=== PATIENT | female | born 1970 | race Caucasian/White ===

== ENCOUNTER 2020-09-04 12:14 | Outpatient (REF) | payer OTHER, SELFPAY ==
--- NOTE | 2020-09-04 12:20 | XR_ITS ---
EXAMINATION: XR LUMBOSACRAL SPINE CLINICAL INFORMATION: Lumbar spine COMPARISON: June 22, 2016 TECHNIQUE: 3 views of the lumbar spine. FINDINGS: There are 5 nonrib-bearing lumbar vertebra. No acute fracture, spondylolisthesis, or spondylolysis is appreciated. There is significant degenerative disc disease seen at the L2-L3 level with loss of disc space and marginal sclerosis and spurring anteriorly. Patient is status post L5-S1 fusion with metallic hardware in place. No significant sacroiliac joint abnormality identified. XR/XR lumbar spine 2-3V IMPRESSION: Stable appearance of the lumbar spine compared to study of June 22, 2016. Degenerative change L2-L3 level. Status post previous fusion L5-S1. No acute fracture, spondylolisthesis, or spondylolysis.
== END 2020-09-04 12:15 | disposition home or self-care (01) ==
LOC: HO.HMGCX 12:14
PROVIDERS: PCP Nurse Practitioner Family; Visit Provider Nurse Practitioner Family
DX: M54.16 Radiculopathy, lumbar region (principal); R20.0 Anesthesia of skin
CPT/HCPCS: 72100

== ENCOUNTER 2020-09-12 12:44 | Outpatient (REF) | payer OTHER, SELFPAY ==
--- NOTE | 2020-09-12 13:30 | MR_ITS ---
EXAMINATION: MR LUMBAR SPINE WITHOUT CONTRAST CLINICAL INFORMATION: Lower back pain. Numbness in the right lower extremity. Right foot numbness. COMPARISON: Lumbar spine radiographs from 09/04/2020. Right hip MRI from 11/02/2019. TECHNIQUE: MRI of the lumbar spine was obtained using routine sequences without contrast. FINDINGS: Interbody fusion of L5-S1. Moderate left convex curvature of the lumbar spine. Right lateral translation of L2 on L3. Moderate to advanced degenerative disc disease at L2-L3. Moderate degenerative disc disease at T11-T12 and L4-L5. Associated mixed Modic type discogenic endplate changes including minimal Modic type I discogenic edema at L2-L3. No additional suspicious marrow edema. The vertebral body heights are largely maintained. The Conus medullaris terminates at the level of L1-L2. The distal spinal cord is normal in appearance. Postoperative soft tissue changes of the back from L3-S1. Otherwise, no significant abnormalities of the paraspinal musculature. Moderate ectasia of the bilateral renal pelvises and proximal ureters. Left-sided T2 hyperintense renal cysts, measuring up to 1.6 cm. Otherwise, limited evaluation of the intra-abdominal structures without significant abnormalities. The abdominal aorta is of normal contour and caliber. AXIAL SPINAL LEVELS: T11-T12: This level was not included on axial imaging. Mild diffuse disc bulge. No overt spinal canal or neural foraminal stenosis. T12-L1: Shallow diffuse disc bulge. There is moderate bilateral facet joint arthropathy. There is no neural foraminal stenosis. There is no spinal canal stenosis. L1-L2: Shallow diffuse disc bulge. There is moderate bilateral facet joint arthropathy. There is no neural foraminal stenosis. There is mild narrowing of the left subarticular zone with no overt spinal canal stenosis centrally. L2-L3: Moderate diffuse disc bulge. There is moderate right and mild left facet joint arthropathy. There is mild to moderate bilateral neural foraminal stenosis. There is stenosis of the right subarticular zone with no overt spinal canal stenosis centrally. L3-L4: Mild diffuse disc bulge. There is moderate bilateral facet joint arthropathy. There is mild to moderate bilateral neural foraminal stenosis. There is narrowing of the bilateral subarticular zones with no overt spinal canal stenosis centrally. L4-L5: Mild diffuse disc bulge. There is moderate to advanced bilateral facet joint arthropathy. Bilateral facet joint effusions. There is moderate bilateral neural foraminal stenosis. There is narrowing/stenosis of the bilateral subarticular zones with mild spinal canal stenosis centrally. L5-S1: Interbody fusion at this level. There is a well-circumscribed ovoid lesion centered in the right lateral canal with mixed T1 and T2 signal, measuring 2.3 x 1.7 x 4.6 cm. There is moderate bilateral facet joint arthropathy. There is moderate to advanced right and mild left neural foraminal stenosis. There is moderate to advanced spinal canal stenosis. MR/MR lumbar spine wo con IMPRESSION: Interbody fusion of L5-S1. There is a large well-circumscribed lesion centered in the right lateral canal at L5-S1, measuring 2.3 x 1.7 x 4.6 cm. This lesion is of indeterminate etiology but does not appear to have been present on exam from 11/02/2019. Given the short interval appearance of this lesion, a hemorrhagic synovial cyst is a leading consideration. However, contrast enhanced evaluation may be warranted to exclude a solid neoplastic process. Moderate multilevel degenerative spondyloarthropathy of the lumbar spine as described in detail above. The aforementioned lesion at L5-S1 causes moderate to severe spinal canal and right-sided neural foraminal stenosis at this level. There is also mild spinal canal stenosis at L4-L5. Additional stenoses of the subarticular zones and mild to moderate neural foraminal narrowings from L2-L5.
== END 2020-09-12 12:45 | disposition home or self-care (01) ==
LOC: HO.MRI 12:44
PROVIDERS: Visit Provider Nurse Practitioner Family
DX: M54.16 Radiculopathy, lumbar region (principal); R20.0 Anesthesia of skin
CPT/HCPCS: 72148

== ENCOUNTER → 2020-09-15 12:54 | Outpatient (BNVA) | payer OTHER, SELFPAY | PROVIDERS: PCP Nurse Practitioner Family; Visit Provider Anesthesiology | DX: M96.1 Postlaminectomy syndrome, not elsewhere classified (principal); M54.16 Radiculopathy, lumbar region; R20.0 Anesthesia of skin | CPT/HCPCS: 99202 ==

== ENCOUNTER 2020-09-19 15:50 | Outpatient (REF) | payer OTHER, SELFPAY ==
--- NOTE | 2020-09-19 15:56 | MR_ITS ---
EXAMINATION: MR LUMBAR SPINE WITHOUT AND WITH CONTRAST CLINICAL INFORMATION: Severe right-sided sciatica. COMPARISON: Recent MRI dated 09/12/2020. TECHNIQUE: Multiplanar, multisequence imaging was obtained. Intravenous contrast: Gadavist 7 mL. FINDINGS: At the L5-S1 level, the large suspected complex cystic lesion within the right lateral recess of L5 extends along the right lateral aspect of the central canal compressing the right L5 and right S1 nerve roots, relatively unchanged in morphology. The thecal sac is deviated to the left side and is moderate to severely distorted. Signal characteristics within the more dependent portion of the lesion have slightly changed and are more hyperintense on T1 and T2-weighted imaging, previously heterogeneously hypointense on the T2-weighted acquisition. On the postcontrast T1-weighted sequence, there is no clear discernible enhancement, though assessment remains limited, given the fact that the lesion is intrinsically heterogeneously hyperintense on noncontrast T1-weighted imaging. Postsurgical changes, status post previous anterior lumbar interbody fusion at L5-S1 again evident. There is additional abnormal enhancement of some right-sided cauda equina nerve roots in the thecal sac. Multilevel spondylosis remains stable with a degenerative spinal curvature. No paraspinal soft tissue abnormality is seen. Small left renal cysts again noted. MR/MR lumbar spine wo con IMPRESSION: No obvious soft tissue enhancement of the suspected complex cystic lesion in the right aspect of the central canal resulting in compression of the thecal sac and right L5 and S1 nerve roots. As mentioned on previous imaging, findings are suspicious for a large hemorrhagic synovial cyst. Presumed reactive and inflammatory ascending radiculitis of right-sided sacral nerve roots in the thecal sac due to mass effect at the L5-S1 level. Imaging findings discussed with ALEJA Jensen at 6:35 PM on 09/19/2020.
[2020-09-19 16:25] LABS: Blood Urea Nitrogen 30 mg/dL (9-16); Estimated Glomerular Filt Rate > 60
== END 2020-09-19 15:51 | disposition home or self-care (01) ==
LOC: HO.MRI 15:50
PROVIDERS: Visit Provider Physician Assistant
DX: R20.0 Anesthesia of skin (principal); M62.81 Muscle weakness (generalized); M54.16 Radiculopathy, lumbar region; D49.2 Neoplasm of unspecified behavior of bone, soft tissue, and skin; M54.41 Lumbago with sciatica, right side; Z98.1 Arthrodesis status
CPT/HCPCS: 36415; 72148; 82565; 84520; A9585

== ENCOUNTER 2021-02-24 14:34 | Outpatient (REF) | payer MEDICARE, MEDICAID, SELFPAY ==
--- NOTE | ~2021-02-24 | MM_ITS ---
EXAMINATION: MM SCREENING DIGITAL BREAST TOMOSYNTHESIS, BILATERAL CLINICAL INFORMATION: Screening. Asymptomatic. The lifetime risk of breast cancer based on the Tyrer-Cuzick Model is 7.7%. COMPARISON: Mammography: None TECHNIQUE: Digital breast tomosynthesis is performed in both the craniocaudal and mediolateral oblique views along with computer-aided detection (CAD). Synthesized 2D images are generated from the tomosynthesis. FINDINGS: There are scattered areas of fibroglandular density (ACR BI-RADS breast composition Category b). There are no significant masses, abnormal calcifications, or other abnormalities. MM/MM tomosynthesis screening BI IMPRESSION: No specific mammographic evidence to suggest malignancy. ASSESSMENT: BI-RADS 1: Negative RECOMMENDATION: Routine annual mammography screening. This patient's information was entered into a reminder system with a target due date for their next mammogram.
== END 2021-02-24 14:35 | disposition home or self-care (01) ==
LOC: HO.MAMMO 14:34
PROVIDERS: PCP Nurse Practitioner Family; Visit Provider Nurse Practitioner Family
DX: Z12.31 Encounter for screening mammogram for malignant neoplasm of breast (principal)
CPT/HCPCS: 77063; 77067

== ENCOUNTER 2021-11-23 15:47 | Outpatient (REF) | payer MEDICARE, MEDICAID, SELFPAY ==
--- NOTE | 2021-11-23 | PFT_ITS ---
INDICATION: Pleurodynia. SPIROMETRY: FEV1 to FVC 82% with an FEV1 of 3.08 L, which is 100% predicted, and FVC of 3.74 L, which is 96% predicted. Maximum voluntary ventilation 115% predicted post bronchodilators. No significant response noted. LUNG VOLUMES: Total lung capacity 96% predicted. DIFFUSION CAPACITY: DLCO 61% predicted. COMPARISONS: None. INTERPRETATION: No obstructive nor restrictive ventilatory defects identified. No significant response to bronchodilators noted. Normal maximum voluntary ventilation. Lung volumes are within normal limits. However, the patient does have an isolated mild diffusion impairment. This should be corrected for hemoglobin. Otherwise, consider pulmonary vascular conditions or occult interstitial lung conditions. Clinical correlation warranted. Severino Silver MD MR/MODL / [id number]
== END 2021-11-23 15:48 | disposition home or self-care (01) ==
LOC: HO.RESP 15:47
PROVIDERS: PCP Nurse Practitioner Family; Visit Provider Nurse Practitioner Family
DX: R07.81 Pleurodynia (principal)
CPT/HCPCS: 94060; 94727; 94729

== ENCOUNTER 2021-12-03 14:27 | Outpatient (REF) | payer MEDICARE, MEDICAID, SELFPAY ==
--- NOTE | ~2021-12-03 | XR_ITS ---
EXAMINATION: XR CHEST CLINICAL INFORMATION: Wheezing. COMPARISON: None TECHNIQUE: 2 views of the chest were obtained. FINDINGS: The lungs are well-expanded and clear. The heart size and pulmonary vascularity is normal. There is mild spondylosis dorsal spine. No lytic process seen. XR/XR chest 2V IMPRESSION: Unremarkable chest examination.
== END 2021-12-03 14:28 | disposition home or self-care (01) ==
LOC: HO.HMGCX 14:27
PROVIDERS: PCP Nurse Practitioner Family; Visit Provider Nurse Practitioner Family
DX: R07.81 Pleurodynia (principal); R06.2 Wheezing
CPT/HCPCS: 71046

== ENCOUNTER → 2021-12-14 10:58 | Outpatient (BNVA) | payer MEDICARE, MEDICAID, SELFPAY | PROVIDERS: PCP Nurse Practitioner Family; Visit Provider Internal Medicine Pulmonary Disease | DX: R07.81 Pleurodynia (principal); R94.2 Abnormal results of pulmonary function studies | CPT/HCPCS: 99202 ==

== ENCOUNTER 2021-12-21 14:06 | Outpatient (REF) | payer MEDICARE, MEDICAID, SELFPAY ==
--- NOTE | ~2021-12-21 | CT_ITS ---
EXAMINATION: CT CHEST WITHOUT CONTRAST CLINICAL INFORMATION: Fluoroscopy knee COMPARISON: Previous chest x-ray from November 2021. Lumbar spine MRI August 2020 TECHNIQUE: Multidetector volumetric CT imaging of the chest was done. Axial MIP volume rendering provided. Sagittal and coronal reformatted images were obtained. This CT examination was performed using dose optimization techniques as appropriate, variously including the following: *Automated exposure control *Adjustment of mA and/or kV according to patient size (this includes techniques or standardized protocols for targeted exams where dose is matched to indication/reason for exam; i.e. extremities or head) *Use of iterative reconstruction technique DLP: 146 mGy-cm FINDINGS: WASTE PICKER: Unremarkable LUNGS: There is an 8 mm cyst in the right upper lobe. There is minimal linear scarring or subsegmental atelectasis in the bilateral lower lobes. The lungs are otherwise clear. MEDIASTINUM: The thoracic aorta is tortuous. There is mild coronary artery. The mediastinum is otherwise normal. PLEURA: There is no pleural effusion. No pleural mass or thickening. AXILLA: No lymphadenopathy. No chest wall mass. UPPER ABDOMEN: There is fullness of the left renal pelvis. There may be a 1.8 cm cyst in the upper pole of the left kidney. These findings are similar to previous lumbar spine MRI 2020. OSSEOUS STRUCTURES: There are mild degenerative changes of the thoracic spine and curvature of the lower thoracic and upper lumbar spine to the right. There are postsurgical changes to the cervical spine. No rib fracture or bone lesion is seen. CT/CT chest wo con IMPRESSION: 8 mm cyst in the right upper lobe. Mild scarring or subsegmental atelectasis at the lung bases. Fleischner guidelines were followed.
== END 2021-12-21 14:07 | disposition home or self-care (01) ==
LOC: HO.CT 14:06
PROVIDERS: PCP Nurse Practitioner Family; Visit Provider Internal Medicine Pulmonary Disease
DX: R07.81 Pleurodynia (principal)
CPT/HCPCS: 71250

== ENCOUNTER → 2022-01-04 11:26 | Outpatient (BNVA) | payer MEDICARE, MEDICAID, SELFPAY | PROVIDERS: PCP Nurse Practitioner Family; Visit Provider Internal Medicine Pulmonary Disease | DX: R07.81 Pleurodynia (principal); R94.2 Abnormal results of pulmonary function studies | CPT/HCPCS: 99212 ==

== ENCOUNTER 2022-09-17 08:22 | Outpatient (REF) | payer MEDICARE, MEDICAID, SELFPAY ==
[2022-09-17 11:16] LABS: MANUAL DIFF FLAG NO
[2022-09-17 11:23] LABS: Basophils Absolute Auto 0.1 X10*3/uL (0.0-0.2); Basophils Percent Auto 0.9 % (0-2); Eosinophils Absolute Auto 0.8 X10*3/uL (0.0-0.4); Eosinophils Percent Auto 11.4 % (0-4); Hematocrit 24.7 % (37.0-47.0); Imm Gran Abs Auto 0.01 X10*3/uL (0.00-0.03); Imm Gran Pct Auto 0.2 % (0.0-0.4); Lymphocytes Absolute Auto 0.8 X10*3/uL (1.2-4.9); Lymphocytes Percent Auto 12.3 % (20-40); Mean Corpuscular HGB Conc 28.3 g/dl (31.0-35.0); Mean Corpuscular Hemoglobin 19.8 pg (27.0-33.0); Mean Platelet Volume 9.1 fL (9.4-12.3); Monocytes Absolute Auto 0.6 X10*3/uL (0.1-1.2); Monocytes Percent Auto 8.6 % (2-11); Neutrophils Absolute Auto 4.4 x10*3/uL (2.0-8.3); Neutrophils Percent Auto 66.6 % (45-73); Platelet Count 585 X10*3/uL (160-400); Red Blood Count 3.53 X10*6/uL (4.20-5.50); White Blood Count 6.6 X10*3/uL (4.8-10.8)
[2022-09-17 11:39] LABS: Appearance Urine Clear; Color Urine Yellow; Glucose Urine UA Negative (Negative); Leukocyte Esterase Urine Small (1+) (Negative); Nitrite Urine Negative (Negative); Specific Gravity - Urine 1.015 (1.005-1.025); UMIC TRIGGER UACC YES; Urine Blood Negative (Negative); Urine Ketones Negative (Negative); Urine Protein Negative (Neg-Trace)
[2022-09-17 11:46] LABS: Bacteria Urine 4+ (None Seen); Hyaline Casts Urine 0-2 /LPF (0-2); RBC Urine 0-2 /HPF (0-2); Squamous Epithelial Cell Urine 0-2 /HPF (0-2); UACC Culture Trigger YES; WBC Urine 21-50 /HPF (0-5)
[2022-09-17 11:57] LABS: Alanine Aminotransferase 14 U/L (0-31); Albumin Level 3.7 g/dL (3.5-5.0); Alkaline Phosphatase 47 U/L (39-117); Anion Gap 11 (12-20); Aspartate Amino Transferase 18 U/L (5-31); Bilirubin Total 0.3 mg/dL (0.0-1.0); Blood Urea Nitrogen 11 mg/dL (9-16); Calcium 9.5 mg/dL (8.4-10.2); Carbon Dioxide 26 mmol/L (22-29); Chloride 105 mmol/L (96-108); Cholesterol 168 mg/dL; Estimated Glomerular Filt Rate > 60; Glucose Fasting 94 mg/dL (60-99); HDL Cholesterol 54 mg/dL; LDL Cholesterol Calculated 105 mg/dl; Potassium 4.1 mmol/L (3.3-5.1); Sodium 138 mmol/L (135-145); Total Protein 5.8 g/dL (6.5-8.0); Triglycerides 49 mg/dL
[2022-09-17 11:58] LABS: TSH reflex Free T4 0.43 uIU/mL (0.32-4.0)
[2022-09-21 13:47] LABS: Transglutaminase Ab IgG <1.0 U/mL; Transglutaminase IgA <1.0 U/mL
[2022-09-22 10:43] LABS: Endomysial IgA Antibody Negative (Negative)
== END 2022-09-17 08:23 | disposition home or self-care (01) ==
LOC: HO.HMGCLDS 08:22
PROVIDERS: Visit Provider Nurse Practitioner Family
DX: Z13.89 Encounter for screening for other disorder (principal)
CPT/HCPCS: 36415; 80053; 80061; 81001; 84443; 85025; 86231; 86364; 87086; 87088; 87186

== ENCOUNTER 2022-09-17 12:42 | Inpatient (IN) | payer MEDICARE, MEDICAID, SELFPAY ==
[2022-09-17] VITALS (10 sets, daily range): BP systolic 107–126; BP diastolic 67–82; PULSE 62–75; RESP 16–18; TEMP 36.6–37.1; O2SAT 95–98; BMI 27.3
--- NOTE | ~2022-09-17 | CT_ITS ---
EXAMINATION: CT ABDOMEN AND PELVIS WITH CONTRAST CLINICAL INFORMATION: Diarrhea. Abdominal pain. Anemia. COMPARISON: None TECHNIQUE: Multidetector volumetric images were obtained from the superior aspect of the liver through the pubic symphysis following administration 85 mL of Omnipaque 350 intravenous contrast. Sagittal and coronal reformatted images were obtained on the technologist's workstation. Oral contrast: No This CT examination was performed using dose optimization techniques as appropriate, variously including the following: *Automated exposure control *Adjustment of mA and/or kV according to patient size (this includes techniques or standardized protocols for targeted exams where dose is matched to indication/reason for exam; i.e. extremities or head) *Use of iterative reconstruction technique DLP: 594 mGy-cm FINDINGS: LUNG BASES: Bibasilar atelectasis. The visualized cardiac structures are unremarkable. LIVER, GALLBLADDER, AND BILIARY TREE: The liver is normal in size, shape, and attenuation. No focal hepatic lesion. The gallbladder is unremarkable with no evidence of radiopaque gallstones, gallbladder wall thickening, or obvious pericholecystic inflammatory changes. Mild intrahepatic biliary ductal dilatation. The common bile duct is also mildly prominent measuring 0.7 cm. No ductal filling defect seen. PANCREAS: Unremarkable. SPLEEN: Unremarkable. ADRENAL GLANDS: Unremarkable. KIDNEYS AND URETERS: The kidneys are normal in size, shape, and attenuation. No hydronephrosis, hydroureter, or calculi seen. No perinephric stranding. Simple cyst at the upper pole of the left kidney. No specific follow-up recommended. BLADDER: Unremarkable. GASTROINTESTINAL TRACT: The stomach is unremarkable. Normal caliber small bowel. No obstruction. Mild to moderate colonic stool burden. No colonic wall thickening. That said, evaluation of the sigmoid colon is somewhat limited in the pelvis as there is adjacent free fluid. Normal appendix. No free air. ABDOMINAL WALL: No significant hernia is appreciated. LYMPH NODES: Normal. VASCULAR: Normal caliber aorta with mild atherosclerotic calcification. PELVIC VISCERA: Anteverted uterus. No adnexal mass. Small volume of pelvic free fluid. OSSEOUS STRUCTURES: No acute or suspicious osseous abnormality. Mild scoliotic curvature of the spine with mild degenerative changes throughout the spine. Anterior fusion hardware of L5-S1. Mild degenerative changes in the hips. CT/CT abdomen pelvis w IV con IMPRESSION: 1. Small volume of pelvic free fluid. This is of uncertain etiology. 2. Mild to moderate colonic stool burden. 3. Mild intrahepatic and extrahepatic biliary ductal dilatation. No ductal filling defect seen. Fleischner guidelines were followed.
--- NOTE | 2022-09-17 13:09 | ED_ITS ---
HPI - General Adult General Chief complaint: Recheck/Abnormal Lab/Rx <ALEJA Gonzalez - Last Filed: 09/17/22 13:17> Stated complaint: Sent by Dr. Ramesh for blood transfusion <ALEJA Gonzalez - Last Filed: 09/17/22 13:17> Time Seen by Provider: 09/17/22 13:59 <ALEJA Gonzalez - Last Filed: 09/17/22 13:17> Source: patient <Becca Jess Kearney CNP - Last Filed: 09/17/22 18:48> Mode of arrival: ambulatory <Becca Kearney CNP - Last Filed: 09/17/22 18:48> Limitations: no limitations <Becca Kearney CNP - Last Filed: 09/17/22 18:48> History of Present Illness HPI narrative: Patient is a 51-year-old female who presents to the emergency department with referral from her primary care provider for anemia, intermittent lig htheadedness. Patient reports that over the past 6 months she has been experiencing diarrhea, multiple episodes daily. She has been taking large amounts of Pepto-Bismol and Imodium. For the past 6 months her stools have been black, which she attributed to her Pepto-Bismol use. She states that she was recently started on antibiotics by her primary care provider for possible infectious diarrhea. She had blood work obtained earlier today which revealed hemoglobin of 7 and hematocrit 24.7. Denies any family history of colon cancer. States she had a colonoscopy within the past 5 years which was normal. Denies fevers, chills, weight loss, abdominal pain, nausea, vomiting, constipation, sheldon e sweats. Denies any source of obvious bleeding. Denies any use of anticoagulation. <Becca Kearney CNP - Last Filed: 09/17/22 18:48> Related Data Home medications: Home Medications Medication Instructions Recorded Confirmed hydroxyzine HCl 25 mg tablet 25 mg PO BID PRN Anxiety 09/04/20 09/17/22 bupropion HCl 300 mg 24 hr tablet, 300 mg PO DAILY 07/23/21 09/17/22 extended release multivitamin 1 tab PO DAILY 09/17/22 09/17/22 Previous Rx's Medication Instructions Recorded pantoprazole 40 mg tablet,delayed 40 mg PO DAILY #90 tabs 04/01/22 release gabapentin 300 mg capsule 300 mg PO .COMPLEX 30 days #120 06/09/22 caps lisinopril 5 mg tablet 5 mg PO DAILY #30 tabs 06/27/22 loperamide 2 mg capsule 2 mg PO QID PRN loose stool 30 09/14/22 days #120 caps levofloxacin 500 mg tablet 500 mg PO DAILY #5 tabs 09/16/22 ondansetron 8 mg disintegrating 8 mg PO Q12H PRN nausea and 09/16/22 tablet vomiting 10 days #20 tabs <ALEJA Gonzalez - Last Filed: 09/17/22 13:17> Allergies/adverse reactions: Allergies Allergy/AdvReac Type Severity Reaction Status Date / Time metronidazole [From Flagyl] AdvReac Severe Nausea Verified 09/16/22 12:40 <ALEJA Gonzalez - Last Filed: 09/17/22 13:17> Review of Systems Review of Systems: Constitutional : No Weight loss, No Fever, No Chills ENT/Mouth :? No sore throat, No Rhinorrhea Eyes: No Swelling, No Redness Cardiovascular : No Chest Pain, No SOB, No Edema Respiratory : No Cough, No Sputum, No Wheezing Gastrointestinal : No Nausea, no Vomiting, positive Diarrhea, no abdominal pain, No Hematochezia, positive Melena Genitourinary : No Dysuria, No Urinary Frequency, No Hematuria, No Urgency? Musculoskeletal : No joint pain, No Myalgias, No Joint Swelling Skin : No Skin Lesions, No rash Neuro : No Weakness, No Numbness, No Dizziness, No Headache Psych : No Anxiety/Panic, No Depression Heme/Lymph: No Bruising, No Lymphadenopathy Endocrine : No Polyuria, No Polydipsia <Becca Kearney CNP - Last Filed: 09/17/22 18:48> Yes all other systems are reviewed and are negative <Becca Kearney CNP - Last Filed: 09/17/22 18:48> [facility] Past Medical History Attestation statement: The following information was validated with the patient. <Becca Kearney CNP - Last Filed: 09/17/22 18:48> Source: old records reviewed <Becca Kearney CNP - Last Filed: 09/17/22 18:48> Medical History: Medical History Postlaminectomy syndrome PTSD (post-traumatic stress disorder) Synovial cyst of lumbar spine Urine incontinence <ALEJA Gonzalez - Last Filed: 09/17/22 13:17> Surgical History: Surgical History H/O unilateral oophorectomy History of discectomy History of tonsillectomy Hx of spinal fusion <ALEJA Gonzalez - Last Filed: 09/17/22 13:17> Family History Family History: Family History Father No problems noted. Mother Substance use disorder Maternal Grandmother Alzheimer's disease Brother No problems noted. Sister No problems noted. Son No problems noted. <ALEJA Gonzalez - Last Filed: 09/17/22 13:17> Social History Social History: Social History Housing: House Alcohol intake: never Patient Tobacco Use Status: Former Tobacco user Smoked in Last 30 Days: No e-Cigarette/Vaping Use: Currently Using Use of substances other than those prescribed or required for medical reasons: No Advance Directives: No Advance Directives Information Provided: No Patient : No Current occupational status: disabled Cognitive needs: No Hearing needs: No Vision needs: No <ALEJA Gonzalez - Last Filed: 09/17/22 13:17> Physical Exam ED Vital Signs: Vital Signs - 24 hr 09/17/22 12:57 09/17/22 15:40 09/17/22 15:50 Temperature 98.5 F 97.9 F Pulse Rate 75 71 67 Respiratory Rate 18 18 18 Blood Pressure 118/75 108/67 108/67 Pulse Oximetry 98 95 Oxygen Delivery Method Room Air Room Air 09/17/22 15:56 09/17/22 16:32 09/17/22 16:48 Temperature 98.1 F 98.1 F 98.1 F Pulse Rate 65 65 65 Respiratory Rate 18 18 18 Blood Pressure 110/71 126/74 126/74 Pulse Oximetry Oxygen Delivery Method 09/17/22 17:09 09/17/22 17:27 09/17/22 17:27 Temperature 98.3 F 98.4 F 98.4 F Pulse Rate 66 62 62 Respiratory Rate 18 18 18 Blood Pressure 108/73 107/71 107/71 Pulse Oximetry Oxygen Delivery Method BMI result Body Mass Index 27.3 <ALEJA Gonzalez - Last Filed: 09/17/22 13:17> Vital Signs - 24 hr 09/17/22 12:57 09/17/22 15:40 09/17/22 15:50 Temperature 98.5 F 97.9 F Pulse Rate 75 71 67 Respiratory Rate 18 18 18 Blood Pressure 118/75 108/67 108/67 Pulse Oximetry 98 95 Oxygen Delivery Method Room Air Room Air 09/17/22 15:56 09/17/22 16:32 09/17/22 16:48 Temperature 98.1 F 98.1 F 98.1 F Pulse Rate 65 65 65 Respiratory Rate 18 18 18 Blood Pressure 110/71 126/74 126/74 Pulse Oximetry Oxygen Delivery Method 09/17/22 17:09 09/17/22 17:27 09/17/22 17:27 Temperature 98.3 F 98.4 F 98.4 F Pulse Rate 66 62 62 Respiratory Rate 18 18 18 Blood Pressure 108/73 107/71 107/71 Pulse Oximetry Oxygen Delivery Method BMI result Body Mass Index 27.3 <Becca Kearney CNP - Last Filed: 09/17/22 18:48> Appearance: Alert.?Oriented to person, place and time. No acute distress.?Normal affect. Eyes: Pupils equal, round and reactive to light.? ENT: Pharynx normal.?? Neck: Normal inspection.? Neck supple.?? CVS: Heart sounds normal. Normal heart rate and rhythm.? Pulses normal.?? Respiratory: No respiratory distress.? Lung sounds clear to auscultation bilaterally?? Abdomen: Soft and non-tender. Normoactive bowel sounds. Skin: Skin warm and dry.? Skin appears pale Extremities: No lower extremity edema.? Neuro: Moves all extremities spontaneously. Sensation intact bilaterally. Ambulates with normal steady gait. <Becca Kearney CNP - Last Filed: 09/17/22 18:48> Course Course Course Narrative: RME performed by Judy Mak PA-C. Patient is a 51 year old female presenting to the emergency department after being told she has a low HGB. Patient states that she has been having GI issues for months and has been taking a lot of pepto-bismol. <ALEJA Gonzalez - Last Filed: 09/17/22 13:17> Reevaluation(s) Reevaluation #1: CBC consistent with microcytic anemia hemoglobin 6.8 hematocrit 24.2. Occult stool is negative, rectal examination without evidence of hemorrhoid, fissure, no bright red blood per rectum. patient has not had any bowel movements at this time to send stool sample. CT of the abdomen and pelvis reveals small amount of free pelvic fluid, mild to moderate colonic stool burden. At this point no obvious source of gastrointestinal blood loss. Spoke with hospitalist Dr. Jordan for admission to medicine service for further evaluation treatment of anemia unknown etiology requiring transfusion. <Becca Kearney CNP - Last Filed: 09/17/22 18:48> Time: 17:10 <Becca Kearney CNP - Last Filed: 09/17/22 18:48> Medications Administered Discontinued Medications Generic Name Dose Route Start Last Admin Trade Name Freq PRN Reason Stop Dose Admin Iohexol 100 ml 09/17/22 15:03 09/17/22 15:03 Iohexol 350 Mg/Ml 100 Ml Infus..Btl IV 09/17/22 15:04 85 ml ONCE ONE Administration Nicotine Polacrilex 2 mg 09/17/22 14:48 09/17/22 15:07 Nicotine Polacrilex 2 Mg Gum BUCCAL 09/17/22 14:49 2 mg ONCE ONE Administration <ALEJA Gonzalez - Last Filed: 09/17/22 13:17> Medications Administered Discontinued Medications Generic Name Dose Route Start Last Admin Trade Name Freq PRN Reason Stop Dose Admin Iohexol 100 ml 09/17/22 15:03 09/17/22 15:03 Iohexol 350 Mg/Ml 100 Ml Infus..Btl IV 09/17/22 15:04 85 ml ONCE ONE Administration Nicotine Polacrilex 2 mg 09/17/22 14:48 09/17/22 15:07 Nicotine Polacrilex 2 Mg Gum BUCCAL 09/17/22 14:49 2 mg ONCE ONE Administration <Becca Kearney CNP - Last Filed: 09/17/22 18:48> Medical Decision Making Medical Decision Making MDM Narrative: Patient is a 51-year-old female with past medical history of microcytic anemia, PTSD, anxiety presenting to the emergency department for evaluation of anemia and black stools. Has associated lightheadedness. Denies any jaymie bleeding, hematuria, pelvic bleeding. Denies any need for blood transfusion in the past. Reviewed labs obtained from E, microcytic anemia needing transfusion criteria, discussed blood transfusion, reviewed potential complications, adverse reactions, indications/risks. Consent obtained, agreeable to transfusion at this time, ordered 2 units PRBC.. CBC also revealing thrombocytosis. CMP within normal limits. Will obtain occult stool, stools WBC, culture, C diff, and CT of the abdomen and pelvis for further evaluation of acute blood loss due to GI bleed. <Becca Kearney CNP - Last Filed: 09/17/22 18:48> Differential Diagnosis Differential Diagnoses: The differential diagnosis associated with the presentation includes (GI bleed, iron deficiency anemia, microcytic anemia) <Becca Kearney CNP - Last Filed: 09/17/22 18:48> Admission/Observation Consideration of admission/observation: Escalation of care including admission/observation considered <Becca Kearney CNP - Last Filed: 09/17/22 18:48> Consult Healthcare Provider Management of the patient was discussed with: Hospitalist (As noted in course) <Becca Kearney CNP - Last Filed: 09/17/22 18:48> Lab Data MDM Lab Attestation statement: I reviewed the patient's lab results. <Becca Kearney CNP - Last Filed: 09/17/22 18:48> Result Diagrams: 09/17/22 13:38 09/17/22 13:38 <ALEJA Gonzalez - Last Filed: 09/17/22 13:17> Labs: Lab Results 09/17/22 09/17/22 09/17/22 Range/Units 13:38 13:38 13:38 WBC 7.3 (4.8-10.8) X10*3/uL RBC 3.49 L (4.20-5.50) X10*6/uL Hgb 6.8 L* (12.0-16.0) g/dl Hct 24.2 L (37.0-47.0) % MCV 69.3 L (80.0-98.0) fL MCH 19.5 L (27.0-33.0) pg MCHC 28.1 L (31.0-35.0) g/dl RDW 18.6 H (11.0-16.0) % Plt Count 505 H (160-400) X10*3/uL MPV 8.6 L (9.4-12.3) fL Immature Gran % (Auto) 0.3 (0.0-0.4) % Neut % (Auto) 62.0 (45-73) % Lymph % (Auto) 19.7 L (20-40) % Bureau % (Auto) 8.7 (2-11) % Eos % (Auto) 8.5 H (0-4) % Baso % (Auto) 0.8 (0-2) % Lymph # (Auto) 1.4 (1.2-4.9) X10*3/uL Bureau # (Auto) 0.6 (0.1-1.2) X10*3/uL Eos # (Auto) 0.6 H (0.0-0.4) X10*3/uL Baso # (Auto) 0.1 (0.0-0.2) X10*3/uL Abs Immat Gran (auto) 0.02 (0.00-0.03) X10*3/uL Absolute Neuts (auto) 4.5 (2.0-8.3) x10*3/uL Absolute Nucleated RBC 0.000 (0.0-0.012) X10*3/uL Nucleated RBC % (auto) 0.0 (0.0-0.2) /100WBC PT 14.1 H (10.0-13.1) SEC INR 1.2 H (0.9-1.1) APTT 33.3 (26.0-36.4) SEC Sodium 138 (135-145) mmol/L Potassium 4.4 (3.3-5.1) mmol/L Chloride 103 (96-108) mmol/L Carbon Dioxide 25 (22-29) mmol/L Anion Gap 14 (12-20) BUN 11 (9-16) mg/dL Creatinine 0.84 (0.5-1.4) mg/dL Estim Creat Clear Calc 84.9 Estimated GFR > 60 Random Glucose 87 (60-115) mg/dL Calcium 9.5 (8.4-10.2) mg/dL Magnesium 1.8 (1.6-2.6) mg/dL Total Bilirubin 0.3 (0.0-1.0) mg/dL AST 20 (5-31) U/L ALT 13 (0-31) U/L Alkaline Phosphatase 48 (39-117) U/L Total Protein 5.9 L (6.5-8.0) g/dL Albumin 3.8 (3.5-5.0) g/dL Stool Occult Blood (NEGATIVE) Blood Type Antibody Screen Crossmatch 09/17/22 09/17/22 Range/Units 14:43 17:13 WBC (4.8-10.8) X10*3/uL RBC (4.20-5.50) X10*6/uL Hgb (12.0-16.0) g/dl Hct (37.0-47.0) % MCV (80.0-98.0) fL MCH (27.0-33.0) pg MCHC (31.0-35.0) g/dl RDW (11.0-16.0) % Plt Count (160-400) X10*3/uL MPV (9.4-12.3) fL Immature Gran % (Auto) (0.0-0.4) % Neut % (Auto) (45-73) % Lymph % (Auto) (20-40) % Bureau % (Auto) (2-11) % Eos % (Auto) (0-4) % Baso % (Auto) (0-2) % Lymph # (Auto) (1.2-4.9) X10*3/uL Bureau # (Auto) (0.1-1.2) X10*3/uL Eos # (Auto) (0.0-0.4) X10*3/uL Baso # (Auto) (0.0-0.2) X10*3/uL Abs Immat Gran (auto) (0.00-0.03) X10*3/uL Absolute Neuts (auto) (2.0-8.3) x10*3/uL Absolute Nucleated RBC (0.0-0.012) X10*3/uL Nucleated RBC % (auto) (0.0-0.2) /100WBC PT (10.0-13.1) SEC INR (0.9-1.1) APTT (26.0-36.4) SEC Sodium (135-145) mmol/L Potassium (3.3-5.1) mmol/L Chloride (96-108) mmol/L Carbon Dioxide (22-29) mmol/L Anion Gap (12-20) BUN (9-16) mg/dL Creatinine (0.5-1.4) mg/dL Estim Creat Clear Calc Estimated GFR Random Glucose (60-115) mg/dL Calcium (8.4-10.2) mg/dL Magnesium (1.6-2.6) mg/dL Total Bilirubin (0.0-1.0) mg/dL AST (5-31) U/L ALT (0-31) U/L Alkaline Phosphatase (39-117) U/L Total Protein (6.5-8.0) g/dL Albumin (3.5-5.0) g/dL Stool Occult Blood NEGATIVE (NEGATIVE) Blood Type A Positive Antibody Screen NEGATIVE Crossmatch See Detail <ALEJA Gonzalez - Last Filed: 09/17/22 13:17> Lab Results 09/17/22 09/17/22 09/17/22 Range/Units 13:38 13:38 13:38 WBC 7.3 (4.8-10.8) X10*3/uL RBC 3.49 L (4.20-5.50) X10*6/uL Hgb 6.8 L* (12.0-16.0) g/dl Hct 24.2 L (37.0-47.0) % MCV 69.3 L (80.0-98.0) fL MCH 19.5 L (27.0-33.0) pg MCHC 28.1 L (31.0-35.0) g/dl RDW 18.6 H (11.0-16.0) % Plt Count 505 H (160-400) X10*3/uL MPV 8.6 L (9.4-12.3) fL Immature Gran % (Auto) 0.3 (0.0-0.4) % Neut % (Auto) 62.0 (45-73) % Lymph % (Auto) 19.7 L (20-40) % Bureau % (Auto) 8.7 (2-11) % Eos % (Auto) 8.5 H (0-4) % Baso % (Auto) 0.8 (0-2) % Lymph # (Auto) 1.4 (1.2-4.9) X10*3/uL Bureau # (Auto) 0.6 (0.1-1.2) X10*3/uL Eos # (Auto) 0.6 H (0.0-0.4) X10*3/uL Baso # (Auto) 0.1 (0.0-0.2) X10*3/uL Abs Immat Gran (auto) 0.02 (0.00-0.03) X10*3/uL Absolute Neuts (auto) 4.5 (2.0-8.3) x10*3/uL Absolute Nucleated RBC 0.000 (0.0-0.012) X10*3/uL Nucleated RBC % (auto) 0.0 (0.0-0.2) /100WBC PT 14.1 H (10.0-13.1) SEC INR 1.2 H (0.9-1.1) APTT 33.3 (26.0-36.4) SEC Sodium 138 (135-145) mmol/L Potassium 4.4 (3.3-5.1) mmol/L Chloride 103 (96-108) mmol/L Carbon Dioxide 25 (22-29) mmol/L Anion Gap 14 (12-20) BUN 11 (9-16) mg/dL Creatinine 0.84 (0.5-1.4) mg/dL Estim Creat Clear Calc 84.9 Estimated GFR > 60 Random Glucose 87 (60-115) mg/dL Calcium 9.5 (8.4-10.2) mg/dL Magnesium 1.8 (1.6-2.6) mg/dL Total Bilirubin 0.3 (0.0-1.0) mg/dL AST 20 (5-31) U/L ALT 13 (0-31) U/L Alkaline Phosphatase 48 (39-117) U/L Total Protein 5.9 L (6.5-8.0) g/dL Albumin 3.8 (3.5-5.0) g/dL Stool Occult Blood (NEGATIVE) Blood Type Antibody Screen Crossmatch 09/17/22 09/17/22 Range/Units 14:43 17:13 WBC (4.8-10.8) X10*3/uL RBC (4.20-5.50) X10*6/uL Hgb (12.0-16.0) g/dl Hct (37.0-47.0) % MCV (80.0-98.0) fL MCH (27.0-33.0) pg MCHC (31.0-35.0) g/dl RDW (11.0-16.0) % Plt Count (160-400) X10*3/uL MPV (9.4-12.3) fL Immature Gran % (Auto) (0.0-0.4) % Neut % (Auto) (45-73) % Lymph % (Auto) (20-40) % Bureau % (Auto) (2-11) % Eos % (Auto) (0-4) % Baso % (Auto) (0-2) % Lymph # (Auto) (1.2-4.9) X10*3/uL Bureau # (Auto) (0.1-1.2) X10*3/uL Eos # (Auto) (0.0-0.4) X10*3/uL Baso # (Auto) (0.0-0.2) X10*3/uL Abs Immat Gran (auto) (0.00-0.03) X10*3/uL Absolute Neuts (auto) (2.0-8.3) x10*3/uL Absolute Nucleated RBC (0.0-0.012) X10*3/uL Nucleated RBC % (auto) (0.0-0.2) /100WBC PT (10.0-13.1) SEC INR (0.9-1.1) APTT (26.0-36.4) SEC Sodium (135-145) mmol/L Potassium (3.3-5.1) mmol/L Chloride (96-108) mmol/L Carbon Dioxide (22-29) mmol/L Anion Gap (12-20) BUN (9-16) mg/dL Creatinine (0.5-1.4) mg/dL Estim Creat Clear Calc Estimated GFR Random Glucose (60-115) mg/dL Calcium (8.4-10.2) mg/dL Magnesium (1.6-2.6) mg/dL Total Bilirubin (0.0-1.0) mg/dL AST (5-31) U/L ALT (0-31) U/L Alkaline Phosphatase (39-117) U/L Total Protein (6.5-8.0) g/dL Albumin (3.5-5.0) g/dL Stool Occult Blood NEGATIVE (NEGATIVE) Blood Type A Positive Antibody Screen NEGATIVE Crossmatch See Detail <Becca Kearney CNP - Last Filed: 09/17/22 18:48> Radiology Impression Discussion of test interpretation with radiology: I have reviewed the radiologist's reading. <Becca Kearney CNP - Last Filed: 09/17/22 18:48> Radiologist Impression: CT/CT abdomen pelvis w IV con IMPRESSION: 1.? Small volume of pelvic free fluid. This is of uncertain etiology. 2.? Mild to moderate colonic stool burden. 3.? Mild intrahepatic and extrahepatic biliary ductal dilatation. No ductal filling defect seen. ? Fleischner guidelines were followed. <Becca Kearney CNP - Last Filed: 09/17/22 18:48> External Record Review External record reviewed: Outpatient record (Primary care office visit) <Becca Kearney CNP - Last Filed: 09/17/22 18:48> Critical Care Time Critical Care Time Critical Care Time: Yes <Becca Kearney CNP - Last Filed: 09/17/22 18:48> Total Critical Care Time: 35 <Becca Kearney CNP - Last Filed: 09/17/22 18:48> Attestation: I personally attest to this critical care time spent taking care of the patient exclusive of all other billable procedures was approximately 35 minutes including initial evaluation of patient, ordering tests, x-ray interpretation, EKG interpretation, medical consultation, documentation, re-evaluation. <Becca Kearney CNP - Last Filed: 09/17/22 18:48> Discharge Plan Discharge Clinical Impression: Microcytic anemia <ALEJA Gonzalez - Last Filed: 09/17/22 13:17> Patient Disposition: Admitted As Inpatient <ALEJA Gonzalez - Last Filed: 09/17/22 13:17>
[2022-09-17 13:42] LABS: MANUAL DIFF FLAG NO
[2022-09-17 13:43] LABS: Basophils Absolute Auto 0.1 X10*3/uL (0.0-0.2); Basophils Percent Auto 0.8 % (0-2); Eosinophils Absolute Auto 0.6 X10*3/uL (0.0-0.4); Eosinophils Percent Auto 8.5 % (0-4); Hematocrit 24.2 % (37.0-47.0); Imm Gran Abs Auto 0.02 X10*3/uL (0.00-0.03); Imm Gran Pct Auto 0.3 % (0.0-0.4); Lymphocytes Absolute Auto 1.4 X10*3/uL (1.2-4.9); Lymphocytes Percent Auto 19.7 % (20-40); Mean Corpuscular HGB Conc 28.1 g/dl (31.0-35.0); Mean Corpuscular Hemoglobin 19.5 pg (27.0-33.0); Mean Corpuscular Volume 69.3 fL (80.0-98.0); Mean Platelet Volume 8.6 fL (9.4-12.3); Monocytes Absolute Auto 0.6 X10*3/uL (0.1-1.2); Monocytes Percent Auto 8.7 % (2-11); Neutrophils Absolute Auto 4.5 x10*3/uL (2.0-8.3); Platelet Count 505 X10*3/uL (160-400); Red Blood Count 3.49 X10*6/uL (4.20-5.50); Red Cell Distribution Width 18.6 % (11.0-16.0); White Blood Count 7.3 X10*3/uL (4.8-10.8)
[2022-09-17 13:46] LABS: Hemoglobin 6.8 g/dl (12.0-16.0)
[2022-09-17 13:50] LABS: INTERNATIONAL NORM RATIO 1.2 (0.9-1.1); Prothrombin Time 14.1 SEC (10.0-13.1)
[2022-09-17 13:53] LABS: Partial Thromboplastin Time 33.3 SEC (26.0-36.4)
[2022-09-17 14:06] LABS: Alanine Aminotransferase 13 U/L (0-31); Albumin Level 3.8 g/dL (3.5-5.0); Alkaline Phosphatase 48 U/L (39-117); Anion Gap 14 (12-20); Aspartate Amino Transferase 20 U/L (5-31); Bilirubin Total 0.3 mg/dL (0.0-1.0); Blood Urea Nitrogen 11 mg/dL (9-16); Calcium 9.5 mg/dL (8.4-10.2); Carbon Dioxide 25 mmol/L (22-29); Chloride 103 mmol/L (96-108); Creatinine Clr Calc Pharmacy 84.9; Estimated Glomerular Filt Rate > 60; Glucose Random 87 mg/dL (60-115); Magnesium 1.8 mg/dL (1.6-2.6); Potassium 4.4 mmol/L (3.3-5.1); Sodium 138 mmol/L (135-145); Total Protein 5.9 g/dL (6.5-8.0)
--- NOTE | 2022-09-17 14:51 | PC.NURSE ---
blood consent signed with Yogi DE LA CRUZ. Located in chart.
[2022-09-17] MEDS: iohexoL 350 MG/ML 100 ML INFUS..BTL IV (15:03)
[2022-09-17] MEDS: Nicotine Polacrilex 2 MG GUM BUCCAL (15:07)
--- NOTE | 2022-09-17 17:18 | P.HPHOSP_ITS ---
History of Present Illness Date of Service: 09/17/22 Attending physician on admission: Asher Jordan Chief Complaint: Anemia Pt is a 51-year-old female with a PMH significant for IBS-D and ?anxiety who presents to the ED after referral from her PCP after labs showed a low hemoglobin. Pt has been experiencing daily, intractable diarrhea for the past 6+ months. Patient has a long history of IBS diarrhea type, for which she saw GI in December of 2019. She was then prescribed metronidazole and loperimide which provided some relief. On Tuesday of this week patient saw her PCP about her intractable diarrhea and nausea and was again prescribed metronidazole and encouraged to have labs drawn. By the end of Tuesday patient was experiencing headache, dizziness, unsteadiness, fatigue, as well as continued nausea. On she was prescribed Levaquin and had labs drawn, which showed an H&H of 7.0/24.7 and patient was asked by her PCP to come to the emergency room for transfusion. Of note, pt has been taking loperimide and Pepto Bismol regularly for past 3-4 months. She noticed her stools turned black right after starting Pepto Bismol. Denies any obvious source of GI bleeding: no hematemesis or bright red blood per rectum. Patient denies fever, chills, abdominal pain. No chest pain/pressure, palpitations. No shortness of breath. Patient denies urinary symptoms: no dysuria, polyuria. In the ED vitals were stable. Labs were significant for WBC WNL, H&H 7.0/24.7 with a repeat 5 hours later down trending to 6.8/24.2, MCV of 70.0. Stool was negative for occult blood. CT?of abdomen and pelvis showed small volume of pelvic free fluid of uncertain etiology, [id number] colonic stool burden, with mild intrahepatic and extrahepatic biliary ductal dilatation with no ductal filling defect seen. Pt was transfused with 2 units of packed RBC. Pt will be admitted to the hospital to telemetry for treatment and further evaluation of symptomatic anemia. Review of Systems Review of Systems: Diarrhea x1 month Nausea, no vomiting Dizziness, lightheadedness Fatigue Headache No hematemesis Denies bright red blood per rectum No chest pain/pressure, palpitations Denies shortness of breath Yes all other systems are reviewed and are negative PMFSH Medical History Postlaminectomy syndrome PTSD (post-traumatic stress disorder) Synovial cyst of lumbar spine Urine incontinence Family History Father No problems noted. Mother Substance use disorder Maternal Grandmother Alzheimer's disease Brother No problems noted. Sister No problems noted. Son No problems noted. Surgical History H/O unilateral oophorectomy History of discectomy History of tonsillectomy Hx of spinal fusion Social History Housing: House Alcohol intake: never Patient Tobacco Use Status: Former Tobacco user Smoked in Last 30 Days: No e-Cigarette/Vaping Use: Currently Using Use of substances other than those prescribed or required for medical reasons: No Advance Directives: No Advance Directives Information Provided: No Patient : No Current occupational status: disabled Cognitive needs: No Hearing needs: No Vision needs: No Meds Allergies Allergy/AdvReac Type Severity Reaction Status Date / Time metronidazole [From Flagyl] AdvReac Severe Nausea Verified 09/16/22 12:40 Active Medications: Current Medications Pharmacy Consult (Consult Rx Perform Med Rec) 1 each MISCELLANE ONCE PRN PRN Reason: Consult order Pharmacy Consult (Consult Rx Perform Med Rec) 1 each MISCELLANE ONCE PRN PRN Reason: Consult order Home Medications Medication Instructions Recorded Confirmed Last Taken Type hydroxyzine HCl 25 mg tablet 25 mg PO BID PRN Anxiety 09/04/20 09/17/22 Unknown History bupropion HCl 300 mg 24 hr tablet, 300 mg PO DAILY 07/23/21 09/17/22 09/17/22 History extended release multivitamin 1 tab PO DAILY 09/17/22 09/17/22 09/17/22 History Physical Exam Vital Signs and Narrative: Vital Signs: Last Vital Signs Temp 98.3 F 09/17/22 17:09 Pulse 66 09/17/22 17:09 Resp 18 09/17/22 17:09 BP 108/73 09/17/22 17:09 Pulse Ox 95 09/17/22 15:50 O2 Del Method 09/17/22 15:50 BMI result Body Mass Index 27.3 Constitutional: Alert, in no acute distress. Mental Status: Oriented to person, place and time. Eyes: Pupils are equal, round, and reactive to light. Ear, Nose, and Throat: Oropharynx clear, mucous membranes moist. Ears and nose without deformities. Trachea midline. Respiratory: Clear to auscultation bilaterally. No wheezing, rales, or rhonchi. Cardiovascular: S1, S2 regular. No murmurs, rubs, or gallops. Gastrointestinal: Abdomen soft, non-tender, non-distended. Normal bowel sounds. Neurologic: Cranial nerves II-XII are grossly intact. No focal neurological deficits. Moves all extremities spontaneously. Skin: No rashes or lesions noted. Musculoskeletal: No cyanosis or clubbing. Extremities: No edema. Psychiatric: Normal mood and affect. Results Labs 09/17/22 13:38 09/17/22 13:38 Labs: Laboratory Results - last 24 hr 09/17/22 09/17/22 09/17/22 13:38 13:38 13:38 MCV 69.3 L MCH 19.5 L MCHC 28.1 L RDW 18.6 H Plt Count 505 H MPV 8.6 L Immature Gran % (Auto) 0.3 Neut % (Auto) 62.0 Lymph % (Auto) 19.7 L [place] % (Auto) 8.7 Eos % (Auto) 8.5 H Baso % (Auto) 0.8 Lymph # (Auto) 1.4 [place] # (Auto) 0.6 Eos # (Auto) 0.6 H Baso # (Auto) 0.1 Abs Immat Gran (auto) 0.02 Absolute Neuts (auto) 4.5 Absolute Nucleated RBC 0.000 Nucleated RBC % (auto) 0.0 PT 14.1 H INR 1.2 H APTT 33.3 Anion Gap 14 Estim Creat Clear Calc 84.9 Estimated GFR > 60 Random Glucose 87 Calcium 9.5 Magnesium 1.8 Total Bilirubin 0.3 AST 20 ALT 13 Alkaline Phosphatase 48 Total Protein 5.9 L Albumin 3.8 Blood Type Antibody Screen Crossmatch 09/17/22 14:43 MCV MCH MCHC RDW Plt Count MPV Immature Gran % (Auto) Neut % (Auto) Lymph % (Auto) [place] % (Auto) Eos % (Auto) Baso % (Auto) Lymph # (Auto) [place] # (Auto) Eos # (Auto) Baso # (Auto) Abs Immat Gran (auto) Absolute Neuts (auto) Absolute Nucleated RBC Nucleated RBC % (auto) PT INR APTT Anion Gap Estim Creat Clear Calc Estimated GFR Random Glucose Calcium Magnesium Total Bilirubin AST ALT Alkaline Phosphatase Total Protein Albumin Blood Type A Positive Antibody Screen NEGATIVE Crossmatch See Detail Imaging Radiologist's Impressions: Impressions Abdomen/Pelvis CT 09/17/22 15:11 IMPRESSION: 1. Small volume of pelvic free fluid. This is of uncertain etiology. 2. Mild to moderate colonic stool burden. 3. Mild intrahepatic and extrahepatic biliary ductal dilatation. No ductal filling defect seen. Fleischner guidelines were followed. Assessment and Plan (1) Microcytic anemia: Status: Acute (2) Anxiety: Status: Acute Plan Pt is a 51-year-old female with a PMH significant for IBS-D and ?anxiety who presents to the ED after referral from her PCP after labs showed a low hemo globin of 7.0. Pt will be admitted to the hospital to telemetry for treatment and further evaluation of symptomatic anemia. Acute blood-loss anemia d/t likely GI bleed Pt received two units of packed RBCs in ED IV Protonix bid Clear liquid diet for now, NPO after midnight in anticipation for endoscopy and/or colonoscopy Check iron studies GI consult Admit to telemetry Diarrhea Hold abx for now, no indication for bacterial infection GI panel Lytes WNL Continue loperimide prn Nausea Continue ondansetron prn Asymptomatic bacteremia Pt's UA with 4+ bacteria Pt denies urinary symptoms: no dysuria, polyuria, hematuria Anxiety Continue home meds Full Code Attending:?Dr. Jordan DVT Prophylaxis: Pneumatic boots Pt will require a hospitalization of at least two nights for treatment of?symptomatic anemia with blood transfusions. Time Spent With Patient Time: Total time managing care of this patient today ____ minutes. Quality Stroke Does the patient have a stroke diagnosis?: No VTE Prior VTE?: No VTE Risk Level:: Medical - moderate - high VTE Device Contraindication: N/A - Device Ordered VTE Drug Contraindication: Treatment Not Indicated
[2022-09-17 17:22] LABS: OBS Int Ctl Valid YES; OBS1 NEGATIVE (NEGATIVE)
--- NOTE | 2022-09-17 17:34 | PHA.MEDREC ---
MED REC COMPLETE, NO ISSUES Pharmacy Consult ? Medication Reconciliation Pharmacy has completed the medication reconciliation.
--- NOTE | 2022-09-17 18:06 | P.EN_ITS ---
Event Note Date of Service: 09/18/22 Event Note: This patient is seen and examined with APC. Patient came to the hospital, has background history of IBS-3days back patient went to her PCP: As per the PCP notes she had diarrhea, we are patient complained about frequent diarrhea-patient was given Flagyl and loperamide-she could not able to feel of loperamide. But patient was taking levaquin/Flagyl: She said she started feeling worse after the antibiotic and also in addition she was taking Pepto-Bismol : She said that from last 3-4 days she is feeling lightheadedness and dizzy and extremely tired, blackish stools which she attributes to use of Pepto-Bismol, denies any jaymie bleeding or nausea or vomiting or fever or chills denies any abdominal complaints as well as health and wellness sales consultant complaints. Lab imaging, EKG reviewed. h/h drop :6.8/24.2 wbc fine ,platlets [address] seems fine except constipation. Physical exam : Generalized: Generalized weak, lightheaded Rest of the exam as per H&P. assessment and plan coordinated in APCs note, Agree with the plan in addition: Acute blood loss anemia due to GI bleed: She did not had any recent colonoscopy, fecal occult blood negative, iron studies added. Ppi Monitor CBC this evening, patient is getting 2nd unit of blood right now-seems to feeling little better.. Stool studies also ordered Hold off antibiotic currently because no abdominal pain no nausea vomiting or fever. No white count either. GI evaluation Above management discussed with patient detail and she understand and in agreement with the above plan, time spent 50 min Time Spent With Patient Time: Total time managing care of this patient today ____ minutes.
[2022-09-17] MEDS: Pantoprazole Sodium 40 MG/10 ML VIAL IVPUSH (18:39)
[2022-09-17 18:51] LABS: Iron 12 mcg/dL (30-160); Percent Iron Saturation 4 % (15-50); Total Iron Binding Capacity 328 mcg/dL (228-428); Unsaturated Iron Binding 316 ug/dL
[2022-09-17] MEDS: hydrOXYzine HCL 25 MG TABLET PO (18:53)
[2022-09-17] MEDS: Acetaminophen 325 MG TABLET 650 MG PO (18:53)
--- NOTE | 2022-09-17 19:48 | MHC.EDTECH ---
this pct assumed care of patient at 1900 ,vitals sign taken ,warm blanket given and covid swab done and send to lab ,Patient at bedside .
[2022-09-17 20:15] LABS: COVID-19 Test Negative (Negative); IDNOW Serial# 6674DD1D
[2022-09-17] MEDS: Gabapentin 300 MG CAPSULE 600 MG PO (20:56)
[2022-09-17 21:02] LABS: Hematocrit 30.1 % (37.0-47.0); Hemoglobin 9.1 g/dl (12.0-16.0); Mean Corpuscular HGB Conc 30.2 g/dl (31.0-35.0); Mean Corpuscular Hemoglobin 21.6 pg (27.0-33.0); Mean Corpuscular Volume 71.5 fL (80.0-98.0); Mean Platelet Volume 8.6 fL (9.4-12.3); Platelet Count 472 X10*3/uL (160-400); Red Blood Count 4.21 X10*6/uL (4.20-5.50); Red Cell Distribution Width 20.4 % (11.0-16.0); White Blood Count 7.3 X10*3/uL (4.8-10.8)
[2022-09-17] MEDS: Nicotine 21 MG PATCH.TD24 TRANSDERMA (22:05)
[2022-09-18 01:33] VITALS: BP 148/89; PULSE 75; RESP 18; TEMP 37.2; O2SAT 92
[2022-09-18 01:34] VITALS: BMI 25.2
[2022-09-18 04:00] VITALS: BP 129/77; PULSE 79; RESP 18; TEMP 36.6; O2SAT 94
[2022-09-18] MEDS: Acetaminophen 325 MG TABLET 650 MG PO ×2 (06:09→12:13)
[2022-09-18] MEDS: Pantoprazole Sodium 40 MG/10 ML VIAL IVPUSH (06:09)
[2022-09-18 07:19] LABS: Hematocrit 31.1 % (37.0-47.0); Hemoglobin 9.4 g/dl (12.0-16.0); Mean Corpuscular HGB Conc 30.2 g/dl (31.0-35.0); Mean Corpuscular Hemoglobin 21.9 pg (27.0-33.0); Mean Corpuscular Volume 72.5 fL (80.0-98.0); Mean Platelet Volume 9.1 fL (9.4-12.3); Platelet Count 541 X10*3/uL (160-400); Red Blood Count 4.29 X10*6/uL (4.20-5.50); Red Cell Distribution Width 20.2 % (11.0-16.0); White Blood Count 5.8 X10*3/uL (4.8-10.8)
[2022-09-18] MEDS: Nicotine 21 MG PATCH.TD24 TRANSDERMA (07:46)
[2022-09-18] MEDS: Multivitamin TABLET 1 TAB PO (07:46)
[2022-09-18] MEDS: buPROPion HCl XL 300 MG TAB.ER.24H PO (07:46)
[2022-09-18] MEDS: 0.9 % Sodium Chloride Flush 3 ML SYRINGE IVFLUSH (07:47)
[2022-09-18 08:00] VITALS: BP 115/81; PULSE 75; RESP 20; TEMP 36.6; O2SAT 93
[2022-09-18] MEDS: Gabapentin 300 MG CAPSULE PO ×2 (08:00→12:13)
[2022-09-18 09:30] LABS: CDiff Gene PCR NEGATIVE (Negative)
[2022-09-18 09:34] LABS: Leukocytes Stool Qualitative NEGATIVE (NEGATIVE)
--- NOTE | 2022-09-18 10:10 | P.CNGI_ITS ---
History of Present Illness Data of Consult Service Date: 09/18/22 Requesting physician: Asher Jordan [facility] Reason for consult: GIB This is a 51-year-old female with past medical history of irritable bowel syndrome, agoraphobia, previous history of alcohol use disorder, who presented to the hospital for acute symptomatic anemia. Patient states that she has been having mushy bowel movements 3 to 4 times a day for almost 6 months now. Most recently, she was seen by her safemaker and was prescribed metronidazole with p.r.n. loperamide. On her own, she also started Pepto-Bismol. Initially, this helped her symptoms, she did not have any loose bowel movements for couple of days, only to return again for the past week. Her stools have been black for a few weeks now, but she attributed this to starting to Pepto-Bismol. Denies any abdominal pain but has been nauseous x 3 days with clear non bloody emesis. No fevers or chills. Has been noticing some lightheadedness and dizziness for a couple of weeks. She reports taking daily ibuprofen 2 to 3 times a day for headaches, and lower back pain. Has been taking this for few months now. No blood thinners. does not smoke or drink Last colonoscopy was couple years ago per her report. She was seen by her primary care provider earlier this week for these symptoms, blood work was ordered. Was found to have low hemoglobin of 7.0 for which she was advised to go to the emergency room. On arrival to the emergency room, she was noted to be hemodynamically stable. Initial hemoglobin was 6.8, that has increased to 9.4, after 3 units of transfusion. Low MCV. BUN to creatinine ratio within normal limits. Severe iron deficiency with iron stores of 12. C diff negative. Cologuard January [address] abdomen pelvis shows [id number] stool burden. Of note, she was noted to have mild intra and extrahepatic biliary dilatation. LFTs are normal. Review of Systems Review of Systems: Yes all other systems are reviewed and are negative [facility], [facility] Past Medical History Medical History Postlaminectomy syndrome PTSD (post-traumatic stress disorder) Synovial cyst of lumbar spine Urine incontinence Family History Family History Father No problems noted. Mother Substance use disorder Maternal Grandmother Alzheimer's disease Brother No problems noted. Sister No problems noted. Son No problems noted. Surgical History Surgical History H/O unilateral oophorectomy History of discectomy History of tonsillectomy Hx of spinal fusion Social History Social History Household Members: Spouse Housing: House Do you presently have visiting nurse or other home services: No Alcohol intake: never Patient Tobacco Use Status: Former Tobacco user Smoked in Last 30 Days: No e-Cigarette/Vaping Use: Currently Using Frequency of e-Cigarette/Vaping Use: everyday Use of substances other than those prescribed or required for medical reasons: No Currently Displaying Signs/Symptoms of Drug Intoxication Withdrawal: No Have you been hit, kicked, punched, or otherwise hurt by someone within the past year? If so, by whom?: No Do you feel safe in your current relationship?: Yes Is there a partner from a previous relationship who is making you feel unsafe now?: No Are you made to feel afraid or neglected: No Advance Directives: No Advance Directives Information Provided: No Advance Directives on File: No Do you have thoughts of harming others: None Do you have a plan to hurt others: No Plan Recently lost weight without trying: No How much weight loss: Not applicable Eating poorly because of decreased appetite: No Nutrition screen score: 0 Nutrition Risks: No Nutritional Risk Patient : No : No Poor oral hygiene: No Current occupational status: disabled Cognitive needs: No Hearing needs: No Vision needs: No Meds Allergies Allergy/AdvReac Type Severity Reaction Status Date / Time metronidazole [From Flagyl] AdvReac Severe Nausea Verified 09/16/22 12:40 Active Medications: Current Medications Acetaminophen (Acetaminophen 325 Mg Tablet) 650 mg PO Q6H PRN PRN Reason: Pain, Mild (Pain Scale 1-3) Last Admin: 09/18/22 06:09 Dose: 650 mg Bupropion HCl (Bupropion Hcl Xl 300 Mg Tab.Er.24h) 300 mg PO DAILY TRU Last Admin: 09/18/22 07:46 Dose: 300 mg Gabapentin (Gabapentin 300 Mg Capsule) 300 mg PO BID@0800,1200 [facility] Last Admin: 09/18/22 08:00 Dose: 300 mg Gabapentin (Gabapentin 300 Mg Capsule) 600 mg PO BEDTIME [facility] Last Admin: 09/17/22 20:56 Dose: 600 mg Hydroxyzine HCl (Hydroxyzine Hcl 25 Mg Tablet) 25 mg PO BID PRN PRN Reason: Anxiety Last Admin: 09/17/22 18:53 Dose: 25 mg Loperamide HCl (Loperamide Hcl 2 Mg Capsule) 2 mg PO QID PRN PRN Reason: loose stool Multivitamins/Vitamin C (Multivitamin Tablet) 1 tab PO DAILY [facility] Last Admin: 09/18/22 07:46 Dose: 1 tab Nicotine (Nicotine 21 Mg Patch.Td24) 21 mg TRANSDERMA DAILY [facility] Last Admin: 09/18/22 07:46 Dose: 21 mg Ondansetron HCl (Ondansetron Odt 8 Mg Tab.Rapdis) 8 mg TRANSLINGU Q12H PRN PRN Reason: nausea and vomiting Pantoprazole Sodium (Pantoprazole Sodium 40 Mg/10 Ml Vial) 40 mg IVPUSH BID@0630,1630 [facility] Last Admin: 09/18/22 06:09 Dose: 40 mg Pharmacy Consult (Consult Rx Perform Med Rec) 1 each MISCELLANE ONCE PRN PRN Reason: Consult order Pharmacy Consult (Consult Rx Perform Med Rec) 1 each MISCELLANE ONCE PRN PRN Reason: Consult order Sodium Chloride (0.9 % Sodium Chloride Flush 3 Ml Syringe) 3 ml IVFLUSH QSHIFT [facility] Last Admin: 09/18/22 07:47 Dose: 3 ml Home Medications Medication Instructions Recorded Confirmed Last Taken Type hydroxyzine HCl 25 mg tablet 25 mg PO BID PRN Anxiety 09/04/20 09/17/22 Unknown History bupropion HCl 300 mg 24 hr tablet, 300 mg PO DAILY 07/23/21 09/17/22 09/17/22 History extended release multivitamin 1 tab PO DAILY 09/17/22 09/17/22 09/17/22 History Physical Exam Vital Signs: Vital Signs: Last Vital Signs Temp 97.8 F 09/18/22 08:00 Pulse 75 09/18/22 08:00 Resp 20 09/18/22 08:00 BP 115/81 09/18/22 08:00 Pulse Ox 93 09/18/22 08:00 O2 Del Method 09/18/22 08:00 BMI result Body Mass Index 25.2 Gen appear: No acute distress, well nourished HEENT: no icterus, no cervical lymphadenopathy Chest: No overt resp distress CVS: S1/S2, regular Abd: soft, nontender, nondistended Psych: appears nervous, answering questions appropriately Neuro: A/Ox3 noted to move all extremities spontaneously Ext: no peripheral edema Results Labs 09/18/22 06:36 09/17/22 13:38 Labs: Short CBC 09/17/22 09/17/22 09/18/22 Range/Units 13:38 20:57 06:36 WBC 7.3 7.3 5.8 (4.8-10.8) X10*3/uL Hgb 6.8 L* 9.1 L D 9.4 L (12.0-16.0) g/dl Hct 24.2 L 30.1 L D 31.1 L (37.0-47.0) % Plt Count 505 H 472 H 541 H (160-400) X10*3/uL BMP 09/17/22 13:38 Sodium 138 Potassium 4.4 Chloride 103 Carbon Dioxide 25 BUN 11 Creatinine 0.84 Calcium 9.5 Liver Function 09/17/22 Range/Units 13:38 Total Bilirubin 0.3 (0.0-1.0) mg/dL AST 20 (5-31) U/L ALT 13 (0-31) U/L Alkaline Phosphatase 48 (39-117) U/L Albumin 3.8 (3.5-5.0) g/dL Assessment and Plan (1) Microcytic anemia: Status: Acute (2) Diarrhea: Status: Acute (3) Melena: Status: Acute (4) NSAID long-term use: Status: Acute Plan Differentials for acute symptomatic anemia in the setting of ongoing melena include upper GI sources such as peptic ulcer disease specially given NSAID use. Esophagitis /gastritis / duodenitis. On the differential. Cannot rule out small bowel or proximal right colon bleeding. Patient quite FX to stay in the hospital for long time, given her underlying agoraphobia. However, she understands the need for urgent endoscopic evaluation given significant drop in her hemoglobin and agreeable to proceed. She was also advised that if found to have high risk stigmata ulcer, may need IV PPI therapy postprocedure, which will warrant her stay in the hospital for least 2-3 more days. Plan: -please keep the patient NPO -ensure at least 2 for peripheral IV access at all times -active type and screen. Daily CBC. Transfuse for hemoglobin less than 7 -EGD today. -further recommendations to follow in the procedure note Thank you for allowing me to participate in her care. Please do not hesitate to reach out for any questions or concerns. Time Spent With Patient Time: Total time managing care of this patient today ____ minutes. Procedures Date of Service Date of Service: 09/18/22
--- NOTE | 2022-09-18 10:18 | P.CONAN_ITS ---
[facility] Active Problems Active Problems: All Active Problems (Updated 09/18/22 @ 10:16 by Charla Hernandez MD) NSAID long-term use (Acute) Melena (Acute) Microcytic anemia (Acute) Diarrhea (Acute) PTSD (post-traumatic stress disorder) (Acute) Anxiety (Acute) Decreased diffusion capacity (Acute) Anterior pleuritic pain (Acute) Wheezing (Acute) Screening for cervical cancer (Acute) Post-menopausal (Acute) Urine incontinence (Acute) Postlaminectomy syndrome (Acute) Right lumbar radiculopathy (Acute) Saddle anesthesia (Acute) Past Medical History Medical History Postlaminectomy syndrome PTSD (post-traumatic stress disorder) Synovial cyst of lumbar spine Urine incontinence Functional capacity: independent ambulation Patient : No Family History Family History Father No problems noted. Mother Substance use disorder Maternal Grandmother Alzheimer's disease Brother No problems noted. Sister No problems noted. Son No problems noted. Family history of problems with anesthesia: No Surgical History Surgical History H/O unilateral oophorectomy History of discectomy History of tonsillectomy Hx of spinal fusion History of Problems with Anesthesia: No Social History Social History Household Members: Spouse Housing: House Do you presently have visiting nurse or other home services: No Alcohol intake: never Patient Tobacco Use Status: Former Tobacco user Smoked in Last 30 Days: No e-Cigarette/Vaping Use: Currently Using Frequency of e-Cigarette/Vaping Use: everyday Use of substances other than those prescribed or required for medical reasons: No Currently Displaying Signs/Symptoms of Drug Intoxication Withdrawal: No Have you been hit, kicked, punched, or otherwise hurt by someone within the past year? If so, by whom?: No Do you feel safe in your current relationship?: Yes Is there a partner from a previous relationship who is making you feel unsafe now?: No Are you made to feel afraid or neglected: No Advance Directives: No Advance Directives Information Provided: No Advance Directives on File: No Do you have thoughts of harming others: None Do you have a plan to hurt others: No Plan Recently lost weight without trying: No How much weight loss: Not applicable Eating poorly because of decreased appetite: No Nutrition screen score: 0 Nutrition Risks: No Nutritional Risk Patient : No : No Poor oral hygiene: No Current occupational status: disabled Cognitive needs: No Hearing needs: No Vision needs: No Meds Allergies Allergy/AdvReac Type Severity Reaction Status Date / Time metronidazole [From Flagyl] AdvReac Severe Nausea Verified 09/16/22 12:40 Active Medications: Current Medications Acetaminophen (Acetaminophen 325 Mg Tablet) 650 mg PO Q6H PRN PRN Reason: Pain, Mild (Pain Scale 1-3) Last Admin: 09/18/22 06:09 Dose: 650 mg Bupropion HCl (Bupropion Hcl Xl 300 Mg Tab.Er.24h) 300 mg PO DAILY [facility] Last Admin: 09/18/22 07:46 Dose: 300 mg Gabapentin (Gabapentin 300 Mg Capsule) 300 mg PO BID@0800,1200 [facility] Last Admin: 09/18/22 08:00 Dose: 300 mg Gabapentin (Gabapentin 300 Mg Capsule) 600 mg PO BEDTIME [facility] Last Admin: 09/17/22 20:56 Dose: 600 mg Hydroxyzine HCl (Hydroxyzine Hcl 25 Mg Tablet) 25 mg PO BID PRN PRN Reason: Anxiety Last Admin: 09/17/22 18:53 Dose: 25 mg Loperamide HCl (Loperamide Hcl 2 Mg Capsule) 2 mg PO QID PRN PRN Reason: loose stool Multivitamins/Vitamin C (Multivitamin Tablet) 1 tab PO DAILY [facility] Last Admin: 09/18/22 07:46 Dose: 1 tab Nicotine (Nicotine 21 Mg Patch.Td24) 21 mg TRANSDERMA DAILY [facility] Last Admin: 09/18/22 07:46 Dose: 21 mg Ondansetron HCl (Ondansetron Odt 8 Mg Tab.Rapdis) 8 mg TRANSLINGU Q12H PRN PRN Reason: nausea and vomiting Pantoprazole Sodium (Pantoprazole Sodium 40 Mg/10 Ml Vial) 40 mg IVPUSH BID@0630,1630 [facility] Last Admin: 09/18/22 06:09 Dose: 40 mg Pharmacy Consult (Consult Rx Perform Med Rec) 1 each MISCELLANE ONCE PRN PRN Reason: Consult order Pharmacy Consult (Consult Rx Perform Med Rec) 1 each MISCELLANE ONCE PRN PRN Reason: Consult order Sodium Chloride (0.9 % Sodium Chloride Flush 3 Ml Syringe) [facility] Last Admin: 09/18/22 07:47 Dose: 3 ml Home Medications Medication Instructions Recorded Confirmed Last Taken Type hydroxyzine HCl 25 mg tablet 25 mg PO BID PRN Anxiety 09/04/20 09/17/22 Unknown History bupropion HCl 300 mg 24 hr tablet, 300 mg PO DAILY 07/23/21 09/17/22 09/17/22 History extended release multivitamin 1 tab PO DAILY 09/17/22 09/17/22 09/17/22 History Exam Exam Date and Time: September 18, 2022 101 Height,Weight and Vital Signs: Height 5 ft 7 in Weight 72.9 kg Last Vital Signs Temp 97.8 F 09/18/22 08:00 Pulse 75 09/18/22 08:00 Resp 20 09/18/22 08:00 BP 115/81 09/18/22 08:00 Pulse Ox 93 09/18/22 08:00 O2 Del Method 09/18/22 08:00 Pertinent Lab Results Pertinent Lab Results: Laboratory Tests 09/17/22 09/17/22 09/17/22 13:38 13:38 13:38 WBC 7.3 RBC 3.49 L Hgb 6.8 L* Hct 24.2 L MCV 69.3 L MCH 19.5 L MCHC 28.1 L RDW 18.6 H Plt Count 505 H MPV 8.6 L Immature Gran % (Auto) 0.3 Neut % (Auto) 62.0 Lymph % (Auto) 19.7 L [place] % (Auto) 8.7 Eos % (Auto) 8.5 H Baso % (Auto) 0.8 Lymph # (Auto) 1.4 [place] # (Auto) 0.6 Eos # (Auto) 0.6 H Baso # (Auto) 0.1 Abs Immat Gran (auto) 0.02 Absolute Neuts (auto) 4.5 Absolute Nucleated RBC 0.000 Nucleated RBC % (auto) 0.0 PT 14.1 H INR 1.2 H APTT 33.3 Sodium 138 Potassium 4.4 Chloride 103 Carbon Dioxide 25 Anion Gap 14 BUN 11 Creatinine 0.84 Estim Creat Clear Calc 84.9 Estimated GFR > 60 Random Glucose 87 Calcium 9.5 Magnesium 1.8 Iron 12 L TIBC 328 % Saturation 4 L Unsat Iron Binding 316 Total Bilirubin 0.3 AST 20 ALT 13 Alkaline Phosphatase 48 Total Protein 5.9 L Albumin 3.8 Stool Occult Blood Stool Leukocytes, Qual C. difficile Tox B Gene COVID-19 (DAREN) COVID-19 Clin Com Blood Type Antibody Screen Crossmatch 09/17/22 09/17/22 09/17/22 14:43 17:13 19:53 WBC RBC Hgb Hct MCV MCH MCHC RDW Plt Count MPV Immature Gran % (Auto) Neut % (Auto) Lymph % (Auto) [place] % (Auto) Eos % (Auto) Baso % (Auto) Lymph # (Auto) [place] # (Auto) Eos # (Auto) Baso # (Auto) Abs Immat Gran (auto) Absolute Neuts (auto) Absolute Nucleated RBC Nucleated RBC % (auto) PT INR APTT Sodium Potassium Chloride Carbon Dioxide Anion Gap BUN Creatinine Estim Creat Clear Calc Estimated GFR Random Glucose Calcium Magnesium Iron TIBC % Saturation Unsat Iron Binding Total Bilirubin AST ALT Alkaline Phosphatase Total Protein Albumin Stool Occult Blood NEGATIVE Stool Leukocytes, Qual C. difficile Tox B Gene COVID-19 (DAREN) Negative COVID-19 [place] Com See Note Blood Type A Positive Antibody Screen NEGATIVE Crossmatch See Detail 09/17/22 09/18/22 09/18/22 20:57 06:36 08:09 WBC 7.3 5.8 RBC 4.21 D 4.29 Hgb 9.1 L D 9.4 L Hct 30.1 L D 31.1 L MCV 71.5 L 72.5 L MCH 21.6 L 21.9 L MCHC 30.2 L 30.2 L RDW 20.4 H 20.2 H Plt Count 472 H 541 H MPV 8.6 L 9.1 L Immature Gran % (Auto) Neut % (Auto) Lymph % (Auto) [place] % (Auto) Eos % (Auto) Baso % (Auto) Lymph # (Auto) [place] # (Auto) Eos # (Auto) Baso # (Auto) Abs Immat Gran (auto) Absolute Neuts (auto) Absolute Nucleated RBC 0.000 0.000 Nucleated RBC % (auto) 0.0 0.0 PT INR APTT Sodium Potassium Chloride Carbon Dioxide Anion Gap BUN Creatinine Estim Creat Clear Calc Estimated GFR Random Glucose Calcium Magnesium Iron TIBC % Saturation Unsat Iron Binding Total Bilirubin AST ALT Alkaline Phosphatase Total Protein Albumin Stool Occult Blood Stool Leukocytes, Qual NEGATIVE C. difficile Tox B Gene COVID-19 (DAREN) COVID-19 [email or web address] Blood Type Antibody Screen Crossmatch 09/18/22 08:09 WBC RBC Hgb Hct MCV MCH MCHC RDW Plt Count MPV Immature Gran % (Auto) Neut % (Auto) Lymph % (Auto) [place] % (Auto) Eos % (Auto) Baso % (Auto) Lymph # (Auto) [place] # (Auto) Eos # (Auto) Baso # (Auto) Abs Immat Gran (auto) Absolute Neuts (auto) Absolute Nucleated RBC Nucleated RBC % (auto) PT INR APTT Sodium Potassium Chloride Carbon Dioxide Anion Gap BUN Creatinine Estim Creat Clear Calc Estimated GFR Random Glucose Calcium Magnesium Iron TIBC % Saturation Unsat Iron Binding Total Bilirubin AST ALT Alkaline Phosphatase Total Protein Albumin Stool Occult Blood Stool Leukocytes, Qual C. difficile Tox B Gene NEGATIVE COVID-19 (DAREN) COVID-19 [place] Com Blood Type Antibody Screen Crossmatch Airway Mallampati Class: II TM Dist: >3cm Heart: RRR Lungs: CTA Assessment and Plan Final Anesthetic Review Family History of Problems with Anesthesia: No History of Problems with Anesthesia: No NPO: Yes ASA Class: II and Emergency Final Preanesthetic Review: Meds/Allgs Chart Reviewed, Consent Obtained/Reviewed and Anes Risks/Benef Reviewed Patient Risk: Low Procedure Risk: Low Anesthetic Plan Anesthetic Plan: MAC: Disposition: Standard PACU
--- NOTE | 2022-09-18 10:26 | PC.NURSE ---
Pt.A & O X 3, VSS , denies having any pain or discomfort. Pt. left the floor to the OR for [facility] Endoscopy accompanied by OR nurse.
--- NOTE | 2022-09-18 11:04 | MHC.CM.PN ---
Patient is in the OR; CM spoke with S.O./HCP/Cecil @[phone] and addressed IMM with him (original to be mailed certified mail to Cecil and a copy has been placed on the chart). 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 Home/self care is the goal and CM has initiated and will follow for dc planning. PCP is Dr. Richey and Patient has received [facility]/[employer] vax x3.
[2022-09-18 11:08] VITALS: BP 156/104; PULSE 84; RESP 16; TEMP 37.4; O2SAT 96
[2022-09-18 11:23] VITALS: BP 136/87; PULSE 74; RESP 16; TEMP 37; O2SAT 96
[2022-09-18 11:48] LABS: Adenovirus F 40/41 Not Detected (Not Detect.); Astrovirus Not Detected (Not Detect.); Campylobacter Not Detected (Not Detect.); Cryptosporidium Not Detected (Not Detect.); Cyclospora cayetanensis Not Detected (Not Detect.); E. coli EAEC Not Detected (Not Detect.); E. coli EPEC Not Detected (Not Detect.); E. coli ETEC Not Detected (Not Detect.); E. coli STEC Not Detected (Not Detect.); Entamoeba histolytica Not Detected (Not Detect.); Giardia lamblia Not Detected (Not Detect.); Norovirus GI/GII Not Detected (Not Detect.); Plesiomonas shigelloides Not Detected (Not Detect.); Rotavirus A Not Detected (Not Detect.); Salmonella Not Detected (Not Detect.); Sapovirus Not Detected (Not Detect.); Shigella sp./EIEC Not Detected (Not Detect.); Vibrio Not Detected (Not Detect.); Vibrio Cholerae Not Detected (Not Detect.); Yersinia enterocolitica Not Detected (Not Detect.)
--- NOTE | 2022-09-18 12:06 | PC.NURSE ---
pt return to [facility] OR, VSS.
--- NOTE | 2022-09-18 12:22 | PM.DS ---
DS: Providers Provider Date of Service: 09/18/22 Date of admission: 09/17/22 18:02 Primary care physician: LOVE Valdes Consults: 09/17/22 18:07 Consult to Gastroenterology Routine Consulting Provider: Charla Hernandez Reason for consultation: Symptomatic anemia, ?GI bleed Has provider been notified: No Attending physician on discharge: Asher Jordan DS: Diagnosis Discharge Diagnosis (1) Microcytic anemia: Status: Acute (2) Diarrhea: Status: Acute (3) Melena: Status: Acute (4) NSAID long-term use: Status: Acute (5) Pyuria: Status: Acute DS: Summary Hospital Course Hospital Course: Patient was admitted for symptomatic anemia?due to acute blood loss anemia secondary to possible GI bleed-patient was started on PPI IV hydration and seen by GI EGD was done seems to be fine- patient currently not considering colonoscopy wants to do it out patiently. In addition patient received 2 prbc -h/h improved and seems stable around 9.4 , tolerating diet , no new bleeding episode-patient will be going home with ppi and iron. d/w Gi -no need of antibiotics( no new diarrahae episode then usual or abdominal pain).avoid nsaids ,asa and blood thinners. patient has pyurina /bacteruria -patient is asymptomatic , will defer antibiotics at present -if any new urinary symptoms then follow up with repeat ua and cultures with pcp and further management outpatiently with pcp. moniter cbc outpatient with pcp and GI for further Gi workup outpatient. plan: continue ppi and iron. avoid nsaids ,asa and blood thinners. moniter cbc outpatient followup withGI for further Gi workup outpatient. Time Spent with Patient Time attestation: Total time managing care of this patient today ____ minutes. Discharge coordination time: Greater than 30 minutes Quality: Safe Use of Opioids Does Pt have an Active Cancer Diagnosis on the Problem List?: No Quality: Stroke Does the patient have a stroke diagnosis?: No Physical Exam Vital Signs: Vital Signs: Last Vital Signs Temp 98.6 F 09/18/22 11:23 Pulse 74 09/18/22 11:23 Resp 16 09/18/22 11:23 BP 136/87 09/18/22 11:23 Pulse Ox 96 09/18/22 11:23 O2 Del Method 09/18/22 11:23 BMI result Body Mass Index 25.2 DS: Data Data Completed and Pending Pending studies at discharge: Pending at discharge 09/18/22 11:00 Surgical [PTH] Routine Labs on day of discharge: Laboratory Results - last 24 hr 09/17/22 09/17/22 09/17/22 13:38 13:38 13:38 WBC 7.3 RBC 3.49 L Hgb 6.8 L* Hct 24.2 L MCV 69.3 L MCH 19.5 L MCHC 28.1 L RDW 18.6 H Plt Count 505 H MPV 8.6 L Immature Gran % (Auto) 0.3 Neut % (Auto) 62.0 Lymph % (Auto) 19.7 L [place] % (Auto) 8.7 Eos % (Auto) 8.5 H Baso % (Auto) 0.8 Lymph # (Auto) 1.4 [place] # (Auto) 0.6 Eos # (Auto) 0.6 H Baso # (Auto) 0.1 Abs Immat Gran (auto) 0.02 Absolute Neuts (auto) 4.5 Absolute Nucleated RBC 0.000 Nucleated RBC % (auto) 0.0 PT 14.1 H INR 1.2 H APTT 33.3 Sodium 138 Potassium 4.4 Chloride 103 Carbon Dioxide 25 Anion Gap 14 BUN 11 Creatinine 0.84 Estim Creat Clear Calc 84.9 Estimated GFR > 60 Random Glucose 87 Calcium 9.5 Magnesium 1.8 Iron 12 L TIBC 328 % Saturation 4 L Unsat Iron Binding 316 Total Bilirubin 0.3 AST 20 ALT 13 Alkaline Phosphatase 48 Total Protein 5.9 L Albumin 3.8 Stool Occult Blood Stool Leukocytes, Qual Stl C. cayetanensis PCR Stool Rotavirus A PCR Stl Adenov F 40/41 PCR Stool Astrovirus (PCR) Stool Campylobacter PCR Stool Cryptosporidium PCR Stl Sh Tox Pr E STEC PCR Stool E coli O157 PCR Stl Enterotoxigenic E PCR Stool EPEC (PCR) Stool EAEC (PCR) Stl E. histolytica PCR Stool Giardia Lamblia PCR Stl P. shigelloides PCR Stool Salmonella PCR Stool Sapovirus (PCR) Stl Shigella/EIEC PCR St Y.enterocolitica PCR Stool Vibrio (PCR) Stl Vibrio cholerae PCR Stl Norovirus GI/GII PCR C. difficile Tox B Gene COVID-19 ([facility]AREN) COVID-19 Clin Com Blood Type Antibody Screen Crossmatch 09/17/22 09/17/22 09/17/22 14:43 17:13 19:53 WBC RBC Hgb Hct MCV MCH MCHC RDW Plt Count MPV Immature Gran % (Auto) Neut % (Auto) Lymph % (Auto) [place] % (Auto) Eos % (Auto) Baso % (Auto) Lymph # (Auto) [place] # (Auto) Eos # (Auto) Baso # (Auto) Abs Immat Gran (auto) Absolute Neuts (auto) Absolute Nucleated RBC Nucleated RBC % (auto) PT INR APTT Sodium Potassium Chloride Carbon Dioxide Anion Gap BUN Creatinine Estim Creat Clear Calc Estimated GFR Random Glucose Calcium Magnesium Iron TIBC % Saturation Unsat Iron Binding Total Bilirubin AST ALT Alkaline Phosphatase Total Protein Albumin Stool Occult Blood NEGATIVE Stool Leukocytes, Qual Stl C. cayetanensis PCR Stool Rotavirus A PCR Stl Adenov F PCR Stool Astrovirus (PCR) Stool Campylobacter PCR Stool Cryptosporidium PCR Stl Sh Tox Pr E STEC PCR Stool E coli O157 PCR Stl Enterotoxigenic E PCR Stool EPEC (PCR) Stool EAEC (PCR) Stl E. histolytica PCR Stool Giardia Lamblia PCR Stl P. shigelloides PCR Stool Salmonella PCR Stool Sapovirus (PCR) Stl Shigella/EIEC PCR St Y.enterocolitica PCR Stool Vibrio (PCR) Stl Vibrio cholerae PCR Stl Norovirus GI/GII PCR C. difficile Tox B Gene COVID-19 (DAREN) Negative COVID-19 Clin Com See Note Blood Type A Positive Antibody Screen NEGATIVE Crossmatch See Detail 09/17/22 09/18/22 09/18/22 20:57 06:36 08:09 WBC 7.3 5.8 RBC 4.21 D 4.29 Hgb 9.1 L D 9.4 L Hct 30.1 L D 31.1 L MCV 71.5 L 72.5 L MCH 21.6 L 21.9 L MCHC 30.2 L 30.2 L RDW 20.4 H 20.2 H Plt Count 472 H 541 H MPV 8.6 L 9.1 L Immature Gran % (Auto) Neut % (Auto) Lymph % (Auto) [place] % (Auto) Eos % (Auto) Baso % (Auto) Lymph # (Auto) [place] # (Auto) Eos # (Auto) Baso # (Auto) Abs Immat Gran (auto) Absolute Neuts (auto) Absolute Nucleated RBC 0.000 0.000 Nucleated RBC % (auto) 0.0 0.0 PT INR APTT Sodium Potassium Chloride Carbon Dioxide Anion Gap BUN Creatinine Estim Creat Clear Calc Estimated GFR Random Glucose Calcium Magnesium Iron TIBC % Saturation Unsat Iron Binding Total Bilirubin AST ALT Alkaline Phosphatase Total Protein Albumin Stool Occult Blood Stool Leukocytes, Qual NEGATIVE Stl C. cayetanensis PCR Stool Rotavirus A PCR Stl Adenov F 40/ PCR Stool Astrovirus (PCR) Stool Campylobacter PCR Stool Cryptosporidium PCR Stl Sh Tox Pr E STEC PCR Stool E coli O157 PCR Stl Enterotoxigenic E PCR Stool EPEC (PCR) Stool EAEC (PCR) Stl E. histolytica PCR Stool Giardia Lamblia PCR Stl P. shigelloides PCR Stool Salmonella PCR Stool Sapovirus (PCR) Stl Shigella/EIEC PCR St Y.enterocolitica PCR Stool Vibrio (PCR) Stl Vibrio cholerae PCR Stl Norovirus GI/GII PCR C. difficile Tox B Gene COVID-19 ([facility]AREN) COVID-19 Clin Com Blood Type Antibody Screen Crossmatch 09/18/22 09/18/22 08:09 08:09 WBC RBC Hgb Hct MCV MCH MCHC RDW Plt Count MPV Immature Gran % (Auto) Neut % (Auto) Lymph % (Auto) [place] % (Auto) Eos % (Auto) Baso % (Auto) Lymph # (Auto) [place] # (Auto) Eos # (Auto) Baso # (Auto) Abs Immat Gran (auto) Absolute Neuts (auto) Absolute Nucleated RBC Nucleated RBC % (auto) PT INR APTT Sodium Potassium Chloride Carbon Dioxide Anion Gap BUN Creatinine Estim Creat Clear Calc Estimated GFR Random Glucose Calcium Magnesium Iron TIBC % Saturation Unsat Iron Binding Total Bilirubin AST ALT Alkaline Phosphatase Total Protein Albumin Stool Occult Blood Stool Leukocytes, Qual Stl C. cayetanensis PCR Not Detected Stool Rotavirus A PCR Not Detected Stl Adenov F 40/ PCR Not Detected Stool Astrovirus (PCR) Not Detected Stool Campylobacter PCR Not Detected Stool Cryptosporidium PCR Not Detected Stl Sh Tox Pr E STEC PCR Not Detected Stool E coli O157 PCR Not applicable Stl Enterotoxigenic E PCR Not Detected Stool EPEC (PCR) Not Detected Stool EAEC (PCR) Not Detected Stl E. histolytica PCR Not Detected Stool Giardia Lamblia PCR Not Detected Stl P. shigelloides PCR Not Detected Stool Salmonella PCR Not Detected Stool Sapovirus (PCR) Not Detected Stl Shigella/EIEC PCR Not Detected St Y.enterocolitica PCR Not Detected Stool Vibrio (PCR) Not Detected Stl Vibrio cholerae PCR Not Detected Stl Norovirus GI/GII PCR Not Detected C. difficile Tox B Gene NEGATIVE COVID-19 ([facility]AREN) COVID-19 Clin Com Blood Type Antibody Screen Crossmatch Imaging Chest x-ray: Radiologist's impression: ITS Impressions Abdomen/Pelvis CT 09/17/22 15:11 IMPRESSION: 1. Small volume of pelvic free fluid. This is of uncertain etiology. 2. Mild to moderate colonic stool burden. 3. Mild intrahepatic and extrahepatic biliary ductal dilatation. No ductal filling defect seen. Fleischner guidelines were followed. Discharge Plan Discharge Anticipated Discharge Date/Time: 09/18/22 12:10 Patient Disposition: Home, Self-Care Discharge Diagnosis: possible gi bleed Referrals: Jhon Ramesh, HUMAN RESOURCE PROFESSIONAL-BC [Primary Care Provider] - 1 Week Discharge Medications: New ferrous sulfate [Iron (ferrous sulfate)] 325 mg (65 mg iron) tablet 325 mg PO BID Qty: 60 0RF Continued pantoprazole 40 mg tablet,delayed release (DR/EC) 40 mg PO DAILY Qty: 90 2RF gabapentin 300 mg capsule 300 mg PO .COMPLEX 30 Days Qty: 120 3RF Rx Instructions: 300 mg PO; 300mg in am, 300mg at noon, 600mg at night lisinopril 5 mg tablet 5 mg PO DAILY Qty: 30 4RF ondansetron 8 mg tablet,disintegrating 8 mg PO Q12H PRN (Reason: nausea and vomiting) 10 Days Qty: 20 0RF multivitamin Tablet 1 tab PO DAILY hydroxyzine HCl 25 mg tablet 25 mg PO BID PRN (Reason: Anxiety) bupropion HCl 300 mg tablet extended release 24 hr 300 mg PO DAILY loperamide 2 mg capsule 2 mg PO QID PRN (Reason: loose stool) 30 Days Qty: 120 3RF Discontinued levofloxacin 500 mg tablet 500 mg PO DAILY Qty: 5 0RF Rx Instructions: PATIENT HAS TAKEN 2 DOSES Discharge Orders: Discharge Order (Routine); Ordered 09/18/22 Ordered By: Asher Jordan Diet: Advance to usual diet Activity on Discharge: As tolerated Stand Alone Forms: Patient Portal Discharge page Care Plan Goals: Patient was admitted for symptomatic anemia?due to acute blood loss anemia secondary to possible GI bleed-patient was started on PPI IV hydration and seen by GI EGD was done seems to be fine- patient currently not considering colonoscopy wants to do it out patiently. In addition patient received 2 prbc -h/h improved and seems stable around 9.4 , tolerating diet , no new bleeding episode-patient will be going home with ppi and iron-avod nsaid's ,asa ,blood thinners . d/w Gi -no need of antibiotics. patient has pyurina /bacteruria -patient is asymptomatic , will defer antibiotics at present -if any new urinary symptoms then follow up with repeat ua and cultures with pcp and further management outpatiently with pcp. moniter cbc outpatient with pcp and GI for further Gi workup outpatient. Health Concerns: as above. Plan of Treatment: as above. Assessment: as above. Patient Instructions: Melena (GEN)
--- NOTE | 2022-09-18 12:36 | MHC.CM.PN ---
Patient has been medically cleared for dc to home today, self care.
[2022-09-18 12:38] VITALS: BP 119/88; PULSE 88; RESP 20; TEMP 37.1; O2SAT 96
--- NOTE | 2022-09-18 12:50 | HO.POSTANES ---
Post Anesthesia Evaluation Post Anesthesia Evaluation Vital Signs: Vital Signs Temp Pulse Resp BP Pulse Ox O2 Del Method 09/18/22 12:38 98.8 F 88 20 119/88 96 Room Air 09/18/22 11:23 98.6 F 74 16 136/87 96 Room Air 09/18/22 11:08 99.4 F 84 16 156/104 H 96 Room Air 09/18/22 08:00 97.8 F 75 20 115/81 93 Room Air 09/18/22 04:00 97.9 F 79 18 129/77 94 Room Air 09/18/22 01:33 98.9 F 75 18 148/89 H 92 Room Air Anesthesia: Monitored Mental Status: Awake Pain Control: Satisfactory Nausea/Vomiting: None Hydration: Adequate Anesthesia-Related Issues: No Anes. Related Issues
--- NOTE | 2022-09-18 14:18 | P.OP_ITS ---
Operative Note Operative Note Date of Service: 09/18/22 Narrative: Procedure: Esophagogastroduodenoscopy Endoscopist: Charla Hernandez MD Indication: GI bleed Anesthesia Provider: Dr Faby La Anesthesia Type: MAC ?? EGD Procedure:?? The procedure, indications, preparation and potential complications were reviewed with the patient, who indicated understanding and gave written informed consent to proceed. A physical exam was performed. The endoscope was introduced through the mouth, and advanced to the second part of duodenum. The mucosa was carefully examined on slow withdrawal of the endoscope. The patient tolerated the procedure well. There were no immediate complications.? ? EGD Findings:? * Esophagus:? Normal mucosa noted in the entire esophagus. The Z line was at 36cm. * Stomach:? There was a scar deformity with converging folds coming to a faint linear erosion in the posterior stomach. No active bleeding or stigmata of recent bleeding. Cold forceps biopsies were taken for histology. * Duodenum:? Normal mucosa was noted in the whole of the examined duodenum. ? EGD Impressions:? * Normal esophagus * Small linear ulcer with scar deformity (biopsy) * Normal duodenum ?? Recommendations:?? * Follow biopsy results. Our office will call or send a letter with results within 7-10 days. * Ulcer appearance highly suspicious for EGC * However no active bleeding or stigmata of recent bleeding was noted to explain drastic drop in Hb to 6.8 * Should ideally undergo colonoscopy to complete work up however pt would like to do this as outpatient. * Depending on path results, may need repeat EGD for mapping biopsies, alongside the colonoscopy. * Start/continue PPI therapy. * Start iron supplements. Above has been reviewed with the patient as well patient's boyfriend Juanito over the phone.
== END 2022-09-18 13:50 | disposition home or self-care (01) | DRG 378 ==
LOC: HO.ED 17:15 → HO.EDOVER 18:28 → HO.IMC 09-18 00:16
PROVIDERS: Internal Medicine; Nurse Practitioner Family; Physician Assistant Medical; Admitting Provider Student in an Organized Health Care Education/Training Program; Emergency Provider Student in an Organized Health Care Education/Training Program; PCP Nurse Practitioner Family; Visit Provider Internal Medicine
PROC: 0DJ08ZZ Inspection of Upper Intestinal Tract, Via Natural or Artificial Opening Endoscopic (ICD-10-PCS; CPT 43235; principal; 2022-09-18 11:00)
DX: K25.4 Chronic or unspecified gastric ulcer with hemorrhage (principal); D62 Acute posthemorrhagic anemia; F43.10 Post-traumatic stress disorder, unspecified; Z98.1 Arthrodesis status; F41.9 Anxiety disorder, unspecified; R82.81 Pyuria; K58.0 Irritable bowel syndrome with diarrhea; Z20.822 Contact with and (suspected) exposure to COVID-19; Z79.899 Other long term (current) drug therapy
CPT/HCPCS: 36415; 74177; 80053; 80061; 81001; 82272; 83540; 83735; 84443; 85025; 85027; 85610; 85730; 86231; 86364; 86850; 86900; 86901; 86923; 87086; 87088; 87186; 87493; 87507; 87635; 88305; 88342; 89055; 99285; J0171; P9016; Q9967

== ENCOUNTER 2022-09-23 09:06 | Outpatient (REF) | payer MEDICARE, MEDICAID, SELFPAY ==
[2022-09-23 11:23] LABS: MANUAL DIFF FLAG NO
[2022-09-23 11:25] LABS: Appearance Urine Clear; Color Urine Yellow; Glucose Urine UA Negative (Negative); Leukocyte Esterase Urine Negative (Negative); Nitrite Urine Negative (Negative); Urine Blood Negative (Negative); Urine Ketones Negative (Negative); Urine Protein Negative (Neg-Trace)
[2022-09-23 11:38] LABS: Basophils Absolute Auto 0.1 X10*3/uL (0.0-0.2); Eosinophils Absolute Auto 0.2 X10*3/uL (0.0-0.4); Hematocrit 36.6 % (37.0-47.0); Hemoglobin 10.6 g/dl (12.0-16.0); Imm Gran Abs Auto 0.01 X10*3/uL (0.00-0.03); Imm Gran Pct Auto 0.3 % (0.0-0.4); Lymphocytes Absolute Auto 1.1 X10*3/uL (1.2-4.9); Lymphocytes Percent Auto 28.7 % (20-40); Mean Corpuscular Hemoglobin 21.6 pg (27.0-33.0); Mean Corpuscular Volume 74.7 fL (80.0-98.0); Mean Platelet Volume 9.6 fL (9.4-12.3); Monocytes Absolute Auto 0.3 X10*3/uL (0.1-1.2); Monocytes Percent Auto 6.5 % (2-11); Neutrophils Absolute Auto 2.2 x10*3/uL (2.0-8.3); Neutrophils Percent Auto 56.5 % (45-73); Platelet Count 542 X10*3/uL (160-400); Red Cell Distribution Width 22.1 % (11.0-16.0)
[2022-09-23 12:09] LABS: Alanine Aminotransferase 16 U/L (0-31); Albumin Level 4.4 g/dL (3.5-5.0); Alkaline Phosphatase 55 U/L (39-117); Anion Gap 11 (12-20); Aspartate Amino Transferase 16 U/L (5-31); Bilirubin Total 0.4 mg/dL (0.0-1.0); Blood Urea Nitrogen 7 mg/dL (9-16); Calcium 10.2 mg/dL (8.4-10.2); Carbon Dioxide 25 mmol/L (22-29); Chloride 107 mmol/L (96-108); Cholesterol 215 mg/dL; Estimated Glomerular Filt Rate > 60; Glucose Fasting 95 mg/dL (60-99); Glucose Random 94 mg/dL (60-115); HDL Cholesterol 55 mg/dL; LDL Cholesterol Calculated 148 mg/dl; Potassium 3.9 mmol/L (3.3-5.1); Sodium 139 mmol/L (135-145); TSH reflex Free T4 0.66 uIU/mL (0.32-4.0); Total Protein 6.7 g/dL (6.5-8.0); Triglycerides 62 mg/dL
[2022-09-28 08:04] LABS: Transglutaminase Ab IgG <1.0 U/mL; Transglutaminase IgA <1.0 U/mL
[2022-09-30 14:39] LABS: Endomysial IgA Antibody Negative (Negative)
== END 2022-09-23 09:07 | disposition home or self-care (01) ==
LOC: HO.HMGCLDS 09:06
PROVIDERS: PCP Nurse Practitioner Family; Visit Provider Nurse Practitioner Family
DX: F41.9 Anxiety disorder, unspecified (principal); R19.7 Diarrhea, unspecified; D50.9 Iron deficiency anemia, unspecified; E78.5 Hyperlipidemia, unspecified
CPT/HCPCS: 36415; 80053; 80061; 81003; 84443; 85025; 86231; 86364

== ENCOUNTER → 2022-10-01 12:28 | Day surgery (SDC) | payer MEDICARE, MEDICAID, SELFPAY ==
[2022-10-01 10:31] VITALS: BMI 27.4
[2022-10-01 12:59] VITALS: BP 127/92; PULSE 89; RESP 18; TEMP 36.8; O2SAT 99
[2022-10-01] MEDS: Lactated Ringers 1,000 ML 80 ML IVCONT (13:16)
--- NOTE | 2022-10-01 13:43 | MHC.SHP ---
Pre-Procedural Eval Section A Date of Service: 10/01/22 The History & Physical has been completed within 30 days and I have reviewed it.: Yes Section B Chief Complaint: Gastric ulcer,anemia Allergies: Allergies Allergy/AdvReac Type Severity Reaction Status Date / Time metronidazole [From Flagyl] AdvReac Severe Nausea Verified 09/16/22 12:40 Plan I have reviewed the history and physical and performed a pertinent physical examination on my patient. No changes have occurred unless specified. Pt undergoing EGD and colonoscopy for evaluation for gastric ulcer and anemia. Time Spent With Patient Time: Total time managing care of this patient today ____ minutes.
--- NOTE | 2022-10-01 13:45 | P.OP_ITS ---
Operative Note Operative Note Date of Service: 10/01/22 Narrative: Procedure:?Esophagogastroduodenoscopy and Colonoscopy Indication:?Gastric ulcer, anemia Endoscopist:?Charla Hernandez MD Anesthesia Provider:?Dr Bethany Aaron Anesthesia type:?MAC Instrument:?Olympus GIF-H190, PCF-H190L EGD Procedure:?? The procedure, indications, preparation and potential complications were reviewed with the patient, who indicated understanding and gave written informed consent to proceed. A physical exam was performed. The endoscope was introduced through the mouth, and advanced to the duodenum. The mucosa was carefully examined on slow withdrawal of the endoscope. The patient tolerated the procedure well. There were no immediate complications.? ? EGD Findings:? * Esophagus:? Normal mucosa noted in the entire esophagus. The Z line was at 36cm. * Stomach:? There was a scar deformity with converging folds coming to a faint linear erosion in the posterior stomach. Spontaneous oozing was noted from the erosion. Multiple jumbo forceps biopsies were taken from the edge for histology. Jumbo forceps biopsies were also obtained from the remaining stomach as per Fabienne protocol for mapping. * Duodenum:? Normal mucosa was noted in the whole of the examined duodenum. Additional intervention: Due to significant oozing from the ulcer from extensive biopsying, hemospray was applied with excellent hemostasis. Colonoscopy Procedure:? The patient was then turned for the colonoscopy. A digital rectal exam was performed which was normal. A distal attachment cap was affixed to the tip of the scope and the colonoscope was then inserted through the anus and advanced through the colon to the cecum at 75 cm. The appendiceal orifice and ileocecal valve was identified.? Mucosa was carefully examined under high definition white light as the instrument was slowly withdrawn in a retrograde panoramic fashion. Retroflexion was performed in rectum. The procedure was not difficult. There were no immediate obvious complications. The quality of the prep was BBPS: 3+2+3 = adequate Withdrawal time 12 minutes. Limitations: No limitations. Colonoscopy Findings: Mucosa: Normal mucosa in whole colon and terminal ileum. Protruding lesions: * Small internal hemorrhoids without stigmata of recent bleeding. Impression:? * Normal esophagus * Gastric ulcer suspicious for malignancy (biopsy) * Normal stomach (mapping biopsy) * Normal duodenum * Normal colon and terminal ileum mucosa * Internal hemorrhoids Recommendations:?? * Follow path results. * If biopsies are non-diagnostic, low threshold to refer for EUS. * Cont PPI * Cont iron supplementation Above has been reviewed with the patient.
[2022-10-01 14:50] VITALS: BP 139/85; PULSE 107; RESP 20; TEMP 37.1; O2SAT 97
[2022-10-01 15:05] VITALS: BP 144/99; PULSE 91; RESP 16; O2SAT 99
[2022-10-01 15:11] VITALS: BP 131/97; PULSE 92; RESP 16; TEMP 37.1; O2SAT 99
== END | disposition home or self-care (01) ==
PROVIDERS: PCP Nurse Practitioner Family; Visit Provider Internal Medicine
PROC: (CPT 43239; principal; 2022-10-01 13:30)
DX: D64.9 Anemia, unspecified (principal); K64.8 Other hemorrhoids; K25.4 Chronic or unspecified gastric ulcer with hemorrhage; Z79.899 Other long term (current) drug therapy; Z88.8 Allergy status to other drugs, medicaments and biological substances
CPT/HCPCS: 43239; 88305; 88342; J2250

== ENCOUNTER → 2022-10-25 08:33 | Outpatient (BNVA) | payer MEDICARE, MEDICAID, SELFPAY | PROVIDERS: PCP Nurse Practitioner Family; Visit Provider Internal Medicine | DX: K25.9 Gastric ulcer, unspecified as acute or chronic, without hemorrhage or perforation (principal); D50.9 Iron deficiency anemia, unspecified | CPT/HCPCS: 99212 ==

== ENCOUNTER 2022-11-24 13:14 | Outpatient (REF) | payer MEDICARE, MEDICAID, SELFPAY ==
[2022-11-24 15:03] LABS: Cholesterol 153 mg/dL; HDL Cholesterol 69 mg/dL; LDL Cholesterol Calculated 76 mg/dl; Triglycerides 40 mg/dL
== END 2022-11-24 13:15 | disposition home or self-care (01) ==
LOC: HO.HMGCLDS 13:14
PROVIDERS: PCP Nurse Practitioner Family; Visit Provider Nurse Practitioner Family
DX: E78.5 Hyperlipidemia, unspecified (principal)
CPT/HCPCS: 36415; 80061

== ENCOUNTER 2023-02-04 12:14 | Outpatient (REF) | payer MEDICARE, MEDICAID, SELFPAY ==
[2023-02-04 12:42] LABS: MANUAL DIFF FLAG NO
[2023-02-04 13:00] LABS: Basophils Absolute Auto 0.1 X10*3/uL (0.0-0.2); Basophils Percent Auto 1.7 % (0-2); Eosinophils Absolute Auto 0.4 X10*3/uL (0.0-0.4); Eosinophils Percent Auto 7.2 % (0-4); Hematocrit 31.2 % (37.0-47.0); Hemoglobin 9.4 g/dl (12.0-16.0); Imm Gran Abs Auto 0.01 X10*3/uL (0.00-0.03); Imm Gran Pct Auto 0.2 % (0.0-0.4); Immature Retic Fraction 20.2 % (3.0-15.9); Lymphocytes Absolute Auto 1.8 X10*3/uL (1.2-4.9); Lymphocytes Percent Auto 33.4 % (20-40); Mean Corpuscular HGB Conc 30.1 g/dl (31.0-35.0); Mean Corpuscular Hemoglobin 24.2 pg (27.0-33.0); Mean Corpuscular Volume 80.2 fL (80.0-98.0); Monocytes Absolute Auto 0.5 X10*3/uL (0.1-1.2); Monocytes Percent Auto 8.5 % (2-11); Neutrophils Absolute Auto 2.7 x10*3/uL (2.0-8.3); Platelet Count 535 X10*3/uL (160-400); Red Blood Count 3.89 X10*6/uL (4.20-5.50); Red Cell Distribution Width 15.9 % (11.0-16.0); Reticulocyte Percent 1.6 % (0.5-1.8); Reticulocytes Absolute 0.063 X10*6/uL (0.026-0.095); White Blood Count 5.4 X10*3/uL (4.8-10.8)
[2023-02-04 13:46] LABS: Alanine Aminotransferase 16 U/L (0-31); Alkaline Phosphatase 57 U/L (39-117); Anion Gap 12 (12-20); Aspartate Amino Transferase 22 U/L (5-31); Bilirubin Total 0.2 mg/dL (0.0-1.0); Blood Urea Nitrogen 11 mg/dL (9-16); Calcium 10.4 mg/dL (8.4-10.2); Carbon Dioxide 27 mmol/L (22-29); Chloride 104 mmol/L (96-108); Estimated Glomerular Filt Rate > 60; Glucose Random 95 mg/dL (60-115); Iron 18 mcg/dL (30-160); Percent Iron Saturation 5 % (15-50); Potassium 3.8 mmol/L (3.3-5.1); Sodium 139 mmol/L (135-145); Total Iron Binding Capacity 364 mcg/dL (228-428); Total Protein 6.7 g/dL (6.5-8.0); Unsaturated Iron Binding 346 ug/dL
[2023-02-04 14:05] LABS: Ferritin 4 ng/mL (10-250); TSH reflex Free T4 0.48 uIU/mL (0.32-4.0)
[2023-02-04 14:09] LABS: Folate 12.5 ng/mL (> or = 4.0); Vitamin B12 1173 pg/mL (200-900)
== END 2023-02-04 12:15 | disposition home or self-care (01) ==
LOC: HO.LAB 12:14
PROVIDERS: PCP Nurse Practitioner Family; Visit Provider Internal Medicine
DX: D64.9 Anemia, unspecified (principal); K25.9 Gastric ulcer, unspecified as acute or chronic, without hemorrhage or perforation
CPT/HCPCS: 36415; 80053; 82607; 82728; 82746; 83540; 84443; 85025; 85045

== ENCOUNTER 2023-02-08 09:00 | Outpatient (REF) | payer MEDICARE, MEDICAID, SELFPAY ==
--- NOTE | ~2023-02-08 | CT_ITS ---
EXAMINATION: CT ABDOMEN AND PELVIS WITH CONTRAST CLINICAL INFORMATION: Diarrhea. Rule out gastrocolic fistula COMPARISON: Previous CT of the abdomen and pelvis August 2022 TECHNIQUE: Multidetector volumetric images were obtained from the superior aspect of the liver through the pubic symphysis following administration 85 mL of Omnipaque 350 intravenous contrast. Sagittal and coronal reformatted images were obtained on the technologist's workstation. Oral contrast: Yes This CT examination was performed using dose optimization techniques as appropriate, variously including the following: *Automated exposure control *Adjustment of mA and/or kV according to patient size (this includes techniques or standardized protocols for targeted exams where dose is matched to indication/reason for exam; i.e. extremities or head) *Use of iterative reconstruction technique DLP: 451 mGy-cm FINDINGS: LUNG BASES: The visualized lung bases are unremarkable. LIVER, GALLBLADDER, AND BILIARY TREE: The liver is normal in size, shape, and attenuation. No focal hepatic lesion or biliary ductal dilatation is present. The gallbladder is unremarkable with no evidence of radiopaque gallstones, gallbladder wall thickening, or obvious pericholecystic inflammatory changes. PANCREAS: Unremarkable. SPLEEN: Unremarkable. ADRENAL GLANDS: Unremarkable. KIDNEYS AND URETERS: Small 1 to 2 mm stone in the lower pole the left kidney. Small bilateral renal cysts. No imaging follow-up recommended. BLADDER: Not optimally distended. GASTROINTESTINAL TRACT: Large amount of stool in the colon suggestive of constipation. The colon is mildly dilated. The small bowel is normal. The appendix is not seen. The stomach is normal. ABDOMINAL WALL: No significant hernia is appreciated. LYMPH NODES: Normal. VASCULAR: Unremarkable. PELVIC VISCERA: Unremarkable. OSSEOUS STRUCTURES: Degenerative changes of the spine and scoliosis. Postsurgical changes at L5-S1. CT/CT abdomen pelvis w IV con IMPRESSION: Severe constipation. No fistula is seen. Small nonobstructing stone in the lower pole of the left kidney. Fleischner guidelines were followed.
[2023-02-08] MEDS: iohexoL 350 MG/ML 100 ML INFUS..BTL IV (12:04)
== END 2023-02-08 09:01 | disposition home or self-care (01) ==
LOC: HO.CT 09:00
PROVIDERS: Visit Provider Internal Medicine
DX: R19.7 Diarrhea, unspecified (principal)
CPT/HCPCS: 74177; Q9967

== ENCOUNTER 2023-03-14 11:32 | Outpatient (AMB) | payer MEDICARE, MEDICAID, SELFPAY ==
--- NOTE | 2023-03-14 11:33 | A.OFFVIS_ITS ---
Intake Intake Visit Reasons: pt req appointment Intake Note: Hali presents as a video call. CC: having issues with her stools. She wants to talk about her medications and what she should do and understand the medication. Later in the day after taking Cholestrymine she throws up and she is unsure if this is okay. Tissue Coordinator Required: No Allergies metronidazole [From Flagyl] Adverse Reaction (Severe, Verified 03/14/23 11:33) Nausea HPI HPI Comments History of Present Illness Details This is a 51-year-old female with past medical history of irritable bowel syndrome, agoraphobia, previous history of alcohol use disorder, who is being seen for follow up after endoscopy. Pt was initially seen as inpatient 09/18/22 for acute symptomatic anemia. Patient states that she has been having mushy bowel movements 3 to 4 times a day for almost 6 months now. Most recently, she was seen by her marketing production specialist and was prescribed metronidazole with p.r.n. loperamide. On her own, she also started Pepto-Bismol. Initially, this helped her symptoms, she did not have any loose bowel movements for couple of days, only to return again for the past week. Her stools have been black for a few weeks now, but she attributed this to starting to Pepto-Bismol. Denies any abdominal pain but has been nauseous x 3 days with clear non bloody emesis. No fevers or chills. Has been noticing some lightheadedness and dizziness for a couple of weeks. She reports taking daily ibuprofen 2 to 3 times a day for headaches, and lower back pain. Has been taking this for few months now. No blood thinners. does not smoke or drink Last colonoscopy was couple years ago per her report. She was seen by her primary care provider earlier this week for these symptoms, blood work was ordered. Was found to have low hemoglobin of 7.0 for which she was advised to go to the emergency room. EGD 09/18/22: Esophagus: Normal mucosa noted in the entire esophagus. The Z line was at 36cm. Stomach: There was a scar deformity with converging folds coming to a faint linear erosion in the posterior stomach. No active bleeding or stigmata of recent bleeding. Cold forceps biopsies were taken for histology. Duodenum: Normal mucosa was noted in the whole of the examined duodenum. Path: Stomach, edge of erosion, biopsy: Gastric antral and body mucosa with reactive changes, congestion, and minimal chronic inactive gastritis; negative for H pylori, intestinal metaplasia and dysplasia. EGD/colo 10/01/22: Normal esophagus Gastric ulcer suspicious for malignancy (biopsy) Normal stomach (mapping biopsy) Normal duodenum Normal colon and terminal ileum mucosa Internal hemorrhoids Path: A. Stomach, ulcer at greater curvature, biopsy: Gastric antral and body mucosa with reactive gastropathy changes, congestion, focal intestinal metaplasia, and minimal to mild chronic inactive gastritis; negative for H pylori, dysplasia and carcinoma. B. Gastric antrum, lesser curvature, biopsy: Gastric antral mucosa with mild reactive changes, congestion, and minimal chronic inactive gastritis; negative for H pylori, intestinal metaplasia and dysplasia. C. Gastric antrum, greater curvature, biopsy: Gastric antral mucosa with reactive changes, congestion, and minimal chronic inactive gastritis; negative for H pylori, intestinal metaplasia and dysplasia. D. Gastric incisura, biopsy: Gastric antral mucosa with mild reactive changes, congestion, and minimal chronic inactive gastritis; negative for H pylori, intestinal metaplasia and dysplasia. E. Gastric body, lesser curvature, biopsy: Gastric body mucosa with features suggesting proton pump inhibitor effect, and focal minimal chronic inactive inflammation; negative for H pylori, intestinal metaplasia and dysplasia. F. Gastric body, greater curvature, biopsy: Gastric body mucosa with features suggesting proton pump inhibitor effect, congestion, and focal minimal chronic inactive inflammation; negative for H pylori, intestinal metaplasia and dysplasia. 10/25/22: Patient reports no abdominal complaints include abdominal discomfort, nausea, vomiting, loss of appetite, unintentional weight loss. Normal bowel movements. As noted in workload correspondence, patient has already been referred to [facility] for EUS evaluation. 03/14/23: s/p EGD with EUS 02/23/[address] Castillo. No submucosal abnormality evident on EUS. EMR could not be done as the ulcer base was fibrotic and could not be lifted. Biopsies from the base and edges of the ulcer benign. Pt currently does not report any epigastric sx but has been having loose watery BMs 1-2 times a day that started shortly after her colo. Trial of Cipro for possible SIBO helped but pt couldnt complete the course due to N/V. Just started cholestyramine 2 days ago. No BMs so far today. [facility] Medical History Postlaminectomy syndrome PTSD (post-traumatic stress disorder) Synovial cyst of lumbar spine Urine incontinence Surgical History H/O unilateral oophorectomy History of discectomy History of esophagogastroduodenoscopy (EGD) History of tonsillectomy Hx of colonoscopy Hx of spinal fusion Family History Father No problems noted. Mother Substance use disorder Maternal Grandmother Alzheimer's disease Brother No problems noted. Sister No problems noted. Son No problems noted. Social History Household Members: Spouse Housing: House Do you presently have visiting nurse or other home services: No Alcohol intake: never Patient Tobacco Use Status: Former Tobacco user Tobacco use type: Smokeless Tobacco e-Cigarette/Vaping Use: Currently Using service: No Current occupational status: disabled Cognitive needs: No Hearing needs: No Vision needs: No Physical Exam video visit: Gen appear: well, nontoxic Chest: no overt resp distress Abd: nondistended Neuro: no dysphasia or dysarthria Assessment & Plan Assessment & Plan (1) Gastric ulcer: Code(s): K25.9 - Gastric ulcer, unspecified as acute or chronic, without hemorrhage or perforation (2) Microcytic anemia: Code(s): D50.9 - Iron deficiency anemia, unspecified (3) Diarrhea: Code(s): R19.7 - Diarrhea, unspecified Plan 1. Gastric ulcer: Reviewed EUS results with the pt, and discussed that as EMR bx could not be obtained and T1a lesion can not be excluded will need to surveil. EGD to be set up in the next 2-4 weeks. Cont PPI 2. Chronic diarrhea Started after her colo, sometime in late November. ? overflow diarrhea given findings on CT from 02/08 however little improvement following colon cleanse with miralax. Loperamide not helpful either. Cholestyramine started just earlier this week. - Cont cholestyramine - If no improvement with cholestyramine either will add flex sig to the EGD to take bx for microscopic colitis. Follow up after scope. Medications: Refilled ondansetron 8 mg PO Q12H 10 days PRN 20 tabs 0RF nausea and vomiting Telehealth Telehealth Location of provider rendering services: practice address Location of patient: address on file Patient Identification confirmed using: Name, : Yes Telehealth method: video Patient verbally consented to treatment: Yes Patient verbally consented to billing insurance company: Yes Patient informed of any privacy concerns related to visit: Yes Minutes spent on Phone/Video with Pt.: 15 Coding Level of Care Code Tele Est Pt Level 4 (46564) Diagnoses Gastric ulcer K25.9 Microcytic anemia D50.9 Diarrhea R19.7
== END 2023-03-14 12:31 | disposition home or self-care (01) ==
LOC: HO.HGI 11:32
PROVIDERS: PCP Nurse Practitioner Family; Visit Provider Internal Medicine
DX: K25.9 Gastric ulcer, unspecified as acute or chronic, without hemorrhage or perforation (principal); D50.9 Iron deficiency anemia, unspecified; K52.9 Noninfective gastroenteritis and colitis, unspecified
CPT/HCPCS: 99214

== ENCOUNTER → 2023-03-14 11:32 | Outpatient (BNVA) | payer MEDICARE, MEDICAID, SELFPAY | PROVIDERS: PCP Nurse Practitioner Family; Visit Provider Internal Medicine ==

== ENCOUNTER 2023-04-07 09:33 | Day surgery (SDC) | payer MEDICARE, MEDICAID, SELFPAY ==
[2023-04-05 09:58] VITALS: BMI 25.6
--- NOTE | 2023-04-06 09:35 | P.CONAN_ITS ---
Documented by User: Aarti Scott NP 04/06/23 09:37 HPI - Anesthesia Eval Consult details Narrative: 52yo M for Upper Endoscopy s/p EGD and [place] 09/2022 with [facility] Active Problems Active Problems: All Active Problems (Updated 04/05/23 @ 09:51 by Karie Lawson RN) Saddle anesthesia (Acute) Right lumbar radiculopathy (Acute) Post-menopausal (Acute) Screening for cervical cancer (Acute) Wheezing (Acute) Anterior pleuritic pain (Acute) Decreased diffusion capacity (Acute) Anxiety (Acute) Diarrhea (Acute) Microcytic anemia (Acute) Melena (Acute) NSAID long-term use (Acute) Pyuria (Acute) Dyslipidemia (Acute) Gastric ulcer (Acute) Anemia (Acute) Anxiety and depression (Acute) PTSD (post-traumatic stress disorder) (Acute) Urine incontinence (Acute) Postlaminectomy syndrome (Acute) Past Medical History Medical History Anemia Anxiety Gastric ulcer Postlaminectomy syndrome PTSD (post-traumatic stress disorder) Synovial cyst of lumbar spine Urine incontinence Family History Family History Father No problems noted. Mother Substance use disorder Maternal Grandmother Alzheimer's disease Brother No problems noted. Sister No problems noted. Son No problems noted. Family history of problems with anesthesia: No Surgical History Surgical History H/O unilateral oophorectomy History of discectomy History of esophagogastroduodenoscopy (EGD) History of tonsillectomy Hx of colonoscopy Hx of spinal fusion History of Problems with Anesthesia: No Social History Social History Household Members: Spouse Housing: House Do you presently have visiting nurse or other home services: No Alcohol intake: never Patient Tobacco Use Status: Current everyday Tobacco user Tobacco use type: Smokeless Tobacco e-Cigarette/Vaping Use: Currently Using Are you DNR?: No Advance Directives: No Advance Directives Information Provided: Yes Nutrition Risks: No Nutritional Risk service: No Current occupational status: disabled Cognitive needs: No Hearing needs: No Vision needs: No Meds Allergies Allergy/AdvReac Type Severity Reaction Status Date / Time metronidazole [From Flagyl] AdvReac Severe Nausea Verified 04/07/23 10:07 Home Medications Medication Instructions Recorded Confirmed Last Taken Type hydroxyzine HCl 25 mg tablet 25 mg PO BID PRN Anxiety 09/04/20 04/05/23 Unknown History bupropion HCl 300 mg 24 hr tablet, 300 mg PO DAILY 07/23/21 04/05/23 09/17/22 History extended release multivitamin 1 tab PO DAILY 09/17/22 04/05/23 09/17/22 History dicyclomine 20 mg tablet 20 mg PO TID 03/14/23 04/05/23 Unknown History Exam Exam Date and Time: April 06, 2023 0935 Height,Weight and Vital Signs: Height 5 ft 5 in Weight 69.853 kg Pertinent Lab Results Pertinent Lab Results: Laboratory Tests 02/04/23 02/04/23 12:41 12:41 WBC 5.4 Hgb 9.4 L Hct 31.2 L Plt Count 535 H Sodium 139 Potassium 3.8 Chloride 104 Carbon Dioxide 27 BUN 11 Creatinine 0.84 Assessment and Plan Assessment Anesthesia Assessment: Chart Reviewed Final Anesthetic Review Family History of Problems with Anesthesia: No History of Problems with Anesthesia: No Documented by User: Galen Blevins MD 04/07/23 10:36 [facility] Past Medical History Medical History Anemia Anxiety Gastric ulcer Postlaminectomy syndrome PTSD (post-traumatic stress disorder) Synovial cyst of lumbar spine Urine incontinence Family History Family History Father No problems noted. Mother Substance use disorder Maternal Grandmother Alzheimer's disease Brother No problems noted. Sister No problems noted. Son No problems noted. Surgical History Surgical History H/O unilateral oophorectomy History of discectomy History of esophagogastroduodenoscopy (EGD) History of tonsillectomy Hx of colonoscopy Hx of spinal fusion Social History Social History Household Members: Spouse Housing: House Do you presently have visiting nurse or other home services: No Alcohol intake: never Patient Tobacco Use Status: Current everyday Tobacco user Tobacco use type: Smokeless Tobacco e-Cigarette/Vaping Use: Currently Using Are you DNR?: No Advance Directives: No Advance Directives Information Provided: Yes Nutrition Risks: No Nutritional Risk service: No Current occupational status: disabled Cognitive needs: No Hearing needs: No Vision needs: No Meds Allergies Allergy/AdvReac Type Severity Reaction Status Date / Time metronidazole [From Flagyl] AdvReac Severe Nausea Verified 04/07/23 10:07 Home Medications Medication Instructions Recorded Confirmed Last Taken Type hydroxyzine HCl 25 mg tablet 25 mg PO BID PRN Anxiety 09/04/20 04/05/23 Unknown History bupropion HCl 300 mg 24 hr tablet, 300 mg PO DAILY 07/23/21 04/05/23 09/17/22 History extended release multivitamin 1 tab PO DAILY 09/17/22 04/05/23 09/17/22 History dicyclomine 20 mg tablet 20 mg PO TID 03/14/23 04/05/23 Unknown History Exam Airway Mallampati Class: I Neck ROM: Full Loose/Missing/Broken Teeth: Yes Assessment and Plan Assessment Anesthesia Assessment: Anesthesia Plan Discussed Final Anesthetic Review NPO: Yes ASA Class: III Final Preanesthetic Review: No Changes in Pt Med Stat, Meds/Allgs Chart Reviewed, Consent Obtained/Reviewed and Anes Risks/Benef Reviewed Patient Risk: Intermediate Procedure Risk: Low Anesthetic Plan Anesthetic Plan: MAC: Disposition: Standard PACU
[2023-04-07] MEDS: Lactated Ringers 1,000 ML 100 ML IVCONT (09:49)
--- NOTE | 2023-04-07 09:50 | MHC.SHP ---
Pre-Procedural Eval Section A Date of Service: 04/07/23 The History & Physical has been completed within 30 days and I have reviewed it.: Yes Section B Chief Complaint: Gastric ulcer, unspecified as acute or chronic Allergies: Allergies Allergy/AdvReac Type Severity Reaction Status Date / Time metronidazole [From Flagyl] AdvReac Severe Nausea Verified 03/14/23 11:33 Plan Diagnosis/Plan: Unchanged I have reviewed the history and physical and performed a pertinent physical examination on my patient. No changes have occurred unless specified. Time Spent With Patient Time: Total time managing care of this patient today ____ minutes.
[2023-04-07 10:07] VITALS: BP 104/74; PULSE 76; RESP 18; TEMP 36.7; O2SAT 97
--- NOTE | 2023-04-07 10:42 | P.OP_ITS ---
Operative Note Operative Note Date of Service: 04/07/23 Narrative: Procedure:?Esophagogastroduodenoscopy Indication:?Gastric ulcer, anemia Endoscopist:?Charla Hernandez MD Anesthesia Provider:?Dr Galen Blevins Anesthesia type:?MAC Instrument:?Olympus GIF-H190 EGD Procedure:?? The procedure, indications, preparation and potential complications were reviewed with the patient, who indicated understanding and gave written informed consent to proceed. A physical exam was performed. The endoscope was introduced through the mouth, and advanced to the duodenum. The mucosa was carefully examined on slow withdrawal of the endoscope. The patient tolerated the procedure well. There were no immediate complications.? ? EGD Findings:? * Esophagus:? Normal mucosa noted in the entire esophagus. The Z line was at 36cm. * Stomach:? There was a 2 cm scar deformity with converging folds coming to a linear erosion measuring 6 mm proximal to antrum along the greater curvature. Spontaneous scant oozing was noted from the erosion. [place] was injected in the base of the ulcer which did not lift at all. Jumbo bite on bite forceps biopsies were taken from base and the edge of the ulcer. * Duodenum:? Normal mucosa was noted in the whole of the examined duodenum. Cold forceps biopsies were taken to r/o celiac sprue given anemia and diarrhea. Impression:? * Normal esophagus * Chronic gastric ulcer (biopsy) * Normal duodenum (biopsy) Recommendations:?? * Follow path results. * If biopsies are again non-diagnostic, will review further testing such as PET CT vs referral to surgery * Cont PPI. Add liquid carafate * Cont iron supplementation * Will recheck CBC and iron panel today to see if needs IV iron infusions Above has been reviewed with the patient.
[2023-04-07 11:12] VITALS: BP 114/75; PULSE 79; RESP 18; TEMP 36.2; O2SAT 100
[2023-04-07 11:28] VITALS: BP 106/67; PULSE 61; RESP 18; TEMP 36.2; O2SAT 100
[2023-04-07 11:41] LABS: Hematocrit 30.9 % (37.0-47.0); Hemoglobin 9.4 g/dl (12.0-16.0); Mean Corpuscular HGB Conc 30.4 g/dl (31.0-35.0); Mean Corpuscular Hemoglobin 23.3 pg (27.0-33.0); Mean Corpuscular Volume 76.7 fL (80.0-98.0); Platelet Count 327 X10*3/uL (160-400); Red Blood Count 4.03 X10*6/uL (4.20-5.50); White Blood Count 4.9 X10*3/uL (4.8-10.8)
[2023-04-07 12:04] LABS: Iron 22 mcg/dL (30-160); Percent Iron Saturation 7 % (15-50); Total Iron Binding Capacity 336 mcg/dL (228-428); Unsaturated Iron Binding 314 ug/dL
[2023-04-07 12:18] LABS: Ferritin 4 ng/mL (10-250)
== END 2023-04-07 12:42 | disposition home or self-care (01) ==
PROVIDERS: PCP Nurse Practitioner Family; Visit Provider Internal Medicine
PROC: 0DJ08ZZ Inspection of Upper Intestinal Tract, Via Natural or Artificial Opening Endoscopic (ICD-10-PCS; CPT 43235; principal; 2023-04-07 14:20)
DX: K25.7 Chronic gastric ulcer without hemorrhage or perforation (principal); K64.8 Other hemorrhoids; D64.9 Anemia, unspecified; R19.7 Diarrhea, unspecified; E78.5 Hyperlipidemia, unspecified; Z87.891 Personal history of nicotine dependence; Z79.1 Long term (current) use of non-steroidal anti-inflammatories (NSAID); Z79.899 Other long term (current) drug therapy
CPT/HCPCS: 43239; 36415; 82728; 83540; 85027; 88305; 88342

== ENCOUNTER → 2023-04-07 09:33 | Outpatient (BNV) | payer MEDICARE, MEDICAID, SELFPAY | PROVIDERS: PCP Nurse Practitioner Family; Visit Provider Internal Medicine | DX: K25.3 Acute gastric ulcer without hemorrhage or perforation (principal); D64.9 Anemia, unspecified | CPT/HCPCS: 43239 ==

== ENCOUNTER 2023-04-15 13:13 | Outpatient (AMB) | payer MEDICARE, MEDICAID, SELFPAY ==
--- NOTE | 2023-04-15 13:13 | A.OFFVIS_ITS ---
Intake Intake Visit Reasons: follow up procedure Intake Note: Hali presents as a video call today for results of her EGD. CC: States that she is ready for her Ulcer to be healed but other than that there are no concerns at this time. Allergies metronidazole [From Flagyl] Adverse Reaction (Severe, Verified 04/15/23 13:13) Nausea HPI HPI Comments History of Present Illness Details This is a 51-year-old female with past medical history of irritable bowel syndrome, agoraphobia, previous history of alcohol use disorder, who is being seen for follow up after endoscopy. Pt was initially seen as inpatient 09/18/22 for acute symptomatic anemia. Patient states that she has been having mushy bowel movements 3 to 4 times a day for almost 6 months now. Most recently, she was seen by her client experience manager and was prescribed metronidazole with p.r.n. loperamide. On her own, she also started Pepto-Bismol. Initially, this helped her symptoms, she did not have any loose bowel movements for couple of days, only to return again for the past week. Her stools have been black for a few weeks now, but she attributed this to starting to Pepto-Bismol. Denies any abdominal pain but has been nauseous x 3 days with clear non bloody emesis. No fevers or chills. Has been noticing some lightheadedness and dizziness for a couple of weeks. She reports taking daily ibuprofen 2 to 3 times a day for headaches, and lower back pain. Has been taking this for few months now. No blood thinners. does not smoke or drink Last colonoscopy was couple years ago per her report. She was seen by her primary care provider earlier this week for these symptoms, blood work was ordered. Was found to have low hemoglobin of 7.0 for which she was advised to go to the emergency room. EGD 09/18/22: Esophagus: Normal mucosa noted in the entire esophagus. The Z line was at 36cm. Stomach: There was a scar deformity with converging folds coming to a faint linear erosion in the posterior stomach. No active bleeding or stigmata of recent bleeding. Cold forceps biopsies were taken for histology. Duodenum: Normal mucosa was noted in the whole of the examined duodenum. Path: Stomach, edge of erosion, biopsy: Gastric antral and body mucosa with reactive changes, congestion, and minimal chronic inactive gastritis; negative for H pylori, intestinal metaplasia and dysplasia. EGD/colo 10/01/22: Normal esophagus Gastric ulcer suspicious for malignancy (biopsy) Normal stomach (mapping biopsy) Normal duodenum Normal colon and terminal ileum mucosa Internal hemorrhoids Path: A. Stomach, ulcer at greater curvature, biopsy: Gastric antral and body mucosa with reactive gastropathy changes, congestion, focal intestinal metaplasia, and minimal to mild chronic inactive gastritis; negative for H pylori, dysplasia and carcinoma. B. Gastric antrum, lesser curvature, biopsy: Gastric antral mucosa with mild reactive changes, congestion, and minimal chronic inactive gastritis; negative for H pylori, intestinal metaplasia and dysplasia. C. Gastric antrum, greater curvature, biopsy: Gastric antral mucosa with reactive changes, congestion, and minimal chronic inactive gastritis; negative for H pylori, intestinal metaplasia and dysplasia. D. Gastric incisura, biopsy: Gastric antral mucosa with mild reactive changes, congestion, and minimal chronic inactive gastritis; negative for H pylori, intestinal metaplasia and dysplasia. E. Gastric body, lesser curvature, biopsy: Gastric body mucosa with features suggesting proton pump inhibitor effect, and focal minimal chronic inactive inflammation; negative for H pylori, intestinal metaplasia and dysplasia. F. Gastric body, greater curvature, biopsy: Gastric body mucosa with features suggesting proton pump inhibitor effect, congestion, and focal minimal chronic inactive inflammation; negative for H pylori, intestinal metaplasia and dysplasia. 10/25/22: Patient reports no abdominal complaints include abdominal discomfort, nausea, vomiting, loss of appetite, unintentional weight loss. Normal bowel movements. As noted in workload correspondence, patient has already been referred to [facility] for EUS evaluation. 03/14/23: s/p EGD with EUS 02/23/[address] Castillo. No submucosal abnormality evident on EUS. EMR could not be done as the ulcer base was fibrotic and could not be lifted. Biopsies from the base and edges of the ulcer benign. Pt currently does not report any epigastric sx but has been having loose watery BMs 1-2 times a day that started shortly after her colo. Trial of Cipro for possible SIBO helped but pt couldnt complete the course due to N/V. Just started cholestyramine 2 days ago. No BMs so far today. 04/07/23: EGD * Esophagus:? Normal mucosa noted in the entire esophagus. The Z line was at 36cm. * Stomach:? There was a 2 cm scar deformity with converging folds coming to a linear erosion measuring 6 mm proximal to antrum along the greater curvature. Spontaneous scant oozing was noted from the erosion. Eleview was injected in the base of the ulcer which did not lift at all. Jumbo bite on bite forceps biopsies were taken from base and the edge of the ulcer. * Duodenum:? Normal mucosa was noted in the whole of the examined duodenum. Cold forceps biopsies were taken to r/o celiac sprue given anemia and diarrhea. Path: A.? Duodenum, biopsy:? Small intestinal mucosa within normal limits. B.? Stomach, ulcer, biopsy:? Antral-type and oxyntic mucosa with focal ulceration, chronic inactive inflammation and regenerative changes; no Helicobacter organisms seen. 04/15/23: Televisit. Case was separately reviewed with Dr Castillo over the phone as well. Pt currently without any abd pain, N,V. Diarrhea resolved with cholestyramine a nd now tapered down to taking it every other day. EGD and path findings reviewed with the pt. [facility] Medical History Anemia Anxiety Gastric ulcer Postlaminectomy syndrome PTSD (post-traumatic stress disorder) Synovial cyst of lumbar spine Urine incontinence Surgical History H/O unilateral oophorectomy History of discectomy History of esophagogastroduodenoscopy (EGD) History of tonsillectomy Hx of colonoscopy Hx of spinal fusion Family History Father No problems noted. Mother Substance use disorder Maternal Grandmother Alzheimer's disease Brother No problems noted. Sister No problems noted. Son No problems noted. Social History Household Members: Spouse Housing: House Do you presently have visiting nurse or other home services: No Alcohol intake: never Patient Tobacco Use Status: Current everyday Tobacco user Tobacco use type: Smokeless Tobacco e-Cigarette/Vaping Use: Currently Using service: No Current occupational status: disabled Cognitive needs: No Hearing needs: No Vision needs: No Review of Systems Const All systems reviewed & are unremarkable except as noted in HPI and below Physical Exam video visit: NAD Nonicteric Speaking in full sentences No facial asymmetry Assessment & Plan Assessment & Plan (1) Gastric ulcer: Code(s): K25.9 - Gastric ulcer, unspecified as acute or chronic, without hemorrhage or perforation (2) Microcytic anemia: Code(s): D50.9 - Iron deficiency anemia, unspecified Plan Gastric ulcer: Discussed with the pt that work up so far has not returned concerning for any underlying malignancy. EGD x 4, EUS, CT abd/pelvis x 2. For now, the consensus is that this lesion is a benign scar. However, puzzling as to what the scar is from as pt has not had any prior endoscopic work up done. Additionally, scar tissue typically not expected to bleed to the extent of dropping Hb <7. In any case, would favor close surveillance over the next 1-2 years. Can stagger imaging with EGDs. Plan: - CT Abd/pel with IV contrast due in 6 months. Reminder set - If no actionable finding on the CT, will repeat EGD in 1 year i.e 6m from the CT. Follow up in office in 6 months - after the CT scan. Medications: Refilled ondansetron 8 mg PO Q12H 10 days PRN 20 tabs 0RF nausea and vomiting Telehealth Telehealth Location of provider rendering services: practice address Location of patient: address on file Patient Identification confirmed using: Name, : Yes Telehealth method: video Patient verbally consented to treatment: Yes Patient verbally consented to billing insurance company: Yes Patient informed of any privacy concerns related to visit: Yes Minutes spent on Phone/Video with Pt.: 15 Coding Level of Care Code Est Pt Level 4 (62506) Diagnoses Gastric ulcer K25.9 Microcytic anemia D50.9
== END 2023-04-15 14:12 | disposition home or self-care (01) ==
LOC: HO.HGI 13:13
PROVIDERS: PCP Nurse Practitioner Family; Visit Provider Internal Medicine
DX: K25.9 Gastric ulcer, unspecified as acute or chronic, without hemorrhage or perforation (principal); D50.9 Iron deficiency anemia, unspecified
CPT/HCPCS: 99214

== ENCOUNTER → 2023-04-15 13:13 | Outpatient (BNVA) | payer MEDICARE, MEDICAID, SELFPAY | PROVIDERS: PCP Nurse Practitioner Family; Visit Provider Internal Medicine | DX: K25.9 Gastric ulcer, unspecified as acute or chronic, without hemorrhage or perforation (principal); D50.9 Iron deficiency anemia, unspecified | CPT/HCPCS: 99212 ==

== ENCOUNTER 2023-05-10 12:00 | Outpatient (REF) | payer MEDICARE, MEDICAID, SELFPAY | END 2023-05-10 12:01 | disposition home or self-care (01) | LOC: HO.MDS 12:00 | PROVIDERS: Visit Provider Internal Medicine | DX: D50.8 Other iron deficiency anemias (principal) | CPT/HCPCS: 96365; J1756 ==

== ENCOUNTER 2023-05-19 13:32 | Outpatient (REF) | payer MEDICARE, MEDICAID, SELFPAY | END 2023-05-19 13:33 | disposition home or self-care (01) | LOC: HO.MDS 13:32 | PROVIDERS: Visit Provider Internal Medicine | DX: D50.8 Other iron deficiency anemias (principal) | CPT/HCPCS: 96365; J1756 ==

== ENCOUNTER 2023-05-27 14:35 | Outpatient (REF) | payer MEDICARE, MEDICAID, SELFPAY | END 2023-05-27 14:36 | disposition home or self-care (01) | LOC: HO.MDS 14:35 | PROVIDERS: Visit Provider Internal Medicine | DX: D50.8 Other iron deficiency anemias (principal) | CPT/HCPCS: 96365; J1756 ==

== ENCOUNTER 2023-05-30 08:48 | Outpatient (AMB) | payer MEDICARE, MEDICAID, SELFPAY ==
[2023-05-30 09:05] VITALS: BP 98/60; PULSE 62; O2SAT 97; BMI 25.7
--- NOTE | 2023-05-30 09:05 | MHC.PC.OV ---
Vital Signs 05/30/23 09:05 Height 5 ft 5 in Weight 154 lb 4 oz BMI 25.7 BP 98/60 Blood Pressure Location Rt brachial Position Sitting Pulse 62 Pulse Source Pulse Oximeter Pulse Oximetry (%) 97 Oxygen Delivery Method Room Air Intake Visit Reasons: Annual PE Intake Note: pt is over due for mammo Allergies metronidazole [From Flagyl] Adverse Reaction (Severe, Verified 05/30/23 09:07) Nausea Medication List - Last Reconciled 05/30/23 by LOVE Ruff bupropion HCl 300 mg PO DAILY cholestyramine-aspartame 4 gram 4 grams PO BID 90 days dexamethasone 4 mg orally 3 times a day for 3 days, twice a day for 3 days, daily for 3 days; 9 days gabapentin 300 mg PO; 300mg in am, 300mg at noon, 600mg at night 30 days hydroxyzine HCl 25 mg PO BID PRN lisinopril 5 mg PO DAILY lorazepam 1 mg PO DAILY PRN 2 days multivitamin 1 tab PO DAILY pantoprazole 40 mg PO DAILY rosuvastatin 5 mg PO DAILY sucralfate (Carafate) 10 mL PO QID 30 days Tobacco use date assessed: 05/30/23 Dental Screening Dental Screen Date: 05/30/23 Did you have a dental visit in the last 12 months?: No Did you have a dental problem in the last 6 months where you did not have access to dental care?: No Was dental information given to patient?: No HPI Annual PE HPI Details Pt is here for a PE. Will order labs. Colon screen is up to date, sees GI. Due for mammo, pt would like to do this in 6 months. Pt would like her bupropion decreased due to low libido. Will decrease from 300mg to 150mg. Pt reports low blood pressure. Will stop lisinopril. Denies chest pain, shortness of breath, headache, dizziness, and blurred vision. Pt reports a facial lesion to her right cheek. Will refer to derm. [facility] Medical History Anemia Anxiety Gastric ulcer Postlaminectomy syndrome PTSD (post-traumatic stress disorder) Synovial cyst of lumbar spine Urine incontinence Surgical History Hx of colonoscopy History of esophagogastroduodenoscopy (EGD) Hx of spinal fusion H/O unilateral oophorectomy History of discectomy History of tonsillectomy Family History Father No problems noted. Mother Substance use disorder Maternal Grandmother Alzheimer's disease Brother No problems noted. Sister No problems noted. Son No problems noted. Social History Household Members: Spouse Housing: House Do you presently have visiting nurse or other home services: No Alcohol intake: never Patient Tobacco Use Status: Current everyday Tobacco user Tobacco use type: Smokeless Tobacco e-Cigarette/Vaping Use: Currently Using service: No Current occupational status: disabled Cognitive needs: No Hearing needs: No Vision needs: No Questionnaire Thrive Questionnaire Date Thrive assessed: 12/03/21 JULIO CÉSAR-7 AMB Questionnaire JULIO CÉSAR-7 Date JULIO CÉSAR - 7 assessed: 12/03/21 Source: Developed by Drs. Joseluis Davenport, Riddhi Melendez, Ricco Wong and colleagues, with an educational mariposa from [employer]. Review of Systems Const Denies chills and Denies fever(s) Eyes Denies blurry vision ENT Denies vertigo, Denies dizziness and Denies sore throat Card Denies chest pain at rest, Denies chest pain with activity, Denies diaphoresis, Denies dyspnea and Denies dyspnea on exertion Resp Denies cough, Denies dyspnea, Denies dyspnea on exertion and Denies wheezing GI Denies abdominal pain, Denies melena, Denies hematochezia, Denies constipation, Denies diarrhea and Denies loose stools Denies hematuria Musc Denies numbness and Denies tingling Skin/Breast Denies lesions Neuro Denies vertigo, Denies dizziness, Denies numbness and Denies tingling Psych Denies anxiety, Denies depression, Denies homicidal ideation, Denies suicidal ideation and Denies other (substance abuse) Aller/Immun Denies wheezing Physical exam (Primary Care) Vital Signs: Last Vital Signs Pulse 62 05/30/23 09:05 BP 98/60 05/30/23 09:05 Pulse Ox 97 05/30/23 09:05 Oxygen Delivery Method Room Air 05/30/23 09:05 BMI result Body Mass Index 25.7 Tobacco/Smoking Status: Tobacco use Status Tobacco use date assessed 05/30/23 05/30/23 09:11 Patient Tobacco Use Status Current everyday Tobacco 05/30/23 09:11 Tobacco use type Smokeless Tobacco 05/30/23 09:11 e-Cigarette/Vaping Use Currently Using 05/30/23 09:11 Thrive Assessment: Date of Thrive Assessment Date Thrive assessed 12/03/21 05/30/23 09:11 Const General: cooperative Nutritional Appearance: well nourished Orientation/consciousness: patient oriented x3 HENMT Head: Yes normal to inspection, Yes normocephalic and Yes atraumatic Ears: TM's normal bilaterally Eyes General: appearance normal, both eyes and all related structures Alignment and Position: alignment normal and position normal Neck Neck: Yes normal visual inspection and Yes no lymphadenopathy Thyroid: Thyroid normal Resp Effort & Inspection: normal respiratory effort Auscultation: clear to auscultation bilaterally Cardio Rate: regular rate Rhythm: regular rhythm Heart sounds: S1 normal heart sound present, S2 normal heart sound present and Murmur heart sound present systolic GI Palpation (GI): Soft to palpation and nontender Auscultation: normal bowel sounds Skin Other: right cheek with skin colored papular lesion, centermost aspect more concave Rashes: no rashes Neuro General: patient oriented x3, moves all extremities, no focal motor deficits and deep tendon reflexes 2+ bilaterally Romberg Test: Negative Extrem Right lower extremity: no edema Left lower extremity: no edema Psych Appearance: grossly normal Mental Status: mental status grossly normal Speech and movement: Normal speech and movement present Affect: normal affect Attitude: cooperative Thought process: Normal thought process present Thought content: Normal thought content present Insight: Good insight present (Psych) Judgement: Good judgement present (Psych) Assessment and Plan Assessment & Plan (1) Facial lesion: Code(s): L98.9 - Disorder of the skin and subcutaneous tissue, unspecified Plan: Referred to derm (2) Hypotension: Code(s): I95.9 - Hypotension, unspecified Plan The patient agreed to the use of a medical imaging technician for this encounter. Scribed for LOVE Tomas by remy Grayson scribe, on 05/30/2023 at 09:30 EST Orders: Orders Comprehensive [place]. Panel Fast Today Z00.00 - Encounter for general adult medical examination without abnormal findings UA CC w/rflx Micro + Cult Today Z00.00 - Encounter for general adult medical examination without abnormal findings Lipid Panel Today Z00.00 - Encounter for general adult medical examination without abnormal findings MM screening mammo BI Today Z12.31 - Encounter for screening mammogram for malignant neoplasm of breast Complete Blood Count Auto Diff Today Z00.00 - Encounter for general adult medical examination without abnormal findings TSH reflex Free T4 Today Z00.00 - Encounter for general adult medical examination without abnormal findings Referrals Gastroenterology Referral Z12.11 - Encounter for screening for malignant neoplasm of colon Dermatology Referral L98.9 - Disorder of the skin and subcutaneous tissue, unspecified Medications: New bupropion HCl 150 mg PO QAM 90 days 90 tabs 0RF Refilled gabapentin 300 mg PO; 300mg in am, 300mg at noon, 600mg at night 30 days 120 caps 2RF M54.16 - Radiculopathy, lumbar region Discontinued lisinopril Discontinued Reason: Doctor's Order 5 mg PO DAILY 90 tabs 1RF Coding Level of Care Code Est Pt Prev Care 40-64y(34587) Diagnoses Facial lesion L98.9 Hypotension I95.9
== END 2023-05-30 09:46 | disposition home or self-care (01) ==
PROVIDERS: PCP Nurse Practitioner Family; Visit Provider Nurse Practitioner Family
DX: Z00.00 Encounter for general adult medical examination without abnormal findings (principal); L98.9 Disorder of the skin and subcutaneous tissue, unspecified; I95.9 Hypotension, unspecified; Z12.11 Encounter for screening for malignant neoplasm of colon
CPT/HCPCS: 99396

== ENCOUNTER 2023-06-07 13:53 | Outpatient (REF) | payer MEDICARE, MEDICAID, SELFPAY | END 2023-06-07 13:54 | disposition home or self-care (01) | LOC: HO.MDS 13:53 | PROVIDERS: Visit Provider Internal Medicine | DX: D50.8 Other iron deficiency anemias (principal) | CPT/HCPCS: 96365; J1756 ==

== ENCOUNTER 2023-06-14 14:00 | Outpatient (REF) | payer MEDICARE, MEDICAID, SELFPAY | END 2023-06-14 14:01 | disposition home or self-care (01) | LOC: HO.MDS 14:00 | PROVIDERS: Visit Provider Internal Medicine | DX: D50.8 Other iron deficiency anemias (principal) | CPT/HCPCS: 96365; J1756 ==

== ENCOUNTER 2023-06-21 13:55 | Outpatient (REF) | payer MEDICARE, MEDICAID, SELFPAY | END 2023-06-21 13:56 | disposition home or self-care (01) | LOC: HO.MDS 13:55 | PROVIDERS: Visit Provider Internal Medicine | DX: D50.8 Other iron deficiency anemias (principal) | CPT/HCPCS: 96365; J1756 ==

== ENCOUNTER 2023-07-05 13:27 | Outpatient (REF) | payer MEDICARE, MEDICAID, SELFPAY ==
[2023-07-05 15:56] LABS: MANUAL DIFF FLAG NO
[2023-07-05 16:02] LABS: Appearance Urine Clear; Color Urine Yellow; Glucose Urine UA Negative (Negative); Leukocyte Esterase Urine Negative (Negative); Nitrite Urine Negative (Negative); Specific Gravity - Urine 1.025 (1.005-1.025); Urine Blood Negative (Negative); Urine Ketones Negative (Negative); Urine Protein Negative (Neg-Trace)
[2023-07-05 16:21] LABS: Basophils Absolute Auto 0.1 X10*3/uL (0.0-0.2); Basophils Percent Auto 1.9 % (0-2); Eosinophils Absolute Auto 0.1 X10*3/uL (0.0-0.4); Eosinophils Percent Auto 3.1 % (0-4); Hematocrit 40.2 % (37.0-47.0); Imm Gran Abs Auto 0.01 X10*3/uL (0.00-0.03); Imm Gran Pct Auto 0.2 % (0.0-0.4); Lymphocytes Absolute Auto 1.7 X10*3/uL (1.2-4.9); Lymphocytes Percent Auto 39.6 % (20-40); Mean Corpuscular HGB Conc 32.3 g/dl (31.0-35.0); Mean Corpuscular Hemoglobin 27.5 pg (27.0-33.0); Mean Platelet Volume 9.1 fL (9.4-12.3); Monocytes Absolute Auto 0.4 X10*3/uL (0.1-1.2); Monocytes Percent Auto 9.3 % (2-11); Neutrophils Absolute Auto 1.9 x10*3/uL (2.0-8.3); Neutrophils Percent Auto 45.9 % (45-73); Platelet Count 349 X10*3/uL (160-400); Red Blood Count 4.73 X10*6/uL (4.20-5.50); Red Cell Distribution Width 21.4 % (11.0-16.0); White Blood Count 4.2 X10*3/uL (4.8-10.8)
[2023-07-05 16:38] LABS: Alanine Aminotransferase 22 U/L (0-31); Albumin Level 4.2 g/dL (3.5-5.0); Alkaline Phosphatase 86 U/L (39-117); Anion Gap 11 (12-20); Aspartate Amino Transferase 26 U/L (5-31); Bilirubin Total 0.2 mg/dL (0.0-1.0); Blood Urea Nitrogen 14 mg/dL (9-16); Calcium 9.8 mg/dL (8.4-10.2); Carbon Dioxide 28 mmol/L (22-29); Chloride 105 mmol/L (96-108); Cholesterol 142 mg/dL (<200); Estimated Glomerular Filt Rate > 60; Glucose Fasting 91 mg/dL (60-99); HDL Cholesterol 71 mg/dL (>40); LDL Cholesterol Calculated 61 mg/dL (<100); Potassium 4.2 mmol/L (3.3-5.1); Sodium 140 mmol/L (135-145); Total Protein 6.7 g/dL (6.5-8.0); Triglycerides 53 mg/dL (<150)
[2023-07-05 16:41] LABS: Ferritin 83 ng/mL (10-250)
[2023-07-05 18:13] LABS: Free T4 (Free Thyroxine) 0.93 ng/dL (0.71-1.85)
== END 2023-07-05 13:28 | disposition home or self-care (01) ==
LOC: HO.HMGCLDS 13:27
PROVIDERS: Absent Provider Internal Medicine; PCP Nurse Practitioner Family; Visit Provider Nurse Practitioner Family
DX: Z00.00 Encounter for general adult medical examination without abnormal findings (principal); D50.9 Iron deficiency anemia, unspecified; E78.5 Hyperlipidemia, unspecified; R19.7 Diarrhea, unspecified; R94.6 Abnormal results of thyroid function studies
CPT/HCPCS: 36415; 80053; 80061; 81003; 82728; 84439; 84443; 85025

== ENCOUNTER 2023-09-21 10:11 | Outpatient (AMB) | payer MEDICARE, MEDICAID, SELFPAY ==
--- NOTE | 2023-09-21 10:12 | MHC.OFFVIS ---
Intake Intake Visit Reasons: req by patient Intake Note: Hali presents as a video call today because she is having abdominal pains. CC: She states she has been feeling bad with her stomach. Around hiro she has been having gas buildup, nausea and pains in the stomach. She will feel bloated after eating and she only eats one meal a day. Something is not right and she wants to get to the bottom of it. Coding Clerks Supervisor Required: No Allergies metronidazole [From Flagyl] Adverse Reaction (Severe, Verified 09/21/23 10:12) Nausea HPI HPI Comments History of Present Illness Details This is a 51-year-old female with past medical history of irritable bowel syndrome, agoraphobia, previous history of alcohol use disorder, who is being seen for follow up after endoscopy. Pt was initially seen as inpatient 09/18/22 for acute symptomatic anemia. Patient states that she has been having mushy bowel movements 3 to 4 times a day for almost 6 months now. Most recently, she was seen by her flanging operator and was prescribed metronidazole with p.r.n. loperamide. On her own, she also started Pepto-Bismol. Initially, this helped her symptoms, she did not have any loose bowel movements for couple of days, only to return again for the past week. Her stools have been black for a few weeks now, but she attributed this to starting to Pepto-Bismol. Denies any abdominal pain but has been nauseous x 3 days with clear non bloody emesis. No fevers or chills. Has been noticing some lightheadedness and dizziness for a couple of weeks. She reports taking daily ibuprofen 2 to 3 times a day for headaches, and lower back pain. Has been taking this for few months now. No blood thinners. does not smoke or drink Last colonoscopy was couple years ago per her report. She was seen by her primary care provider earlier this week for these symptoms, blood work was ordered. Was found to have low hemoglobin of 7.0 for which she was advised to go to the emergency room. EGD 09/18/22: Esophagus: Normal mucosa noted in the entire esophagus. The Z line was at 36cm. Stomach: There was a scar deformity with converging folds coming to a faint linear erosion in the posterior stomach. No active bleeding or stigmata of recent bleeding. Cold forceps biopsies were taken for histology. Duodenum: Normal mucosa was noted in the whole of the examined duodenum. Path: Stomach, edge of erosion, biopsy: Gastric antral and body mucosa with reactive changes, congestion, and minimal chronic inactive gastritis; negative for H pylori, intestinal metaplasia and dysplasia. EGD/colo 10/01/22: Normal esophagus Gastric ulcer suspicious for malignancy (biopsy) Normal stomach (mapping biopsy) Normal duodenum Normal colon and terminal ileum mucosa Internal hemorrhoids Path: A. Stomach, ulcer at greater curvature, biopsy: Gastric antral and body mucosa with reactive gastropathy changes, congestion, focal intestinal metaplasia, and minimal to mild chronic inactive gastritis; negative for H pylori, dysplasia and carcinoma. B. Gastric antrum, lesser curvature, biopsy: Gastric antral mucosa with mild reactive changes, congestion, and minimal chronic inactive gastritis; negative for H pylori, intestinal metaplasia and dysplasia. C. Gastric antrum, greater curvature, biopsy: Gastric antral mucosa with reactive changes, congestion, and minimal chronic inactive gastritis; negative for H pylori, intestinal metaplasia and dysplasia. D. Gastric incisura, biopsy: Gastric antral mucosa with mild reactive changes, congestion, and minimal chronic inactive gastritis; negative for H pylori, intestinal metaplasia and dysplasia. E. Gastric body, lesser curvature, biopsy: Gastric body mucosa with features suggesting proton pump inhibitor effect, and focal minimal chronic inactive inflammation; negative for H pylori, intestinal metaplasia and dysplasia. F. Gastric body, greater curvature, biopsy: Gastric body mucosa with features suggesting proton pump inhibitor effect, congestion, and focal minimal chronic inactive inflammation; negative for H pylori, intestinal metaplasia and dysplasia. 10/25/22: Patient reports no abdominal complaints include abdominal discomfort, nausea, vomiting, loss of appetite, unintentional weight loss. Normal bowel movements. As noted in workload correspondence, patient has already been referred to [facility] for EUS evaluation. 03/14/23: s/p EGD with EUS 02/23/[address] Castillo. No submucosal abnormality evident on EUS. EMR could not be done as the ulcer base was fibrotic and could not be lifted. Biopsies from the base and edges of the ulcer benign. Pt currently does not report any epigastric sx but has been having loose watery BMs 1-2 times a day that started shortly after her colo. Trial of Cipro for possible SIBO helped but pt couldnt complete the course due to N/V. Just started cholestyramine 2 days ago. No BMs so far today. 8/17/23: EGD Esophagus:? Normal mucosa noted in the entire esophagus. The Z line was at 36cm. Stomach:? There was a 2 cm scar deformity with converging folds coming to a linear erosion measuring 6 mm proximal to antrum along the greater curvature. Spontaneous scant oozing was noted from the erosion. Eleview was injected in the base of the ulcer which did not lift at all. Jumbo bite on bite forceps biopsies were taken from base and the edge of the ulcer. Duodenum:? Normal mucosa was noted in the whole of the examined duodenum. Cold forceps biopsies were taken to r/o celiac sprue given anemia and diarrhea. Path: A.? Duodenum, biopsy:? Small intestinal mucosa within normal limits. B.? Stomach, ulcer, biopsy:? Antral-type and oxyntic mucosa with focal ulceration, chronic inactive inflammation and regenerative changes; no Helicobacter organisms seen. 04/15/23: Televisit. Case was separately reviewed with Dr Castillo over the phone as well. Pt currently without any abd pain, N,V. Diarrhea resolved with cholestyramine and now tapered down to taking it every other day. EGD and path findings reviewed with the pt. 09/21/23: Pt requested this televisit due to worsening abdominal symptoms. Around hiro time started having postprandial abd pain, nausea and bloating. Feels very uncomfortable from this. This is in absence of any changes to diet or meds. Not constipated. No changes in appetite. Sx are more pronounced at night time. Previous c/o of diarrhea has resolved, now taking cholestyramine 3-4/week only. [facility] Medical History Anemia Anxiety Gastric ulcer Postlaminectomy syndrome PTSD (post-traumatic stress disorder) Synovial cyst of lumbar spine Urine incontinence Surgical History Hx of colonoscopy History of esophagogastroduodenoscopy (EGD) Hx of spinal fusion H/O unilateral oophorectomy History of discectomy History of tonsillectomy Family History Father No problems noted. Mother Substance use disorder Maternal Grandmother Alzheimer's disease Brother No problems noted. Sister No problems noted. Son No problems noted. Social History Household Members: Spouse Housing: House Do you presently have visiting nurse or other home services: No Alcohol intake: never Patient Tobacco Use Status: Current everyday Tobacco user Tobacco use type: Smokeless Tobacco e-Cigarette/Vaping Use: Currently Using service: No Current occupational status: disabled Cognitive needs: No Hearing needs: No Vision needs: No Review of Systems Const All systems reviewed & are unremarkable except as noted in HPI and below Physical Exam Vital Signs: video visit well appearing no resp distress speaking in full sentences no dysarthria Assessment & Plan Assessment & Plan (1) Gastric ulcer: Code(s): K25.9 - Gastric ulcer, unspecified as acute or chronic, without hemorrhage or perforation (2) Abdominal pain: Code(s): R10.9 - Unspecified abdominal pain (3) Bloating: Code(s): R14.0 - Abdominal distension (gaseous) Plan Presenting with new onset of postprandial abd pain and bloating in the setting of known gastric ulcer. Previously: Discussed with the pt that work up so far has not returned concerning for any underlying malignancy. EGD x 4, EUS, CT abd/pelvis x 2. For now, the consensus is that this lesion is a benign scar. However, puzzling as to what the scar is from as pt has not had any prior endoscopic work up done. Additionally, scar tissue typically not expected to bleed to the extent of dropping Hb <7. In any case, would favor close surveillance over the next 1-2 years. Can stagger imaging with EGDs. Plan: - CT Abd/pel with IV contrast - Check CBC and CMP - Repeat EGD - Cont high dose omeprazole - DC cholestyramine Follow up in office after EGD Telehealth Telehealth Location of provider rendering services: practice address Location of patient: address on file Patient Identification confirmed using: Name, : Yes Telehealth method: video Patient verbally consented to treatment: Yes Patient verbally consented to billing insurance company: Yes Minutes spent on Phone/Video with Pt.: 15 Coding Level of Care Code Tele Est Pt Level 4 (45721) Diagnoses Gastric ulcer K25.9 Abdominal pain R10.9 Bloating R14.0
== END 2023-09-21 11:50 | disposition home or self-care (01) ==
LOC: HO.HGI 10:11
PROVIDERS: PCP Nurse Practitioner Family; Visit Provider Internal Medicine
DX: K25.9 Gastric ulcer, unspecified as acute or chronic, without hemorrhage or perforation (principal); R14.0 Abdominal distension (gaseous)
CPT/HCPCS: 99213

== ENCOUNTER → 2023-09-21 10:11 | Outpatient (BNVA) | payer MEDICARE, MEDICAID, SELFPAY | PROVIDERS: PCP Nurse Practitioner Family; Visit Provider Internal Medicine ==

== ENCOUNTER 2023-09-23 12:17 | Outpatient (REF) | payer MEDICARE, MEDICAID, SELFPAY ==
[2023-09-23 13:04] LABS: MANUAL DIFF FLAG NO
[2023-09-23 13:38] LABS: Basophils Absolute Auto 0.1 X10*3/uL (0.0-0.2); Basophils Percent Auto 1.5 % (0-2); Eosinophils Absolute Auto 0.2 X10*3/uL (0.0-0.4); Eosinophils Percent Auto 2.9 % (0-4); Hematocrit 43.4 % (37.0-47.0); Hemoglobin 14.3 g/dl (12.0-16.0); Imm Gran Abs Auto 0.01 X10*3/uL (0.00-0.03); Imm Gran Pct Auto 0.2 % (0.0-0.4); Lymphocytes Absolute Auto 2.3 X10*3/uL (1.2-4.9); Lymphocytes Percent Auto 44.3 % (20-40); Mean Corpuscular HGB Conc 32.9 g/dl (31.0-35.0); Mean Corpuscular Hemoglobin 30.4 pg (27.0-33.0); Mean Corpuscular Volume 92.1 fL (80.0-98.0); Mean Platelet Volume 9.4 fL (9.4-12.3); Monocytes Absolute Auto 0.4 X10*3/uL (0.1-1.2); Monocytes Percent Auto 7.3 % (2-11); Neutrophils Absolute Auto 2.3 x10*3/uL (2.0-8.3); Neutrophils Percent Auto 43.8 % (45-73); Platelet Count 332 X10*3/uL (160-400); Red Blood Count 4.71 X10*6/uL (4.20-5.50); Red Cell Distribution Width 13.9 % (11.0-16.0); White Blood Count 5.2 X10*3/uL (4.8-10.8)
[2023-09-23 13:39] LABS: Hematocrit 43.3 % (37.0-47.0); Hemoglobin 14.3 g/dl (12.0-16.0); Mean Corpuscular Hemoglobin 30.4 pg (27.0-33.0); Mean Corpuscular Volume 92.1 fL (80.0-98.0); Mean Platelet Volume 9.6 fL (9.4-12.3); Platelet Count 338 X10*3/uL (160-400); White Blood Count 5.1 X10*3/uL (4.8-10.8)
[2023-09-23 13:53] LABS: Appearance Urine Clear; Color Urine Yellow; Glucose Urine UA Negative (Negative); Leukocyte Esterase Urine Negative (Negative); Nitrite Urine Negative (Negative); PH 6.5 (5.0-9.0); Urine Blood Negative (Negative); Urine Ketones Negative (Negative); Urine Protein Negative (Neg-Trace)
[2023-09-23 15:16] LABS: Anion Gap 14 (12-20); Blood Urea Nitrogen 14 mg/dL (9-16); Calcium 9.9 mg/dL (8.4-10.2); Carbon Dioxide 28 mmol/L (22-29); Chloride 105 mmol/L (96-108); Estimated Glomerular Filt Rate > 60; Glucose Random 64 mg/dL (60-115); Potassium 3.6 mmol/L (3.3-5.1); Sodium 143 mmol/L (135-145)
[2023-09-23 15:32] LABS: TSH reflex Free T4 0.36 uIU/mL (0.32-4.0)
== END 2023-09-23 12:18 | disposition home or self-care (01) ==
LOC: HO.HMGCLDS 12:17
PROVIDERS: PCP Nurse Practitioner Family; Visit Provider Internal Medicine
DX: Z00.00 Encounter for general adult medical examination without abnormal findings (principal); D50.9 Iron deficiency anemia, unspecified; F41.9 Anxiety disorder, unspecified; R79.89 Other specified abnormal findings of blood chemistry
CPT/HCPCS: 36415; 80048; 81003; 84443; 85025; 85027

== ENCOUNTER 2023-10-18 09:53 | Day surgery (SDC) | payer MEDICARE, MEDICAID, SELFPAY ==
--- NOTE | 2023-10-17 08:58 | HO.ANESPROP2 ---
HPI - Anesthesia Eval Consult details Narrative: 52yo F for Upper Endoscopy s/p same 03/2023 with MAC PMFSH Active Problems Active Problems: All Active Problems (Updated 09/21/23 @ 19:59 by Charla Hernandez MD) Bloating (Acute) Abdominal pain (Acute) Low TSH level (Acute) Hypotension (Acute) Physical exam (Acute) Facial lesion (Acute) Screening for colon cancer (Acute) Anxiety and depression (Acute) Anemia (Acute) Gastric ulcer (Acute) Dyslipidemia (Acute) Pyuria (Acute) NSAID long-term use (Acute) Melena (Acute) Microcytic anemia (Acute) Diarrhea (Acute) Anxiety (Acute) Decreased diffusion capacity (Acute) Anterior pleuritic pain (Acute) Wheezing (Acute) Screening for cervical cancer (Acute) Post-menopausal (Acute) Right lumbar radiculopathy (Acute) Saddle anesthesia (Acute) PTSD (post-traumatic stress disorder) (Acute) Urine incontinence (Acute) Postlaminectomy syndrome (Acute) Past Medical History Medical History Hx of cardiac murmur Anxiety Gastric ulcer Anemia PTSD (post-traumatic stress disorder) Synovial cyst of lumbar spine Urine incontinence Postlaminectomy syndrome Family History Family History Father No problems noted. Mother Substance use disorder Maternal Grandmother Alzheimer's disease Brother No problems noted. Sister No problems noted. Son No problems noted. Family history of problems with anesthesia: No Surgical History Surgical History Hx of colonoscopy History of esophagogastroduodenoscopy (EGD) Hx of spinal fusion H/O unilateral oophorectomy History of discectomy History of tonsillectomy History of Problems with Anesthesia: No Social History Social History Household Members: Spouse Housing: House Do you presently have visiting nurse or other home services: No Alcohol intake: never Patient Tobacco Use Status: Current everyday Tobacco user Tobacco use type: Smokeless Tobacco e-Cigarette/Vaping Use: Currently Using Use of substances other than those prescribed or required for medical reasons: No Are you DNR?: No Advance Directives: No Advance Directives Information Provided: Yes Patient : No service: No Current occupational status: disabled Cognitive needs: No Hearing needs: No Vision needs: No Meds Allergies Allergy/AdvReac Type Severity Reaction Status Date / Time metronidazole [From Flagyl] AdvReac Severe Nausea Verified 09/21/23 10:12 Home Medications Medication Instructions Recorded Confirmed Last Taken Type multivitamin 1 tab PO DAILY 09/17/22 05/30/23 09/17/22 History dexamethasone 4 mg tablet 4 mg PO .COMPLEX 09/21/23 Unknown History Exam Pertinent Lab Results Pertinent Lab Results: Laboratory Tests 09/23/23 12:25 WBC 5.1 Hgb 14.3 Hct 43.3 Plt Count 338 Sodium 143 Potassium 3.6 Chloride 105 Carbon Dioxide 28 BUN 14 Creatinine 0.82 Assessment and Plan Final Anesthetic Review Family History of Problems with Anesthesia: No History of Problems with Anesthesia: No
[2023-10-18 10:15] VITALS: BMI 23.3
[2023-10-18 10:24] VITALS: BP 138/91; PULSE 68; RESP 15; TEMP 36.6; O2SAT 99
[2023-10-18] MEDS: Lactated Ringers 1,000 ML 50 ML IVCONT (10:34)
--- NOTE | 2023-10-18 10:59 | P.CONAN_ITS ---
[facility] Active Problems Active Problems: All Active Problems (Updated 10/18/23 @ 10:24 by Gracie Jones RN) Bloating (Acute) Abdominal pain (Acute) Low TSH level (Acute) Hypotension (Acute) Physical exam (Acute) Facial lesion (Acute) Screening for colon cancer (Acute) Anxiety and depression (Acute) Anemia (Acute) Gastric ulcer (Acute) Dyslipidemia (Acute) Pyuria (Acute) NSAID long-term use (Acute) Melena (Acute) Microcytic anemia (Acute) Diarrhea (Acute) Anxiety (Acute) Decreased diffusion capacity (Acute) Anterior pleuritic pain (Acute) Wheezing (Acute) Screening for cervical cancer (Acute) Post-menopausal (Acute) Right lumbar radiculopathy (Acute) Saddle anesthesia (Acute) PTSD (post-traumatic stress disorder) (Acute) Urine incontinence (Acute) Postlaminectomy syndrome (Acute) Past Medical History Medical History Hx of cardiac murmur Anxiety Gastric ulcer Anemia PTSD (post-traumatic stress disorder) Synovial cyst of lumbar spine Urine incontinence Postlaminectomy syndrome Patient : No Family History Family History Father No problems noted. Mother Substance use disorder Maternal Grandmother Alzheimer's disease Brother No problems noted. Sister No problems noted. Son No problems noted. Family history of problems with anesthesia: No Surgical History Surgical History Hx of colonoscopy History of esophagogastroduodenoscopy (EGD) Hx of spinal fusion H/O unilateral oophorectomy History of discectomy History of tonsillectomy History of Problems with Anesthesia: No Social History Social History Household Members: Spouse Housing: House Do you presently have visiting nurse or other home services: No Alcohol intake: never Patient Tobacco Use Status: Current everyday Tobacco user Tobacco use type: Smokeless Tobacco e-Cigarette/Vaping Use: Currently Using Use of substances other than those prescribed or required for medical reasons: No Are you DNR?: No Advance Directives: No Advance Directives Information Provided: Yes service: No Current occupational status: disabled Cognitive needs: No Hearing needs: No Vision needs: No Meds Allergies Allergy/AdvReac Type Severity Reaction Status Date / Time metronidazole [From Flagyl] AdvReac Severe Nausea Verified 09/21/23 10:12 Active Medications: Current Medications Lactated Ringer's (Lr) 1,000 mls @ 50 mls/hr IVCONT .Q20H TRU Last Admin: 10/18/23 10:34 Dose: 50 mls/hr Home Medications Medication Instructions Recorded Confirmed Last Taken Type multivitamin 1 tab PO DAILY 09/17/22/05/1409/17/22 History dexamethasone 4 mg tablet 4 mg PO .COMPLEX 09/21/23 Unknown History Exam Height,Weight and Vital Signs: Height 5 ft 7 in Weight 67.585 kg Last Vital Signs Temp 97.8 F 10/18/23 10:24 Pulse 68 10/18/23 10:24 Resp 15 10/18/23 10:24 BP 138/91 H 10/18/23 10:24 Pulse Ox 99 10/18/23 10:24 O2 Del Method Room Air 10/18/23 10:24 Assessment and Plan Final Anesthetic Review Family History of Problems with Anesthesia: No History of Problems with Anesthesia: No
--- NOTE | 2023-10-18 11:18 | MHC.SHP ---
Pre-Procedural Eval Section A - 24 Hr Update-Section A only Date of Service: 10/18/23 Section B - Complete if H&P > 30 days Chief Complaint: Gastric ulcer, unspecified as acute or chronic, wi Details of Present Illness: PMH: Anemia Anxiety Gastric ulcer Postlaminectomy syndrome PTSD (post-traumatic stress disorder) Synovial cyst of lumbar spine Urine incontinence Surgical History Hx of colonoscopy History of esophagogastroduodenoscopy (EGD) Hx of spinal fusion H/O unilateral oophorectomy History of discectomy History of tonsillectomy Allergies: Allergies Allergy/AdvReac Type Severity Reaction Status Date / Time metronidazole [From Flagyl] AdvReac Severe Nausea Verified 09/21/23 10:12 Review of Systems Review of Systems Comment: Ten point ROS negative except as above Exam Exam Comment: Gen appear: No acute distress HEENT: no icterus Chest: No overt resp distress Abd: soft, nontender, nondistended Psych: Stable affect, answering questions appropriately Neuro: A/Ox3 noted to move all extremities spontaneously Ext: no peripheral edema Plan Diagnosis/Plan: Unchanged I have reviewed the history and physical and performed a pertinent physical examination on my patient. No changes have occurred unless specified. Time Spent With Patient Time: Total time managing care of this patient today ____ minutes.
--- NOTE | 2023-10-18 11:19 | P.OP_ITS ---
Operative Note Operative Note Date of Service: 10/18/23 Narrative: Procedure:?Esophagogastroduodenoscopy Indication:?Abd pain, hx of gastric ulcer Endoscopist:?Charla Hernandez MD Anesthesia Provider:?Dr Pam Mcnulty Anesthesia type:?MAC Instrument:?Olympus GIF-H190 EGD Procedure:?? The procedure, indications, preparation and potential complications were reviewed with the patient, who indicated understanding and gave written informed consent to proceed. A physical exam was performed. The endoscope was introduced through the mouth, and advanced to the duodenum. The mucosa was carefully examined on slow withdrawal of the endoscope. The patient tolerated the procedure well. There were no immediate complications.? ? EGD Findings:? * Esophagus:? Normal mucosa noted in the entire esophagus. The Z line was at 36cm. * Stomach:? There seems to be progression of ulcer with scar deformity now apparent as two linear clean based ulcers measuring 1.5 cm and 1 cm respectively with converging folds with a small nodule vs normal mucosa in between. These are located in antrum along the greater curvature. Spontaneous scant oozing were noted from the ulcers. Jumbo bite on bite forceps biopsies were taken from the central nodule between the two ulcers as well as from all 4 quadrants of the base of the ulcers. Scant heme and erosions present in antrum. * Duodenum:? Normal mucosa was noted in the whole of the examined duodenum. Impression:? * Normal esophagus * Gastritis * Gastric ulcers, enlarging (biopsy) * Normal duodenum Recommendations:?? * Follow path results. * CT abd/pel pending. * Depending on path and CT results, may consider repeat EUS vs surgical referral. * Maximize anti-secretory therapy - switch to nexium and add bedtime famotidine. Cont carafate. * Cont iron supplementation Above has been reviewed with the patient.
[2023-10-18 12:20] VITALS: BP 134/83; PULSE 78; RESP 16; TEMP 36.9; O2SAT 99
[2023-10-18 12:35] VITALS: BP 132/92; PULSE 68; RESP 16; TEMP 37.1; O2SAT 97
--- NOTE | 2023-10-18 15:27 | HO.POSTANES ---
Post Anesthesia Evaluation Post Anesthesia Evaluation Date of Service: 10/18/23 Vital Signs: Vital Signs Temp Pulse Resp BP Pulse Ox O2 Del Method 10/18/23 12:35 98.7 F 68 16 132/92 H 97 Room Air 10/18/23 12:20 98.4 F 78 16 134/83 99 Room Air 10/18/23 10:24 97.8 F 68 15 138/91 H 99 Room Air Anesthesia: Monitored Mental Status: Awake Pain Control: Satisfactory Nausea/Vomiting: None Hydration: Adequate Anesthesia-Related Issues: No Anes. Related Issues
== END 2023-10-18 13:08 | disposition home or self-care (01) ==
PROVIDERS: PCP Nurse Practitioner Family; Visit Provider Internal Medicine
PROC: 0DJ08ZZ Inspection of Upper Intestinal Tract, Via Natural or Artificial Opening Endoscopic (ICD-10-PCS; CPT 43235; principal; 2023-10-18 11:20)
DX: K25.9 Gastric ulcer, unspecified as acute or chronic, without hemorrhage or perforation (principal); D64.9 Anemia, unspecified; K29.50 Unspecified chronic gastritis without bleeding; R51.9 Headache, unspecified; F41.9 Anxiety disorder, unspecified; F43.10 Post-traumatic stress disorder, unspecified; R32 Unspecified urinary incontinence; Z79.1 Long term (current) use of non-steroidal anti-inflammatories (NSAID); Z79.899 Other long term (current) drug therapy; Z88.8 Allergy status to other drugs, medicaments and biological substances; Z98.890 Other specified postprocedural states; F17.290 Nicotine dependence, other tobacco product, uncomplicated
CPT/HCPCS: 43239; 88305; 88313; 88342; J2250; J2704

== ENCOUNTER → 2023-10-18 09:53 | Outpatient (BNV) | payer MEDICARE, MEDICAID, SELFPAY | PROVIDERS: PCP Nurse Practitioner Family; Visit Provider Internal Medicine | DX: K25.9 Gastric ulcer, unspecified as acute or chronic, without hemorrhage or perforation (principal); K29.70 Gastritis, unspecified, without bleeding | CPT/HCPCS: 43239 ==

== ENCOUNTER 2023-10-25 13:31 | Outpatient (REF) | payer MEDICARE, MEDICAID, SELFPAY ==
--- NOTE | ~2023-10-25 | CT_ITS ---
EXAMINATION: CT ABDOMEN AND PELVIS WITH CONTRAST CLINICAL INFORMATION: Gastric ulcer COMPARISON: CT abdomen pelvis February 08, 2023 TECHNIQUE: Multidetector volumetric images were obtained from the superior aspect of the liver through the pubic symphysis following administration 85 mL of Omnipaque 350 intravenous contrast. Sagittal and coronal reformatted images were obtained on the technologist's workstation. This CT examination was performed using dose optimization techniques as appropriate, variously including the following: *Automated exposure control *Adjustment of mA and/or kV according to patient size (this includes techniques or standardized protocols for targeted exams where dose is matched to indication/reason for exam; i.e. extremities or head) *Use of iterative reconstruction technique DLP: 506 mGy-cm FINDINGS: Visualized lung bases demonstrate mild dependent atelectasis. The liver is normal in size. The gallbladder is normal in appearance. The pancreas, spleen and right adrenal gland are unremarkable. There appears to be mild hypertrophy left adrenal gland. The kidneys are normal in size and demonstrate symmetric enhancement. There is no hydronephrosis of either kidney. Bilateral renal hypodensities are noted, some of which demonstrate cystic characteristics but most of which are inaccurately characterized although statistically stenosis. The stomach demonstrates normal distention. Normal caliber loops of small bowel. Moderate colonic stool burden. Normal appendix. Normal caliber abdominal aorta. No retroperitoneal lymphadenopathy. The bladder is normal in appearance. 8 mm hyperdense nodular density within the uterine fundus is nonspecific.. Small amount of free pelvic fluid, possibly physiologic. No inguinal lymphadenopathy. Scoliotic, degenerative and postsurgical changes of the spine. CT/CT abdomen pelvis w IV con IMPRESSION: 1. No CT evidence for acute abnormality within the abdomen or pelvis. 2. Moderate colonic stool burden. 3. Bilateral renal hypodensities are noted, some of which demonstrate cystic characteristics but most of which are inaccurately characterized although statistically stenosis. Further evaluation can be obtained with dedicated renal ultrasound. 4. 8 mm hyperdense nodular density within the uterine fundus, nonspecific. This may be further evaluated with dedicated pelvic ultrasound Fleischner guidelines were followed.
[2023-10-25] MEDS: iohexoL 350 MG/ML 100 ML INFUS..BTL 85 ML IV (16:16)
[2023-10-25] MEDS: Barium Sulfate Oral (Vanilla) 450 ML ORAL.SUSP 900 ML PO (16:17)
[2023-10-26 12:13] LABS: Creatinine POC 0.8 mg/dL (0.5-1.4); GFR POC > 60
== END 2023-10-25 13:32 | disposition home or self-care (01) ==
LOC: HO.CT 13:31
PROVIDERS: PCP Nurse Practitioner Family; Visit Provider Internal Medicine
DX: K25.9 Gastric ulcer, unspecified as acute or chronic, without hemorrhage or perforation (principal)
CPT/HCPCS: 74177; 82565; Q9967

== ENCOUNTER → 2023-11-09 14:32 | Outpatient (BNVA) | payer MEDICARE, MEDICAID, SELFPAY | PROVIDERS: PCP Nurse Practitioner Family; Visit Provider Internal Medicine ==

== ENCOUNTER 2023-11-11 13:55 | Outpatient (REF) | payer MEDICARE, MEDICAID, SELFPAY ==
--- NOTE | ~2023-11-11 | US_ITS ---
EXAMINATION: US RETROPERITONEAL LIMITED (RENAL ONLY) CLINICAL INFORMATION: Disorder of kidney and ureter, unspecified. COMPARISON: CT abdomen and pelvis 10/25/2023. TECHNIQUE: Real-time imaging of the kidneys. Limited visualization due to bowel gas. FINDINGS: RIGHT KIDNEY: 11.4 x 3.8 x 4.6 cm (SAG x AP x TRV). 3 mm lower pole calculus. No hydronephrosis. Renal cortical thickness is normal. Limited visualization. LEFT KIDNEY: 11.6 x 5.5 x 4.8 cm (SAG x AP x TRV). 4 mm lower pole calculus. No hydronephrosis. Renal cortical thickness is normal. Limited visualization. 1.7 x 1.6 x 1.5 cm complex upper pole cyst with multiple septations. CT scan of 10/27/2023 demonstrated multiple renal hypodensities, incompletely characterized and for which ultrasound characterization was recommended. Midpole 1.7 x 1.7 x 1.9 cm left renal cyst, Bosniak 2. US/US renal BI IMPRESSION: 1. Bilateral nonobstructive renal calculi. No hydronephrosis. 2. Left renal 1.7 cm complex upper pole cyst with multiple septations. CT scan of 10/27/2023 demonstrated multiple renal hypodensities, incompletely characterized and for which ultrasound characterization was recommended. Dedicated CT scan employing renal mass protocol and intravenous contrast recommended for further evaluation.
--- NOTE | ~2023-11-11 | US_ITS ---
EXAMINATION: US PELVIS AND TRANSVAGINAL CLINICAL INFORMATION: Possible fibroid seen on CT abdomen and pelvis of 10/25/2023, patient denies pain, postmenopausal. Unilateral oophorectomy; patient states she does not know which ovary was removed. COMPARISON: CT scan abdomen and pelvis 10/25/2023. TECHNIQUE: Ultrasound of the pelvis is performed using both transabdominal and transvaginal transducers along with Doppler. Transabdominal ultrasound images were severely limited due to suboptimal bladder distention and bowel gas. Transvaginal imaging is performed due to inadequate visualization transabdominally. FINDINGS: The uterus measures 6.0 x 3.3 x 4.7 cm and appears heterogeneous. 1.0 cm uterine hypoechoic mass near the endometrium is characteristic of a fibroid. Endometrial thickness is 2.4 mm. Bilateral ovaries were not visualized. Limited visualization due to bowel gas. No significant free fluid. US/US pelvic and transvaginal IMPRESSION: 1. A 1.0 cm uterine hypoechoic mass near the endometrium is characteristic of a fibroid. 2. Endometrial thickness is 2.4 mm. 3. Bilateral ovaries were not visualized. Limited visualization due to bowel gas.
== END 2023-11-11 13:56 | disposition home or self-care (01) ==
LOC: HO.HMGCX 13:55
PROVIDERS: PCP Nurse Practitioner Family; Visit Provider Nurse Practitioner Family
DX: N85.9 Noninflammatory disorder of uterus, unspecified (principal); N28.9 Disorder of kidney and ureter, unspecified
CPT/HCPCS: 76775; 76830; 76856

== ENCOUNTER 2023-11-15 09:56 | Outpatient (AMB) | payer MEDICARE, MEDICAID, SELFPAY ==
--- NOTE | 2023-11-15 09:57 | MHC.OFFVIS ---
Intake Vital Signs 11/15/23 10:04 Height 5 ft 7 in Weight 145 lb BMI 22.7 BP 140/87 H Blood Pressure Location Rt brachial Position Sitting Pulse 59 Intake Visit Reasons: Gastric ulcer Intake Note: Patient referred by GI Dr. Hernandez for gastric ulcer. Patient c/o: reports no abdominal pain or cramping at this time, reports burning sensation; more noticeable when laying down. 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 Accompanied by: Self / Same As Patient Allergies metronidazole [From Flagyl] Adverse Reaction (Severe, Verified 11/15/23 10:05) Nausea Medication List - Last Reconciled 11/15/23 by Philip Palma MD bupropion HCl 150 mg PO QAM 90 days cholestyramine-aspartame 4 gram 4 grams PO BID 90 days dexamethasone 4 mg orally 3 times a day for 3 days, twice a day for 3 days, daily for 3 days; esomeprazole magnesium 20 mg PO BID 30 days famotidine 20 mg PO BEDTIME gabapentin 300 mg PO; 300mg in am, 300mg at noon, 600mg at night 30 days multivitamin 1 tab PO DAILY ondansetron 4 mg PO Q8H PRN pantoprazole 40 mg PO DAILY rosuvastatin 5 mg PO DAILY sucralfate (Carafate) 10 mL PO QID 30 days HPI HPI Comments History of Present Illness Details Patient presents for evaluation of a nonhealing gastric ulcer. She has had this proximally 10 years time. She has had maximal medical therapy and multiple endoscopies, endoscopic ultrasound, x-rays and scans. Several Biopsies have shown chronic inflammatory changes but no evidence of malignancy. Patient has lost weight approximately 10 lb and is afraid to eat secondary to the symptomatic nature of the ulcer. Chart was reviewed and patient evaluated. [facility] Medical History Hx of cardiac murmur Anxiety Gastric ulcer Anemia PTSD (post-traumatic stress disorder) Synovial cyst of lumbar spine Urine incontinence Postlaminectomy syndrome Surgical History Hx of colonoscopy History of esophagogastroduodenoscopy (EGD) Hx of spinal fusion H/O unilateral oophorectomy History of discectomy History of tonsillectomy Family History Father No problems noted. Mother Substance use disorder Maternal Grandmother Alzheimer's disease Brother No problems noted. Sister No problems noted. Son No problems noted. Social History Household Members: Spouse Housing: House Do you presently have visiting nurse or other home services: No Alcohol intake: never Patient Tobacco Use Status: Current everyday Tobacco user Tobacco use type: Smokeless Tobacco e-Cigarette/Vaping Use: Currently Using service: No Current occupational status: disabled Cognitive needs: No Hearing needs: No Vision needs: No Physical Exam Vital Signs: Last Vital Signs Pulse 59 11/15/23 10:04 BP 140/87 H 11/15/23 10:04 BMI result Body Mass Index 22.7 Chest Other: Chest breath sounds bilaterally, HS 1 in 2 GI Other: Moderately corpulent abdomen. Lower midline scar from lumbar fusion surgery. Soft, benign Assessment & Plan Assessment & Plan (1) Gastric ulcer: Code(s): K25.9 - Gastric ulcer, unspecified as acute or chronic, without hemorrhage or perforation Plan: Because of the endoscopic features which are concerning combine with the chronicity and location along the greater curve and the markedly symptomatic nature of this ulcer with maximal medical therapy, discussion was had with the patient regarding doing initially a wedge resection/biopsy and for frozen section to see if this is neoplastic process or not. At the time of surgery, further intervention will be directed by the operative findings, and the frozen section pathology report which could range from just to wedge resection to a partial gastrectomy. In The meantime, patient will be sent for a fasting gastrin level to rule out Mena-Del Valle syndrome. Discussion was had with the patient regarding the Risks, benefits, and alternatives of the above-mentioned surgical exploration included but not limited to bleeding, infection, recurrence of symptoms, numbness, pain, scarring, nonhealing and the patient wishes to proceed. All questions answered. Orders: Orders Gastrin 11/15/23 K25.9 - Gastric ulcer, unspecified as acute or chronic, without hemorrhage or perforation Coding Level of Care Code New Pt Level 5 (59811) Diagnoses Gastric ulcer K25.9
[2023-11-15 10:04] VITALS: BP 140/87; PULSE 59; BMI 22.7
== END 2023-11-15 10:18 | disposition home or self-care (01) ==
PROVIDERS: PCP Nurse Practitioner Family; Referring Provider Internal Medicine; Visit Provider Surgery
DX: K25.9 Gastric ulcer, unspecified as acute or chronic, without hemorrhage or perforation (principal)
CPT/HCPCS: 99205

== ENCOUNTER → 2023-11-15 09:56 | Outpatient (BNVA) | payer MEDICARE, MEDICAID, SELFPAY | PROVIDERS: PCP Nurse Practitioner Family; Referring Provider Internal Medicine; Visit Provider Surgery | DX: K25.9 Gastric ulcer, unspecified as acute or chronic, without hemorrhage or perforation (principal) | CPT/HCPCS: 99202 ==

== ENCOUNTER 2023-11-30 13:02 | Outpatient (REF) | payer MEDICARE, MEDICAID, SELFPAY | END 2023-11-30 13:03 | disposition home or self-care (01) | LOC: HO.MAMMO 13:02 | PROVIDERS: PCP Nurse Practitioner Family; Visit Provider Nurse Practitioner Family | DX: Z12.31 Encounter for screening mammogram for malignant neoplasm of breast (principal) | CPT/HCPCS: 77063; 77067 ==

== ENCOUNTER → 2023-11-30 13:15 | Outpatient (BNV) | payer MEDICARE, MEDICAID, SELFPAY | PROVIDERS: PCP Nurse Practitioner Family; Visit Provider Radiology Diagnostic Radiology | DX: Z12.31 Encounter for screening mammogram for malignant neoplasm of breast (principal) | CPT/HCPCS: 77063; 77067 ==

== ENCOUNTER → 2023-12-13 13:24 | Outpatient (BNV) | payer MEDICARE, MEDICAID, SELFPAY | PROVIDERS: Admitting Provider Surgery; PCP Nurse Practitioner Family; Visit Provider Internal Medicine Cardiovascular Disease | DX: R00.1 Bradycardia, unspecified (principal) | CPT/HCPCS: 93010 ==

== ENCOUNTER 2023-12-22 12:13 | Inpatient (IN) | payer MEDICARE, MEDICAID, SELFPAY ==
--- NOTE | 2023-12-13 | ECG_ITS ---
Test Reason : preop Blood Pressure : / mmHG Vent. Rate : 052 BPM Atrial Rate : 052 BPM P-R Int : 160 ms QRS Dur : 082 ms QT Int : 434 ms P-R-T Axes : 045 016 016 degrees QTc Int : 403 ms Sinus bradycardia Nonspecific ST abnormality Abnormal ECG No previous ECGs available Referred By: Aarti Scott Electronically Signed By:RICKY HADDAD MD
[2023-12-13 12:39] VITALS: BP 149/103; PULSE 75; RESP 18; O2SAT 94; BMI 22.7
--- NOTE | 2023-12-21 21:04 | MHC.SHP ---
Pre-Procedural Eval Section A - 24 Hr Update-Section A only Date of Service: 12/21/23 The patient is an INPATIENT: Yes Changes since office visit: No Cold of Flu in the past 2 weeks, No New Medical Problems, No Changes in Medication and No Patient answered all questions Section B - Complete if H&P > 30 days Chief Complaint: Gastric ulcer, unspecified as acute or chronic, Allergies: Allergies Allergy/AdvReac Type Severity Reaction Status Date / Time metronidazole [From Flagyl] AdvReac Severe Nausea Verified 11/15/23 10:05 Plan I have reviewed the history and physical and performed a pertinent physical examination on my patient. No changes have occurred unless specified. Time Spent With Patient Time: Total time managing care of this patient today ____ minutes.
[2023-12-22] VITALS (19 sets, daily range): BP systolic 119–179; BP diastolic 72–102; PULSE 41–75; RESP 10–20; TEMP 36.1–37.2; O2SAT 96–100
[2023-12-22] MEDS: Lactated Ringers 1,000 ML 100 ML IVCONT ×2 (08:50→16:19)
--- NOTE | 2023-12-22 10:00 | P.CONAN_ITS ---
Documented by User: Aarti Scott NP 12/14/23 12:37 HPI - Anesthesia Eval Consult details Narrative: 53yo F for Exploratory Laparotomy,partial gastrectomy, 12/22/23 No recent illness No CP/SOB with activity 10+ years of ulcer symptoms/unsuccessful tx. Anemia r/t to ulcer. Iron infusions regularly. Last need for PRBC was >5 years ago. Benign murmur. Previous echo 2016 WNL Diastolic BP elevated at PAT. Pt reports severe anxiety r/t upcoming surgery. BP readings in past year acceptable. Pt will check BP at home when feeling more calm and bring results DOS. PMFSH Active Problems Active Problems: All Active Problems Lesion of uterus (Acute) Renal lesion (Acute) Bloating (Acute) Abdominal pain (Acute) Low TSH level (Acute) Hypotension (Acute) Physical exam (Acute) Facial lesion (Acute) Screening for colon cancer (Acute) Anxiety and depression (Acute) Anemia (Acute) Gastric ulcer (Acute) Dyslipidemia (Acute) Pyuria (Acute) NSAID long-term use (Acute) Melena (Acute) Microcytic anemia (Acute) Diarrhea (Acute) Anxiety (Acute) Decreased diffusion capacity (Acute) Anterior pleuritic pain (Acute) Wheezing (Acute) Screening for cervical cancer (Acute) Post-menopausal (Acute) Right lumbar radiculopathy (Acute) Saddle anesthesia (Acute) PTSD (post-traumatic stress disorder) (Acute) Urine incontinence (Acute) Postlaminectomy syndrome (Acute) Past Medical History Medical History Back pain Hx of transfusion of packed red blood cells Vomiting and diarrhea Skin cancer Memory loss, short term Numbness Hx of cardiac murmur Anxiety Gastric ulcer Anemia PTSD (post-traumatic stress disorder) Synovial cyst of lumbar spine Urine incontinence Postlaminectomy syndrome Family History Family History Father No problems noted. Mother Substance use disorder Maternal Grandmother Alzheimer's disease Brother No problems noted. Sister No problems noted. Son No problems noted. Family history of problems with anesthesia: No Surgical History Surgical History Hx of colonoscopy History of esophagogastroduodenoscopy (EGD) Hx of spinal fusion H/O unilateral oophorectomy History of discectomy History of tonsillectomy History of Problems with Anesthesia: No Social History Social History Household Members: Spouse Housing: House Are you a primary manager progressive care to a significant other at home: No Do you presently have visiting nurse or other home services: No Alcohol intake: never Patient Tobacco Use Status: Former Tobacco user Tobacco use type: Smokeless Tobacco Years Smoked: 35 e-Cigarette/Vaping Use: Currently Using Use of substances other than those prescribed or required for medical reasons: Yes Substance Use Type Other:: vape Substance Use Frequency: Daily Have you been hit, kicked, punched, or otherwise hurt by someone within the past year? If so, by whom?: No Are you DNR?: No Advance Directives: No Advance Directives Information Provided: No Advance Directives on File: No Recently lost weight without trying: Yes How much weight loss: 2-13 pounds Eating poorly because of decreased appetite: No Nutrition screen score: 3 Nutrition Risks: No Nutritional Risk Patient : No : No Poor oral hygiene: No service: No Current occupational status: disabled Cognitive needs: No Hearing needs: No Vision needs: No Meds Allergies Allergy/AdvReac Type Severity Reaction Status Date / Time metronidazole [From Flagyl] AdvReac Severe Nausea Verified 12/22/23 08:08 Home Medications ?Medication ?Instructions ?Recorded ?Confirmed ?Last Taken ?Type aspirin 500 mg-sod bicarb 1,985 1 ea PO DAILY PRN Nausea 12/13/23 12/22/23 Unknown History mg-citric acid 1,000 mg efferv tablet ([place] Extra Strength) bupropion HCl 150 mg 24 hr tablet, 150 mg PO BEDTIME 12/13/23 12/22/23 Unknown History extended release cholestyramine-aspartame 4 gram 2 g PO Q OTHER DAY 12/13/23 12/22/23 Unknown History oral powder for susp in a packet gabapentin 300 mg capsule 1,200 mg PO BEDTIME 12/13/23 12/22/23 Unknown History rosuvastatin 5 mg tablet 5 mg PO BEDTIME 12/13/23 12/22/23 Unknown History Exam Height,Weight and Vital Signs: Height 5 ft 7 in Weight 65.771 kg Last Vital Signs Pulse 75 12/13/23 12:39 Resp 18 12/13/23 12:39 BP 149/103 H 12/13/23 12:39 Pulse Ox 94 12/13/23 12:39 O2 Del Method Room Air 12/13/23 12:39 Pertinent Lab Results Pertinent Lab Results: Laboratory Tests 09/23/23 12:25 WBC 5.1 Hgb 14.3 Hct 43.3 Plt Count 338 Sodium 143 Potassium 3.6 Chloride 105 Carbon Dioxide 28 BUN 14 Creatinine 0.82 Lab Results 12/13/23 Range/Units 13:42 Blood Type A Positive Antibody Screen NEGATIVE Narrative Narrative: EKG 11/2023 Vent. Rate : 052 BPM Atrial Rate : 052 BPM P-R Int : 160 ms QRS Dur : 082 ms QT Int : 434 ms P-R-T Axes : 045 016 016 degrees QTc Int : 403 ms Sinus bradycardia Nonspecific ST abnormality Abnormal ECG No previous ECGs available ECHO 2015 (referred for new murmur) EF 65-70% Diastolic function nml for age No significant abnormality for cardiac valves RV systolic pressure No evidence of pericardial effusion Airway Mallampati Class: II TM Dist: >3cm Neck ROM: Full Heart: RRR Lungs: CTAB Assessment and Plan Assessment Anesthesia Assessment: Anesthesia Plan Discussed and PAT Visit Final Anesthetic Review Family History of Problems with Anesthesia: No History of Problems with Anesthesia: No Documented by User: Gracie Oconnor DO 12/22/23 10:01 COUNTS INCLUDE 234 BEDS AT THE [facility] Past Medical History Medical History Back pain Hx of transfusion of packed red blood cells Vomiting and diarrhea Skin cancer Memory loss, short term Numbness Hx of cardiac murmur Anxiety Gastric ulcer Anemia PTSD (post-traumatic stress disorder) Synovial cyst of lumbar spine Urine incontinence Postlaminectomy syndrome Family History Family History Father No problems noted. Mother Substance use disorder Maternal Grandmother Alzheimer's disease Brother No problems noted. Sister No problems noted. Son No problems noted. Family history of problems with anesthesia: No Surgical History Surgical History Hx of colonoscopy History of esophagogastroduodenoscopy (EGD) Hx of spinal fusion H/O unilateral oophorectomy History of discectomy History of tonsillectomy History of Problems with Anesthesia: No Social History Social History Household Members: Spouse Housing: House Are you a primary manager progressive care to a significant other at home: No Do you presently have visiting nurse or other home services: No Alcohol intake: never Patient Tobacco Use Status: Former Tobacco user Tobacco use type: Smokeless Tobacco Years Smoked: 35 e-Cigarette/Vaping Use: Currently Using Use of substances other than those prescribed or required for medical reasons: Yes Substance Use Type Other:: vape Substance Use Frequency: Daily Have you been hit, kicked, punched, or otherwise hurt by someone within the past year? If so, by whom?: No Are you DNR?: No Advance Directives: No Advance Directives Information Provided: No Advance Directives on File: No Recently lost weight without trying: Yes How much weight loss: 2-13 pounds Eating poorly because of decreased appetite: No Nutrition screen score: 3 Nutrition Risks: No Nutritional Risk Patient : No : No Poor oral hygiene: No service: No Current occupational status: disabled Cognitive needs: No Hearing needs: No Vision needs: No Meds Allergies Allergy/AdvReac Type Severity Reaction Status Date / Time metronidazole [From Flagyl] AdvReac Severe Nausea Verified 12/22/23 08:08 Home Medications ?Medication ?Instructions ?Recorded ?Confirmed ?Last Taken ?Type aspirin 500 mg-sod bicarb 1,985 1 ea PO DAILY PRN Nausea 12/13/23 12/22/23 Unknown History mg-citric acid 1,000 mg efferv tablet ([place] Extra Strength) bupropion HCl 150 mg 24 hr tablet, 150 mg PO BEDTIME 12/13/23 12/22/23 Unknown History extended release cholestyramine-aspartame 4 gram 2 g PO Q OTHER DAY 12/13/23 12/22/23 Unknown History oral powder for susp in a packet gabapentin 300 mg capsule 1,200 mg PO BEDTIME 12/13/23 12/22/23 Unknown History rosuvastatin 5 mg tablet 5 mg PO BEDTIME 12/13/23 12/22/23 Unknown History Exam Exam Date and Time: December 22, 2023 1000 Height,Weight and Vital Signs: Height 5 ft 7 in Weight 65.771 kg Last Vital Signs Pulse 75 12/13/23 12:39 Resp 18 12/13/23 12:39 BP 149/103 H 12/13/23 12:39 Pulse Ox 94 12/13/23 12:39 O2 Del Method Room Air 12/13/23 12:39 Vital Signs Pulse Rate 75 12/13/23 12:39 Respiratory Rate 18 12/13/23 12:39 Blood Pressure 149/103 H 12/13/23 12:39 Pulse Oximetry 94 12/13/23 12:39 Oxygen Delivery Method Room Air 12/13/23 12:39 Temperature 99.0 F 12/22/23 08:32 Pulse Rate 64 12/22/23 08:32 Respiratory Rate 16 12/22/23 08:32 Blood Pressure 152/102 H 12/22/23 08:32 Pulse Oximetry 96 12/22/23 08:32 Oxygen Delivery Method Room Air 12/22/23 08:32 Airway Mallampati Class: II TM Dist: >3cm Neck ROM: Full Loose/Missing/Broken Teeth: No (patient denies any loose or broken teeth) Heart: S1S2 Assessment and Plan Assessment Anesthesia Assessment: Anesthesia Plan Discussed and Chart Reviewed Final Anesthetic Review Family History of Problems with Anesthesia: No History of Problems with Anesthesia: No NPO: Yes ASA Class: II Final Preanesthetic Review: No Changes in Pt Med Stat, Meds/Allgs Chart Reviewed, Consent Obtained/Reviewed and Anes Risks/Benef Reviewed Patient Risk: Intermediate Procedure Risk: Low Anesthetic Plan Anesthetic Plan: GA, Regional Block (possible bilateral TAP block) and Agree w/ Assess. and Plan Disposition: Standard PACU
--- NOTE | 2023-12-22 10:39 | MHC.SHP ---
Pre-Procedural Eval Section A - 24 Hr Update-Section A only Date of Service: 12/22/23 The patient is an INPATIENT: Yes Changes since office visit: No Cold of Flu in the past 2 weeks, No New Medical Problems, No Changes in Medication and No Patient answered all questions The patient has been examined within 24 hours of the surgical procedure. The History & Physical has been completed within 30 days and I have reviewed it.: Yes Section B - Complete if H&P > 30 days Chief Complaint: Gastric ulcer, unspecified as acute or chronic, Allergies: Allergies Allergy/AdvReac Type Severity Reaction Status Date / Time metronidazole [From Flagyl] AdvReac Severe Nausea Verified 12/22/23 08:08 Review of Systems Sugical H&P ROS: Negative: Constitution, Cardiovascular, Respiratory, Neurological, Psychiatric, Hem-Onc, Allergic/Immunologic, Gastrointestinal, Genitourinary, Musculoskeletal, Integumentary, Endocrine and Eyes/Ears/Nose/Throat Exam Surgical H&P Exam: Normal: HEENT, Normal: Heart, Normal: Lungs, Normal: Extremities, Normal: Abdomen, Normal: Skin and Normal: Neurological Plan I have reviewed the history and physical and performed a pertinent physical examination on my patient. No changes have occurred unless specified. Time Spent With Patient Time: Total time managing care of this patient today ____ minutes.
--- NOTE | 2023-12-22 12:05 | W.PM.OPN ---
Operative Note Operative Note Date of Service: 12/22/23 Narrative: Preoperative diagnosis: [] Nonhealing greater curve/antrum gastric ulcer Postop diagnosis: [] Healed greater curve/antrum gastric ulcer Procedure [] exploratory laparotomy, anterior gastrotomy, upper endoscopy Surgeon: [] Darian Palma Martinez Project Landscape Architect: [] Harsh Type of Anesthesia: [] General Indication for surgery: [] Patient presents because of intractable epigastric pain and nonhealing suspicious antral gastric ulcer/mass. Intraoperative findings through anterior gastrotomy and upper endoscopy demonstrated no evidence of any ulcer disease or gross pathology. Findings: [] Patient brought to the operating room, placed on operative table in supine position, after adequate level of general anesthesia was induced, the patient's abdomen was prepped and draped in usual sterile fashion using an upper midline incision, this carried down through skin, subcutaneous tissue, and linea alba. Posterior fascia and peritoneum were opened and extended along the length of the incision. Packs and retractors were placed to enhance exposure. Exploration of the abdominal cavity was commenced with taken down the greater omentum from the transverse colon and mobilizing the stomach into the field. Palpation of the stomach from the GE junction to the pylorus demonstrated no obvious palpable pathology. A distal longitudinal snterior gastrotomy was made and exploration within the stomach also demonstrated no obvious pathology. Using initially a running locking mucosal 3-0 Vicryl suture, upper endoscopy was performed by Dr. Guaman and also did not demonstrate any gross endoluminal pathology. Seromuscular interrupted 3-0 sutures were placed to close the gastrotomy with Lambert sutures. Abdominal cavity was copiously irrigated, and secured hemostasis. Wound was closed in the following manner; mass closure of the fascia was performed using running locking 0 PDS. Interrupted inverted dermal 3-0 Vicryl sutures followed by Steri-Strips and sterile dressings were applied. Wound was infiltrated 0.5% Marcaine at completion. Sponge, needle, and instrument counts reported correct. Patient tolerated the procedure well and emerged from anesthesia stable condition. EBL minimal
--- OUTSIDE RECORDS SUMMARY | 2023-12-22 12:16 | XMS_ITS | Continuity of Care Document ---
Author Organization [facility] ter Address [address] [place] [address]- Care Team Providers Care Media Analyst Name Role Phone Yamileth KIM, Melissa Edmond Primary Care Physician Encounter [facility] Date(s): 02/23/23 - 02/23/[address] [address] Discharge Disposition: A-D/C Home Attending Physician: Celestine Castillo MD Admitting Physician: Celestine Castillo MD Referring Physician: Celestine Castillo MD Allergies, Adverse Reactions, Alerts No Known Medication Allergies Immunizations Given and Recorded Vaccine Date Status Refusal Reason tetanus/diphtheria/pertussis, acel(Tdap) 05/06/15 Given Not Given Vaccine Date Status Refusal Reason influenza virus vaccine, inactivated 06/17/18 Not Given Patient Refuses influenza virus vaccine, inactivated 07/30/15 Not Given Patient Refuses pneumococcal 23-valent vaccine 06/17/18 Not Given Patient Refuses pneumococcal 23-valent vaccine 07/30/15 Not Given Patient Refuses Medications Acetaminophen = 650 mg, By Mouth, Every 4 hours, PRN Pain , Mild, 0 Refills, Maintenance, 07/17/18 17:03:31 EST Start Date: 07/17/18 Status: Ordered buPROPion 300 mg/24 hours (XL) oral tablet, extended release 1 tablet = 300 mg, By Mouth, Daily, # 30 tablet, 0 Refills, Maintenance, 02/23/23 12:45:00 EDT, ER Tablet, Partial fill upon patient request if the prescription is for a schedule II opioid drug. Start Date: 02/23/23 Status: Ordered ferrous sulfate 325 mg oral enteric coated tablet 325 mg, 1, tablet, By Mouth, 2 times a day, Refills 0, Maintenance, 07/17/18 16:59:22 EST Start Date: 07/17/18 Status: Ordered Gabapentin By Mouth, Daily, 0 Refills, Maintenance, 02/23/23 12:46:00 EDT, Partial fill upon patient request if the prescription is for a schedule II opioid drug. Start Date: 02/23/23 Status: Ordered lisinopril 5 mg oral tablet 5 mg, 1, tablet, By Mouth, Daily, # 30 tablet, Refills 0, Maintenance, 07/17/18 16:59:33 EST Start Date: 07/17/18 Status: Ordered Multi Vitamin+ 1 tablet, By Mouth, Daily, 0 Refills, Maintenance, 07/17/18 17:01:08 EST Start Date: 07/17/18 Status: Ordered Protonix 40 mg oral delayed release tablet 1 tablet = 40 mg, By Mouth, Daily, 0 Refills, Maintenance, 07/17/18 17:00:08 EST Start Date: 07/17/18 Status: Ordered rosuvastatin 5 mg oral tablet 1 tablet = 5 mg, By Mouth, Daily, # 30 tablet, 0 Refills, Maintenance, 02/23/23 12:46:00 EDT, Tablet, Partial fill upon patient request if the prescription is for a schedule II opioid drug. Start Date: 02/23/23 Status: Ordered Problem List Condition Confirmation Course Effective Dates Status Health St atus Informant Opiate overdose Confirmed Active Major depressive disorder, recurrent episode, severe with anxious distress Confirmed Active Suicidal intent Confirmed Active Vital Signs Most recent to oldest [Reference Range]: 1 2 3 Height 170.2 cm (02/23/23 12:42 PM) Weight 70.5 kg (02/23/23 12:42 PM) Oxygen Saturation [94-100 %] 100 % (02/23/23 3:05 PM) 99 % (02/23/23 2:58 PM) 99 % (02/23/23 2:54 PM) Pulse Rate [55-90 bpm] 80 bpm (02/23/23 12:42 PM) Body Mass Index [18.5-24.99 kg/m2] 24.34 kg/m2 (02/23/23 12:42 PM) Blood Pressure [90-138/55-84 mm Hg] 113/84mm Hg (02/23/23 3:05 PM) 106/85mm Hg (02/23/23 2:58 PM) 112/77mm Hg (02/23/23 2:54 PM) Respiratory Rate [16-30 br/min] 18 br/min (02/23/23 3:05 PM) 18 br/min (02/23/23 2:58 PM) 18 br/min (02/23/23 2:54 PM) Temperature [96.8-100.4 DegF] 97.0 DegF (02/23/23 2:54 PM) 98.9 DegF (02/23/23 12:42 PM) Mode of Delivery (Oxygen) Room air (02/23/23 3:05 PM) Room air (02/23/23 2:58 PM) Room air (02/23/23 2:54 PM) Blood pressure sites Arm, left (02/23/23 3:05 PM) Arm, left (02/23/23 2:58 PM) Arm, left (02/23/23 2:54 PM) Temperature Route Temporal (02/23/23 2:54 PM) Temporal (02/23/23 12:42 PM) Weight Obtained Via Patient/family state d (02/23/23 12:42 PM) Social History Social History Type Response Smoking Status Current every day sm oker entered on: 07/26/16 Sex Note * Jorgito Donato RN: PERFORM Event Display: Discharge/Transfer Note Hospital Authored Date: [id number] Nursing Discharge Note Entered On: 02/23/2023 14:47 EDT Performed On: 02/23/2023 14:47 EDT by Jorgito Donato RN Nursing Discharge Note 2 Discharge Time : 02/23/2023 15:45 EDT Jorgito Donato RN - 02/23/2023 15:45 EDT Discharge Level of Care at Discharge : Home/Long-Term/Foster Care Patient Left Unit Via : Wheelchair Patient Accompanied Off Unit with : Responsible adult DC Instructions Provided & Signed by Pt : Yes Patient Understands D/C Instructions : Yes Patient Instructions Discharge Signed : Yes Did Pt have Specialty Bed or Wound Vac : No Jorgito Donato RN - 02/23/2023 14:47 EDT * Jorgito Donato RN: PERFORM Event Display: Patient Education/Instruction Authored Date: [id number] Inpatient Adult Discharge Instructions [address] [address] Name: INDIA GIBSON : 1970 Visit: 02/23/2023 12:28:00 Current Date: 02/23/2023 14:47 Account: [id number] Inpatient Adult Discharge Instructions We would like to thank you for allowing us to assist you with your healthcare needs. The following includes patient education materials and information regarding your injury/illness. Our entire staffstrives to provide an excellent experience for our patients and their families. PLEASE ENSURE YOU FOLLOW-UP PER THE INSTRUCTIONS BELOW! ?? YOUR OPINION IS IMPORTANT TO US! Please complete the survey you may receive by mail or email. Your feedback will be used to make improvements to the healthcare experiences of our patients and their families. Surveys are administered by [employer] ?? If further treatment with your primary care physician or another doctor is recommended, it is important for you to keep the appointment. Call your primary care physician or return to the Emergency Department immediately if your condition worsens, fails to improve, or new symptoms develop. If you need to find a doctor, you can call [facility] for a referral at [phone] or toll free at [phone]) or log in to [email or web address].. ?? You can view and manage your care through the patient portal or by using a health care tressa of your choosing. [employer] is a website that allows you to securely view your medical information including your hospital discharge summary, office visit summaries, medications and follow-up visits. You can also request appointments, renew medications, and request access to your medical information using a health care tressa of your choosing, or just ask a question. You can enroll at [email or web address] or register during your next office visit. You have been discharged from [facility], Patient Care Unit: ENDO. If you have any questions regarding these instructions after you leave, please call us and we will be happy to assist you. [facility] Your Care Team Attending Physician Celestine Castillo MD Discharging Providers Celestine Castillo MD Reason for Admission GASTRIC INTRAMURAL LESION Tests Performed Below is a partial list of the tests performed during your hospitalization. You may have had other tests and procedures not included in this list. Please discuss all test results with your provider. Primary Care Provider Yamileth KIM , Melissa Edmond Advance Directive Health Care Proxy on File No Patient refuses to discuss Discharge Vitals Temperature: 98.9 DegF Height: 170.2 cm Pulse Rate: 80 bpm Weight: 70.5 kg Respiratory Rate: 16 br/min Body Mass Index: 24.34 kg/m2 Systolic Blood Pressure: 112 mm Hg Body surface area: 1.83 Diastolic Blood Pressure:??87 mm Hg??High ?? Oxygen Saturation:??81 %??Low ?? Studies Pending All tests and labs ordered during this hospital stay have been completed unless listed below. Please discuss all pending results with your provider listed above in these instructions. ?? No incomplete studies found What to do next Instructions From Your Doctor Discharge Orders You Need to Schedule the Following Appointments Follow Up with??As Needed Follow Up with??Melissa Carson MD When:??In 0 days Where: [address] [place] [address] Business (1) Discharge Medications INDIA GIBSON :1970 Visit Date:02/23/2023 Medications: Please continue your medications until treatment is completed or stopped by your provider. Medications not listed below should be discontinued. Discuss any questions related to medications with your provider. What How Much When Instructions Next Dose Unchanged Acetaminophen 650 Milligram Oral Every 4 hours as needed for Pain , Mild Unchanged BuPROpion (buPROPion 300 mg/ 24 hours (XL) oral tablet, extended release) 1 tab(s) Oral Daily Unchanged Ferrous Sulfate (ferrous sulfate 325 mg oral enteric coated tablet) 1 tab(s) Oral Twice a day Unchanged Gabapentin Oral Daily Unchanged Lisinopril (lisinopril 5 mg oral tablet) 1 tab(s) Oral Daily Unchanged Multivitamin (Multi Vitamin+) 1 tab(s) Oral Daily Unchanged Pantoprazole (Protonix 40 mg oral delayed release tablet) 1 tab(s) Oral Daily Unchanged Rosuvastatin (rosuvastatin 5 mg oral tablet) 1 tab(s) Oral Daily Test Results Below is a partial list of the most recent Laboratory test results done prior to this discharge. You may have had other tests and procedures not included in this list. Please discuss all test resultswith your provider. Allergies (NKA means No Known Allergies) No Known Medication Allergies Problems Active Problems??(3) Major depressive disorder, recurrent episode, severe with anxious distress?? Opiate overdose?? Suicidal intent?? Education Materials Below is the list of Educational Leaflet Providered with your Discharge Instructions. Valuables and Belongings I fully understand and agree that [facility] accepts no responsibility for all my personal property including clothing, toilet articles, radios, jewelry, dentures, hearing aids, rings, money, or any other property that is in my possession or is brought to me after admission. I understand certain valuables may be placed in a hospital safe for a short period of time. I understand that the hospital is not liable for loss or damage due to accident, fire, or other natural occurrence while said property is in the safe. I accept full responsibility for any personal property that I keep with me, and will not hold the hospital responsible in case of loss or disappearance. I acknowledge that i have been encouraged to send valuables and belongings home. ?? Date for Pt to Sign Valuables/Belongings: 02/23/23 12:42:00 ?? Valuables & Belongings ?? Clothes Electronic devices Jewelry Monetary Items Personal devices Miscellaneous Medications (Valuables) Valuables at Bedside Pants, Shirt, Shoes ? Valuables Sent Home ? Valuables Sent to Security ? Other Discharge Information ? Case Management Discharge Plan?? Discharge Plan?? Discharge Level of Care at Discharge: Home/Long-Term/Foster Care ?? Pulmonary Rehab Status?? Pulmonary Rehab Discharge Status?? Respiratory Rate: 16 br/min ? Common Emergency Awareness Tips IS IT A STROKE? Act FAST and Check for these signs: FACE Does the face look uneven? ARM Does one arm drift down? SPEECH Does their speech sound strange? TIME Call at any sign of stroke ?? Heart Attack Signs Chest discomfort: Most heart attacks involve discomfort in the center of the chest and lasts more than a few minutes, or goes away and comes back. It can feel like uncomfortable pressure, squeezing, fullness or pain. Discomfort in upper body: Symptoms can include pain or discomfort in one or both arms, back, neck, jaw or stomach. Shortness of breath: With or without discomfort. Other signs: Breaking out in a cold sweat, nausea, or lightheaded. Remember, MINUTES DO MATTER. If you experience any of these heart attack warning signs, call to get immediate medical attention! ?? Smoking can increase your chances of developing chronic health problems and can cause harmful effects to other family members in your house. If you smoke, you are strongly encouraged to quit. Please call [facility] Link at [phone] or [phone]) or log in to [email or web address] for referrals to smoking cessation programs. ?? 462 Suicide & Crisis Lifeline is available 14/03 if you or someone you know needs to find a reason to keep living. By calling 644 you'll be connected to a skilled, trained counselor at a crisis center in your area. INPATIENT DISCHARGE INSTRUCTIONS SIGNATURE PAGE INDIA GIBSON Location:[facility] Registration Date and Time:02/23/2023 12:28 EDT Primary Care Physician: Melissa Carson MD, Attending Physician: Celestine Castillo MD, I ARTHUR INDIA, have received the above patient education materials/instructions and have verbalized understanding. If ambulance or transport services are being used I further acknowledge being given a choice of service. ?? If you need to contact me, please call me at this number: . Patient/Psychiatry Resident Name: Patient/Psychiatry Resident Signature: Relationship to Patient: Witness Name/Signature: Date: * Kinga NIEVES, Jorgito: PERFORM, SIGN, VERIFY Event Display: Patient Education Handout Authored Date: [id number] Patient Care team information Care Team Personnel Name: Shirley Rizvi RN Position: [facility] RN Member Role: Primary Care Nurse Name: Nicky Al Position: [facility] Outreach Member Role: Primary Care Nurse Name: Yamileth KIM , Melissa Edmond Position: Reference Physician Member Role: PCP Address: Address: [address] Name: Keturah Roy RN Position: [facility] RN Member Role: Primary Care Nurse Name: Livan Hendrix RN Position: [facility] RN Member Role: Primary Care Nurse Name: Yenny Ayala RN Position: [facility] RN Member Role: Primary Care Nurse Name: Trent Farrell RN Position: [facility] RN Member Role: Primary Care Nurse Name: Zuri Young RN Position: [facility] Cia Agent Member Role: Primary Care Nurse Name: Aarti Perdomo RN Position: [facility] RN Member Role: Primary Care Nurse Name: Adelina Faith RN Position: [facility] RN Member Role: Primary Care Nurse Name: Nesha Lee RN Position: [facility] Onco RN Member Role: Primary Care Nurse Name: Johnny Newman RN Position: [facility] SN RN Member Role: Primary Care Nurse Care Team Related Persons Name: PERSON, LAKESHA Address: home [address] [place] [address]
--- OUTSIDE RECORDS SUMMARY | 2023-12-22 12:16 | XMS_ITS | Continuity of Care Document ---
Author Organization [facility] [place] Address [address] [place] [address]- Care Team Providers Care Wool Tamper Name Role Phone Yamileth KIM, Melissa Edmond Primary Care Physician Encounter [facility] Date(s): 01/14/23 - 02/13/23 [facility] [place] [address], [place] [address] Attending Physician: Evaristo Rocha Admitting Physician: AdmEvaristo reyes Referring Physician: [id number] Allergies, Adverse Reactions, Alerts No Known Medication [...] 17:03:31 EST Start Date: 07/17/18 Status: Ordered Colace sodium 100 mg oral capsule 100 mg, 1, capsule, By Mouth, 2 times a day, Refills 0, Maintenance, 07/17/18 17:01:29 EST Start Date: 07/17/18 Status: Ordered ferrous sulfate 325 mg oral enteric coated tablet 325 mg, 1, tablet, By Mouth, 2 times a day, Refills 0, Maintenance, 07/17/18 16:59:22 EST Start Date: 07/17/18 Status: Ordered folic acid 1 mg oral tablet 1 mg, 1, tablet, By Mouth, Daily, # 30 tablet, Refills 0, Maintenance, 07/17/18 17:00:22 EST Start Date: 07/17/18 Status: Ordered lisinopril 5 mg oral tablet [...] 17:00:08 EST Start Date: 07/17/18 Status: Ordered Senna 8.6 mg oral tablet 8.6 mg, 1, tablet, By Mouth, Daily at bedtime, Refills 0, Maintenance, 07/17/18 17:02:50 EST Start Date: 07/17/18 Status: Ordered sertraline 50 mg oral tablet 1 tablet = 50 mg, By Mouth, Daily, # 30 tablet, 0 Refills, Maintenance, 06/19/18 10:20:21 EDT, Tablet Start Date: 06/19/18 Status: Ordered thiamine 100 mg oral tablet 200 mg, 2, tablet, By Mouth, 2 times a day, Refills 0, Maintenance, 07/17/18 17:01:54 EST Start Date: 07/17/18 Status: Ordered Problem List Condition Confirmation Course Effective Dates Status Health St atus Informant Opiate overdose Confirmed Active Major depressive disorder, recurrent episode, severe with anxious distress Confirmed Active Suicidal intent Confirmed Active Social History Social History Type Response Smoking Status Current every day sm elvis entered on: 07/26/16 Sex Patient Care team information Care Team Personnel Name: Shirley Rizvi RN Position: [facility] RN Member Role: Primary Care Nurse Name: Nicky Al Position: S Outreach Member Role: Primary Care Nurse Name: Yamileth KIM , Melissa Edmond Position: Reference Physician Member Role: PCP Address: Address: [facility] [place] [address] Name: Keturah Roy RN Position: [facility] RN Member Role: Primary Care Nurse Name: Livan Hendrix RN Position: [facility] RN Member Role: Primary Care Nurse Name: Yenny Ayala RN Position: [facility] RN Member Role: Primary Care Nurse Name: Trent Farrell RN Position: [facility] RN Member Role: Primary Care Nurse Name: Zuri Young RN Position: [facility] Hospital Rubber Stamp Die Inspector Member Role: Primary Care Nurse Name: Aarti Perdomo RN Position: [facility] RN Member Role: Primary Care Nurse Name: Adelina Faith RN Position: [facility] RN Member Role: Primary Care Nurse Name: Nesha Lee RN Position: [facility] Onco RN Member Role: Primary Care Nurse Name: Trent RN [place] Position: [facility] SN RN Member Role: Primary Care Nurse Care Team Related Persons Name: LAKESHA SANDOVAL Address: [address] [address]
--- OUTSIDE RECORDS SUMMARY | 2023-12-22 12:16 | XMS_ITS | Continuity of Care Document ---
Author Organization [facility] [place] Address [address] [place] [address]- Care Team Providers Care Wafer Machine Operator Name Role Phone Yamileth KIM, Melissa Edmond Primary Care Physician Encounter [facility] Date(s): 10/26/22 - 01/09/23 [facility] [place] [address], [place] [address] Attending Physician: Mercedes KIM, Sal Referring Physician: Charla Hernandez MD Allergies, Adverse Reactions, Alerts No Known [...] Team Personnel Name: Shirley Rizvi RN Position: S RN Member Role: Primary Care Nurse Name: Nicky Al Position: S Outreach Member Role: Primary Care Nurse Name: Yamileth KIM , Melissa Edmond Position: Reference Physician Member Role: PCP Address: Address: [address] [place], [place] [address] Name: Keturah Roy RN Position: S RN Member Role: Primary Care Nurse Name: Livan Hendrix RN Position: S RN Member Role: Primary Care Nurse Name: Yenny Ayala RN Position: [facility] RN Member Role: Primary Care Nurse Name: Trent Farrell RN Position: [facility] RN Member Role: Primary Care Nurse Name: Zuri Young RN Position: [facility] Hospital Bank Reconciliator Member Role: Primary Care Nurse Name: Aarti Perdomo RN Position: [facility] RN Member Role: Primary Care Nurse Name: Adelina Faith RN Position: [facility] RN Member Role: Primary Care Nurse Name: Nesha Lee RN Position: [facility] Onco RN Member Role: Primary Care Nurse Name: Trent RN [place] Position: [facility] SN RN Member Role: Primary Care Nurse Care Team Related Persons Name: LAKESHA SANDOVAL Address: [address] [address]
[2023-12-22] MEDS: Haloperidol Lactate 5 MG/ML VIAL 1 MG IVPUSH (12:43)
[2023-12-22] MEDS: HYDROmorphone HCl 0.5 MG/0.5 ML SYRINGE IVPUSH ×3 (12:46→13:25)
--- NOTE | 2023-12-22 13:05 | W.PM.OPN ---
Operative Note Operative Note Date of Service: 12/22/23 Narrative: Preop diagnosis: Gastric ulcer Postop diagnosis: No obvious gastric ulcer seen Procedure: EGD Surgeon: Maverick Guaman MD The patient is a 62-year-old female who was undergoing laparotomy with Dr. Palma for possible has this resection in view of a large persistent ulcer described to be in the greater curvature near the antrum. On anterior gastrostomy and examination of the entire stomach, no ulcer could be identified so I was asked to do an intraop EGD. The Olympus endoscope introduced through the anal orifice into the oropharynx. The vocal cords were visualized. The esophageal slit was seen posterior to this but this has previously was intubated. The scope was advanced gently through the entire length of the esophagus into the stomach. A gastrotomy incision was seen. I advanced scope into the pyloric orifice all the way to the 2nd part of the duodenal. The duodenal mucosa was unremarkable. The scope was gradually withdrawn. I examined the entire stomach mucosa carefully. There were no lesions or ulcers seen. The cardia the EG junction were examined carefully as well. Careful examination of the entire stomach mucosa did not reveal any ulcer or any lesion. I withdrew the scope completely completely. The planned laparotomy was completed by Dr. Palma. There were no immediate complications.
[2023-12-22] MEDS: Acetaminophen 1,000 MG/100 ML PIGGYBACK 400 MG IV ×2 (16:19→20:29)
[2023-12-22] MEDS: HYDROmorphone HCl 1 MG/ML SYRINGE 0.5 MG IVPUSH (16:19)
[2023-12-22] MEDS: 0.9 % Sodium Chloride Flush 3 ML SYRINGE IVFLUSH (16:20)
[2023-12-22] MEDS: Nicotine 21 MG PATCH.TD24 TRANSDERMA (17:12)
--- NOTE | 2023-12-22 17:13 | PHA.MEDREC ---
Pharmacy Consult ? Medication Reconciliation Pharmacy has reviewed the medication reconciliation completed by nursing. Patient is reporting taking all 4 gabapentin capsules at bedtime, instead of as prescribed. Fabienne Downs, KatyD
--- NOTE | 2023-12-22 20:20 | MHC.PIE ---
p; pt reports insomnia, pt reports taking benadryl 50 mg at home i; dr anderson notified; telephone order benadryl 50 mg po at bedtime for insomnia e; will cont to monitor
[2023-12-22] MEDS: Famotidine/PF 20 MG/2 ML VIAL IVPUSH (20:29)
[2023-12-22] MEDS: buPROPion HCl XL 150 MG TAB.ER.24H PO (20:30)
[2023-12-22] MEDS: diphenhydrAMINE HCL 25 MG CAPSULE 50 MG PO (20:30)
[2023-12-22] MEDS: Gabapentin 400 MG CAPSULE 1200 MG PO (20:30)
[2023-12-23] MEDS: HYDROmorphone HCl 1 MG/ML SYRINGE 0.5 MG IVPUSH ×5 (00:31→18:31)
[2023-12-23] MEDS: Lactated Ringers 1,000 ML 100 ML IVCONT (00:39)
[2023-12-23 03:30] VITALS: BP 141/85; PULSE 70; RESP 18; TEMP 35.5; O2SAT 97
[2023-12-23] MEDS: Acetaminophen 1,000 MG/100 ML PIGGYBACK 400 MG IV ×4 (03:53→20:13)
[2023-12-23] MEDS: Pantoprazole Sodium 40 MG/10 ML VIAL IVPUSH (05:45)
[2023-12-23 06:00] LABS: Anion Gap 12 (12-20); Blood Urea Nitrogen 9 mg/dL (9-16); Calcium 9.7 mg/dL (8.4-10.2); Carbon Dioxide 28 mmol/L (22-29); Chloride 103 mmol/L (96-108); Creatinine Clr Calc Pharmacy 93.3; Estimated Glomerular Filt Rate > 60; Glucose Random 101 mg/dL (60-115); Potassium 3.1 mmol/L (3.3-5.1); Sodium 140 mmol/L (135-145)
[2023-12-23 06:54] VITALS: BP 152/92; PULSE 72; RESP 17; TEMP 36.6; O2SAT 96
[2023-12-23] MEDS: Nicotine 21 MG PATCH.TD24 TRANSDERMA (08:16)
[2023-12-23] MEDS: Famotidine/PF 20 MG/2 ML VIAL IVPUSH ×2 (08:18→20:26)
--- NOTE | 2023-12-23 09:28 | P.PNGS_ITS ---
Subjective Subjective Date of Service: 12/23/23 Interval history: C/o incisional pain this morning and throat discomfort from NGT. Passing some flatus. Physical Exam 2 Vital Signs: Vital Signs: Last Vital Signs Temp 98 F 12/23/23 06:54 Pulse 72 12/23/23 06:54 Resp 17 12/23/23 06:54 BP 152/92 H 12/23/23 06:54 Pulse Ox 96 12/23/23 06:54 O2 Del Method Room Air 12/23/23 06:54 O2 Flow Rate 2 12/22/23 14:25 BMI result Body Mass Index 22.7 Const: General: comfortable, no acute distress and alert O rientation/consciousness: patient oriented x3 HEENT: Other: NGT in place, scant drainage Resp: Effort & Inspection: normal respiratory effort Cardio: Rate: regular rate GI: Inspection: No distended and Yes incision (dressing c/d/i) Palpation (GI): Soft to palpation, Tenderness to palpation present (GI) (incisional) and no guarding Skin: General skin exam: no rashes or lesions noted Neuro: General: patient oriented x3 and moves all extremities Objective Data Active Medications Bupropion HCl (Bupropion Hcl Xl 150 Mg Tab.Er.24h) 150 mg PO BEDTIME [facility] Last Admin: 12/22/23 20:30 Dose: 150 mg Documented By: TAVIA Diphenhydramine HCl (Diphenhydramine Hcl 25 Mg Capsule) 50 mg PO BEDTIME PRN PRN Reason: Insomnia Last Admin: 12/22/23 20:30 Dose: 50 mg Documented By: ATVIA Famotidine (Famotidine/Pf 20 Mg/2 Ml Vial) 20 mg IVPUSH BID [facility] Last Admin: 12/23/23 08:18 Dose: 20 mg Documented By: TARA Gabapentin (Gabapentin 400 Mg Capsule) 1,200 mg PO BEDTIME [facility] Last Admin: 12/22/23 20:30 Dose: 1,200 mg Documented By: TAVIA Hydromorphone HCl (Hydromorphone Hcl 1 Mg/Ml Syringe) 0.5 mg IVPUSH Q4H PRN; Protocol PRN Reason: Pain, Severe (Pain Scale 7-10) Last Admin: 12/23/23 05:45 Dose: 0.5 mg Documented By: TAVIA Lactated Ringer's (Lr) 1,000 mls @ 100 mls/hr IVCONT .Q10H [facility] Last Admin: 12/23/23 00:39 Dose: 100 mls/hr Documented By: TAVIA Acetaminophen (Ofirmev) 1,000 mg in 100 mls @ 400 mls/hr IV Q6H [facility] Last Infusion: 12/23/23 08:45 Dose: Infused Documented By: TARA Lorazepam (Lorazepam 2 Mg/Ml Vial) 0.5 mg IVPUSH ONCE PRN PRN Reason: Anxiety Nicotine (Nicotine 21 Mg Patch.Td24) 21 mg TRANSDERMA DAILY [facility] Last Admin: 12/23/23 08:16 Dose: 21 mg Documented By: TARA Ondansetron HCl (Ondansetron Hcl 4 Mg/2 Ml Vial) 4 mg IVPUSH Q8H PRN PRN Reason: Nausea and Vomiting Pantoprazole Sodium (Pantoprazole Sodium 40 Mg/10 Ml Vial) 40 mg IVPUSH DAILY@0630 [facility] Last Admin: 12/23/23 05:45 Dose: 40 mg Documented By: ATVIA Sodium Chloride (0.9 % Sodium Chloride Flush 3 Ml Syringe) 3 ml IVFLUSH QSHIFT [facility] Last Admin: 12/23/23 08:21 Dose: Not Given Documented By: TARA Non-Admin Reason: IV Running Labs 12/23/23 05:20 Labs: Laboratory Results - last 24 hr 12/23/23 05:20 Hold Purple Top SEE NOTE Anion Gap 12 Estim Creat Clear Calc 93.3 Estimated GFR > 60 Random Glucose 101 Calcium 9.7 Procedures Date of Service Date of Service: 12/23/23 Progress Note: A&P Assessment and plan (1) Gastric ulcer: Status: Acute Plan POD #1 s/p exploratory laparotomy, anterior gastrotomy, upper endoscopy. Found to have healed greater curve/antrum gastric ulcer. Doing well post op, c/o incisional pain. Abd benign with appropriate post op tenderness, dressing clean/intact. NGT output minimal. Will dc NGT, begin on clears. Increase activity. Home when pain controlled on oral analgesics. Discussed procedure findings again with patient. Time Spent With Patient Time: Total time managing care of this patient today ____ minutes. Quality Stroke Does the patient have a stroke diagnosis?: No VTE Prior VTE?: No VTE Risk Level:: Surgical - low VTE Device Contraindication: N/A - Device Ordered VTE Drug Contraindication: Treatment Not Indicated
--- NOTE | 2023-12-23 09:30 | MHC.CM.PN ---
[facility]M DELIVERED PT LIVES WITH [facility]. PT DECLINES COMPLETING A HCP AT THIS TIME. PCP TIM MACP DP: HOME, NO SERVICES ANTICIPATED. PT HAS OWN RIDE HOME. CM WILL CONTINUE TO FOLLOW FOR ANY CHANGE IN DC PLAN/NEEDS.
--- NOTE | 2023-12-23 09:49 | HO.POSTANES ---
Post Anesthesia Evaluation Post Anesthesia Evaluation Date of Service: 12/22/23 Vital Signs: Vital Signs Temp Pulse Resp BP Pulse Ox O2 Del Method 12/23/23 06:54 98 F 72 17 152/92 H 96 Room Air 12/23/23 03:30 96 F L 70 18 141/85 H 97 Room Air 12/22/23 23:36 96.9 F 75 17 145/82 H 97 Room Air Anesthesia: General Endotracheal-GETA Mental Status: Awake Pain Control: Satisfactory Nausea/Vomiting: None Hydration: Adequate Anesthesia-Related Issues: No Anes. Related Issues
[2023-12-23 15:41] VITALS: BP 151/91; PULSE 58; RESP 20; TEMP 36.8; O2SAT 99
[2023-12-23] MEDS: 0.9 % Sodium Chloride Flush 3 ML SYRINGE IVFLUSH ×2 (17:44→20:14)
[2023-12-23 19:06] VITALS: BP 155/93; PULSE 60; RESP 20; TEMP 36.3; O2SAT 97
[2023-12-23] MEDS: buPROPion HCl XL 150 MG TAB.ER.24H PO (20:19)
[2023-12-23] MEDS: diphenhydrAMINE HCL 25 MG CAPSULE 50 MG PO (20:19)
[2023-12-23] MEDS: Gabapentin 400 MG CAPSULE 1200 MG PO (20:19)
[2023-12-24 03:35] VITALS: BP 164/87; PULSE 67; RESP 18; TEMP 36.3; O2SAT 98
[2023-12-24] MEDS: Acetaminophen 1,000 MG/100 ML PIGGYBACK 400 MG IV ×4 (03:35→20:42)
[2023-12-24] MEDS: HYDROmorphone HCl 1 MG/ML SYRINGE 0.5 MG IVPUSH ×3 (03:58→15:35)
[2023-12-24] MEDS: Pantoprazole Sodium 40 MG/10 ML VIAL IVPUSH (06:17)
[2023-12-24 07:21] VITALS: BP 127/93; PULSE 72; RESP 18; TEMP 36.6; O2SAT 95
[2023-12-24] MEDS: 0.9 % Sodium Chloride Flush 3 ML SYRINGE IVFLUSH ×3 (08:48→21:20)
[2023-12-24 08:49] VITALS: RESP 18
--- NOTE | 2023-12-24 09:23 | PM.PNGS ---
Subjective Subjective Date of Service: 12/24/23 Interval history: says she is sore on incision tolerating clears no vomitting Physical Exam Vital Signs: Vital Signs: Last Vital Signs Temp 97.8 F 12/24/23 07:21 Pulse 72 12/24/23 07:21 Resp 18 12/24/23 08:49 BP 127/93 H 12/24/23 07:21 Pulse Ox 95 12/24/23 07:21 O2 Del Method Room Air 12/24/23 07:21 O2 Flow Rate 2 12/22/23 14:25 BMI result Body Mass Index 22.7 Const: General: comfortable and no acute distress Resp: Effort & Inspection: normal respiratory effort Cardio: Rate: regular rate GI: Other: incision clean, tender on incision Palpation (GI): Soft to palpation, not firm and no guarding Objective Data Active Medications Bupropion HCl (Bupropion Hcl Xl 150 Mg Tab.Er.24h) 150 mg PO BEDTIME [facility] Last Admin: 12/23/23 20:19 Dose: 150 mg Documented By: TAVIA Diphenhydramine HCl (Diphenhydramine Hcl 25 Mg Capsule) 50 mg PO BEDTIME PRN PRN Reason: Insomnia Last Admin: 12/23/23 20:19 Dose: 50 mg Documented By: TAVIA Famotidine (Famotidine/Pf 20 Mg/2 Ml Vial) 20 mg IVPUSH BID [facility] Last Admin: 12/23/23 20:26 Dose: 20 mg Documented By: TAVIA Gabapentin (Gabapentin 400 Mg Capsule) 1,200 mg PO BEDTIME [facility] Last Admin: 12/23/23 20:19 Dose: 1,200 mg Documented By: TAVIA Hydromorphone HCl (Hydromorphone Hcl 1 Mg/Ml Syringe) 0.5 mg IVPUSH Q4H PRN; Protocol PRN Reason: Pain, Severe (Pain Scale 7-10) Last Admin: 12/24/23 08:49 Dose: 0.5 mg Documented By: BENOIT Acetaminophen (Ofirmev) 1,000 mg in 100 mls @ 400 mls/hr IV Q6H [facility] Last Infusion: 12/24/23 03:54 Dose: Infused Documented By: TAVIA Lorazepam (Lorazepam 2 Mg/Ml Vial) 0.5 mg IVPUSH ONCE PRN PRN Reason: Anxiety Nicotine (Nicotine 21 Mg Patch.Td24) 21 mg TRANSDERMA DAILY [facility] Last Admin: 12/23/23 08:16 Dose: 21 mg Documented By: TARA Ondansetron HCl (Ondansetron Hcl 4 Mg/2 Ml Vial) 4 mg IVPUSH Q8H PRN PRN Reason: Nausea and Vomiting Pantoprazole Sodium (Pantoprazole Sodium 40 Mg/10 Ml Vial) 40 mg IVPUSH DAILY@0630 [facility] Last Admin: 12/24/23 06:17 Dose: 40 mg Documented By: TAVIA Sodium Chloride (0.9 % Sodium Chloride Flush 3 Ml Syringe) 3 ml IVFLUSH QSHIFT [facility] Last Admin: 12/24/23 08:48 Dose: 3 ml Documented By: BENOIT Labs 12/23/23 05:20 Procedures Date of Service Date of Service: 12/24/23 Progress Note: A&P Assessment and plan (1) Gastric ulcer: Status: Acute Assessment and Plan: s/p minilaparotomy, gastrotomy no ulcer seen pain mgt PPI on clears says she is still needing IV pain meds try oxycodone today replace K looks well overall Time Spent With Patient Time: Total time managing care of this patient today ____ minutes. Quality Stroke Does the patient have a stroke diagnosis?: No VTE Prior VTE?: No VTE Risk Level:: Surgical - low VTE Device Contraindication: N/A - Device Ordered VTE Drug Contraindication: Treatment Not Indicated
[2023-12-24] MEDS: Potassium Chloride Packet 20 MEQ PACKET 40 MEQ PO ×2 (09:58→12:56)
[2023-12-24] MEDS: Famotidine/PF 20 MG/2 ML VIAL IVPUSH ×2 (09:58→20:42)
[2023-12-24] MEDS: Nicotine 21 MG PATCH.TD24 TRANSDERMA (09:59)
[2023-12-24] MEDS: oxyCODONE HCl Immed Release 5 MG TABLET PO ×2 (12:56→20:42)
[2023-12-24 15:24] VITALS: BP 136/93; PULSE 68; RESP 16; TEMP 36.8; O2SAT 99
[2023-12-24 19:29] VITALS: BP 150/93; PULSE 71; RESP 16; TEMP 36.3; O2SAT 97
[2023-12-24] MEDS: Gabapentin 400 MG CAPSULE 1200 MG PO (20:40)
[2023-12-24] MEDS: diphenhydrAMINE HCL 25 MG CAPSULE 50 MG PO (20:41)
[2023-12-24] MEDS: buPROPion HCl XL 150 MG TAB.ER.24H PO (20:42)
[2023-12-25 03:40] VITALS: BP 127/86; PULSE 75; RESP 18; TEMP 36.2; O2SAT 95
[2023-12-25] MEDS: Acetaminophen 1,000 MG/100 ML PIGGYBACK 400 MG IV ×3 (03:47→18:16)
[2023-12-25] MEDS: oxyCODONE HCl Immed Release 5 MG TABLET PO ×3 (05:45→16:46)
[2023-12-25] MEDS: Pantoprazole Sodium 40 MG/10 ML VIAL IVPUSH (05:46)
[2023-12-25 07:25] VITALS: BP 152/93; PULSE 76; RESP 16; TEMP 36.4; O2SAT 98
[2023-12-25 07:48] VITALS: RESP 20
[2023-12-25] MEDS: HYDROmorphone HCl 1 MG/ML SYRINGE 0.5 MG IVPUSH (07:48)
[2023-12-25] MEDS: 0.9 % Sodium Chloride Flush 3 ML SYRINGE IVFLUSH ×3 (07:48→21:00)
[2023-12-25] MEDS: Famotidine/PF 20 MG/2 ML VIAL IVPUSH ×2 (07:49→20:59)
[2023-12-25] MEDS: Nicotine 21 MG PATCH.TD24 TRANSDERMA (07:50)
--- NOTE | 2023-12-25 09:42 | PM.PNGS ---
Subjective Subjective Date of Service: 12/25/23 Interval history: no events reported pt describes incisional pain especially with movement tolerating clears ambulating she says she does not feel ready to go home today Physical Exam Vital Signs: Vital Signs: Last Vital Signs Temp 97.5 F 12/25/23 07:25 Pulse 76 12/25/23 07:25 Resp 20 12/25/23 07:48 BP 152/93 H 12/25/23 07:25 Pulse Ox 98 12/25/23 07:25 O2 Del Method Room Air 12/25/23 07:25 O2 Flow Rate 2 12/22/23 14:25 BMI result Body Mass Index 22.7 Const: General: comfortable and no acute distress Resp: Effort & Inspection: normal respiratory effort Cardio: Rate: regular rate GI: Other: incision clean and dry, tenderness appropriate to post op Palpation (GI): Soft to palpation, not firm and no guarding Objective Data Active Medications Bupropion HCl (Bupropion Hcl Xl 150 Mg Tab.Er.24h) 150 mg PO BEDTIME [facility] Last Admin: 12/24/23 20:42 Dose: 150 mg Documented By: TAVIA Diphenhydramine HCl (Diphenhydramine Hcl 25 Mg Capsule) 50 mg PO BEDTIME PRN PRN Reason: Insomnia Last Admin: 12/24/23 20:41 Dose: 50 mg Documented By: TAVIA Famotidine (Famotidine/Pf 20 Mg/2 Ml Vial) 20 mg IVPUSH BID [facility] Last Admin: 12/25/23 07:49 Dose: 20 mg Documented By: BENOIT Gabapentin (Gabapentin 400 Mg Capsule) 1,200 mg PO BEDTIME [facility] Last Admin: 12/24/23 20:40 Dose: 1,200 mg Documented By: TAVIA Hydromorphone HCl (Hydromorphone Hcl 1 Mg/Ml Syringe) 0.5 mg IVPUSH Q4H PRN; Protocol PRN Reason: Pain, Severe (Pain Scale 7-10) Last Admin: 12/25/23 07:48 Dose: 0.5 mg Documented By: BENOIT Acetaminophen (Ofirmev) 1,000 mg in 100 mls @ 400 mls/hr IV Q6H [facility] Last Infusion: 12/25/23 04:05 Dose: Infused Documented By: TAVIA Acetaminophen (Ofirmev) 1,000 mg in 100 mls @ 400 mls/hr IV Q6H PRN PRN Reason: pain,severe Lorazepam (Lorazepam 2 Mg/Ml Vial) 0.5 mg IVPUSH ONCE PRN PRN Reason: Anxiety Nicotine (Nicotine 21 Mg Patch.Td24) 21 mg TRANSDERMA DAILY [facility] Last Admin: 12/25/23 07:50 Dose: 21 mg Documented By: BENOIT Ondansetron HCl (Ondansetron Hcl 4 Mg/2 Ml Vial) 4 mg IVPUSH Q8H PRN PRN Reason: Nausea and Vomiting Oxycodone HCl (Oxycodone Hcl Immed Release 5 Mg Tablet) 5 mg PO Q4H PRN PRN Reason: Pain, Moderate(Pain Scale 4-6) Last Admin: 12/25/23 05:45 Dose: 5 mg Documented By: TAVIA Pantoprazole Sodium (Pantoprazole Sodium 40 Mg/10 Ml Vial) 40 mg IVPUSH DAILY@0630 [facility] Last Admin: 12/25/23 05:46 Dose: 40 mg Documented By: TAVIA Sodium Chloride (0.9 % Sodium Chloride Flush 3 Ml Syringe) 3 ml IVFLUSH QSHIFT [facility] Last Admin: 12/25/23 07:48 Dose: 3 ml Documented By: BENOIT Labs 12/23/23 05:20 Procedures Date of Service Date of Service: 12/25/23 Progress Note: A&P Assessment and plan (1) Gastric ulcer: Status: Acute Assessment and Plan: S/P mini-laparotomy, gastrotomy looks well advance diet pain mgt she says she does not feel ready to be discharged today ambulate doing well overall K supplemented repeat BMP edel Time Spent With Patient Time: Total time managing care of this patient today ____ minutes. Quality Stroke Does the patient have a stroke diagnosis?: No VTE Prior VTE?: No VTE Risk Level:: Surgical - low VTE Device Contraindication: N/A - Device Ordered VTE Drug Contraindication: Treatment Not Indicated
[2023-12-25 15:28] VITALS: BP 153/97; PULSE 78; RESP 18; TEMP 36.3; O2SAT 98
[2023-12-25 19:28] VITALS: BP 130/90; PULSE 74; RESP 18; TEMP 36.1; O2SAT 98
[2023-12-25] MEDS: diphenhydrAMINE HCL 25 MG CAPSULE 50 MG PO (20:59)
[2023-12-25] MEDS: buPROPion HCl XL 150 MG TAB.ER.24H PO (20:59)
[2023-12-25] MEDS: Gabapentin 400 MG CAPSULE 1200 MG PO (20:59)
[2023-12-26] MEDS: oxyCODONE HCl Immed Release 5 MG TABLET PO ×2 (02:26→07:28)
[2023-12-26 04:00] VITALS: BP 123/83; PULSE 59; RESP 16; TEMP 36.2; O2SAT 96
[2023-12-26] MEDS: Pantoprazole Sodium 40 MG/10 ML VIAL IVPUSH (06:06)
[2023-12-26 07:17] VITALS: BP 127/94; PULSE 88; RESP 16; TEMP 36.2; O2SAT 93
[2023-12-26 07:25] LABS: Anion Gap 14 (12-20); Blood Urea Nitrogen 7 mg/dL (9-16); Calcium 10.9 mg/dL (8.4-10.2); Carbon Dioxide 26 mmol/L (22-29); Chloride 105 mmol/L (96-108); Creatinine Clr Calc Pharmacy 79.1; Estimated Glomerular Filt Rate > 60; Glucose Random 96 mg/dL (60-115); Potassium 3.9 mmol/L (3.3-5.1); Sodium 141 mmol/L (135-145)
[2023-12-26] MEDS: Nicotine 21 MG PATCH.TD24 TRANSDERMA (07:28)
[2023-12-26] MEDS: Famotidine/PF 20 MG/2 ML VIAL IVPUSH (07:28)
[2023-12-26] MEDS: 0.9 % Sodium Chloride Flush 3 ML SYRINGE IVFLUSH (07:29)
--- NOTE | 2023-12-26 10:27 | P.PNGS_ITS ---
Subjective Subjective Date of Service: 12/26/23 Interval history: Feels well. Tolerating solid diet. Passing some flatus but no BM. Having some pain but comfortable and able to get OOB and ambulate. Physical Exam 2 Vital Signs: Vital Signs: Last Vital Signs Temp 97.1 F 12/26/23 07:17 Pulse 88 12/26/23 07:17 Resp 16 12/26/23 07:17 BP 127/94 H 12/26/23 07:17 Pulse Ox 93 12/26/23 07:17 O2 Del Method Room Air 12/26/23 07:17 O2 Flow Rate 2 12/22/23 14:25 BMI result Body Mass Index 22.7 Const: General: comfortable, no acute distress and alert O rientation/consciousness: patient oriented x3 Resp: Effort & Inspection: normal respiratory effort GI: Inspection: No distended and Yes incision (clean, steris in place ) P alpation (GI): Soft to palpation, Tenderness to palpation present (GI) (mild incisional ) and no guarding Skin: General skin exam: no rashes or lesions noted Neuro: General: patient oriented x3 and moves all extremities Objective Data Active Medications Bupropion HCl (Bupropion Hcl Xl 150 Mg Tab.Er.24h) 150 mg PO BEDTIME [facility] Last Admin: 12/25/23 20:59 Dose: 150 mg Documented By: EDGAR Diphenhydramine HCl (Diphenhydramine Hcl 25 Mg Capsule) 50 mg PO BEDTIME PRN PRN Reason: Insomnia Last Admin: 12/25/23 20:59 Dose: 50 mg Documented By: EDGAR Famotidine (Famotidine/Pf 20 Mg/2 Ml Vial) 20 mg IVPUSH BID [facility] Last Admin: 12/26/23 07:28 Dose: 20 mg Documented By: KARY Gabapentin (Gabapentin 400 Mg Capsule) 1,200 mg PO BEDTIME [facility] Last Admin: 12/25/23 20:59 Dose: 1,200 mg Documented By: EDGAR Hydromorphone HCl (Hydromorphone Hcl 1 Mg/Ml Syringe) 0.5 mg IVPUSH Q4H PRN; Protocol PRN Reason: Pain, Severe (Pain Scale 7-10) Last Admin: 12/25/23 07:48 Dose: 0.5 mg Documented By: BENOIT Acetaminophen (Ofirmev) 1,000 mg in 100 mls @ 400 mls/hr IV Q6H PRN PRN Reason: pain,severe Last Infusion: 12/25/23 19:48 Dose: Infused Documented By: EDGAR Lorazepam (Lorazepam 2 Mg/Ml Vial) 0.5 mg IVPUSH ONCE PRN PRN Reason: Anxiety Nicotine (Nicotine 21 Mg Patch.Td24) 21 mg TRANSDERMA DAILY [facility] Last Admin: 12/26/23 07:28 Dose: 21 mg Documented By: KARY Ondansetron HCl (Ondansetron Hcl 4 Mg/2 Ml Vial) 4 mg IVPUSH Q8H PRN PRN Reason: Nausea and Vomiting Oxycodone HCl (Oxycodone Hcl Immed Release 5 Mg Tablet) 5 mg PO Q4H PRN PRN Reason: Pain, Moderate(Pain Scale 4-6) Last Admin: 12/26/23 07:28 Dose: 5 mg Documented By: KARY Sodium Chloride (0.9 % Sodium Chloride Flush 3 Ml Syringe) 3 ml IVFLUSH QSHIFT [facility] Last Admin: 12/26/23 07:29 Dose: 3 ml Documented By: KARY Labs 12/26/23 07:03 Labs: Laboratory Results - last 24 hr 12/26/23 07:03 Anion Gap 14 Estim Creat Clear Calc 79.1 Estimated GFR > 60 Random Glucose 96 Calcium 10.9 H D Procedures Date of Service Date of Service: 12/26/23 Progress Note: A&P Assessment and plan (1) Gastric ulcer: Status: Acute Plan POD #4 S/P mini-laparotomy, gastrotomy. Doing well with good pain control and tolerating solid diet. Abd benign with clean incision. Feels ready for discharge to home. F/u with Dr. Palma in 1 week. F/u with GI provider regarding further management. Time Spent With Patient Time: Total time managing care of this patient today ____ minutes. Quality Stroke Does the patient have a stroke diagnosis?: No VTE Prior VTE?: No VTE Risk Level:: Surgical - low VTE Device Contraindication: N/A - Device Ordered VTE Drug Contraindication: Treatment Not Indicated
--- NOTE | 2023-12-26 10:40 | MHC.CM.PN ---
DP: PT HAS BEEN MEDICALLY CLEARED FOR DC HOME, NO SERVICES. PT HAS OWN RIDE HOME.
[2023-12-26] MEDS: Acetaminophen 1,000 MG/100 ML PIGGYBACK 400 MG IV (10:54)
--- NOTE | 2023-12-26 11:08 | PM.DS ---
DS: Providers Provider Date of Service: 12/26/23 Date of admission: 12/22/23 12:13 Date of discharge: 12/26/23 Primary care physician: JEAN Valdes Attending physician on admission: Philip Palma Attending physician on discharge: Philip Palma DS: Diagnosis Discharge Diagnosis (1) Gastric ulcer: Status: Resolved DS: Summary Hospital Course Hospital Course: HPI AT ADMISSION: Patient presents for evaluation of a nonhealing gastric ulcer. She has had this proximally 10 years time. She has had maximal medical therapy and multiple endoscopies, endoscopic ultrasound, x-rays and scans. Several Biopsies have shown chronic inflammatory changes but no evidence of malignancy. Patient has lost weight approximately 10 lb and is afraid to eat secondary to the symptomatic nature of the ulcer. Because of the endoscopic features which are concerning combine with the chronicity and location along the greater curve and the markedly symptomatic nature of this ulcer with maximal medical therapy, discussion was had with the patient regarding doing initially a wedge resection/biopsy and for frozen section to see if this is neoplastic process or not with further intervention directed by the operative findings, and the frozen section pathology report which could range from just to wedge resection to a partial gastrectomy. She now presents for the procedure. HOSPITAL COURSE: On 12/22/23, exploratory laparotomy, anterior gastrotomy, upper endoscopy was performed by Dr. Palma. Intraoperative findings through anterior gastrotomy and upper endoscopy demonstrated no evidence of any ulcer disease or gross pathology. She was admitted to the surgical service for observation post operatively. She was continued on PPI therapy. She had an uncomplicated but slow recovery course. Her NGT was removed on POD #1 and she was started on clear liquids. Her activity was increased. She was tolerating clears and advanced to solids. She remained inpatient for 3 nights for pain control. On the day of discharge, she was tolerating a solid diet without nausea or vomiting, she was passing flatus, her pain was controlled on oral analgesics. Her abdomen was benign with clean incision. She felt ready for discharge to home on 12/26/23 in stable condition. She is to follow up in the office with Dr. Palma in 1 week. She is to follow up with her GI provider for further management. Status at Discharge Functional status at discharge: independent ambulation Overall status at discharge: patient is progressing back to baseline Time Attestation Discharge Coordination Time (in mins): 30 Quality: Safe Use of Opioids Does Pt have an Active Cancer Diagnosis on the Problem List?: No Quality: Stroke Does the patient have a stroke diagnosis?: No Physical Exam Vital Signs: Vital Signs: Last Vital Signs Temp 97.1 F 12/26/23 07:17 Pulse 88 12/26/23 07:17 Resp 16 12/26/23 07:17 BP 127/94 H 12/26/23 07:17 Pulse Ox 93 12/26/23 07:17 O2 Del Method Room Air 12/26/23 07:17 O2 Flow Rate 2 12/22/23 14:25 BMI result Body Mass Index 22.7 Const: General: comfortable, no acute distress and alert Resp: Effort & Inspection: normal respiratory effort GI: Inspection: No distended and Yes incision (clean ) Palpation (GI): Soft to palpation and Tenderness to palpation present (GI) DS: Data Data Completed and Pending Completed studies during hospitalization [Text1]: Procedures Excision of Stomach, Pylorus, Via Natural or Artificial Opening Endoscopic, Diagnostic (09/17/22) Transfusion of Nonautologous Red Blood Cells into Peripheral Vein, Percutaneous Approach (09/17/22) Labs on day of discharge: Laboratory Results - last 24 hr 12/26/23 07:03 Sodium 141 Potassium 3.9 D Chloride 105 Carbon Dioxide 26 Anion Gap 14 BUN 7 L Creatinine 0.79 Estim Creat Clear Calc 79.1 Estimated GFR > 60 Random Glucose 96 Calcium 10.9 H D Discharge Plan Discharge Anticipated Discharge Date/Time: 12/26/23 09:11 Patient Disposition: Home, Self-Care Discharge Diagnosis: gastric ulcer, healed Referrals: Jhon Ramesh FNP-REY [Primary Care Provider] - 1 Week Philip Palma MD [Physician] - 1 Week Discharge Medications: New docusate sodium [Colace] 100 mg capsule 100 mg PO BID PRN (Reason: constipation) Qty: 20 0RF oxycodone 5 mg tablet 5 mg PO Q4H PRN (Reason: pain (scale score 7-10)) Qty: 24 0RF Rx Instructions: Partial Fill upon patient request. Continued rosuvastatin 5 mg tablet 5 mg PO BEDTIME 90 Days Qty: 90 1RF esomeprazole magnesium 20 mg capsule,delayed release(DR/EC) 20 mg PO BID 30 Days Qty: 60 3RF famotidine 20 mg tablet 20 mg PO BEDTIME Qty: 30 3RF Wendy-[place] Extra Strength 500-1,985-1,000 mg Tablet, Effervescent 1 ea PO DAILY PRN (Reason: Nausea) No Action hydrocodone-acetaminophen 5-325 mg tablet 1 tab PO Q4-6H PRN (Reason: pain) Qty: 30 0RF Rx Instructions: Partial Fill upon patient request. hydrocodone-acetaminophen 5-325 mg tablet 1 tab PO Q4-6H PRN (Reason: pain) Qty: 30 0RF Rx Instructions: Partial Fill upon patient request. bupropion HCl 150 mg tablet extended release 24 hr 150 mg PO BEDTIME 90 Days Qty: 90 1RF sucralfate [Carafate] 1 gram tablet 1 g PO QIDACHS PRN (Reason: upset stomach) 10 Days Qty: 40 0RF Rx Instructions: do not take concurrently with famotidine or esomeprazole cholestyramine-aspartame 4 gram powder in packet 2 g PO Q OTHER DAY Qty: 60 1RF ondansetron 8 mg tablet,disintegrating 8 mg PO Q12H PRN (Reason: nausea and vomiting) 30 Days Qty: 60 1RF lorazepam 1 mg tablet 1 mg PO DAILY PRN (Reason: anxiety/trips) 10 Days Qty: 10 0RF gabapentin 300 mg capsule 300 mg PO .COMPLEX 30 Days Qty: 150 4RF Rx Instructions: 300 mg orally; 300 mg PO; 600mg in am, 300mg at noon, 600mg at night cephalexin 500 mg capsule 500 mg PO TID Qty: 30 0RF cephalexin 500 mg capsule 500 mg PO TID Qty: 30 0RF Discharge Orders: Discharge Order (Routine); Ordered 12/26/23 Ordered By: Erika House Diet: Advance to usual diet Activity on Discharge: No heavy lifting Stand Alone Forms: Patient Portal Discharge page Print Language: Telugu Activity Restrictions/Additional Instructions: Apply an ice pack for short intervals (20 minutes on, followed by at least 20 minutes off) for the first 2 days. Do not apply heat. Do not use creams, lotions, or topical antibiotics. These can cause infection or allergic reaction. Ok to shower 48 hours after your surgery. You have steri strips (small white cloth strips) covering your incision- these will fall off ~1 week. Follow up in office with Dr. Palma in 1 week. ([phone]) No heavy lifting (>10lbs) or strenuous activity! Call Your Doctor If: -Your temperature exceeds 101.5? F -You experience excessive pain or swelling -You have an unexpected reaction to medication -You have excessive bleeding -You experience continued vomiting/nausea -Your incision begins to separate -Your incision shows signs of infection such as increased redness, swelling, excessive pain, drainage (light blood or clear fluid is normal) or heat Care Plan Goals: return to baseline Health Concerns: pain management gastric ulcer Plan of Treatment: oral pain meds PPI Assessment: doing well Discharge Date/Time: 12/26/23 11:32
== END 2023-12-26 11:32 | disposition home or self-care (01) | DRG 630 ==
LOC: HO.SSSA 12:15 → HO.S3 12:53
PROVIDERS: Physician Assistant Surgical; Surgery; Admitting Provider Surgery; PCP Nurse Practitioner Family; Visit Provider Surgery
PROC: (CPT 49000; principal; 2023-12-22 10:00)
DX: R63.4 Abnormal weight loss (principal); Z68.22 Body mass index [BMI] 22.0-22.9, adult; Z87.11 Personal history of peptic ulcer disease; Z79.899 Other long term (current) drug therapy
CPT/HCPCS: 36415; 80048; 86850; 86900; 86901; 93005; C9113; J0131; J0690; J1170; J1630; J2060; J2250; J2704; J2795; J3010; J7120

== ENCOUNTER → 2023-12-22 12:13 | Outpatient (BNV) | payer MEDICARE, MEDICAID, SELFPAY | PROVIDERS: Admitting Provider Surgery; PCP Nurse Practitioner Family; Visit Provider Surgery | DX: K25.9 Gastric ulcer, unspecified as acute or chronic, without hemorrhage or perforation (principal) | CPT/HCPCS: 43235; 43500; 99024 ==

== ENCOUNTER 2024-01-03 10:25 | Outpatient (AMB) | payer MEDICARE, MEDICAID, SELFPAY ==
--- NOTE | 2024-01-03 10:31 | A.OFFVIS_ITS ---
Intake Visit Reasons: S/P exploratory laparotomy, partial gastrectomy Intake Note: Patient here s/p exp laparotomy, partial gastrectomy. Reports incisions healing well. Patient c/o: tenderness when sitting for long periods of time. Redness superior part of incision. SX: 12-22-23. Log Handler Required: No Accompanied by: Self / Same As Patient Allergies metronidazole [From Flagyl] Adverse Reaction (Severe, Verified 01/03/24 10:32) Nausea HPI Comments Details: Patient presents for follow-up. Aside from incisional discomfort which is improving, patient is otherwise doing well. She has tolerating a diet. He is having regular bowel habits. She is increasing her activity level. [facility] Medical History Back pain Hx of transfusion of packed red blood cells Vomiting and diarrhea Skin cancer Memory loss, short term Numbness Hx of cardiac murmur Anxiety Gastric ulcer Anemia PTSD (post-traumatic stress disorder) Synovial cyst of lumbar spine Urine incontinence Postlaminectomy syndrome Surgical History Hx of colonoscopy History of esophagogastroduodenoscopy (EGD) Hx of spinal fusion H/O unilateral oophorectomy History of discectomy History of tonsillectomy Family History Father No problems noted. Mother Substance use disorder Maternal Grandmother Alzheimer's disease Brother No problems noted. Sister No problems noted. Son No problems noted. Social History Household Members: Significant Other Housing: House Are you a primary health care aide to a significant other at home: No Do you presently have visiting nurse or other home services: No Alcohol intake: never Comment: COUNTS CORRECT Patient Tobacco Use Status: Former Tobacco user Tobacco use type: Smokeless Tobacco Years Smoked: 35 e-Cigarette/Vaping Use: Currently Using service: No Current occupational status: disabled Cognitive needs: No Hearing needs: No Vision needs: No Physical Exam GI Other: Abdomen is soft. Incision clean dry and intact except for the most superior area which has a proximally 1 0.5 cm by 1/2 cm area of mild erythema highly suggestive of an early stitch abscess. Assessment & Plan Assessment & Plan (1) Postop check: Code(s): Z09 - Encounter for follow-up examination after completed treatment for conditions other than malignant neoplasm Category: Surgical Plan Patient will be given a script for antibiotics. The area was marked off and the patient has been instructed that should this progress outside the margins, to call the office. Local wound instructions were also recommended including warm compresses periodically. Should the erythema not received by the end of the week, patient has been instructed to contact the office or return for follow-up. All questions answered. Medications: New cephalexin 500 mg PO TID 30 caps 0RF cephalexin 500 mg PO TID 30 caps 0RF Coding Level of Care Code Global (87454) Diagnoses Postop check Z09
== END 2024-01-03 10:43 | disposition home or self-care (01) ==
PROVIDERS: PCP Nurse Practitioner Family; Visit Provider Surgery
DX: Z09 Encounter for follow-up examination after completed treatment for conditions other than malignant neoplasm (principal)
CPT/HCPCS: 99024

== ENCOUNTER → 2024-01-03 10:25 | Outpatient (BNVA) | payer MEDICARE, MEDICAID, SELFPAY | PROVIDERS: PCP Nurse Practitioner Family; Visit Provider Surgery | DX: Z09 Encounter for follow-up examination after completed treatment for conditions other than malignant neoplasm (principal) | CPT/HCPCS: 99212 ==

== ENCOUNTER 2024-01-24 06:56 | Outpatient (AMB) | payer MEDICARE, MEDICAID, SELFPAY ==
--- NOTE | 2024-01-24 07:31 | MHC.PC.OV ---
Intake Visit Reasons: Discuss GI issues- Android Allergies metronidazole [From Flagyl] Adverse Reaction (Severe, Verified 01/24/24 07:58) Nausea Medication List - Last Reconciled 01/24/24 by LOVE Ruff aspirin-sod bicarb-citric acid 500-1,985-1,000 mg (Wendy-Harper Extra Strength) 1 ea PO DAILY PRN bupropion HCl XL 150 mg PO BEDTIME cephalexin 500 mg PO TID cephalexin 500 mg PO TID cholestyramine-aspartame 4 gram 2 grams PO Q OTHER DAY docusate sodium (Colace) 100 mg PO BID PRN esomeprazole magnesium 20 mg PO BID 30 days famotidine 20 mg PO BEDTIME gabapentin 1,200 mg PO BEDTIME hydrocodone-acetaminophen 5-325 mg 1 tab PO Q4-6H PRN hydrocodone-acetaminophen 5-325 mg 1 tab PO Q4-6H PRN oxycodone 5 mg PO Q4H PRN rosuvastatin 5 mg PO BEDTIME 90 days sucralfate (Carafate) 10 mL PO QID 30 days Tobacco use date assessed: 05/30/23 Dental Screening Dental Screen Date: 05/30/23 HPI Discuss GI issues- Android HPI Details Pt underwent an exploratory laparotomy, anterior gastrotomy, and upper endoscopy on 12/21. Pt reports that her incision is still draining but is healing (was infected, started on antibiotics, treated). Pt reports some ongoing nausea, though reports this has improved somewhat. Pt is able to control her vomiting. She does have a hx of gastric ulcer. Pt reports that her bowel movements have been normal. Pt would like to see a different GI provider, will refer to [facility]. Denies fever, chills, and dizziness. My biggest concern and goal is to relieve the nausea. Will have her contact me via the portal every week x 3 weeks with her status (sending more zofran). Pt has an upcoming trip that she is anxious for. Will send short duration of lorazepam. Educated pt on risk of addiction, this is not a long-term med. Pt understands that they can not drive while taking this med, share this med, and to only take as prescribed. [facility] Medical History (Updated 01/24/24 @ 07:57 by Neri Glogowski, PRODUCTION TECHNICIAN-BC) Back pain Hx of transfusion of packed red blood cells Vomiting and diarrhea Skin cancer Memory loss, short term Numbness Hx of cardiac murmur Anxiety Gastric ulcer Anemia PTSD (post-traumatic stress disorder) Synovial cyst of lumbar spine Urine incontinence Postlaminectomy syndrome Surgical History (Updated 01/03/24 @ 10:43 by Philip Palma MD) Hx of colonoscopy History of esophagogastroduodenoscopy (EGD) Hx of spinal fusion H/O unilateral oophorectomy History of discectomy History of tonsillectomy Family History Father No problems noted. Mother Substance use disorder Maternal Grandmother Alzheimer's disease Brother No problems noted. Sister No problems noted. Son No problems noted. Social History Household Members: Significant Other Housing: House Are you a primary healthcare business analyst to a significant other at home: No Do you presently have visiting nurse or other home services: No Alcohol intake: never Comment: COUNTS CORRECT Patient Tobacco Use Status: Former Tobacco user Tobacco use type: Smokeless Tobacco Years Smoked: 35 e-Cigarette/Vaping Use: Currently Using service: No Current occupational status: disabled Cognitive needs: No Hearing needs: No Vision needs: No Questionnaire Thrive Questionnaire Date Thrive assessed: 12/23/23 JULIO CÉSAR-7 AMB Questionnaire JULIO CÉSAR-7 Date JULIO CÉSAR - 7 assessed: 12/03/21 Source: Developed by Drs. Joseluis Davenport, Riddhi Melendez, Ricco Wong and colleagues, with an educational mariposa from [employer]. Review of Systems Const Reports as per HPI Physical exam (Primary Care) Tobacco/Smoking Status: Tobacco use Status Tobacco use date assessed 05/30/23 01/24/24 07:33 Patient Tobacco Use Status Former Tobacco user 01/24/24 07:33 Tobacco use type Smokeless Tobacco 01/24/24 07:33 e-Cigarette/Vaping Use Currently Using 01/24/24 07:33 Thrive Assessment: Date of Thrive Assessment Date Thrive assessed 12/23/23 01/24/24 07:33 Const General: cooperative Orientation/consciousness: patient oriented x3 Neuro General: patient oriented x3 Psych Appearance: grossly normal Mental Status: mental status grossly normal Speech and movement: Clear speech present Affect: normal affect Attitude: cooperative Thought process: Normal thought process present Thought content: Normal thought content present Insight: Good insight present (Psych) Judgement: Good judgement present (Psych) Telehealth Telehealth Telehealth Platform: [employer] Location of provider rendering services: practice address Location of patient: address on file Patient Identification confirmed using: Name, : Yes Telehealth method: video Patient verbally consented to treatment: Yes Patient verbally consented to billing insurance company: Yes Patient informed of any privacy concerns related to visit: Yes Minutes spent on Phone/Video with Pt.: 15 Assessment and Plan Assessment & Plan (1) Gastric ulcer: Code(s): K25.9 - Gastric ulcer, unspecified as acute or chronic, without hemorrhage or perforation Plan: Referred to GI (2) Nausea: Code(s): R11.0 - Nausea Plan: Referred to GI (3) Incisional infection: Code(s): T81.49XA - Infection following a procedure, other surgical site, initial encounter Plan: healing, clear drainage, denies any current s/s of infection. Plan The patient agreed to the use of a director medical surgical for this encounter. Scribed for AMI Tomas-REY by Bernarda Juares director medical surgical, on 01/24/2024 at 07:30 EST. Orders: Orders Complete Blood Count Auto Diff Today K25.9 - Gastric ulcer, unspecified as acute or chronic, without hemorrhage or perforation, R11.0 - Nausea TSH reflex Free T4 Today K25.9 - Gastric ulcer, unspecified as acute or chronic, without hemorrhage or perforation, R11.0 - Nausea UA CC w/rflx Micro + Cult Today K25.9 - Gastric ulcer, unspecified as acute or chronic, without hemorrhage or perforation, R11.0 - Nausea Comprehensive Met. Panel Today K25.9 - Gastric ulcer, unspecified as acute or chronic, without hemorrhage or perforation, R11.0 - Nausea Referrals Gastroenterology Referral K25.9 - Gastric ulcer, unspecified as acute or chronic, without hemorrhage or perforation, R11.0 - Nausea Medications: New cholestyramine-aspartame 4 gram 2 grams PO Q OTHER DAY 60 ea 1RF ondansetron 8 mg PO Q12H PRN 60 tabs 1RF nausea and vomiting 30 days lorazepam 1 mg PO DAILY PRN 10 tabs 0RF anxiety/trips 10 days Coding Level of Care Code Tele Est Pt Level 4 (07844) Diagnoses Gastric ulcer K25.9 Nausea R11.0 Incisional infection T81.49XA Time Spent (min) 23
== END 2024-01-24 09:04 | disposition home or self-care (01) ==
LOC: HO.HMGC 06:56
PROVIDERS: PCP Nurse Practitioner Family; Visit Provider Nurse Practitioner Family
DX: K25.9 Gastric ulcer, unspecified as acute or chronic, without hemorrhage or perforation (principal); R11.0 Nausea; T81.49XA Infection following a procedure, other surgical site, initial encounter
CPT/HCPCS: 99214

== ENCOUNTER 2024-02-02 08:29 | Outpatient (AMB) | payer MEDICARE, MEDICAID, SELFPAY ==
--- NOTE | 2024-02-03 11:13 | AM.OFFVISNUR ---
Intake Intake Visit Reasons: surgical wound leaking Allergies metronidazole [From Flagyl] Adverse Reaction (Severe, Verified 01/24/24 07:58) Nausea Nursing Note Pt reports to the office for wound check. She called yesterday to report continued drainage from her incision. At the superior end, there are 2 small openings that have serous drainage. At the inferior end there is an opening approx 1cm long and 2.5cm deep. A piece of 1/4 inch packing was placed into the wound and the entire incision was covered with a DCD and anchored with tape. Pt will report back tomorrow for dressing change. No s/s of infection, no redness, no puss noted. No fevers. Pt states appetite is good and she is passing stool normally. Coding Level of Care Code Established Pt Est Pt Level 1 (50680) Established Pt COVID testing (G2023) Patient Type Established History Problem Focused Exam Problem Focused Medical Decision Making Straight Forward Time Spent (min) 15 Comment dressing change and wound teaching
== END 2024-02-02 09:37 | disposition home or self-care (01) ==
PROVIDERS: PCP Nurse Practitioner Family; Visit Provider Surgery
DX: Z48.89 Encounter for other specified surgical aftercare (principal)
CPT/HCPCS: 99024

== ENCOUNTER → 2024-02-02 08:29 | Outpatient (BNVA) | payer MEDICARE, MEDICAID, SELFPAY | PROVIDERS: PCP Nurse Practitioner Family; Visit Provider Surgery | DX: Z48.01 Encounter for change or removal of surgical wound dressing (principal) | CPT/HCPCS: 99212 ==

== ENCOUNTER → 2024-02-03 08:26 | Outpatient (BNVA) | payer MEDICARE, MEDICAID, SELFPAY | PROVIDERS: PCP Nurse Practitioner Family; Visit Provider Surgery | DX: Z48.01 Encounter for change or removal of surgical wound dressing (principal) | CPT/HCPCS: 99211 ==

== ENCOUNTER 2024-02-06 08:09 | Outpatient (AMB) | payer MEDICARE, MEDICAID, SELFPAY ==
--- NOTE | 2024-02-06 08:11 | A.OFFVIS_ITS ---
Intake Visit Reasons: Wound check oozing exp lap Intake Note: This patient presents for a wound check status post exploratory laparotomy, anterior gastrotomy, upper endoscopy. Patient c/o; reports oozing. Bias Binding Cutter Required: No Accompanied by: Self / Same As Patient Allergies metronidazole [From Flagyl] Adverse Reaction (Severe, Verified 02/06/24 08:14) Nausea HPI Comments Details: Patient had draining sinuses from extruding sutures (stitch abscess (x2 involving the upper part of her incision and upper 3rd of the incision. She has been undergoing local wound care. She was seen last week in the office and states that the tracts were cauterized with silver nitrate and dressings applied. She has had decrease in serous drainage from the incisions. She is undergoing local wound care. [facility] Medical History (Updated 02/06/24 @ 08:30 by Philip Palma MD) Incisional infection Back pain Hx of transfusion of packed red blood cells Vomiting and diarrhea Skin cancer Memory loss, short term Numbness Hx of cardiac murmur Anxiety Gastric ulcer Anemia PTSD (post-traumatic stress disorder) Synovial cyst of lumbar spine Urine incontinence Postlaminectomy syndrome Surgical History (Updated 02/06/24 @ 08:30 by Philip Palma MD) Hx of colonoscopy History of esophagogastroduodenoscopy (EGD) Hx of spinal fusion H/O unilateral oophorectomy History of discectomy History of tonsillectomy Family History Father No problems noted. Mother Substance use disorder Maternal Grandmother Alzheimer's disease Brother No problems noted. Sister No problems noted. Son No problems noted. Social History Household Members: Significant Other Housing: House Are you a primary health care marketing specialist to a significant other at home: No Do you presently have visiting nurse or other home services: No Alcohol intake: never Comment: COUNTS CORRECT Patient Tobacco Use Status: Former Tobacco user Tobacco use type: Smokeless Tobacco Years Smoked: 35 e-Cigarette/Vaping Use: Currently Using service: No Current occupational status: disabled Cognitive needs: No Hearing needs: No Vision needs: No Physical Exam GI Other: Upper part and upper 3rd have 2 small tracts of exuberant granulating tissue but no evidence of any purulence. He is trach was cauterized using silver nitrate and dressings applied. Well tolerated. Assessment & Plan Assessment & Plan (1) Postoperative stitch abscess: Code(s): T81.41XA - Infection following a procedure, superficial incisional surgical site, initial encounter Category: Surgical Plan Patient is to continue local wound care and will see me as directed or p.r.n.. All questions answered Coding Level of Care Code Global (88786) Diagnoses Postoperative stitch abscess T81.41XA
== END 2024-02-06 08:30 | disposition home or self-care (01) ==
PROVIDERS: PCP Nurse Practitioner Family; Visit Provider Surgery
DX: T81.41XA Infection following a procedure, superficial incisional surgical site, initial encounter (principal)
CPT/HCPCS: 99024

== ENCOUNTER → 2024-02-06 08:09 | Outpatient (BNVA) | payer MEDICARE, MEDICAID, SELFPAY | PROVIDERS: PCP Nurse Practitioner Family; Visit Provider Surgery | DX: T81.41XA Infection following a procedure, superficial incisional surgical site, initial encounter (principal) | CPT/HCPCS: 99212 ==

== ENCOUNTER 2024-02-20 09:24 | Outpatient (AMB) | payer MEDICARE, MEDICAID, SELFPAY ==
--- NOTE | 2024-02-20 09:37 | A.OFFVIS_ITS ---
Intake Visit Reasons: Wound check oozing exp lap Intake Note: Patient here c/o non- stop oozing from exp lap site on abd. Patient c/o: clear discharge coming from abdominal incision. Abdomen feels swollen. 2nd concerned: c/o: RUQ pain. thinks it might be a gallstone. Exp laparotomy, gastrotomy, upper endoscopy: 01-01-2024. Can Closing Machine Tender Required: No Accompanied by: Self / Same As Patient Allergies metronidazole [From Flagyl] Adverse Reaction (Severe, Verified 02/20/24 09:40) Nausea HPI Comments Details: Patient presents for follow-up. Starting a diet. Having regular bowel habits. She has minimal oozing from incisions. She has been undergoing local wound care at home [facility] Medical History (Updated 02/06/24 @ 08:30 by Philip Palma MD) Incisional infection Back pain Hx of transfusion of packed red blood cells Vomiting and diarrhea Skin cancer Memory loss, short term Numbness Hx of cardiac murmur Anxiety Gastric ulcer Anemia PTSD (post-traumatic stress disorder) Synovial cyst of lumbar spine Urine incontinence Postlaminectomy syndrome Surgical History (Updated 02/06/24 @ 08:30 by Philip Palma MD) Hx of colonoscopy History of esophagogastroduodenoscopy (EGD) Hx of spinal fusion H/O unilateral oophorectomy History of discectomy History of tonsillectomy Family History Father No problems noted. Mother Substance use disorder Maternal Grandmother Alzheimer's disease Brother No problems noted. Sister No problems noted. Son No problems noted. Social History Household Members: Significant Other Housing: House Are you a primary long term care social worker to a significant other at home: No Do you presently have visiting nurse or other home services: No Alcohol intake: never Comment: COUNTS CORRECT Patient Tobacco Use Status: Former Tobacco user Tobacco use type: Smokeless Tobacco Years Smoked: 35 e-Cigarette/Vaping Use: Currently Using service: No Current occupational status: disabled Cognitive needs: No Hearing needs: No Vision needs: No Physical Exam GI Other: Abdomen is soft, benign. Superior aspect incision is almost completely healed. Exuberant granulating tissue was cauterized with silver nitrate. Mid incision is also markedly decreased in size and this was also cauterized with silver nitrate and dressing applied. Assessment & Plan Assessment & Plan (1) Postop check: Code(s): Z09 - Encounter for follow-up examination after completed treatment for conditions other than malignant neoplasm Category: Surgical Plan Patient is continue local wound care, encourage her activity level, diet as tolerated, and will see me as directed or p.r.n.. All questions answered. Coding Level of Care Code Global (27220) Diagnoses Postop check Z09
== END 2024-02-20 09:49 | disposition home or self-care (01) ==
PROVIDERS: PCP Nurse Practitioner Family; Visit Provider Surgery
DX: Z09 Encounter for follow-up examination after completed treatment for conditions other than malignant neoplasm (principal)
CPT/HCPCS: 99024

== ENCOUNTER 2024-02-20 12:47 | Outpatient (REF) | payer MEDICARE, MEDICAID, SELFPAY ==
[2024-02-20 16:07] LABS: Appearance Urine Clear; Color Urine Yellow; Glucose Urine UA Negative (Negative); Leukocyte Esterase Urine Negative (Negative); Nitrite Urine Negative (Negative); Urine Blood Negative (Negative); Urine Ketones Negative (Negative); Urine Protein Negative (Neg-Trace)
[2024-02-20 16:10] LABS: MANUAL DIFF FLAG NO
[2024-02-20 16:19] LABS: Basophils Absolute Auto 0.1 X10*3/uL (0.0-0.2); Basophils Percent Auto 1.5 % (0-2); Eosinophils Absolute Auto 0.3 X10*3/uL (0.0-0.4); Eosinophils Percent Auto 4.3 % (0-4); Hematocrit 36.5 % (37.0-47.0); Hemoglobin 11.9 g/dl (12.0-16.0); Imm Gran Abs Auto 0.02 X10*3/uL (0.00-0.03); Imm Gran Pct Auto 0.3 % (0.0-0.4); Lymphocytes Absolute Auto 1.9 X10*3/uL (1.2-4.9); Lymphocytes Percent Auto 32.1 % (20-40); Mean Corpuscular HGB Conc 32.6 g/dl (31.0-35.0); Mean Corpuscular Hemoglobin 31.2 pg (27.0-33.0); Mean Corpuscular Volume 95.8 fL (80.0-98.0); Mean Platelet Volume 9.2 fL (9.4-12.3); Monocytes Absolute Auto 0.5 X10*3/uL (0.1-1.2); Monocytes Percent Auto 7.8 % (2-11); Neutrophils Absolute Auto 3.2 x10*3/uL (2.0-8.3); Platelet Count 596 X10*3/uL (160-400); Red Blood Count 3.81 X10*6/uL (4.20-5.50); Red Cell Distribution Width 14.2 % (11.0-16.0)
[2024-02-20 16:47] LABS: Alanine Aminotransferase 23 U/L (0-31); Alkaline Phosphatase 103 U/L (39-117); Anion Gap 14 (12-20); Aspartate Amino Transferase 32 U/L (5-31); Bilirubin Total 0.3 mg/dL (0.0-1.0); Blood Urea Nitrogen 12 mg/dL (9-16); Calcium 10.4 mg/dL (8.4-10.2); Carbon Dioxide 31 mmol/L (22-29); Chloride 99 mmol/L (96-108); Estimated Glomerular Filt Rate > 60; Glucose Random 88 mg/dL (60-115); Potassium 3.3 mmol/L (3.3-5.1); Sodium 141 mmol/L (135-145); Total Protein 6.9 g/dL (6.5-8.0)
[2024-02-20 16:54] LABS: TSH reflex Free T4 0.38 uIU/mL (0.32-4.0)
== END 2024-02-20 12:48 | disposition home or self-care (01) ==
LOC: HO.HMGCLDS 12:47
PROVIDERS: PCP Nurse Practitioner Family; Visit Provider Nurse Practitioner Family
DX: L76.82 Other postprocedural complications of skin and subcutaneous tissue (principal); K25.9 Gastric ulcer, unspecified as acute or chronic, without hemorrhage or perforation; R11.0 Nausea
CPT/HCPCS: 36415; 80053; 81003; 84443; 85025; 99212

== ENCOUNTER 2024-03-05 07:22 | Outpatient (AMB) | payer MEDICARE, MEDICAID, SELFPAY ==
--- NOTE | 2024-03-05 07:41 | A.OFFPC_ITS ---
Intake Visit Reasons: Discuss GI issues- Android Allergies metronidazole [From Flagyl] Adverse Reaction (Severe, Verified 03/05/24 07:45) Nausea Medication List - Last Reconciled 03/05/24 by LOVE Ruff aspirin-sod bicarb-citric acid 500-1,985-1,000 mg (Wendy-Jeremiah Extra Strength) 1 ea PO DAILY PRN bupropion HCl XL 150 mg PO BEDTIME 90 days cephalexin 500 mg PO TID cephalexin 500 mg PO TID cholestyramine-aspartame 4 gram 2 grams PO Q OTHER DAY docusate sodium (Colace) 100 mg PO BID PRN esomeprazole magnesium 20 mg PO BID 30 days famotidine 20 mg PO BEDTIME gabapentin 300 mg orally; 300 mg PO; 300mg in am, 300mg at noon, 600mg at night 30 days hydrocodone-acetaminophen 5-325 mg 1 tab PO Q4-6H PRN hydrocodone-acetaminophen 5-325 mg 1 tab PO Q4-6H PRN lorazepam 1 mg PO DAILY PRN 10 days ondansetron 8 mg PO Q12H PRN 30 days oxycodone 5 mg PO Q4H PRN rosuvastatin 5 mg PO BEDTIME 90 days sucralfate (Carafate) 10 mL PO QID 30 days Tobacco use date assessed: 05/30/23 Dental Screening Dental Screen Date: 05/30/23 HPI Discuss GI issues- Android HPI Details RUQ pains: reports it is more sharp in nature. She reports the pain is not associated with eating, ingestion of food or liquid. She does report some nausea with it, no vomiting, denies any fevers, blood in stool, diarrhea, constipation, cp, or sob. The gallbladder is still present. It was made much worse with just movement and bending. Patient does have a follow-up appointment GI but not until May. Patient reports taking the cholestyramine/aspartame, which did help with a slightly similar but different discomfort. I will order an ultrasound and needs more labs. [facility] Medical History (Updated 03/05/24 @ 07:38 by LOVE Ruff) Incisional infection Back pain Hx of transfusion of packed red blood cells Vomiting and diarrhea Skin cancer Memory loss, short term Numbness Hx of cardiac murmur Anxiety Gastric ulcer Anemia PTSD (post-traumatic stress disorder) Synovial cyst of lumbar spine Urine incontinence Postlaminectomy syndrome Surgical History (Updated 02/06/24 @ 08:30 by Philip Palma MD) Hx of colonoscopy History of esophagogastroduodenoscopy (EGD) Hx of spinal fusion H/O unilateral oophorectomy History of discectomy History of tonsillectomy Family History Father No problems noted. Mother Substance use disorder Maternal Grandmother Alzheimer's disease Brother No problems noted. Sister No problems noted. Son No problems noted. Social History Household Members: Significant Other Housing: House Are you a primary clinical care leader to a significant other at home: No Do you presently have visiting nurse or other home services: No Alcohol intake: never Comment: COUNTS CORRECT Patient Tobacco Use Status: Former Tobacco user Tobacco use type: Smokeless Tobacco Years Smoked: 35 e-Cigarette/Vaping Use: Currently Using service: No Current occupational status: disabled Cognitive needs: No Hearing needs: No Vision needs: No Questionnaire Thrive Questionnaire Date Thrive assessed: 12/23/23 JULIO CÉSAR-7 AMB Questionnaire JULIO CÉSAR-7 Date JULIO CÉSAR - 7 assessed: 12/03/21 Source: Developed by Drs. Joseluis Davenport, Riddhi Melendez, Ricco Wong and colleagues, with an educational mariposa from [employer]. Review of Systems Const Reports as per HPI Physical exam (Primary Care) Tobacco/Smoking Status: Tobacco use Status Tobacco use date assessed 05/30/23 01/24/24 07:33 Patient Tobacco Use Status Former Tobacco user 01/24/24 07:33 Tobacco use type Smokeless Tobacco 01/24/24 07:33 e-Cigarette/Vaping Use Currently Using 01/24/24 07:33 Thrive Assessment: Date of Thrive Assessment Date Thrive assessed 12/23/23 01/24/24 07:33 Psych Appearance: grossly normal Mental Status: mental status grossly normal Speech and movement: Normal speech and movement present Affect: normal affect Attitude: cooperative Thought process: Normal thought process present Thought content: Normal thought content present Insight: Good insight present (Psych) Judgement: Good judgement present (Psych) Telehealth Telehealth Telehealth Platform: [employer] Location of provider rendering services: practice address Location of patient: address on file Patient Identification confirmed using: Name, : Yes Telehealth method: video Patient verbally consented to treatment: Yes Patient verbally consented to billing insurance company: Yes Patient informed of any privacy concerns related to visit: Yes Minutes spent on Phone/Video with Pt.: 10 Assessment and Plan Assessment & Plan (1) RUQ pain: Code(s): R10.11 - Right upper quadrant pain Plan: New onset right upper quadrant discomfort. Patient reports it's different from any pain she has had in the past. Happens more with movement and has nothing to do with ingestion of liquids or solids. Denies any fevers,chills, or change in bowel habits. We will get an ultrasound and labs. Patient does have a follow- up with GI in the future. Exploratory lap sites are healed, without any pain or drainage. Patient knows to go to the ER with any worsening symptoms. Orders: Orders US abdomen complete Today R10.11 - Right upper quadrant pain Complete Blood Count Auto Diff Today R10.11 - Right upper quadrant pain Comprehensive Met. Panel Today R10.11 - Right upper quadrant pain TSH reflex Free T4 Today R10.11 - Right upper quadrant pain Hepatitis A,B,C Profile Today R10.11 - Right upper quadrant pain UA CC w/rflx Micro + Cult Today R10.11 - Right upper quadrant pain Coding Level of Care Code Tele Est Pt Level 3 (95110) Diagnoses RUQ pain R10.11
== END 2024-03-05 09:51 | disposition home or self-care (01) ==
PROVIDERS: PCP Nurse Practitioner Family; Visit Provider Nurse Practitioner Family
DX: R10.11 Right upper quadrant pain (principal)
CPT/HCPCS: 99213

== ENCOUNTER 2024-03-07 10:06 | Outpatient (REF) | payer MEDICARE, MEDICAID, SELFPAY ==
--- NOTE | ~2024-03-07 | US_ITS ---
EXAMINATION: US ABDOMEN COMPLETE CLINICAL INFORMATION: Right upper quadrant pain. COMPARISON: CT abdomen/pelvis 10/25/2023 TECHNIQUE: Real-time imaging of the abdominal viscera. Technically limited study due to overlying bowel gas and patient's body habitus. FINDINGS: PANCREAS: Obscured. ABDOMINAL AORTA: The proximal, mid, and distal segments are normal in caliber. INFERIOR VENA CAVA: Visualized portions are normal. LIVER: The liver is normal in size. The liver contour is normal. Parenchymal echogenicity is normal. No focal hepatic lesion. There is no intrahepatic biliary duct dilatation seen. GALLBLADDER: The gallbladder is physiologically distended without evidence of stones, sludge, polyps, wall thickening or pericholecystic fluid. Positive sonographic Kaur's sign. COMMON BILE DUCT: Normal in caliber measuring 0.7 cm in diameter. RIGHT KIDNEY: No hydronephrosis. No focal parenchymal lesions. The kidney measures 12.1 cm in maximum dimension. 5 mm lower pole nonobstructing calculus. 3 mm upper pole nonobstructing calculus. LEFT KIDNEY: No hydronephrosis. The kidney measures 12.5 cm in maximum dimension. Septated cyst in the midpole measures 1.2 x 1.1 x 1.2 cm. Simple cyst in the midpole measures 1.7 x 1.9 x 1.6 cm. 3 mm nonobstructing calculus in the lower pole. SPLEEN: The spleen measures 10.2 cm in maximum dimension. FREE FLUID: None. US/US abdomen complete IMPRESSION: Bilateral nonobstructing renal calculi. No hydronephrosis. Septated complex left renal cyst measuring 1.2 x 1.1 x 1.2 cm. Further characterization with MR imaging is recommended. Positive sonographic Kaur's sign is nonspecific.
[2024-03-07 13:02] LABS: MANUAL DIFF FLAG NO
[2024-03-07 13:08] LABS: Basophils Absolute Auto 0.1 X10*3/uL (0.0-0.2); Basophils Percent Auto 1.9 % (0-2); Eosinophils Absolute Auto 0.2 X10*3/uL (0.0-0.4); Eosinophils Percent Auto 3.8 % (0-4); Hematocrit 39.5 % (37.0-47.0); Imm Gran Abs Auto 0.02 X10*3/uL (0.00-0.03); Imm Gran Pct Auto 0.3 % (0.0-0.4); Lymphocytes Absolute Auto 1.6 X10*3/uL (1.2-4.9); Lymphocytes Percent Auto 24.4 % (20-40); Mean Corpuscular HGB Conc 32.9 g/dl (31.0-35.0); Mean Corpuscular Hemoglobin 30.7 pg (27.0-33.0); Mean Corpuscular Volume 93.2 fL (80.0-98.0); Mean Platelet Volume 9.5 fL (9.4-12.3); Monocytes Absolute Auto 0.3 X10*3/uL (0.1-1.2); Monocytes Percent Auto 4.6 % (2-11); Neutrophils Absolute Auto 4.1 x10*3/uL (2.0-8.3); Platelet Count 400 X10*3/uL (160-400); Red Blood Count 4.24 X10*6/uL (4.20-5.50); Red Cell Distribution Width 14.1 % (11.0-16.0); White Blood Count 6.4 X10*3/uL (4.8-10.8)
[2024-03-07 13:31] LABS: Appearance Urine Clear; Color Urine Yellow; Glucose Urine UA Negative (Negative); Leukocyte Esterase Urine Negative (Negative); Nitrite Urine Negative (Negative); Urine Blood Negative (Negative); Urine Ketones Negative (Negative); Urine Protein Trace mg/dL (Neg-Trace)
[2024-03-07 13:44] LABS: HBS Num1 31.98 mIU/mL (0-7.99); HBc Num1 0.36 S/CO (0.00-0.79); HBsAGNum1 0.32 S/CO (0.00-0.99); Hepatitis A Antibody IgM 0.16 Index (0-0.79); Hepatitis B Core Antibody Nonreactive (Nonreactive); Hepatitis B Surface Antigen Negative (Negative); ~HepC Num1 0.15 S/CO (0.00-0.79); ~Hepatitis A Antibody IgM Nonreactive (Nonreactive); ~Hepatitis B Surface Antibody REACTIVE (Nonreactive); ~Hepatitis C Antibody Nonreactive (Nonreactive)
[2024-03-07 13:46] LABS: Alanine Aminotransferase 22 U/L (0-31); Albumin Level 4.4 g/dL (3.5-5.0); Alkaline Phosphatase 108 U/L (39-117); Anion Gap 17 (12-20); Aspartate Amino Transferase 28 U/L (5-31); Bilirubin Total 0.3 mg/dL (0.0-1.0); Blood Urea Nitrogen 12 mg/dL (9-16); Calcium 10.9 mg/dL (8.4-10.2); Carbon Dioxide 27 mmol/L (22-29); Chloride 102 mmol/L (96-108); Estimated Glomerular Filt Rate > 60; Glucose Random 90 mg/dL (60-115); Lipase 51 U/L (8-78); Potassium 3.4 mmol/L (3.3-5.1); Sodium 143 mmol/L (135-145); Total Protein 7.5 g/dL (6.5-8.0)
[2024-03-07 15:15] LABS: Free T4 (Free Thyroxine) 0.93 ng/dL (0.71-1.85)
== END 2024-03-07 10:07 | disposition home or self-care (01) ==
LOC: HO.HMGCX 10:06
PROVIDERS: PCP Nurse Practitioner Family; Visit Provider Nurse Practitioner Family
DX: R10.11 Right upper quadrant pain (principal)
CPT/HCPCS: 36415; 76700; 80053; 81003; 83690; 84439; 84443; 85025; 86704; 86706; 86709; 86803; 87340

== ENCOUNTER 2024-03-16 11:26 | Outpatient (REF) | payer MEDICARE, MEDICAID, SELFPAY ==
--- NOTE | ~2024-03-16 | US_ITS ---
EXAMINATION: US THYROID CLINICAL INFORMATION: Other specified abnormal findings of blood chemistry. Low TSH levels. COMPARISON: None available. TECHNIQUE: Linear transducer grayscale and color Doppler examination with attention to the region of the thyroid. FINDINGS: SIZE: Measurements of the thyroid lobes and nodules are given in sagittal, anteroposterior and transverse dimensions respectively. Right Thyroid Lobe: 4.8 x 1.4 x 1.7 cm, volume 6.1 mL. Parenchyma: The gland echotexture is homogeneous. Thyroid vascularity is normal. Left Thyroid Lobe: 4.8 x 1.8 x 1.7 cm, volume 7.8 mL. Parenchyma: The gland echotexture is homogeneous. Thyroid vascularity is normal. Isthmus: 0.33 cm in maximum AP dimension. Estimated total number of nodules greater than or equal to 1 cm: 1. Mechanical Detailer nodules are described as follows: 1. Location: Left superior. Size: 0.75 x 0.54 x 0.68 cm, volume 0.14 mL. Nodule characteristics: Composition: Mixed cystic and solid (1). Echogenicity: Hypoechoic (2). Shape: Not taller than wide (0). Margins: Smooth (0). Echogenic Foci: None (0). ACR TI-RADS total points: 3 ACR TI-RADS category: 3 2. Location: Right superior. Size: 0.65 x 0.54 x 0.69 cm, volume 0.13 mL. Nodule characteristics: Composition: Solid/almost completely solid (2). Echogenicity: Hypoechoic (2). Shape: Not taller than wide (0). Margins: Smooth (0). Echogenic Foci: Punctate echogenic foci (3). ACR TI-RADS total points: 7 ACR TI-RADS category: 5 3. Location: Right mid. Size: 0.30 x 0.25 x 0.39 cm, volume 0.02 mL. Nodule characteristics: Composition: Cystic(0). ACR TI-RADS total points: 0 ACR TI-RADS category: 1 4. Location: Right inferior. Size: 1.0 x 0.75 x 1.1 cm, volume 0.41 mL. Nodule characteristics: Composition: Mixed cystic and solid (1). Echogenicity: Hypoechoic (2). Shape: Not taller than wide (0). Margins: Smooth (0). Echogenic Foci: Punctate echogenic foci (3). ACR TI-RADS total points: 6 ACR TI-RADS category: 4 5. Location: Right inferior. Size: 0.90 x 0.62 x 0.64 cm, volume 0.20 mL. Nodule characteristics: Composition: Mixed cystic and solid (1). Echogenicity: Isoechoic (1). Shape: Not taller than wide (0). Margins: Smooth (0). Echogenic Foci: Peripheral calcifications (2). ACR TI-RADS total points: 4 ACR TI-RADS category: 4 NODES: No lymphadenopathy is seen in the tissue surrounding the thyroid gland. US/US thyroid IMPRESSION: Multiple thyroid nodules, largest 1.1 cm right lower thyroid lobe TR 4 and 0.9 cm right lower lobe TR 4. Recommend follow up ultrasound in 12 months. ACR TI-RADS RECOMMENDATION REFERENCE: Ultrasound-guided fine-needle aspiration, followup ultrasound, no further follow up. * TR1 (0 point) and TR2 (2 points): No FNA or follow up. * TR3 (3 points): FNA if more than or equal to 2.5 cm in maximum dimension, followup ultrasound in 1, 3 and 5 years if 1.5 to 2.4 cm in maximum dimension. * TR4 (4-6 points): FNA if more than or equal to 1.5 cm in maximum dimension, followup ultrasound in 1, 2, 3 and 5 years if 1 to 1.4 cm in maximum dimension. * TR5 (more than or equal to 7 points): FNA if more than or equal to 1 cm in maximum dimension, followup ultrasound every year for 5 years if 0.5 to 0.9 cm in maximum dimension. * TR3, TR4 or TR5 nodules that are below the size threshold for followup receive no follow up.
== END 2024-03-16 11:27 | disposition home or self-care (01) ==
LOC: HO.HMGCX 11:26
PROVIDERS: PCP Nurse Practitioner Family; Visit Provider Nurse Practitioner Family
DX: R94.6 Abnormal results of thyroid function studies (principal)
CPT/HCPCS: 76536

== ENCOUNTER 2024-04-02 08:04 | Outpatient (AMB) | payer MEDICARE, MEDICAID, SELFPAY ==
--- NOTE | 2024-04-02 07:18 | MHC.PC.OV ---
Intake Visit Reasons: Discuss gabapentin Android [phone] Allergies metronidazole [From Flagyl] Adverse Reaction (Severe, Verified 04/02/24 07:35) Nausea Medication List - Last Reconciled 04/02/24 by LOVE Ruff aspirin-sod bicarb-citric acid 500-1,985-1,000 mg ([place] Extra Strength) 1 ea PO DAILY PRN bupropion HCl XL 150 mg PO BEDTIME 90 days cephalexin 500 mg PO TID cephalexin 500 mg PO TID cholestyramine-aspartame 4 gram 2 grams PO Q OTHER DAY docusate sodium (Colace) 100 mg PO BID PRN esomeprazole magnesium 20 mg PO BID 30 days famotidine 20 mg PO BEDTIME gabapentin 300 mg orally; 300 mg PO; 600mg in am, 300mg at noon, 600mg at night 30 days hydrocodone-acetaminophen 5-325 mg 1 tab PO Q4-6H PRN hydrocodone-acetaminophen 5-325 mg 1 tab PO Q4-6H PRN lorazepam 1 mg PO DAILY PRN 10 days ondansetron 8 mg PO Q12H PRN 30 days oxycodone 5 mg PO Q4H PRN rosuvastatin 5 mg PO BEDTIME 90 days sucralfate (Carafate) 10 mL PO QID 30 days Tobacco use date assessed: 05/30/23 Dental Screening Dental Screen Date: 05/30/23 HPI Discuss gabapentin Android [phone] HPI Details Pt reports ongoing lower back pain. Pt reports that gabapentin helps with this. Pt is currently taking 300mg in the morning and afternoon and 600mg at night. Will increase to 600mg in the morning, 300mg in the afternoon, and 600mg at night. Denies any signs of cauda equina. (please see previous documentation with chronic lower back pain) [facility] Medical History (Updated 04/02/24 @ 07:22 by LOVE Ruff) Incisional infection Back pain Hx of transfusion of packed red blood cells Vomiting and diarrhea Skin cancer Memory loss, short term Numbness Hx of cardiac murmur Anxiety Gastric ulcer Anemia PTSD (post-traumatic stress disorder) Synovial cyst of lumbar spine Urine incontinence Postlaminectomy syndrome Surgical History (Updated 02/06/24 @ 08:30 by Philip Palma MD) Hx of colonoscopy History of esophagogastroduodenoscopy (EGD) Hx of spinal fusion H/O unilateral oophorectomy History of discectomy History of tonsillectomy Family History Father No problems noted. Mother Substance use disorder Maternal Grandmother Alzheimer's disease Brother No problems noted. Sister No problems noted. Son No problems noted. Social History Household Members: Significant Other Housing: House Are you a primary rehab care assistant to a significant other at home: No Do you presently have visiting nurse or other home services: No Alcohol intake: never Comment: COUNTS CORRECT Patient Tobacco Use Status: Former Tobacco user Tobacco use type: Smokeless Tobacco Years Smoked: 35 e-Cigarette/Vaping Use: Currently Using service: No Current occupational status: disabled Cognitive needs: No Hearing needs: No Vision needs: No Questionnaire Thrive Questionnaire Date Thrive assessed: 12/23/23 JULIO CÉSAR-7 AMB Questionnaire JULIO CÉSAR-7 Date JULIO CÉSAR - 7 assessed: 12/03/21 Source: Developed by Drs. Joseluis Davenport, Riddhi Melendez, Ricco Wong and colleagues, with an educational mariposa from [employer]. Review of Systems Const Reports as per HPI Physical exam (Primary Care) Tobacco/Smoking Status: Tobacco use Status Tobacco use date assessed 05/30/23 04/02/24 07:20 Patient Tobacco Use Status Former Tobacco user 04/02/24 07:20 Tobacco use type Smokeless Tobacco 04/02/24 07:20 e-Cigarette/Vaping Use Currently Using 04/02/24 07:20 Thrive Assessment: Date of Thrive Assessment Date Thrive assessed 12/23/23 04/02/24 07:20 Const General: cooperative Orientation/consciousness: patient oriented x3 Neuro General: patient oriented x3 Psych Appearance: grossly normal Mental Status: mental status grossly normal Speech and movement: Clear speech present Affect: normal affect Attitude: cooperative Thought process: Normal thought process present Thought content: Normal thought content present Insight: Good insight present (Psych) Judgement: Good judgement present (Psych) Telehealth Telehealth Telehealth Platform: [facility] Location of provider rendering services: practice address Location of patient: address on file Patient Identification confirmed using: Name, : Yes Telehealth method: video Patient verbally consented to treatment: Yes Patient verbally consented to billing insurance company: Yes Patient informed of any privacy concerns related to visit: Yes Minutes spent on Phone/Video with Pt.: 10 Assessment and Plan Assessment & Plan (1) Back pain: Code(s): M54.9 - Dorsalgia, unspecified Plan: Increasing gabapentin from 300mg in the morning and afternoon and 600mg at night to 600mg in the morning, 300mg in the afternoon, and 600mg at night Plan The patient agreed to the use of a medical stenographer for this encounter. Scribed for AMI Tomas- by Bernarda Juares medical stenographer, on 04/02/2024 at 07:15 EST. Medications: Changed From gabapentin 300 mg orally; 300 mg PO; 300mg in am, 300mg at noon, 600mg at night 30 days 120 caps 4RF To gabapentin 300 mg orally; 300 mg PO; 600mg in am, 300mg at noon, 600mg at night 30 days 150 caps 4RF Refilled sucralfate (Carafate) 10 mL PO QID 30 days 1,200 mL 0RF Coding Level of Care Code Tele Est Pt Level 3 (05495) Diagnoses Back pain M54.9
== END 2024-04-02 12:21 | disposition home or self-care (01) ==
LOC: HO.HMGC 08:04
PROVIDERS: PCP Nurse Practitioner Family; Visit Provider Nurse Practitioner Family
DX: M54.9 Dorsalgia, unspecified (principal)
CPT/HCPCS: 99213

== ENCOUNTER 2024-04-12 12:51 | Outpatient (AMB) | payer MEDICARE, MEDICAID, SELFPAY ==
--- NOTE | 2024-04-12 13:00 | A.OFFVIS_ITS ---
Vital Signs 04/12/24 13:08 04/12/24 14:10 Height 5 ft 7 in Weight 139 lb 1.787 oz BMI 21.8 BP 150/102 H 155/100 H Blood Pressure Location Rt brachial Rt brachial Position Sitting Pulse 69 Pulse Source Pulse Oximeter Intake Visit Reasons: Thyroid nodules Intake Note: New patient present today for Thyroid nodules. 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 Also noted to have hypokalemia and hypercalcemia on labs. Thyroid blood work showed subclinical hyperthyroidism which prompted the thyroid US. She is quite anxious at today's visit, describes that she has had a lot of workup for her abdominal pain in the past, and also underwent exploratory laparotomy with no final diagnosis. She expresses that she would like to go home as soon as we can wrap this up. I did reassure her that we are going to explain everything to her in the best possible way. Most recent US THYROID 03/16/2024 CLINICAL INFORMATION: Other specified abnormal findings of blood chemistry. Low TSH levels. COMPARISON: None available. TECHNIQUE: Linear transducer grayscale and color Doppler examination with attention to the region of the thyroid. FINDINGS: SIZE: Measurements of the thyroid lobes and nodules are given in sagittal, anteroposterior and transverse dimensions respectively. Right Thyroid Lobe: 4.8 x 1.4 x 1.7 cm, volume 6.1 mL. Parenchyma: The gland echotexture is homogeneous. Thyroid vascularity is normal. Left Thyroid Lobe: 4.8 x 1.8 x 1.7 cm, volume 7.8 mL. Parenchyma: The gland echotexture is homogeneous. Thyroid vascularity is normal. Isthmus: 0.33 cm in maximum AP dimension. Estimated total number of nodules greater than or equal to 1 cm: 1. Dinkey Engine Mechanic nodules are described as follows: 1. Location: Left superior. Size: 0.75 x 0.54 x 0.68 cm, volume 0.14 mL. Nodule characteristics: Composition: Mixed cystic and solid (1). Echogenicity: Hypoechoic (2). Shape: Not taller than wide (0). Margins: Smooth (0). Echogenic Foci: None (0). ACR TI-RADS total points: 3 ACR TI-RADS category: 3 2. Location: Right superior. Size: 0.65 x 0.54 x 0.69 cm, volume 0.13 mL. Nodule characteristics: Composition: Solid/almost completely solid (2). Echogenicity: Hypoechoic (2). Shape: Not taller than wide (0). Margins: Smooth (0). Echogenic Foci: Punctate echogenic foci (3). ACR TI-RADS total points: 7 ACR TI-RADS category: 5 3. Location: Right mid. Size: 0.30 x 0.25 x 0.39 cm, volume 0.02 mL. Nodule characteristics: Composition: Cystic(0). ACR TI-RADS total points: 0 ACR TI-RADS category: 1 4. Location: Right inferior. Size: 1.0 x 0.75 x 1.1 cm, volume 0.41 mL. Nodule characteristics: Composition: Mixed cystic and solid (1). Echogenicity: Hypoechoic (2). Shape: Not taller than wide (0). Margins: Smooth (0). Echogenic Foci: Punctate echogenic foci (3). ACR TI-RADS total points: 6 ACR TI-RADS category: 4 5. Location: Right inferior. Size: 0.90 x 0.62 x 0.64 cm, volume 0.20 mL. Nodule characteristics: Composition: Mixed cystic and solid (1). Echogenicity: Isoechoic (1). Shape: Not taller than wide (0). Margins: Smooth (0). Echogenic Foci: Peripheral calcifications (2). ACR TI-RADS total points: 4 ACR TI-RADS category: 4 NODES: No lymphadenopathy is seen in the tissue surrounding the thyroid gland. US/US thyroid IMPRESSION: Multiple thyroid nodules, largest 1.1 cm right lower thyroid lobe TR 4 and 0.9 cm right lower lobe TR 4. Recommend follow up ultrasound in 12 months. ACR TI-RADS RECOMMENDATION REFERENCE: Ultrasound-guided fine-needle aspiration, followup ultrasound, no further follow up. Patient currently denies heat or cold intolerance, diarrhea or constipation, hair loss, anxiety, mood changes, low energy, changes in appearance of eyes or vision changes, tremors, increased diaphoresis or dry skin. ?Does have hot flashes. Intermittent palpitatioms but drinks 4 energy drinks in a day. Has lost weight Patient denies any difficulty swallowing, pain on swallowing or voice changes or difficulty breathing. Patient denies any history of childhood neck radiation. Denies having ever used lithium, amiodarone or biotin supplements. Patient denies any family history of thyroid cancer or thyroid disease. lab workup from March 14 showed TSH low at 0.20, normal free T4 of 0.93. no fractures No history of heart disease Hypokalemia Not on diuretics Potassium noted to be low labs from January 12 with potassium level of 3.1, another time noted to be low limit of normal at 3.3 from 02/2024. Endorses she was diagnosed with hypertension a few years ago and used to be on low-dose lisinopril, however subsequently blood pressure noted to be improved, and she is not taking it anymore. No snoring, no excessive daytime fatigue, concerning for FABI. No diagnosis of atrial fibrillation. CT abdomen pelvis from November 12 comments on unremarkable adrenal glands though when I removed the images, the left adrenal gland looks mildly enlarged to me. Hypercalcemia Lab workup shows multiple instances of the hypercalcemia at least since 2022. Most recently labs from March 14 show calcium of 10.4 with normal albumin. Repeat readings show even more elevated calcium of 10.9, however albumin 4.4. Patient has history of bilateral kidney stones, seen on imaging, most recently demonstrated on ultrasound done in March 14. 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 Pulmonary: No SOB GI: Has a longstanding history of abdominal pain : no burning micturition, dysuria or increase in urinary frequency Neurologic: No dizziness, no weakness in extremities MSK: no back pain or joint stiffness Physical exam General: sitting comfortably in bed in no acute distress HEENT: normocephalic/atraumatic, moist oral mucosa Neck: supple, symmetrical, no thyromegaly , no dorsocervical or supraclavicular fat pads Cardiac: normal heart sounds Pulm: normal breath sounds B/L, no added breath sounds Abd: not distended, no tenderness Extremities: no edema, no signs of myxedema Neuro: AAO x3, Speech: normal, no facial droop, moving all 4 extremities Skin: no rash PFSH Medical History (Updated 04/12/24 @ 14:06 by Tennille Phillips MD) Subclinical hyperthyroidism Hypercalcemia Hypokalemia Incisional infection Back pain Hx of transfusion of packed red blood cells Vomiting and diarrhea Skin cancer Memory loss, short term Numbness Hx of cardiac murmur Anxiety Gastric ulcer Anemia PTSD (post-traumatic stress disorder) Synovial cyst of lumbar spine Urine incontinence Postlaminectomy syndrome Surgical History (Updated 02/06/24 @ 08:30 by Philip Palma MD) Hx of colonoscopy History of esophagogastroduodenoscopy (EGD) Hx of spinal fusion H/O unilateral oophorectomy History of discectomy History of tonsillectomy Family History Father No problems noted. Mother Substance use disorder Maternal Grandmother Alzheimer's disease Brother No problems noted. Sister No problems noted. Son No problems noted. Social History Household Members: Significant Other Housing: House Are you a primary veterinarian laboratory animal care to a significant other at home: No Do you presently have visiting nurse or other home services: No Alcohol intake: never Comment: COUNTS CORRECT Patient Tobacco Use Status: Former Tobacco user Tobacco use type: Smokeless Tobacco Years Smoked: 35 e-Cigarette/Vaping Use: Currently Using service: No Current occupational status: disabled Cognitive needs: No Hearing needs: No Vision needs: No Results Reviewed Results Reviewed: Laboratory Tests 01/16/20 09/17/22 09/23/22 12:35 13:38 09:23 Potassium Creatinine Estimated GFR Calcium 9.6 9.5 10.2 D Albumin TSH Free T4 02/04/23 09/23/23 12/23/23 12:41 12:25 05:20 Potassium 3.1 L Creatinine 0.67 Estimated GFR Calcium 10.4 H 9.9 Albumin TSH Free T4 02/20/24 03/07/24 12:50 11:39 Potassium 3.3 Creatinine 0.88 0.89 Estimated GFR > 60 Calcium 10.4 H 10.9 H Albumin 4.4 TSH 0.38 0.20 L Free T4 0.93 Assessment & Plan Assessment & Plan (1) Thyroid nodule: Code(s): E04.1 - Nontoxic single thyroid nodule Category: Medical Plan: Patient with no family history of thyroid cancer, with no personal history of head or neck radiation, who was found to have thyroid nodules and ultrasound of the thyroid done in March 14, which showed bilateral thyroid nodules, mostly subcentimeter in size, with a right inferior 1 cm dominant nodule with echogenic foci, TR 4. This ultrasound was actually prompted by her lab work which showed subclinical hyperthyroidism with low TSH and normal free T4. Her TSH level was noted to be at 00:12. She does not have any significant symptoms of hyperthyroidism. Treatment criteria for subclinical hyperthyroidism is TSH less than 0.1, age above 65 years old or history of heart disease or osteoporosis. Since she can be managed with observation currently, there is no need to do further evaluation with uptake and scan of these nodules. However if these nodules were to grow in size with concern for needing FNA biopsy, I would 1st get a thyroid uptake and scan, or if she were to meet criteria for treatment then we should also proceed to get thyroid uptake and scan. Plan: -repeat TSH, free T4, obtain total T3 and TSI antibodies in 3 months with follow up in 3 months -repeat ultrasound of the thyroid in 12 months from the last 1 which would be in 02/2025 (2) Subclinical hyperthyroidism: Code(s): E05.90 - Thyrotoxicosis, unspecified without thyrotoxic crisis or storm Category: Medical Plan: See above (3) Hypokalemia: Code(s): E87.6 - Hypokalemia Category: Medical Plan: Patient also noted to have spontaneous hypokalemia. She is has a history of hypertension though she is not on any medications currently. Her blood pressure in office today was elevated at 155/100, blood pressure was repeated and was about the same. Review of her chart shows she has otherwise had good blood pressures in the 120s or 130 systolic. She does not measure her blood pressure at home. However she endorses that today she is extremely anxious because of her health history and that is why her blood pressure is elevated. I have asked her to get a blood pressure monitor cuff for home and to keep a blood pressure log so we can look at it the next time. I would like to screen her for primary hyperaldosteronism given history of hypertension and hypokalemia. Plan: -ordered plasma renin activity, plasma aldosterone, potassium and creatinine (4) Hypercalcemia: Code(s): E83.52 - Hypercalcemia Category: Medical Plan: Patient also noted to have elevated calcium levels on multiple instances with most recent total calcium level of 10.4, with normal albumin. While hyperthyroidism can result in increased bone resorption resulting in hypercalcemia, she has subclinical hyperthyroidism. This should and caused so much of a calcium elevation. We will obtain further workup with vitamin-D and PTH as well as associated labs. She is not taking in high amounts of calcium or vitamin-D. Normal kidney function. She does have history of kidney stones. This is all possibly concerning for primary hyperparathyroidism. Plan: -ordered PTH, magnesium, phosphorus, vitamin-D, ionized calcium, total calcium and albumin levels Plan I spent 60 minutes in reviewing the record, seeing the patient and documenting in the medical record. Orders: Orders Thyroid Stimulating Hormone 2 Months E04.1 - Nontoxic single thyroid nodule, E83.52 - Hypercalcemia, E87.6 - Hypokalemia Free T4 (Free Thyroxine) 2 Months E04.1 - Nontoxic single thyroid nodule, E83.52 - Hypercalcemia, E87.6 - Hypokalemia Thyroid Stimulating Immunoglob 2 Months E04.1 - Nontoxic single thyroid nodule, E83.52 - Hypercalcemia, E87.6 - Hypokalemia Triiodothyronine T3 Total 2 Months E04.1 - Nontoxic single thyroid nodule, E83.52 - Hypercalcemia, E87.6 - Hypokalemia Renin 2 Months E04.1 - Nontoxic single thyroid nodule, E83.52 - Hypercalcemia, E87.6 - Hypokalemia Albumin Level 2 Months E04.1 - Nontoxic single thyroid nodule, E83.52 - Hypercalcemia, E87.6 - Hypokalemia Calcium 2 Months E04.1 - Nontoxic single thyroid nodule, E83.52 - Hypercalcemia, E87.6 - Hypokalemia Parathyroid Hormone Intact 2 Months E04.1 - Nontoxic single thyroid nodule, E83.52 - Hypercalcemia, E87.6 - Hypokalemia Magnesium 2 Months E04.1 - Nontoxic single thyroid nodule, E83.52 - Hypercalcem ia, E87.6 - Hypokalemia Aldosterone 2 Months E04.1 - Nontoxic single thyroid nodule, E83.52 - Hypercalcemia, E87.6 - Hypokalemia Potassium 2 Months E04.1 - Nontoxic single thyroid nodule, E83.52 - Hypercalcemia, E87.6 - Hypokalemia Creatinine 2 Months E04.1 - Nontoxic single thyroid nodule, E83.52 - Hypercalcemia, E87.6 - Hypokalemia Phosphorus 2 Months E04.1 - Nontoxic single thyroid nodule, E83.52 - Hypercalcemia, E87.6 - Hypokalemia Calcium, Ionized 2 Months E04.1 - Nontoxic single thyroid nodule, E83.52 - Hypercalcemia, E87.6 - Hypokalemia Vitamin D 25-OH Total 2 Months E04.1 - Nontoxic single thyroid nodule, E83.52 - Hypercalcemia, E87.6 - Hypokalemia Coding Level of Care Code New Pt Level 5 (31518) Diagnoses Thyroid nodule E04.1 Subclinical hyperthyroidism E05.90 Hypokalemia E87.6 Hypercalcemia E83.52 Time Spent (min) 60
[2024-04-12 13:08] VITALS: BP 150/102; PULSE 69; BMI 21.8
[2024-04-12 14:10] VITALS: BP 155/100
== END 2024-04-12 14:00 | disposition home or self-care (01) ==
PROVIDERS: PCP Nurse Practitioner Family; Visit Provider Student in an Organized Health Care Education/Training Program
DX: E04.1 Nontoxic single thyroid nodule (principal); E05.90 Thyrotoxicosis, unspecified without thyrotoxic crisis or storm; E87.6 Hypokalemia; E83.52 Hypercalcemia
CPT/HCPCS: 99205

== ENCOUNTER → 2024-04-12 12:51 | Outpatient (BNVA) | payer MEDICARE, MEDICAID, SELFPAY | PROVIDERS: PCP Nurse Practitioner Family; Visit Provider Student in an Organized Health Care Education/Training Program | DX: E04.1 Nontoxic single thyroid nodule (principal); E83.52 Hypercalcemia; E05.90 Thyrotoxicosis, unspecified without thyrotoxic crisis or storm; E87.6 Hypokalemia | CPT/HCPCS: 99202 ==

== ENCOUNTER 2024-05-04 11:02 | Outpatient (AMB) | payer MEDICARE, MEDICAID, SELFPAY ==
--- NOTE | 2024-05-04 11:04 | A.OFFVIS_ITS ---
Intake Visit Reasons: kidney stones Intake Note: Allergies: Flagyl Urology Medication: none Visit Reason: New patient/ kidney stones Allergies metronidazole [From Flagyl] Adverse Reaction (Severe, Verified 06/12/24 11:44) Nausea HPI Comments Details: Hali is a 53 y/o female who is here for evaluation for kidney stones. The patient had left sided pain, Abdominal US 03/07/24 --Bilateral nonobstructing renal calculi. No hydronephrosis. Septated complex left renal cyst measuring 1.2 x 1.1 x 1.2 cm. Further review of her chart, in 10/2023 a CTAP with IV contrast in 10/2023 did not renal calculi. Further eval with CT stone protocol. Metabolic ibarra-24 hr urine. [facility] Medical History Subclinical hyperthyroidism Hypercalcemia Hypokalemia Incisional infection Back pain Hx of transfusion of packed red blood cells Vomiting and diarrhea Skin cancer Memory loss, short term Numbness Hx of cardiac murmur Anxiety Gastric ulcer Anemia PTSD (post-traumatic stress disorder) Synovial cyst of lumbar spine Urine incontinence Postlaminectomy syndrome Surgical History Hx of colonoscopy History of esophagogastroduodenoscopy (EGD) Hx of spinal fusion H/O unilateral oophorectomy History of discectomy History of tonsillectomy Family History Father No problems noted. Mother Substance use disorder Maternal Grandmother Alzheimer's disease Brother No problems noted. Sister No problems noted. Son No problems noted. Social History Household Members: Significant Other Housing: House Are you a primary early breastfeeding care specialist to a significant other at home: No Do you presently have visiting nurse or other home services: No Alcohol intake: never Comment: COUNTS CORRECT Patient Tobacco Use Status: Former Tobacco user Tobacco use type: Smokeless Tobacco Years Smoked: 35 e-Cigarette/Vaping Use: Currently Using service: No Current occupational status: disabled Cognitive needs: No Hearing needs: No Vision needs: No Review of Systems Const All systems reviewed & are unremarkable except as noted in HPI and below Reports no additional complaints Eyes Reports no additional complaints ENT Reports no additional complaints Card Reports no additional complaints Resp Reports no additional complaints GI Reports no additional complaints Reports as per HPI Musc Reports no additional complaints Skin/Breast Reports system reviewed and no additional complaints, except as documented Neuro Reports no additional complaints Psych Reports no additional complaints Endo Reports no additional complaints Adrián/Lymph Reports no additional complaints Aller/Immun Reports no additional complaints Physical Exam Const General: cooperative, healthy appearing and no acute distress Orientation/consciousness: patient oriented x3 HEENT Head: Yes normal to inspection, Yes normocephalic and Yes atraumatic Eyes Conjunctivae: conjunctivae normal Neck Neck: Yes normal visual inspection and Yes trachea midline Chest Chest palpation & inspection: normal inspection of the chest Resp Effort & Inspection: normal respiratory effort GI Inspection: Yes normal to inspection Skin General skin exam: no rashes or lesions noted Neuro General: patient oriented x3 Extrem General: No edema Psych Appearance: grossly normal Results AMB Urinalysis, Automated UA Leukoctes 0 Musa/uL Last Edit by Cherise Grant on 05/04/24 11:15 UA Nitrite Negative Last Edit by Cherise Grant on 05/04/24 11:15 UA Urobilinogen 0.2 mg/dL Last Edit by Cherise Grant on 05/04/24 11:1 5 UA Protein 15 mg/dL Last Edit by Cherise Grant on 05/04/24 11:15 UA pH 6.5 Last Edit by Cherise Grant on 05/04/24 11:15 UA Blood 0 Augustin/uL Last Edit by Cherise Grant on 05/04/24 11:15 UA Specific [place] 1.010 Last Edit by Cherise Grant on 05/04/24 11: 15 UA Ketone Negative Last Edit by Cherise Grant on 05/04/24 11:15 UA Bilirubin 0 mg/dL Last Edit by Cherise Grant on 05/04/24 11:15 UA Glucose 0 mg/dL Last Edit by Cherise Grant on 05/04/24 11:15 Results Reviewed Results Reviewed: Laboratory Last Values Urine pH (Auto) 6.5 05/04/24 09:54 Specific [place] (Auto) 1.010 05/04/24 09:54 Urine Protein (Auto) 15 mg/dL 05/04/24 09:54 Glucose (UA)(Auto) 0 mg/dL 05/04/24 09:54 Urine Ketones (Auto) Negative 05/04/24 09:54 Urine Blood (Auto) 0 Augustin/uL 05/04/24 09:54 Urine Nitrite (Auto) Negative 05/04/24 09:54 Urine Bilirubin (Auto) 0 mg/dL 05/04/24 09:54 Urine Urobilinogen (Auto) 0.2 mg/dL 05/04/24 09:54 Leukocyte Esterase (Auto) 0 Musa/uL 05/04/24 09:54 Date of Service: 03/07/24 US ABDOMEN COMPLETE CLINICAL INFORMATION: Right upper quadrant pain. COMPARISON: CT abdomen/pelvis 10/25/2023 TECHNIQUE: Real-time imaging of the abdominal viscera. Technically limited study due to overlying bowel gas and patient's body habitus. FINDINGS: PANCREAS: Obscured. ABDOMINAL AORTA: The proximal, mid, and distal segments are normal in caliber. INFERIOR VENA CAVA: Visualized portions are normal. LIVER: The liver is normal in size. The liver contour is normal. Parenchymal echogenicity is normal. No focal hepatic lesion. There is no intrahepatic biliary duct dilatation seen. GALLBLADDER: The gallbladder is physiologically distended without evidence of stones, sludge, polyps, wall thickening or pericholecystic fluid. Positive sonographic Kaur's sign. COMMON BILE DUCT: Normal in caliber measuring 0.7 cm in diameter. RIGHT KIDNEY: No hydronephrosis. No focal parenchymal lesions. The kidney measures 12.1 cm in maximum dimension. 5 mm lower pole nonobstructing calculus. 3 mm upper pole nonobstructing calculus. LEFT KIDNEY: No hydronephrosis. The kidney measures 12.5 cm in maximum dimension. Septated cyst in the midpole measures 1.2 x 1.1 x 1.2 cm. Simple cyst in the midpole measures 1.7 x 1.9 x 1.6 cm. 3 mm nonobstructing calculus in the lower pole. SPLEEN: The spleen measures 10.2 cm in maximum dimension. FREE FLUID: None. IMPRESSION: Bilateral nonobstructing renal calculi. No hydronephrosis. Septated complex left renal cyst measuring 1.2 x 1.1 x 1.2 cm. Further characterization with MR imaging is recommended. Positive sonographic Kaur's sign is nonspecific. Assessment & Plan Assessment & Plan (1) Bilateral kidney stones: Code(s): N20.0 - Calculus of kidney Category: Medical Plan CT stone protocol 24 hr urine Orders: Orders AMB Urinalysis Automated 05/04/24 R32 - Unspecified urinary incontinence, R82.81 - Pyuria, N28.9 - Disorder of kidney and ureter, unspecified AMB Post Void Residual by ultrasound 05/04/24 N28.9 - Disorder of kidney and ureter, unspecified, R32 - Unspecified urinary incontinence CT kidney stone 05/04/24 N20.0 - Calculus of kidney Patient Instructions: The patient had an opportunity to ask questions regarding treatment plan. The patient expressed understanding and agreement with the above treatment plan. The patient is aware they should contact our office by phone for worsening of their current condition or the appearance of new symptoms. Compliance is encouraged with any medications and followup testing that is ordered. It is a privilege to be allowed the opportunity to participate in the urologic care of your patient. If you have any questions or concerns regarding treatment for the above conditions please do not hesitate to contact me. The office telephone contact is [phone]. This note is constructed in part using voice recognition software. While every effort has been made to ensure accuracy technology infusion specialist errors may have been included. Yours sincerely, Merry Hopson MD Coding Level of Care Code New Pt Level 3 (03538) Diagnoses Bilateral kidney stones N20.0
== END 2024-05-04 11:42 | disposition home or self-care (01) ==
PROVIDERS: PCP Nurse Practitioner Family; Visit Provider Urology
DX: N20.0 Calculus of kidney (principal)
CPT/HCPCS: 99203

== ENCOUNTER → 2024-05-04 11:02 | Outpatient (BNVA) | payer MEDICARE, MEDICAID, SELFPAY | PROVIDERS: PCP Nurse Practitioner Family; Visit Provider Urology | DX: N28.9 Disorder of kidney and ureter, unspecified (principal); R32 Unspecified urinary incontinence; R82.81 Pyuria; Z87.442 Personal history of urinary calculi | CPT/HCPCS: 81003; 99202 ==

== ENCOUNTER 2024-05-11 12:38 | Outpatient (REF) | payer MEDICARE, MEDICAID, SELFPAY ==
--- NOTE | ~2024-05-11 | MR_ITS ---
EXAMINATION: MR ABDOMEN WITHOUT AND WITH CONTRAST CLINICAL INFORMATION: Complex left renal cyst. COMPARISON: Abdominal ultrasound 03/07/2024. CT abdomen/pelvis 10/25/2023. TECHNIQUE: MR abdomen was performed without and with use of 6 mL intravenous Gadavist gadolinium contrast. Postcontrast images are performed in multiphase dynamic sequences. Imaging was performed in 3 planes. FINDINGS: LUNG BASES: The visualized lung bases are unremarkable. LIVER, GALLBLADDER, AND BILIARY TREE: The liver is normal in size, smooth in contour, and normal in signal. No focal hepatic lesion or biliary ductal dilatation is present. Distended gallbladder with layering T1 bright sludge/bile. No calculi. No evidence of gallbladder wall thickening or pericholecystic inflammatory changes. PANCREAS: Nonspecific mild diffuse dilatation of the main pancreatic duct measuring up to 5 mm in diameter. No discrete focal lesion. No peripancreatic inflammatory changes. SPLEEN: Normal. ADRENAL GLANDS: Normal. KIDNEYS AND URETERS: Symmetric nephrograms. Extrarenal pelves with symmetric pelviectasis but no significant calyectasis. No perinephric fat stranding. There are 2 cysts in the interpolar left kidney measuring 2.4 cm and 1.6 cm (5:22 and 5:26), one of which likely correlates with the complex cyst described on recent ultrasound, demonstrating less than 3 thin internal septations, no enhancement and no nodularity, consistent with Bosniak II cysts. A few additional bilateral simple Bosniak I cortical cysts are noted. No solid renal lesion. GASTROINTESTINAL TRACT: No evidence of bowel obstruction or ascites. Moderate to large degree of colonic stool burden. ABDOMINAL WALL: Midline ventral abdominal scar. No significant hernia. LYMPH NODES: No lymphadenopathy. VASCULAR: Atherosclerotic disease. Normal caliber abdominal aorta. OSSEOUS STRUCTURES: S-shaped thoracolumbar scoliosis. Postoperative changes at L5-S1. Multilevel degenerative changes. No acute or aggressive-appearing osseous findings. ADDITIONAL FINDINGS: Unchanged 8 mm homogeneously low T2 signal intensity right fundal uterine lesion most consistent with a fibroid. MR/MR kidney wo/w con IMPRESSION: 1. Bosniak I and Bosniak II renal cysts, for which no imaging follow up is recommended. No suspicious renal mass. 2. Nonspecific mild diffuse dilatation of the main pancreatic duct measuring up to 5 mm in diameter. No discrete focal lesion. Recommend follow up with abdominal MRI pancreas protocol/MRCP in 3-6 months. 3. Distended gallbladder with layering sludge/bile. No evidence of gallbladder wall thickening or pericholecystic inflammatory changes. 4. Moderate to large degree of colonic stool burden. 5. Unchanged 8 mm right fundal uterine lesion most consistent with a fibroid. Electronically signed by: Ninfa Martell MD 05/18/2024 02:56 PM EDT
[2024-05-11] MEDS: gadobutroL 7.5 ML VIAL IVPUSH (13:31)
== END 2024-05-11 12:39 | disposition home or self-care (01) ==
LOC: HO.MRI 12:38
PROVIDERS: PCP Nurse Practitioner Family; Visit Provider Nurse Practitioner Family
DX: N28.9 Disorder of kidney and ureter, unspecified (principal)
CPT/HCPCS: 74183; A9585

== ENCOUNTER → 2024-06-08 11:25 | Outpatient (BNVA) | payer MEDICARE, MEDICAID, SELFPAY | PROVIDERS: PCP Nurse Practitioner Family ==

== ENCOUNTER 2024-06-12 11:23 | Outpatient (AMB) | payer MEDICARE, MEDICAID, SELFPAY ==
--- NOTE | 2024-06-12 11:29 | A.OFFPC_ITS ---
Vital Signs 06/12/24 11:30 Height 5 ft 7 in Weight 137 lb BMI 21.5 BP 126/80 Blood Pressure Location Rt brachial Position Sitting Pulse 73 Pulse Source Pulse Oximeter Pulse Oximetry (%) 98 Oxygen Delivery Method Room Air Intake Visit Reasons: Annual PE Allergies metronidazole [From Flagyl] Adverse Reaction (Severe, Verified 06/12/24 11:44) Nausea Medication List - Last Reconciled 06/12/24 by LOVE Ruff aspirin-sod bicarb-citric acid 500-1,985-1,000 mg (Wendy-Crawford Extra Strength) 1 ea PO DAILY PRN bupropion HCl XL 150 mg PO BEDTIME 90 days cholestyramine-aspartame 4 gram 2 grams PO Q OTHER DAY docusate sodium (Colace) 100 mg PO BID PRN esomeprazole magnesium 20 mg PO BID 30 days famotidine 20 mg PO BEDTIME gabapentin 300 mg orally; 300 mg PO; 600mg in am, 300mg at noon, 600mg at night 30 days rosuvastatin 5 mg PO BEDTIME 90 days sucralfate (Carafate) 1 g PO QIDACHS PRN 10 days Tobacco use date assessed: 06/12/24 Dental Screening Dental Screen Date: 06/12/24 Did you have a dental visit in the last 12 months?: No Did you have a dental problem in the last 6 months where you did not have access to dental care?: No Was dental information given to patient?: Patient declined HPI Annual PE HPI Details Pt is here for a PE. Will order labs. Colon screen is up to date. Mammo is up to date. Pt c/o RUQ pain. Was worked up previosu, pt never had a HIDA scan, Will order HIDA scan. Pt is following up with endo, urology, dermatology, and GI. Pt has a faint systolic murmur, she would rather not have an echo right now. Last echo was in 2016, fairly benign [facility] Medical History Subclinical hyperthyroidism Hypercalcemia Hypokalemia Incisional infection Back pain Hx of transfusion of packed red blood cells Vomiting and diarrhea Skin cancer Memory loss, short term Numbness Hx of cardiac murmur Anxiety Gastric ulcer Anemia PTSD (post-traumatic stress disorder) Synovial cyst of lumbar spine Urine incontinence Postlaminectomy syndrome Surgical History Hx of colonoscopy History of esophagogastroduodenoscopy (EGD) Hx of spinal fusion H/O unilateral oophorectomy History of discectomy History of tonsillectomy Family History Father No problems noted. Mother Substance use disorder Maternal Grandmother Alzheimer's disease Brother No problems noted. Sister No problems noted. Son No problems noted. Social History Household Members: Significant Other Housing: House Are you a primary career development counselor to a significant other at home: No Do you presently have visiting nurse or other home services: No Alcohol intake: never Comment: COUNTS CORRECT Patient Tobacco Use Status: Former Tobacco user Tobacco use type: Smokeless Tobacco Years Smoked: 35 e-Cigarette/Vaping Use: Currently Using service: No Current occupational status: disabled Cognitive needs: No Hearing needs: No Vision needs: No Questionnaire PHQ-9 Over the last 2 weeks, how often have you been bothered by any of the following problems? 1. Little interest or pleasure in doing things: several days 2. Feeling down, depressed, or hopeless: not at all 3. Trouble falling or staying asleep, or sleeping too much: not at all 4. Feeling tired or having little energy: several days 5. Poor appetite or overeating: not at all 6. Feeling bad about yourself - or that you are a failure or have let yourself or your family down: not at all 7. Trouble concentrating on things, such as reading the newspaper or watching television: several days 8. Moving or speaking so slowly that other people could have noticed. Or the opposite - being so fidgety or restless that you have been moving around a lot more than usual: not at all 9. Thoughts that you would be better off or of hurting yourself in some way: not at all Total score: 3 Depression Screening Interpretation: Negative (pt has a therapist) Depression Screening Done: Yes 75495 - PHQ-9 Billing: Yes Source: Developed by Drs. Joseluis Davenport, Riddhi Melendez, Ricco Wong and colleagues, with an educational mariposa from [employer]. Thrive Questionnaire Date Thrive assessed: 06/12/24 I am a: Patient What is your living situation today?: I have a steady place to live Within the past 12 months, did the food you bought not last and you didn't have the money to get more?: Never true Within the past 12 months, did you worry whether your food would run out before you got money to buy more?: Never true Do you have trouble paying for medicines?: No Do you have trouble getting transportation to medical appointments?: No Do you have trouble paying your heating and electricity bill?: No Do you have trouble taking care of your child, family member or friend?: No Do you have trouble with day-to-day activities such as bathing, preparing meals, shopping, managing finances, etc.?: No Are you currently unemployed and looking for a job?: No Are you interested in more education?: No Please select the resources that you would like help with: None Currently or been in a relationship where the following occur: No concerns reported THRIVE Score: 0 AUDIT C Alcohol Use Questionnaire (AUDIT-C) 1. How often do you have a drink containing alcohol?: Never 3. How often do you have six or more drinks on one occasion?: Never Total Score: 0 Score Reviewed/Action Taken: Yes JULIO CÉSAR-7 AMB Questionnaire JULIO CÉSAR-7 Date JULIO CÉSAR - 7 assessed: 06/12/24 Feeling nervous, anxious, or on edge: 1 = Several days Not being able to stop or control worryin = Not at all Worrying too much about different things: 1 = Several days Trouble relaxin = Not at all Being so restless that it is hard to sit still: 0 = Not at all Becoming easily annoyed or irritable: 1 = Several days Feeling afraid as if something awful might happen: 1 = Several days Total JULIO CÉSAR-7 score (0-4 normal; 5-9 mild; 10-14 moderate; 15-21 severe): 4 Source: Developed by Riddhi Ureña, Ricco Wong and colleagues, with an educational mariposa from [employer]. JULIO CÉSAR-7 Assessment Billing JULIO CÉSAR-7 Assessment Tool: JULIO CÉSAR-7 Assessment 74706 Review of Systems Const Denies chills and Denies fever(s) Eyes Denies blurry vision ENT Denies vertigo, Denies dizziness and Denies sore throat Card Denies chest pain at rest, Denies chest pain with activity, Denies diaphoresis, Denies dyspnea and Denies dyspnea on exertion Resp Denies cough, Denies dyspnea, Denies dyspnea on exertion and Denies wheezing GI Reports abdominal pain, Denies melena, Denies hematochezia, Denies constipation, Denies diarrhea and Denies loose stools Denies hematuria Musc Reports numbness and Reports tingling Skin/Breast Denies lesions Neuro Denies vertigo, Denies dizziness, Reports numbness and Reports tingling Psych Denies anxiety, Denies depression, Denies homicidal ideation, Denies suicidal ideation and Denies other (substance abuse) Aller/Immun Denies wheezing Physical exam (Primary Care) Vital Signs: Last Vital Signs Pulse 73 06/12/24 11:30 BP 126/80 06/12/24 11:30 Pulse Ox 98 06/12/24 11:30 Oxygen Delivery Method Room Air 06/12/24 11:30 BMI result Body Mass Index 21.5 Tobacco/Smoking Status: Tobacco use Status Tobacco use date assessed 06/12/24 06/12/24 11:33 Patient Tobacco Use Status Former Tobacco user 06/12/24 11:33 Tobacco use type Smokeless Tobacco 06/12/24 11:33 e-Cigarette/Vaping Use Currently Using 06/12/24 11:33 PHQ-9: PHQ-9 Score PHQ-9: Total score 3 06/12/24 11:40 Depression Screening Interpretation: Negative (pt has a therapist) Thrive Assessment: Date of Thrive Assessment Date Thrive assessed 06/12/24 06/12/24 11:33 Currently or been in a relationship where the following occur: No concerns reported Const General: cooperative Nutritional Appearance: well nourished Orientation/consciousness: patient oriented x3 HENMT Head: Yes normal to inspection, Yes normocephalic and Yes atraumatic Ears: TM's normal bilaterally Eyes General: appearance normal, both eyes and all related structures Alignment and Position: alignment normal and position normal Neck Neck: Yes normal visual inspection, Yes no lymphadenopathy and Yes supple Resp Effort & Inspection: normal respiratory effort Auscultation: clear to auscultation bilaterally Cardio Rate: regular rate Rhythm: regular rhythm Heart sounds: S1 normal heart sound present, S2 normal heart sound present and Murmur heart sound present systolic (faint) GI Palpation (GI): Soft to palpation and Tenderness to palpation present (GI) in the RUQ Auscultation: normal bowel sounds Skin Rashes: no rashes Neuro General: patient oriented x3, moves all extremities, no focal motor deficits and deep tendon reflexes 2+ bilaterally Romberg Test: Negative Psych Appearance: grossly normal Mental Status: mental status grossly normal Speech and movement: Normal speech and movement present Affect: normal affect Attitude: cooperative Thought process: Normal thought process present Thought content: Normal thought content present Insight: Good insight present (Psych) Judgement: Good judgement present (Psych) Coding Level of Care Code Est Pt Prev Care 40-64y(12682) Diagnoses Encounter for routine adult physical exam with abnormal findings Z. Additional Codes JULIO CÉSAR-7 Assessment Billing - JULIO CÉSAR-7 Assessment Tool: JULIO CÉSAR-7 Assessment 55858 ([id number]) Assessment & Plan Assessment & Plan (1) Encounter for routine adult physical exam with abnormal findings: Code(s): Z. - Encounter for general adult medical examination with abnormal findings Category: Medical Plan: Labs ordered Plan The patient agreed to the use of a medical staff credentialing coordinator for this encounter. Scribed for LOVE Tomas by Bernarda Juares medical staff credentialing coordinator, on 06/12/2024 at 11:40 EST. Orders: Orders NM hepatobiliary w pharm Today G89.29 - Other chronic pain, R10.11 - Right upper quadrant pain UA CC w/rflx Micro + Cult Today Z00. - Encounter for general adult medical examination with abnormal findings Lipid Panel Today Z00. - Encounter for general adult medical examination with abnormal findings Complete Blood Count Auto Diff Today Z00. - Encounter for general adult medical examination with abnormal findings Comprehensive [place]. Panel Fast Today Z00. - Encounter for general adult medical examination with abnormal findings TSH reflex Free T4 Today Z00. - Encounter for general adult medical ex amination with abnormal findings
[2024-06-12 11:30] VITALS: BP 126/80; PULSE 73; O2SAT 98; BMI 21.5
== END 2024-06-12 12:10 | disposition home or self-care (01) ==
PROVIDERS: PCP Nurse Practitioner Family; Visit Provider Nurse Practitioner Family
DX: Z00.00 Encounter for general adult medical examination without abnormal findings (principal)

== ENCOUNTER → 2024-06-12 11:23 | Outpatient (BNVA) | payer MEDICARE, MEDICAID, SELFPAY | PROVIDERS: PCP Nurse Practitioner Family; Visit Provider Nurse Practitioner Family | DX: Z00.01 Encounter for general adult medical examination with abnormal findings (principal); R10.11 Right upper quadrant pain | CPT/HCPCS: 96127; 99396 ==

== ENCOUNTER 2024-06-25 12:50 | Outpatient (REF) | payer MEDICARE, MEDICAID, SELFPAY | END 2024-06-25 12:51 | disposition home or self-care (01) | LOC: HO.CT 12:50 | PROVIDERS: PCP Nurse Practitioner Family; Visit Provider Urology | DX: N20.0 Calculus of kidney (principal) | CPT/HCPCS: 74176 ==

== ENCOUNTER → 2024-07-09 07:49 | Outpatient (REF) | payer MEDICARE, MEDICAID, SELFPAY ==
--- NOTE | ~2024-07-09 | NM_ITS ---
EXAMINATION: BILIARY TRACT IMAGING STUDY CLINICAL INFORMATION: Reason for exam: Chronic abdominal pain. TECHNIQUE: Serial gamma scintillation camera images were obtained over the abdomen for a total observation period of 90 minutes following the intravenous administration of 5 mCi Tc-99m mebrofenin. At around 60 minutes following radiotracer administration, a 30-minute infusion of 1.2 micrograms Sincalide was then begun with continued image acquisition for an additional 40 minutes. FINDINGS: There is normal radiotracer uptake and distribution throughout the hepatic parenchyma followed by expected excretion. The gallbladder is well-visualized by 15 minutes and biliary to bowel transit best by 50 minutes into the imaging. Visually, there is good contraction response from the gallbladder as demonstrated by near complete clearance of radiotracer from the gallbladder in response to intravenously administered CCK. The calculated gallbladder ejection fraction is 90% (normal gallbladder ejection fraction is greater than 35%). NM/NM hepatobiliary w pharm IMPRESSION: There is no scintigraphic evidence for gallbladder dysfunction. Please note, clinically noted symptoms can be seen secondary to gallbladder hyperkinesia, a chronic malady that presents with biliary symptoms even in the absence of gallstones. [email or web address] Electronically signed by: Annie Lamar MD 07/22/2024 12:35 PM VANESSA LOZA
== END ==
LOC: HO.NUCMED 07:49
PROVIDERS: PCP Nurse Practitioner Family; Visit Provider Nurse Practitioner Family
DX: R10.11 Right upper quadrant pain (principal); G89.29 Other chronic pain
CPT/HCPCS: 78227; A9537; J2805

== ENCOUNTER 2024-07-11 11:27 | Outpatient (AMB) | payer MEDICARE, MEDICAID, SELFPAY ==
--- NOTE | 2024-07-11 11:27 | A.OFFVIS_ITS ---
Vital Signs 07/11/24 11:29 Height 5 ft 7 in Weight 134 lb 7.712 oz BMI 21.1 BP 129/87 Blood Pressure Location Lt brachial Position Sitting Pulse 63 Intake Visit Reasons: Epigastric Pain/Burning ok to double book per David Intake Note: Hali presents in the office as a follow up. CC: She states that she just had the HIDA scan and states she is still having issues with her stomach. She states that they are questions the gall bladder as she has pains in the Right upper quadrant. She states that she does get diarrhea. Air Press Operator Required: No Allergies metronidazole [From Flagyl] Adverse Reaction (Severe, Verified 07/11/24 11:32) Nausea HPI Comments Details: This is a 51-year-old female with past medical history of irritable bowel syndrome, agoraphobia, previous history of alcohol use disorder, who is being seen for follow up. Here for follow up. In the interim: 12/2023: Ex lap (Dr Palma) no ulcer was noted on gross exam and on intra-op EGD. -02/2024: Complicated by incision site leakage nonhealing wound. s/p few sessions of silver nitrate cauterization. 03/2024: [place] [facility] [place]. TCA trial recommended. Today: reports that main issue now is severe abd pain on empty stomach as well as bloating and discomfort post prandially. Bent over in pain if she doesnt eat for more than a few hours and then similarly once she does eat is very bloated and uncomfortable to the point that has to take ASA based moni johnson to feel better. To recall: pt p/w severe anemia 2/2 gastric ulcer/scar along the greater curvature in Aug 2022. Since then she has had x4 EGDs + EUS/EGD, with most recent endoscopic visualization from 09/2023 all documenting non-healing ulcer/scar which did not lift with eleview. Biopsies and EUS exam all benign, no HP. Pt was referred to surg for abd pain and non-healing gastric ulcer despite maximum anti-secretory therapy x 1 year. This was then noted to heal on ex-lap d one 3 months later in 12/2023 for wedge gastric resection intent. [facility], [facility] Medical History Subclinical hyperthyroidism Hypercalcemia Hypokalemia Incisional infection Back pain Hx of transfusion of packed red blood cells Vomiting and diarrhea Skin cancer Memory loss, short term Numbness Hx of cardiac murmur Anxiety Gastric ulcer Anemia PTSD (post-traumatic stress disorder) Synovial cyst of lumbar spine Urine incontinence Postlaminectomy syndrome Surgical History (Updated 07/11/24 @ 11:33 by KIMBERLI Murillo) Hx of exploratory laparotomy Hx of colonoscopy History of esophagogastroduodenoscopy (EGD) Hx of spinal fusion H/O unilateral oophorectomy History of discectomy History of tonsillectomy Family History Father No problems noted. Mother Substance use disorder Maternal Grandmother Alzheimer's disease Brother No problems noted. Sister No problems noted. Son No problems noted. Social History Household Members: Significant Other Housing: House Are you a primary care team assistant to a significant other at home: No Do you presently have visiting nurse or other home services: No Alcohol intake: never Comment: COUNTS CORRECT Patient Tobacco Use Status: Former Tobacco user Tobacco use type: Smokeless Tobacco Years Smoked: 35 e-Cigarette/Vaping Use: Currently Using service: No Current occupational status: disabled Cognitive needs: No Hearing needs: No Vision needs: No Review of Systems Const All systems reviewed & are unremarkable except as noted in HPI and below Physical Exam Vital Signs: Last Vital Signs Pulse 63 07/11/24 11:29 BP 129/87 07/11/24 11:29 BMI result Body Mass Index 21.1 No apparent distress Nonicteric Abdomen mid line scar noted, soft, nondistended Alert and oriented x3, normal gait Assessment & Plan Assessment & Plan (1) RUQ pain: Code(s): R10.11 - Right upper quadrant pain Category: Medical (2) Gastric ulcer: Code(s): K25.9 - Gastric ulcer, unspecified as acute or chronic, without hemorrhage or perforation Category: Medical (3) Bloating: Code(s): R14.0 - Abdominal distension (gaseous) Category: Medical (4) Abdominal pain: Code(s): R10.9 - Unspecified abdominal pain Category: Medical Plan Reports diffuse abd pain, no nausea and vomiting anymore. Also has RUQ pain in relation to food. IRAIDA already done yest, report pending. Reviewed that quite surprising that ulcer had healed up within 3 months by the time of surgery (i.e seen on EGD 09/2023 and healed 12/2023) whereas had not healed x 1 year prior to that. Will check UGIS to r/o luminal causes of epigastric pain. Plan: - UGIS - If normal, decrease nexium to once daily and start nortriptyline 10 once daily at bedtime for neuromodulation for epigastric pain syndrome/FD. - Will also check mercury/lead levels to rule out GI toxicity Follow up 2 months Orders: Orders FL upper GI series Today K25.9 - Gastric ulcer, unspecified as acute or chronic, without hemorrhage or perforation Mercury, serum/plasma Today R10.11 - Right upper quadrant pain Venous Lead Today R10.11 - Right upper quadrant pain Coding Level of Care Code Est Pt Level 4 (49319) Diagnoses RUQ pain R10.11 Gastric ulcer K25.9 Bloating R14.0 Abdominal pain R10.9
[2024-07-11 11:29] VITALS: BP 129/87; PULSE 63; BMI 21.1
== END 2024-07-11 12:09 | disposition home or self-care (01) ==
PROVIDERS: PCP Nurse Practitioner Family; Visit Provider Internal Medicine
DX: R10.11 Right upper quadrant pain (principal); K25.9 Gastric ulcer, unspecified as acute or chronic, without hemorrhage or perforation; R14.0 Abdominal distension (gaseous); R10.9 Unspecified abdominal pain
CPT/HCPCS: 99214

== ENCOUNTER → 2024-07-11 11:27 | Outpatient (BNVA) | payer MEDICARE, MEDICAID, SELFPAY | PROVIDERS: PCP Nurse Practitioner Family; Visit Provider Internal Medicine | DX: R10.11 Right upper quadrant pain (principal); R14.0 Abdominal distension (gaseous); K25.9 Gastric ulcer, unspecified as acute or chronic, without hemorrhage or perforation | CPT/HCPCS: 99212 ==

== ENCOUNTER 2024-07-13 09:06 | Outpatient (AMB) | payer MEDICARE, MEDICAID, SELFPAY ==
--- NOTE | 2024-07-13 01:57 | MHC.OFFVIS ---
Intake Visit Reasons: 10w/CT-KUB/Litholink Intake Note: Patient is present for 10w/CT-KUB/LITHOLINK Urology Medication:NONE Antibiotic Allergy:NONE Blood Thinner:ASPIRIN Robotics Software Engineer Required: No Allergies metronidazole [From Flagyl] Adverse Reaction (Severe, Verified 07/13/24 09:07) Nausea Medication List - Last Reconciled 07/13/24 by Merry Hopson MD aspirin-sod bicarb-citric acid 500-1,985-1,000 mg (Wendy-[place] Extra Strength) 1 ea PO DAILY PRN bupropion HCl XL 150 mg PO BEDTIME 90 days cholestyramine-aspartame 4 gram 2 grams PO Q OTHER DAY esomeprazole magnesium 20 mg PO BID 30 days famotidine 20 mg PO BEDTIME gabapentin 300 mg orally; 300 mg PO; 600mg in am, 300mg at noon, 600mg at night 30 days rosuvastatin 5 mg PO BEDTIME 90 days sucralfate (Carafate) 1 g PO QIDACHS PRN 30 days HPI Comments Details: 07/13/24- FU SACHA lindo Hali is a 53-year-old female who is being followed for history of kidney stones. She was initially evaluated on 05/04/2024. The patient states she does not take a calcium supplement. Discussed 24 hour urine results: Total volume 4.5 L, Calcium 376 mg; Oxalate 34 mg, Sodium 308, Citrate 785 mg. Instructed on importance of Low oxalate diet, low sodium diet. Refer to Nephrology for Hypercalciuria. I reviewed CT abdomen and pelvis-06/25/24 images noting punctate renal calculi left, possible punctate stone on the right. Official computer terminal operator and reading is pending by the radiologist. Follow-up in 1 year. Review of chart: 05/04/24--Hali is a 53 y/o female who is here for evaluation for kidney stones. The patient had left sided pain, Abdominal US 03/07/24 --Bilateral nonobstructing renal calculi. No hydronephrosis. Septated complex left renal cyst measuring 1.2 x 1.1 x 1.2 cm. Further review of her chart, in 10/2023 a CTAP with IV contrast in 10/2023 did not renal calculi. Further eval with CT stone protocol. Metabolic ibarra-24 hr urine. [facility] Medical History Subclinical hyperthyroidism Hypercalcemia Hypokalemia Incisional infection Back pain Hx of transfusion of packed red blood cells Vomiting and diarrhea Skin cancer Memory loss, short term Numbness Hx of cardiac murmur Anxiety Gastric ulcer Anemia PTSD (post-traumatic stress disorder) Synovial cyst of lumbar spine Urine incontinence Postlaminectomy syndrome Surgical History Hx of exploratory laparotomy Hx of colonoscopy History of esophagogastroduodenoscopy (EGD) Hx of spinal fusion H/O unilateral oophorectomy History of discectomy History of tonsillectomy Family History Father No problems noted. Mother Substance use disorder Maternal Grandmother Alzheimer's disease Brother No problems noted. Sister No problems noted. Son No problems noted. Social History Household Members: Significant Other Housing: House Are you a primary career transition specialist to a significant other at home: No Do you presently have visiting nurse or other home services: No Alcohol intake: never Comment: COUNTS CORRECT Patient Tobacco Use Status: Former Tobacco user Tobacco use type: Smokeless Tobacco Years Smoked: 35 e-Cigarette/Vaping Use: Currently Using service: No Current occupational status: disabled Cognitive needs: No Hearing needs: No Vision needs: No Review of Systems Const All systems reviewed & are unremarkable except as noted in HPI and below Reports no additional complaints Eyes Reports no additional complaints ENT Reports no additional complaints Card Reports no additional complaints Resp Reports no additional complaints GI Reports no additional complaints Reports as per HPI Musc Reports no additional complaints Skin/Breast Reports system reviewed and no additional complaints, except as documented Neuro Reports no additional complaints Psych Reports no additional complaints Endo Reports no additional complaints Adrián/Lymph Reports no additional complaints Aller/Immun Reports no additional complaints Telehealth Telehealth Telehealth Platform: Doximity Location of provider rendering services: practice address Location of patient: address on file Patient Identification confirmed using: Name, : Yes Telehealth method: video Patient verbally consented to treatment: Yes Patient verbally consented to billing insurance company: Yes Patient informed of any privacy concerns related to visit: Yes Results Reviewed Results Reviewed: I reviewed CT abdomen and pelvis-06/25/24 images noting punctate renal calculi left, possible punctate stone on the right. Official computer terminal operator and reading is pending by the radiologist. Date of Service: 03/07/24 US ABDOMEN COMPLETE CLINICAL INFORMATION: Right upper quadrant pain. COMPARISON: CT abdomen/pelvis 10/25/2023 TECHNIQUE: Real-time imaging of the abdominal viscera. Technically limited study due to overlying bowel gas and patient's body habitus. FINDINGS: PANCREAS: Obscured. ABDOMINAL AORTA: The proximal, mid, and distal segments are normal in caliber. INFERIOR VENA CAVA: Visualized portions are normal. LIVER: The liver is normal in size. The liver contour is normal. Parenchymal echogenicity is normal. No focal hepatic lesion. There is no intrahepatic biliary duct dilatation seen. GALLBLADDER: The gallbladder is physiologically distended without evidence of stones, sludge, polyps, wall thickening or pericholecystic fluid. Positive sonographic Kaur's sign. COMMON BILE DUCT: Normal in caliber measuring 0.7 cm in diameter. RIGHT KIDNEY: No hydronephrosis. No focal parenchymal lesions. The kidney measures 12.1 cm in maximum dimension. 5 mm lower pole nonobstructing calculus. 3 mm upper pole nonobstructing calculus. LEFT KIDNEY: No hydronephrosis. The kidney measures 12.5 cm in maximum dimension. Septated cyst in the midpole measures 1.2 x 1.1 x 1.2 cm. Simple cyst in the midpole measures 1.7 x 1.9 x 1.6 cm. 3 mm nonobstructing calculus in the lower pole. SPLEEN: The spleen measures 10.2 cm in maximum dimension. FREE FLUID: None. IMPRESSION: Bilateral nonobstructing renal calculi. No hydronephrosis. Septated complex left renal cyst measuring 1.2 x 1.1 x 1.2 cm. Further characterization with MR imaging is recommended. Positive sonographic Kaur's sign is nonspecific. Assessment & Plan Assessment & Plan (1) Bilateral kidney stones: Code(s): N20.0 - Calculus of kidney Category: Medical (2) Hypercalciuria: Code(s): R82.994 - Hypercalciuria Category: Medical Plan Referred to nephrology. Discussed diet modification decrease sodium in her diet Orders: Referrals Nephrology Referral N20.0 - Calculus of kidney, R82.994 - Hypercalciuria Patient Instructions: The patient had an opportunity to ask questions regarding treatment plan. The patient expressed understanding and agreement with the above treatment plan. The patient is aware they should contact our office by phone for worsening of their current condition or the appearance of new symptoms. Compliance is encouraged with any medications and followup testing that is ordered. It is a privilege to be allowed the opportunity to participate in the urologic care of your patient. If you have any questions or concerns regarding treatment for the above conditions please do not hesitate to contact me. The office telephone contact is [phone]. This note is constructed in part using voice recognition software. While every effort has been made to ensure accuracy computer terminal operator errors may have been included. Yours sincerely, Merry Hopson MD Coding Level of Care Code Tele Est Pt Level 4 (20222) Diagnoses Bilateral kidney stones N20.0 Hypercalciuria R82.994
== END 2024-07-13 10:15 | disposition home or self-care (01) ==
LOC: HO.HUSH 09:06
PROVIDERS: PCP Nurse Practitioner Family; Visit Provider Urology
DX: N20.0 Calculus of kidney (principal); R82.994 Hypercalciuria
CPT/HCPCS: 99214

== ENCOUNTER → 2024-07-13 09:06 | Outpatient (BNVA) | payer MEDICARE, MEDICAID, SELFPAY | PROVIDERS: PCP Nurse Practitioner Family; Visit Provider Urology ==

== ENCOUNTER 2024-08-17 08:28 | Outpatient (REF) | payer MEDICARE, MEDICAID, SELFPAY | END 2024-08-17 08:29 | disposition home or self-care (01) | LOC: HO.MRI 08:28 | PROVIDERS: PCP Nurse Practitioner Family; Visit Provider Nurse Practitioner Family | DX: K86.89 Other specified diseases of pancreas (principal) | CPT/HCPCS: 74181 ==

== ENCOUNTER → 2024-08-17 08:44 | Outpatient (BNV) | payer MEDICARE, MEDICAID, SELFPAY | PROVIDERS: PCP Nurse Practitioner Family; Visit Provider Radiology Diagnostic Radiology | DX: N28.1 Cyst of kidney, acquired (principal); M41.35 Thoracogenic scoliosis, thoracolumbar region | CPT/HCPCS: 74181 ==

== ENCOUNTER 2024-10-02 09:24 | Outpatient (REF) | payer MEDICARE, MEDICAID, SELFPAY | END 2024-10-02 09:25 | disposition home or self-care (01) | LOC: HO.XRAY 09:24 | PROVIDERS: PCP Nurse Practitioner Family; Visit Provider Internal Medicine | DX: K25.9 Gastric ulcer, unspecified as acute or chronic, without hemorrhage or perforation (principal) | CPT/HCPCS: 74240; 74246 ==

== ENCOUNTER → 2024-10-02 09:28 | Outpatient (BNV) | payer MEDICARE, MEDICAID, SELFPAY | PROVIDERS: PCP Nurse Practitioner Family; Visit Provider Physician Assistant Surgical | DX: R10.9 Unspecified abdominal pain (principal) | CPT/HCPCS: 74246; 74248 ==

== ENCOUNTER 2024-10-26 13:44 | Outpatient (AMB) | payer MEDICARE, MEDICAID, SELFPAY ==
[2024-10-26 13:46] VITALS: BP 143/91; PULSE 73; BMI 21.4
--- NOTE | 2024-10-26 13:46 | MHC.OFFVIS ---
Vital Signs 10/26/24 13:46 Height 5 ft 7 in Weight 136 lb 10.986 oz BMI 21.4 BP 143/91 H Blood Pressure Location Lt brachial Position Sitting Pulse 73 Intake Visit Reasons: f/u GI series Intake Note: Hali presents in the office as a follow up GI series. CC: She states that she had the upper GI series and she has been feeling okay since. Professor Sculpture Required: No Allergies metronidazole [From Flagyl] Adverse Reaction (Severe, Verified 10/26/24 13:49) Nausea HPI Comments Details: This is a 51-year-old female with past medical history of irritable bowel syndrome, agoraphobia, previous history of alcohol use disorder, who is being seen for follow up. Here for follow up. In the interim: 12/2023: Ex lap (Dr Palma) no ulcer was noted on gross exam and on intra-op EGD. -02/2024: Complicated by incision site leakage nonhealing wound. s/p few sessions of silver nitrate cauterization. 03/2024: Seen at [facility] [place]. HIDA recommended. TCA trial recommended. Today: reports that main issue now is severe abd pain on empty stomach as well as bloating and discomfort post prandially. Bent over in pain if she doesnt eat for more than a few hours and then similarly once she does eat is very bloated and uncomfortable to the point that has to take ASA based moni alex to feel better. To recall: pt p/w severe anemia 2/2 gastric ulcer/scar along the greater curvature in Aug 2022. Since then she has had x4 EGDs + EUS/EGD, with most recent endoscopic visualization from 09/2023 all documenting non-healing ulcer/scar which did not lift with eleview. Biopsies and EUS exam all benign, no HP. Pt was referred to surg for abd pain and non-healing gastric ulcer despite maximum anti-secretory therapy x 1 year. This was then noted to heal on ex-lap done 3 months later in 12/2023 for wedge gastric resection intent. 10/26/24: Here for follow-up. Today, reports persistent right upper quadrant pain, which does not necessarily correlate with food as per her recall. When it does flare up , can last anywhere from a few minutes to a few hours. Associated with nausea. No vomiting. HIDA scan shows possible overactive gallbladder. Patient has been recommended surgical evaluation by PCP, but has held off. Otherwise, upper GI series with also persistent gastritis. Patient prefers to hold off any repeat endoscopy at this time. Continuing esomeprazole daily. upper GI series also shows moderate cricopharyngeal narrowing. Patient does report intermittent difficulty swallowing pills or hard textures. Was attributed this to her thyroid nodules, has also seen endocrinology. [facility] Medical History Subclinical hyperthyroidism Hypercalcemia Hypokalemia Incisional infection Back pain Hx of transfusion of packed red blood cells Vomiting and diarrhea Skin cancer Memory loss, short term Numbness Hx of cardiac murmur Anxiety Gastric ulcer Anemia PTSD (post-traumatic stress disorder) Synovial cyst of lumbar spine Urine incontinence Postlaminectomy syndrome Surgical History Hx of exploratory laparotomy Hx of colonoscopy History of esophagogastroduodenoscopy (EGD) Hx of spinal fusion H/O unilateral oophorectomy History of discectomy History of tonsillectomy Family History Father No problems noted. Mother Substance use disorder Maternal Grandmother Alzheimer's disease Brother No problems noted. Sister No problems noted. Son No problems noted. Social History Household Members: Significant Other Housing: House Are you a primary critical care unit manager to a significant other at home: No Do you presently have visiting nurse or other home services: No Alcohol intake: never Comment: COUNTS CORRECT Patient Tobacco Use Status: Former Tobacco user Tobacco use type: Smokeless Tobacco Years Smoked: 35 e-Cigarette/Vaping Use: Currently Using service: No Current occupational status: disabled Cognitive needs: No Hearing needs: No Vision needs: No Review of Systems Const All systems reviewed & are unremarkable except as noted in HPI and below Physical Exam Vital Signs: Last Vital Signs Pulse 73 10/26/24 13:46 BP 143/91 H 10/26/24 13:46 BMI result Body Mass Index 21.4 No apparent distress Nonicteric Abdomen soft, nondistended Alert and oriented x3, normal gait Assessment & Plan Assessment & Plan (1) RUQ pain: Code(s): R10.11 - Right upper quadrant pain Category: Medical (2) Nausea: Code(s): R11.0 - Nausea Category: Medical (3) Biliary dyskinesia: Code(s): K82.8 - Other specified diseases of gallbladder Category: Medical (4) Dysphagia, cricopharyngeal: Code(s): R13.13 - Dysphagia, pharyngeal phase Category: Medical Plan 1. Right upper quadrant pain/nausea: At this time, based on all the testing done so far, appears most consistent with biliary HYPERkinesia. patient is aware of HIDA scan findings. At this time, would like to hold off surgical evaluation. We revieweds that she is established with surgery at [facility] and can call their office any time for follow-up if she changes her mind. 2. Intermittent dysphagia: Likely secondary to cricopharyngeal narrowing. Reviewed that this can be evaluated through repeat upper endoscopy and dilated for relief of symptoms. At this time, patient would like to minimize repeat upper endoscopy. 3. gastritis/gastric ulcer: as persistent gastritis on upper GI series. No obvious ulcer was reported on the series. Per the endoscopy done intra op 12/22/23, this was not seen. As above, pt will contact us if she decides to go ahead with repeat EGD. Pt will reach out through portal/phone for follow up as needed. Coding Level of Care Code Est Pt Level 4 (60752) Diagnoses RUQ pain R10.11 Nausea R11.0 Biliary dyskinesia K82.8 Dysphagia, cricopharyngeal R13.13
--- OUTSIDE RECORDS SUMMARY | 2024-10-26 15:26 | XMS_ITS | Encounter Summary ---
Author Organization [facility] Address [address] [place] [address] Care Team Providers Care Assistant Associate Professor Name Role Phone Emmett Leal MD Primary Care Provider [facility], Pcp Primary Care Provider Unavailabl e Reason for Visit * Reason Onset Date Comments hospital follow up 08/05/2015 Encounter Details Date Type Department Care Team Description 08/05/2015 Telephone Medicine/Pediatrics - [address] [id number] Emmett Leal MD hospital follow up Social History Tobacco Use Types Packs/Day Years Used Date Smoking Tobacco: Former Cigarettes 0.5 20 Q uit: 01/15/2015 Smokeless Tobacco: Never Alcohol Use Standard Drinks/Week Comments Yes 0 (1 standard drink = 0.6 oz pur e alcohol) one on occ Sex Assigned at Date Recorded Not on file documented as of this encounter Miscellaneous Notes * Telephone Encounter - Bhavna Spencer L.P.N. - 08/05/2015 10:18 AM EST appt for 08/13 [facility] hosp f/u for overdose * Telephone Encounter - Kelly Cook - 08/05/2015 9:15 AM EST If unable to reach [facility] , you can call Mel Mackenzie at the same facility to make appointment. Hercontact number is [phone] (cellphone). * Telephone Encounter - Dixie Reyna - 08/05/2015 8:32 AM EST Hospital follow up appointment needed Hospital patient was treated at: [facility] Was this only an ER visit or was the patient admitted to the hospital? Admitted to hospital Date of visit if ER visit only: N/A If patient was admitted what was the date of discharge? 08-05-15 Reason/diagnosis for visit or stay: Overdose When was the patient told to follow up? 1 week Was visit or stay related to an injury? NO If yes, what was the date of injury (DOI)? N/A If yes, was the injury due to N/A documented in this encounter Plan of Treatment Not on file documented as of this encounter Visit Diagnoses Not on filedocumented in this encounter Care Teams Assistant Associate Professor Relationship Specialty Start Date End Date Emmett Leal MD PCP - General Internal Medicine 01/02/15 11/22/15 [facility], Pcp PCP - General Internal Medicine 11/23/15 documented as of this encounter
--- OUTSIDE RECORDS SUMMARY | 2024-10-26 15:26 | XMS_ITS | Clinical Summary ---
Author Organization [facility] Address [address] [place] [address] Care Team Providers Care Dry Kiln Burner Name Role Phone Jhon Ramesh Primary Care Provider [phone] Social History Tobacco Use Types Packs/Day Years Used Date Smoking Tobacco: Never Assessed Sex and Gender Information Value Date Recorded Sex Assigned at Not on file Gender Identity Not on file Sexual Orientation Not on file Plan of Treatment Health Maintenance Due Date Last Done Comments Hepatitis B Vaccines (1 of 3 - 3-dose series) 1969 Hepatitis C Screening 1969 COVID-19 Vaccine (#1) 05/23/1970 Depression Screening 1981 Preventative Health Evaluation 11/22/1987 DTap / Tdap / Td (1 - Tdap) 1988 Cervical Cancer Screening (P ap Smear) 1990 Colon Cancer Screening (Colonoscopy) 2014 Breast Cancer Screening (Mammogram) 11/22/2019 Shingrix-Zoster Vaccine (1 of 2) 11/22/2019 Influenza Vaccine (#1) 2024 Pneumococcal Vaccine Aged Out No long er eligible based on patient's age to complete this topic RSV Ped < 20 months Aged Out No longe r eligible based on patient's age to complete this topic Care Teams Dry Kiln Burner Relationship Specialty Start Date End Date Jhon Ramesh [address] [facility] [place] [id number] PCP - General Family Medicine 09/18/20
--- OUTSIDE RECORDS SUMMARY | 2024-10-26 15:26 | XMS_ITS | Encounter Summary ---
Author Organization [facility] Address [address] [place] [address] Care Team Providers Care Steel Rod Buster Name Role Phone Emmett Leal MD Primary Care Provider Unavail able [facility], Pcp Primary Care Provider Unavailabl e Encounter Details Date Type Department Care Team Description 01/17/2015 Release of Information Medical Records [address] [place] [id number] Abstract, Provider Social History Tobacco Use Types Packs/Day Years Used Date Smoking Tobacco: Former Cigarettes 0.5 20 Q uit: 01/15/2015 Smokeless Tobacco: Never Alcohol Use Standard Drinks/Week Comments Yes 0 (1 standard drink = 0.6 oz pur e alcohol) one on occ Sex Assigned at Date Recorded Not on file documented as of this encounter Plan of Treatment Not on file documented as of this encounter Visit Diagnoses Not on filedocumented in this encounter Care Teams Steel Rod Buster Relationship Specialty Start Date End Date Emmett Leal MD PCP - General Internal Medicine 01/02/15 11/22/15 [facility], Pcp PCP - General Internal Medicine 11/23/15 documented as of this encounter
--- OUTSIDE RECORDS SUMMARY | 2024-10-26 15:26 | XMS_ITS | Encounter Summary ---
Author Organization [facility] Address [address] [place] [address] Care Team Providers Care Edi Specialist Name Role Phone Emmett Leal MD Primary Care Provider Unavail able [facility], Pcp Primary Care Provider Unavailabl e Encounter Details Date Type Department Care Team Description 08/05/2015 Hospital Medical Records [address] [place] [address] Social History Tobacco Use Types Packs/Day Years Used Date Smoking Tobacco: Every Day Cigarettes 0.3 20 Smokeless Tobacco: Never Alcohol Use Standard Drinks/Week Comments Yes 0 (1 standard drink = 0.6 oz pur e alcohol) one on occ Sex Assigned at Date Recorded Not on file documented as of this encounter Plan of Treatment Not on file documented as of this encounter Visit Diagnoses Not on filedocumented in this encounter Care Teams Edi Specialist Relationship Specialty Start Date End Date Emmett Leal MD PCP - General Internal Medicine 01/02/15 11/22/15 [facility], Pcp PCP - General Internal Medicine 11/23/15 documented as of this encounter
--- OUTSIDE RECORDS SUMMARY | 2024-10-26 15:26 | XMS_ITS | Encounter Summary ---
Author Organization [facility] Address [address] [place] [address] Care Team Providers Care Casino Accountant Name Role Phone Emmett Leal MD Primary Care Provider Unavail able [facility], Pcp Primary Care Provider Unavailabl e Encounter Details Date Type Department Care Team Description 01/20/2015 [facility] Report Medical Records [address] [place] [address] Abstract, Provider Social History Tobacco Use Types [...] on filedocumented in this encounter Care Teams Casino Accountant Relationship Specialty Start Date End Date Emmett Leal MD PCP - General Internal Medicine 01/02/15 11/22/15 [facility], Pcp PCP - General Internal Medicine 11/23/15 documented as of this encounter
--- OUTSIDE RECORDS SUMMARY | 2024-10-26 15:26 | XMS_ITS | Encounter Summary ---
Author Organization [facility] Address [address] [place] [address] Care Team Providers Care Picker Tender Name Role Phone Emmett Leal MD Primary Care Provider Unavail able [facility], Pcp Primary Care Provider Unavailabl e Encounter Details Date Type Department Care Team Description 07/11/2015 Controlled Substance Contract with Plan Medical Records [address] [place] [address] Abstract, Provider Social History Tobacco Use Types [...] on filedocumented in this encounter Care Teams Picker Tender Relationship Specialty Start Date End Date Emmett Leal MD PCP - General Internal Medicine 01/02/15 11/22/15 [facility], Pcp PCP - General Internal Medicine 11/23/15 documented as of this encounter
--- OUTSIDE RECORDS SUMMARY | 2024-10-26 15:26 | XMS_ITS | Clinical Summary ---
Author Organization [facility] Address [address] [place] [address] Care Team Providers Care Heel Packer Name Role Phone [facility], Pcp Primary Care Provider Unavailabl e Allergies No known active allergies Medications Medication Sig Dispensed Refills Start Date End Date Status acetaminophen (TYLENOL) 325 MG tablet Take 2 Tabs by mouth every 6 hours as needed. 0 Active aspirin-acetaminophen- caffeine (EXCEDRIN MIGRAINE) 250-250-65 MG per tablet Take 1 tablet by mouth every 6 hours as needed. 0 Active sertraline (ZOLOFT) 25 MG tablet Take 1 Tab by mouth daily. 0 08/27/2015 Active busPIRone (BUSPAR) 10 MG tablet Take 1 Tab by mouth 3 times daily. 90 Tab 5 09/19/2015 Active gabapentin (NEURONTIN) 300 MG capsule Take 2 Caps by mouth 3 times daily. 180 Cap 2 09/19/2015 Active meloxicam (MOBIC) 15 MG tablet Take 1 Tab by mouth daily. 30 Tab 3 09/19/2015 Active hydrOXYzine (VISTARIL) 25 MG capsule Take 1 Cap by mouth 3 times daily as needed for Anxiety. 90 Cap 2 11/13/2015 Active Active Problems Problem Noted Date Opiate overdose 08/14/2015 Suicide attempt 07/31/2015 Overview: 08/05 Hydrocodone-acetaminophen; 05/06 cutting Dysfunctional alcohol use 07/31/2015 Allergic rhinitis 02/06/2015 Chronic low back pain 02/06/2015 Overview: L5S1 anterior interbody fusion 03/28; prior discectomy Anxiety 01/17/2015 Overview: Sts daily meds caused decreased libido Resolved Problems Problem Noted Date Resolved Date Tobacco use disorder 01/17/2015 01/17/2015 Family History Medical History Relation Name Comments Alzheimers Disease Mother CAD Negative Hx Cancer, Other Negative Hx Diabetes Negative Hx Hypertension Negative Hx Relation Name Status Comments Mother Social History Tobacco Use Types Packs/Day Years Used Date Smoking Tobacco: Every Day Cigarettes 0.3 20 Smokeless Tobacco: Never Alcohol Use Standard Drinks/Week Comments Yes 0 (1 standard drink = 0.6 oz pur e alcohol) one on occ Sex Assigned at Date Recorded Not on file Last Filed Vital Signs Vital Sign Reading Time Taken Comments Blood Pressure 114/72 09/19/2015 8:43 AM EST Pulse 68 09/19/2015 8:43 AM EST Temperature - - Respiratory Rate 16 09/19/2015 8:43 AM EST Oxygen Saturation - - Inhaled Oxygen Concentration - - Weight 71.2 kg (157 lb) 09/19/2015 8:43 AM EST Height 167.6 cm (5' 6 ) 09/19/2015 8:43 AM EST Body Mass Index 25.34 09/19/2015 8:43 AM EST Plan of Treatment Health Maintenance Due Date Last Done Comments Covid-19 Vaccine (#1) 05/23/1970 TOBACCO CHECK/ADVISE 11/22/1987 DTAP/TDAP/TD (1 - Tdap) 1988 CHOLESTEROL SCREENING 1989 BASELINE HEALTH EXAM 40-64 2009 MAMMOGRAM 2009 CERVICAL CANCER SCREENING 09/22/20172014 (External Completion of test per patient (Patient reports normal results)) COLON CANCER SCREENING 11/22/2019 SHINGLES VACCINE (1 of 2) 11/22/2019 INFLUENZA (#1) 2024 BMI CHECK/ADVISE 08/22/2024 PNEUMOCOCCAL VACCINE FOR HIG H RISK PATIENTS (#1) 2034 Care Teams Heel Packer Relationship Specialty Start Date End Date [facility], Pcp PCP - General Internal Medicine 11/23/15
--- OUTSIDE RECORDS SUMMARY | 2024-10-26 15:26 | XMS_ITS | Encounter Summary ---
Author Organization [facility] Address [address] [place] [address] Care Team Providers Care Radio Division Officer Name Role Phone Emmett Leal MD Primary Care Provider Unavail able [facility], Pcp Primary Care Provider Unavailabl e Encounter Details Date Type Department Care Team Description 07/11/2015 Controlled Substance Plan Medical Records [address] [place] [address] Abstract, Provider Social History Tobacco Use Types [...] on filedocumented in this encounter Care Teams Radio Division Officer Relationship Specialty Start Date End Date Emmett Leal MD PCP - General Internal Medicine 01/02/15 11/22/15 [facility], Pcp PCP - General Internal Medicine 11/23/15 documented as of this encounter
--- OUTSIDE RECORDS SUMMARY | 2024-10-26 15:26 | XMS_ITS | Encounter Summary ---
Author Organization [facility] Address [address] [place] [address] Care Team Providers Care Historical Site Guide Name Role Phone Emmett Leal MD Primary Care Provider Unavail able [facility], Pcp Primary Care Provider Unavailabl e Encounter Details Date Type Department Care Team Description 07/31/2015 Hospital Medical Records [address] [place] [address] Georgia Waddell MD Social History Tobacco Use Types Packs/Day Years [...] on filedocumented in this encounter Care Teams Historical Site Guide Relationship Specialty Start Date End Date Emmett Leal MD PCP - General Internal Medicine 01/02/15 11/22/15 [facility], Pcp PCP - General Internal Medicine 11/23/15 documented as of this encounter
== END 2024-10-26 14:44 | disposition home or self-care (01) ==
PROVIDERS: PCP Nurse Practitioner Family; Visit Provider Internal Medicine
DX: R10.11 Right upper quadrant pain (principal); R11.0 Nausea; K82.8 Other specified diseases of gallbladder; R13.13 Dysphagia, pharyngeal phase
CPT/HCPCS: 99214

== ENCOUNTER → 2024-10-26 13:44 | Outpatient (BNVA) | payer MEDICARE, MEDICAID, SELFPAY | PROVIDERS: PCP Nurse Practitioner Family; Visit Provider Internal Medicine | DX: R10.11 Right upper quadrant pain (principal); R11.0 Nausea; K82.8 Other specified diseases of gallbladder; R13.13 Dysphagia, pharyngeal phase | CPT/HCPCS: 99212 ==

== ENCOUNTER 2024-12-17 06:39 | Outpatient (AMB) | payer MEDICARE, MEDICAID, SELFPAY ==
--- NOTE | 2024-12-17 07:23 | A.OFFPC_ITS ---
Intake Visit Reasons: 6 months f/up Allergies metronidazole [From Flagyl] Adverse Reaction (Severe, Verified 12/17/24 07:32) Nausea Medication List - Last Reconciled 12/17/24 by Jhon Ramesh [facility] aspirin-sod bicarb-citric acid 500-1,985-1,000 mg (Wendy-Navarro Extra Strength) 1 ea PO DAILY PRN bupropion HCl XL 150 mg PO BEDTIME 90 days cholestyramine-aspartame 4 gram 2 grams PO Q OTHER DAY 90 days esomeprazole magnesium 20 mg PO BID famotidine 20 mg PO BEDTIME gabapentin 300 mg orally; 300 mg PO; 600mg in am, 300mg at noon, 600mg at night 30 days rosuvastatin 5 mg PO BEDTIME 90 days sucralfate (Carafate) 1 g PO QIDACHS PRN 30 days Tobacco use date assessed: 06/12/24 Dental Screening Dental Screen Date: 06/12/24 HPI 6 months f/up HPI Details History of Present Illness The patient is a 54-year-old female presenting for a generalized telehealth follow-up with a history of diarrhea. There is an ongoing evaluation by a department store salesperson revealing possible biliary HYPERkinesia related to her gallbladder. She acknowledges a link between fatty food intake and symptom exacerbation. Her symptoms appear to vary, with intermittent good and bad weeks, including abdominal cramping. There is no report of hematochezia. Overall, she reports handling the condition well and remains in good spirits, particularly enjoying outdoor activities. Currently still on a PPI. Anxiety and depression: declines therapist, psychiatrist on board, using buproprion XL, working well, though does report lack of libido. Review of Systems - Gastrointestinal: Reports diarrhea, ab dominal cramping; denies blood in stool. - General: Denies fever, chills. - Respiratory: Denies shortness of breat h. - Cardiovascular: Denies chest pain. - Psychiatric: Denies suicidal ideation, homicidal ideation. Plan The ongoing issue of diarrhea was reviewed, emphasizing its potential correlation with biliary HYPERkinesia. The patient is advised to minimize fatty foods to prevent worsening symptoms. Future laboratory tests are vital in the assessment and were encouraged. The patient reports symptomatic relief with aspartame. Maintaining outdoor physical activities is beneficial for her overall mental health. Timely lab submissions will be encouraged for sustained monitoring. Pt is considering a cholecystectomy, but not in the near future. Discussion Notes Throughout our discussion, I emphasized the link between fatty food intake and symptom severity, encouraging dietary modifications. The utility and necessity of future laboratory work were discussed to track the patient's progress and provide further insights into her condition. We talked about her management tressa adame with choles/aspartame and its benefits. We acknowledged the psychosocial benefits of her outdoor activities and gardening, which have positively contributed to her well-being. No immediate changes to her treatment plan were warranted beyond recommendations for routine follow-up with her department store salesperson and completion of pending labs. Pt does not want a therapist Patient Instructions - Avoid fatty foods to help manage diarr hea. - Take medications as directed. - Schedule and complete lab tests soon. - Enjoy outdoor activities and hobbies f or mental well-being. - Continue follow-up with your gastroent erologist. - Call if symptoms worsen or new symptom s appear. [facility] Medical History (Updated 12/17/24 @ 07:26 by LOVE Ruff) Diarrhea Subclinical hyperthyroidism Hypercalcemia Hypokalemia Incisional infection Back pain Hx of transfusion of packed red blood cells Vomiting and diarrhea Skin cancer Memory loss, short term Numbness Hx of cardiac murmur Anxiety Gastric ulcer Anemia PTSD (post-traumatic stress disorder) Synovial cyst of lumbar spine Urine incontinence Postlaminectomy syndrome Surgical History Hx of exploratory laparotomy Hx of colonoscopy History of esophagogastroduodenoscopy (EGD) Hx of spinal fusion H/O unilateral oophorectomy History of discectomy History of tonsillectomy Family History Father No problems noted. Mother Substance use disorder Maternal Grandmother Alzheimer's disease Brother No problems noted. Sister No problems noted. Son No problems noted. Social History Household Members: Significant Other Housing: House Are you a primary acute care nurse practitioner to a significant other at home: No Do you presently have visiting nurse or other home services: No Alcohol intake: never Comment: COUNTS CORRECT Patient Tobacco Use Status: Former Tobacco user Tobacco use type: Smokeless Tobacco Years Smoked: 35 e-Cigarette/Vaping Use: Currently Using service: No Current occupational status: disabled Cognitive needs: No Hearing needs: No Vision needs: No Questionnaire Thrive Questionnaire Date Thrive assessed: 06/06/24 I am a: Patient What is your living situation today?: I have a steady place to live Within the past 12 months, did the food you bought not last and you didn't have the money to get more?: Never true Within the past 12 months, did you worry whether your food would run out before you got money to buy more?: Never true Do you have trouble paying for medicines?: No Do you have trouble getting transportation to medical appointments?: No Do you have trouble paying your heating and electricity bill?: No Do you have trouble taking care of your child, family member or friend?: No Do you have trouble with day-to-day activities such as bathing, preparing meals, shopping, managing finances, etc.?: No Are you currently unemployed and looking for a job?: No Are you interested in more education?: No Please select the resources that you would like help with: None Currently or been in a relationship where the following occur: No concerns reported THRIVE Score: 0 JULIO CÉSAR-7 AMB Questionnaire JULIO CÉSAR-7 Date JULIO CÉSAR - 7 assessed: 06/12/24 Source: Developed by Drs. Joseluis Davenport, Riddhi Melendez, Ricco Wong and colleagues, with an educational mariposa from [employer]. Physical exam (Primary Care) Tobacco/Smoking Status: Tobacco use Status Tobacco use date assessed 06/12/24 06/12/24 11:33 Patient Tobacco Use Status Former Tobacco user 06/12/24 11:33 Tobacco use type Smokeless Tobacco 06/12/24 11:33 e-Cigarette/Vaping Use Currently Using 06/12/24 11:33 Thrive Assessment: Date of Thrive Assessment Date Thrive assessed 06/06/24 12/14/24 17:15 Currently or been in a relationship where the following occur: No concerns reported Telehealth Telehealth Telehealth Platform: [employer] Location of provider rendering services: practice address Location of patient: address on file Patient Identification confirmed using: Name, : Yes Telehealth method: video Patient verbally consented to treatment: Yes Patient verbally consented to billing insurance company: Yes Patient informed of any privacy concerns related to visit: Yes Minutes spent on Phone/Video with Pt.: 12 Coding Level of Care Code Tele Est Pt Level 3 (36497) Diagnoses Diarrhea R19.7 Abdominal cramping R10.9 Anxiety and depression F41.9; F32.A Assessment & Plan Assessment & Plan (1) Diarrhea: Code(s): R19.7 - Diarrhea, unspecified Category: Medical (2) Abdominal cramping: Code(s): R10.9 - Unspecified abdominal pain Category: Medical (3) Anxiety and depression: Code(s): F41.9 - Anxiety disorder, unspecified; F32.A - Depression, unspecified Category: Medical Plan . Orders: Orders MM screening mammo BI Today Z12.31 - Encounter for screening mammogram for malignant neoplasm of breast
== END 2024-12-17 08:05 | disposition home or self-care (01) ==
LOC: HO.HMCC 06:39
PROVIDERS: PCP Nurse Practitioner Family; Visit Provider Nurse Practitioner Family
DX: R19.7 Diarrhea, unspecified (principal); R10.9 Unspecified abdominal pain; F41.9 Anxiety disorder, unspecified; F32.A Depression, unspecified

== ENCOUNTER → 2024-12-17 06:39 | Outpatient (BNVA) | payer MEDICARE, MEDICAID, SELFPAY | PROVIDERS: PCP Nurse Practitioner Family; Visit Provider Nurse Practitioner Family ==

== ENCOUNTER 2024-12-27 09:04 | Outpatient (REF) | payer MEDICARE, MEDICAID, SELFPAY ==
--- OUTSIDE RECORDS SUMMARY | 2024-12-27 09:33 | XMS_ITS | Clinical Summary ---
Author Organization [facility] Address [address] [place] [address] Care Team Providers Care Biometrician Name Role Phone Jhon Ramesh Primary Care Provider [phone] Social History Tobacco Use Types Packs/Day Years [...] age to complete this topic Care Teams Biometrician Relationship Specialty Start Date End Date Jhon Ramesh [address] [facility] [place] [address] PCP - General Family Medicine 09/18/20
--- OUTSIDE RECORDS SUMMARY | 2024-12-27 09:33 | XMS_ITS | Data Portability ---
Author Organization [facility], Main Office Address [address] [place] [address] [address] [place] [address] Care Team Providers Care Policy Adviser Name Role Phone [facility] OTHER Assessment Encounter Date Assessment Date Assessment LastModified by Organization Details LastModified Time 08/18/2018 08/18/201808/16 bun 12, creat 0.5, wbc 6.15, hgb 12.1, hct 35.7 Not available 08/18/2018 15:59:52 09/04/2018 09/04/201808/30 bun 20, creat 0.6, wbc 5.44, hgb 11.8, hct 36.9 Not available 09/04/2018 10:53:24 Plan of Treatment Reminders Order Date Submit Date Provider Last Modified By Organization Details Last Modified Time Details Appointments None record ed. Lab None record ed. Referral None record ed. Procedures None record ed. Surgeries None record ed. Imaging None record ed. Medication Orders None record ed. Patient TargetsNo targets recorded. Patient InstructionsNo instructions recorded. Reason for Referral None Reported. Problems Name Problem SNOMED Code Status Onset Date Resolution Date Notes Provider Name and Address Organization Details Recorded Time Toxic encephalopathy 36847065 Active 2017 Sara dubon [facility] 8 14:16:18 Essential hypertension 47911661 Active 2017 Sara dubon [facility] 8 14:16:36 Gastroesophage al reflux disease without esophagitis 633325474 Active 2017 Sara dubon [facility] 8 14:16:48 Severe major depression with psychotic features 56280173 Active 2017 Sara dubon [facility] 8 14:17:19 Harmful pattern of use of multiple substances 861887702 [facility] 14:17:26 Chronic back pain 494293682 Active 2017 Rashmi Hester MD [address] [facility], [address], [place], [address], [facility] 8 13:57:47 Urinary tract infectious disease 06880241 Active 2017 Rashmi Hester MD [address] [facility], [address], [place], [address], [facility] 8 01:57:49 Anxiety 77310372 Active [address], [facility] [address], [place], [address], [facility] 9 09:58:09 Problem Notes None recorded. Medical Equipment None Reported. Allergies No known drug allergies Vitals Date Recorded Heart rate Body temperature Systolic blood pressure Diastolic blood pressure Provider Name and Address Organization Details Last Updated DateTime 08/09/2018 72 /min 97.3 [degF] 98 mm[Hg] 68 mm[Hg] Sara Mcgowan [facility] 08/09/2018 14:24:50 Date Recorded Body weight Heart rate Systolic blood pressure Diastolic blood pressure Provider Name and Address Organization Details Last Updated DateTime 08/11/2018 56738.49 g 64 /min 118 mm[Hg] 64 mm[Hg] Rashmi Hester MD [address] [facility], [address], [place], [address] , [facility] 08/16/2018 01:26:19 Date Recorded Heart rate Systolic blood pressure Diastolic blood pressure Provider Name and Address Organization Details Last Updated DateTime 08/18/2018 68 /min 108 mm[Hg] 55 mm[Hg] Sara Mcgowan [facility] 08/18/2018 15:55:28 Date Recorded Body temperature Heart rate Oxygen saturation Oxygen saturation in Arterial blood by Pulse oximetry Systolic blood pressure Diastolic blood pressure Provider Name and Address Organization Details Last Updated DateTime 9 97.8 [degF] 68 /min 97 % 97 % 108 mm[Hg] 56 mm[Hg] GRICEL DIAZ [address] [place] [address], [address], [place], [address], [facility] 9 09:54:55 Date Recorded Systolic blood pressure Diastolic blood pressure Provider Name and Address Organization Details Last Updated DateTime 09/04/2018 130 mm[Hg] 77 mm[Hg] Sara Mcgowan [facility] 09/04/2018 10:54:51 Social History Question Answer Notes LastModified by Organizat ion Details LastModified Time Tobacco Smoking Status Former Smoker Not Available [facility] 06/17/2020 03:13:20 Do You Have An Advance Directive? No [id number] Information not available 06/17/2020 How Much Tobacco Do You Chew? None [id number] Information not available 06/17/2020 Do You Have A Medical Power Of Hog Raiser? No [id number] Information not available 06/17/2020 What Was The Date Of Your Most Recent Tobacco Screening? 09/04/2018 [id number] Information not available 06/17/2020 Has Tobacco Cessation Counseling Been Provided? No [id number] Information not available 06/17/2020 Sex: Unknown Functional Status None recorded. Mental Status None recorded. Family History Nothing Reported. Medical History No medical history recorded. Gynecological HistoryNo gynecological history recorded. Obstetrics History GPAL:G 0 P 0 0 0 0 Past Encounters Encounter ID Performer Location Encounter Start Date Encounter Closed Date Diagnosis/Indication Diagnosis SNOMED-CT Code Diagnosis ICD10 Code Diagnosis Note [id number] Sara McgowanAMI [facility] on [address] [place] [address] 08/09/2018 13:53:07 08/25/2018 15:06:04 Toxic encephalopathy 52101109 G92 See HPISupport grabiel carePT/OT eval and treat for deconditio ningMonito r ability to return to community Severe greg or depression with psychotic features 08419189 F32.3 Zoloft 50 mg dailyMonit or moodPsych eval prn Essential hypertension 98271846 I10 Lisinopril 5 mg dailyMonit or bp and labs Harmful pa ttern of use of multiple substances 517949233 F19.10 Hx of polysubsta nce abuse Gastroesop hageal reflux disease without esophagitis 807252884 K21.9 Protonix 40 mg dailyMonit or sxs Urinary tr act infectious disease 50031760 N30.80 Completed course of ceftriaxon eMonitor for recurrent sxs [id number] Rashmi Hester MD [facility] on [address] [place] [address] 08/11/2018 13:49:59 08/25/2018 15:09:39 Toxic encephalopathy 89695276 G92 Unclear etiology, continue to assess for any improvemen t. To be evaluated by psych. Needs supportive care and PT/OT eval and treat for linda michaels.Need to assess [facility]. Severe greg or depression with psychotic features 72218583 F32.3 Continue sertraline 50 mg qdMonitor moodPsych eval Urinary tr act infectious disease 25913093 N30.80 Completed course of bactrim and then ceftriaxon eMonitor for recurrent sxs Essential hypertension 73608098 I10 Stable on lisinopril 5 mg qdMonitor bp and labs Harmful pa ttern of use of multiple substances 276776131 F19.10 Hx of polysubsta nce abuse Gastroesop hageal reflux disease without esophagitis 551191619 K21.9 Protonix 40 mg dailyMonit or sxs Chronic back pain 427295 002 G89.29 Upper back pain, will try muscle rub and ibuprofen. Will have PT eval also. [id number] AMI Delacruz [facility] on [address] [place] [address] 08/18/2018 15:54:38 08/29/2018 12:02:53 Toxic encephalopathy 76150657 G92 See HPISupport grabiel carecont. PT/OTMonit or ability to return to community- remains very confused Severe greg or depression with psychotic features 39179900 F32.3 Zoloft 50 mg dailyMood stable, very pleasant Essential hypertension 14998004 I10 Lisinopril 5 mg dailyBP stable Gastroesop hageal reflux disease without esophagitis 667513487 K21.9 Protonix 40 mg dailyNo complaints currently [id number] GRICEL DIAZ [facility] on [address] [place] [address] 08/24/2018 09:53:19 08/29/2018 12:37:53 Toxic encephalopathy 93827227 G92 Unclear etiology, continue to assess for any improvemen t. To be evaluated by psych. Needs supportive care and PT/OT eval and treat for linda michaels.Need to assess whether it is safe for her to return to independen t living. Severe greg or depression with psychotic features 65748357 F32.3 Continue sertraline 50 mg qdMonitor moodPsych eval Harmful pa ttern of use of multiple substances 020322459 F19.10 Hx of polysubsta nce abuse Anxiety 31440202 F41.1 Add ativan 0.25 mg q 8 hours PRN anxietyref er to med options, therapist is her today, touched base with her and she will see her todaypt would like to speak to STAFF CONSULTANT tomorrow while her boyfriend is here to talk about her progress [id number] AMI Delacruz [facility] on [address] [place] [address] 09/04/2018 10:34:45 09/06/2018 10:49:05 Toxic encephalopathy 91021377 G92 See HPISignifi cant improvemen t, A&O x 3Ambulatin g independen t and independen t with ADLsStill with some short-term memory loss-will need assistance with medication management VNA services in place for discharge home Severe greg or depression with psychotic features 89997616 F32.3 Zoloft 50 mg dailyMood stableWill f/u with psych in community Essential hypertension 49579220 I10 Lisinopril 5 mg dailyBP stable Harmful pa ttern of use of multiple substances 986172743 F19.10 Hx of polysubsta nce abusePatie nt states she understand s any further drug use would be very detrimenta l to her healthServ ices in place for discharge home Health Concerns Section Related Observation LastModified by Organization Detai ls LastModified Time None Recorded Concern Status LastModified by Organization Details LastModified Time None Recorded Advance Directives Directive N: Payers Encounter Date Sequence Insurance Name Policy Number Policy Quiroz Covered Member ID Quiroz Member ID Guarantor Name 08/09/2018 1 [facility] HEALTH NET PLAN (MEDICAID HMO) BRANDIE Benedict [id number] Hali Benedict 08/11/[address] [facility] PLAN (MEDICAID HMO) [id number] Bladen Jak [id number] Bladen Jak 08/18/[address] [facility] PLAN (MEDICAID HMO) BOSTNACDebora Hali Jak [id number] Bladen Jak 08/24/[address] [facility] PLAN (MEDICAID HMO) BOSTNACDebora Hali Jak [id number] Hali Jak 09/04/2018 1 [facility] (MEDICAID HM) BOSTNACDebora Bladen Jak [id number] Bladen Jak Notes Date Note Type Note Provider Name and Address Organization Details Recorded Time 8 text/html 47 yo female with hx of depression with psychosis and polysubstance abuse admit from hospital after presenting with catatonia and concern for toxic encephalopathy. Patient initially hospitalized after being found at home by boyfriend incontinent of urine and feces, extremely forgetful, difficulty with word finding and scratching self. Concern at that time about possible use of crystal meth as patient with long-standing drug abuse history. Patient admitted to [facility] 07/08 for depression with psychosis-treated with olanzapine then risperidone however patient continued to decline to point of being unable to move by self, mute and incontinent of urine and feces. Transferred to [facility] for further care. Extensive work-up including head CT, labs, urine tox, CT chest/abd/pelvis, LP, EEG and NMDA panel with no significant findings. Completed 5 days of IVIG for autoimmune encephalitis which did not improve condition. 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 Also treated for UTI with 5 day course of ceftriaxone. Sara dubon [place] - [facility] 08/09/2018 14:43:18 8 text/html This is a 47 yo woman with hx of depression and polysubstance abuse who is here for rehab and possible LTC after an acute hospitalization for severe MS changes. Initially brought to ED by boyfriend after he found her very confused, incontinent and unsafe at home. She was admitted to [facility] after being medically cleared. She was txed for a UTI and meds were tried for confusion, Pt. became more confused to the point of being catatonic, so sent back to [facility] for medical eval. Boyfriend had question about whether she might have used meth while he was away. Utox on admission was neg. At [facility] and extensive w/u was done which showed including head CT showed no acute abnormalities, labs were unremarkable, CT chest/abd/pelvis, LP, and NMDA panel with no significant findings. EEG showed diffuse, disorganized mid to upper frequency status/intermixed delta slowing which was read as non-specific changes. She was HIV neg. Completed 5 days of IVIG for possible autoimmune encephalitis which did not improve condition. 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 Today she c/o midback pain and otherwise says she feels well.Her PMH includes HTN, subclinical hyperthyroidism, GRD, gastric ulcers, depression with prior suicide attempts, and polysubstance abuse. Rashmi Hester MD [address] [facility] [address], [address], [place], [address], [facility] [employer] 08/16/2018 01:58:35 8 text/html 47 yo female seen for acute rounding visit. 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 Patient now ambulating independently. Denies complaints. PMH depression, htn, polysubstance abuse, gerd. Sara dubon, [facility] [employer] [facility] 08/18/2018 16:02:41 9 text/html 47 yo female seen today for acute rounding visit. 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 Patient is very anxious, constantly paces about the unit and asks nursing staff for reassurance. She is asking to speak to a provider today about her anxiety. GRICEL DIAZ [address] [facility] [address], [address], [place], [address], [facility] [employer] 08/24/2018 10:13:34 9 text/html 47 yo female admitted for rehab after hospitalization for catatonia and concern for toxic encephalopathy. Patient initially hospitalized after being found at home by boyfriend incontinent of urine and feces, extremely forgetful, difficulty with word finding and scratching self. Concern at that time about possible use of crystal meth as patient with long-standing drug abuse history. Patient admitted to [facility] 07/08 for depression with psychosis-treated with olanzapine then risperidone however patient continued to decline to point of being unable to move by self, mute and incontinent of urine and feces. Transferred to [facility] for further care. Extensive work-up including head CT, labs, urine tox, CT chest/abd/pelvis, LP, EEG and NMDA panel with no significant findings. Completed 5 days of IVIG for autoimmune encephalitis which did not improve condition. 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 Since admission to this facility patient has made significant gains. Alert and oriented x 3 and independent with ADLs. Patient ambulates independently. Patient does not appear to require level of care of halfway facility at this time. Sara dubon [place] - [facility] 09/04/2018 10:55:23 OBGyn Episode No OBEpisode recorded.
[2024-12-27 10:33] LABS: MANUAL DIFF FLAG NO
[2024-12-27 10:39] LABS: Appearance Urine Clear; Color Urine Yellow; Glucose Urine UA Negative (Negative); Leukocyte Esterase Urine Negative (Negative); Nitrite Urine Negative (Negative); Specific Gravity - Urine 1.015 (1.005-1.025); Urine Blood Negative (Negative); Urine Ketones Negative (Negative); Urine Protein Negative (Neg-Trace)
[2024-12-27 10:45] LABS: Basophils Absolute Auto 0.1 X10*3/uL (0.0-0.2); Basophils Percent Auto 1.3 % (0-2); Eosinophils Absolute Auto 0.4 X10*3/uL (0.0-0.4); Eosinophils Percent Auto 5.1 % (0-4); Hematocrit 35.3 % (37.0-47.0); Hemoglobin 10.8 g/dl (12.0-16.0); Imm Gran Abs Auto 0.02 X10*3/uL (0.00-0.03); Imm Gran Pct Auto 0.3 % (0.0-0.4); Lymphocytes Absolute Auto 1.3 X10*3/uL (1.2-4.9); Lymphocytes Percent Auto 19.4 % (20-40); Mean Corpuscular HGB Conc 30.6 g/dl (31.0-35.0); Mean Corpuscular Hemoglobin 24.7 pg (27.0-33.0); Mean Corpuscular Volume 80.8 fL (80.0-98.0); Mean Platelet Volume 9.5 fL (9.4-12.3); Monocytes Absolute Auto 0.5 X10*3/uL (0.1-1.2); Monocytes Percent Auto 6.9 % (2-11); Neutrophils Absolute Auto 4.6 x10*3/uL (2.0-8.3); Platelet Count 405 X10*3/uL (160-400); Red Blood Count 4.37 X10*6/uL (4.20-5.50); Red Cell Distribution Width 15.3 % (11.0-16.0); White Blood Count 6.9 X10*3/uL (4.8-10.8)
[2024-12-27 11:03] LABS: Alanine Aminotransferase 29 U/L (0-31); Albumin Level 4.2 g/dL (3.5-5.0); Alkaline Phosphatase 73 U/L (39-117); Anion Gap 12 (12-20); Aspartate Amino Transferase 31 U/L (5-31); Bilirubin Total 0.3 mg/dL (0.0-1.0); Blood Urea Nitrogen 13 mg/dL (9-16); Calcium 10.1 mg/dL (8.4-10.2); Carbon Dioxide 25 mmol/L (22-29); Chloride 106 mmol/L (96-108); Cholesterol 158 mg/dL (<200); Estimated Glomerular Filt Rate > 60; Glucose Fasting 90 mg/dL (60-99); HDL Cholesterol 78 mg/dL (>40); Iron 23 mcg/dL (30-160); LDL Cholesterol Calculated 70 mg/dL (<100); Percent Iron Saturation 7 % (15-50); Potassium 4.2 mmol/L (3.3-5.1); Sodium 139 mmol/L (135-145); Total Iron Binding Capacity 334 mcg/dL (228-428); Total Protein 6.6 g/dL (6.5-8.0); Triglycerides 53 mg/dL (<150); Unsaturated Iron Binding 311 ug/dL
[2024-12-27 11:23] LABS: Ferritin 6 ng/mL (10-250); TSH reflex Free T4 0.54 uIU/mL (0.32-4.0)
[2024-12-28 15:43] LABS: Triiodothyronine T3 Free 2.8 pg/mL (2.3-4.2)
[2024-12-28 18:57] LABS: Thyroid Peroxidase Antibodies <1 IU/mL (<9)
[2024-12-31 17:12] LABS: Thyrotropin Receptor Antibody <1.00 IU/L (<=2.00)
== END 2024-12-27 09:05 | disposition home or self-care (01) ==
LOC: HO.HMGCLDS 09:04
PROVIDERS: PCP Nurse Practitioner Family; Visit Provider Nurse Practitioner Family
DX: Z00.01 Encounter for general adult medical examination with abnormal findings (principal); R79.89 Other specified abnormal findings of blood chemistry; D64.9 Anemia, unspecified
CPT/HCPCS: 36415; 80053; 80061; 81003; 82728; 83520; 83540; 84443; 84481; 85025; 86376

== ENCOUNTER 2025-01-22 | Outpatient (REF) | payer MEDICARE, MEDICAID, SELFPAY ==
[2025-01-28 07:21] LABS: FIT Int Ctl YES; FIT Lot M0120 3; FIT1 NEGATIVE (NEGATIVE); FIT2 NEGATIVE (NEGATIVE)
--- OUTSIDE RECORDS SUMMARY | 2025-01-28 07:21 | XMS_ITS | Encounter Summary ---
Author Organization [facility] Address [address] [place] [address] Care Team Providers Care Sample Builder Name Role Phone Emmett Leal MD Primary Care Provider Unavail able [facility], Pcp Primary Care Provider Unavailabl e Encounter Details Date Type Department Care Team Description 07/11/2015 Controlled Substance Contract with Plan Medical Records [address] [place] [address] Abstract, Provider Social History Tobacco Use Types [...] on filedocumented in this encounter Care Teams Sample Builder Relationship Specialty Start Date End Date Emmett Leal MD PCP - General Internal Medicine 01/02/15 11/22/15 [facility], Pcp PCP - General Internal Medicine 11/23/15 documented as of this encounter
== END 2025-01-22 00:01 | disposition home or self-care (01) ==
LOC: HO.LNP
PROVIDERS: Visit Provider Nurse Practitioner Family
DX: E61.1 Iron deficiency (principal); R10.9 Unspecified abdominal pain
CPT/HCPCS: 82274

== ENCOUNTER 2025-02-21 14:48 | Outpatient (AMB) | payer MEDICARE, MEDICAID, SELFPAY ==
--- OUTSIDE RECORDS SUMMARY | 2025-02-21 14:50 | XMS_ITS | Clinical Summary ---
Author Organization [facility] Address [address] [place] [address] Care Team Providers Care International Accountant Name Role Phone Jhon Ramesh Primary Care Provider [phone] Social History Tobacco Use Types Packs/Day Years [...] Vaccine (1 of 2) 11/22/2019 Influenza Vaccine (Season Ended) 2025 Pneumococcal Vaccine Aged Out No long er eligible based on patient's age to complete this topic RSV Ped < 20 months Aged Out No longe r eligible based on patient's age to complete this topic Care Teams International Accountant Relationship Specialty Start Date End Date Jhon Ramesh [address] [facility] ROHIT [place] [address] PCP - General Family Medicine 09/18/20
--- OUTSIDE RECORDS SUMMARY | 2025-02-21 14:50 | XMS_ITS | Data Portability ---
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 Clerk Name Role Phone [facility] OTHER Assessment Encounter Date Assessment Date [...] Address Organization Details Recorded Time Toxic encephalopathy 86679382 Active 2017 Sara dubon [facility] 8 14:16:18 Essential hypertension 73008926 Active 2017 Sara dubon [facility] 8 14:16:36 Gastroesophage al reflux disease without esophagitis 694127299 Active 2017 Sara dubon [facility] 8 14:16:48 Severe major depression with psychotic features 51775689 Active 2017 Sara dubon [facility] 8 14:17:19 Harmful pattern of use of multiple substances 577533725 Active 2017 Sara Mcgowan [facility] 8 14:17:26 Chronic back pain 592142876 Active 2017 Rashmi Hester MD [address] [facility], [address], [place], [address], [facility] 8 13:57:47 Urinary tract infectious disease 81013779 Active 2017 Rashmi Hester MD [address], [address], [place], [address], [facility] 8 01:57:49 Anxiety 98537880 Active 2018 GRICEL DIAZ [address] [facility] [facility], [address], [place], [address], [facility] 9 09:58:09 Problem Notes None recorded. Medical Equipment None Reported. Allergies No known drug allergies Vitals Date Recorded Body temperature Heart rate Oxygen saturation Oxygen saturation in Arterial blood by Pulse oximetry Systolic And Diastolic Provider Name and Address Organization Details Last Updated DateTime 9 97.8 [degF] 68 /min 97 % 97 % 108/56 mm[Hg] GRICEL DIAZ [address] [facility] [facility], [address], [place], [address], [facility] 9 09:54:55 Date Recorded Systolic And Diastolic Provider Name and Address Organization Details Last Updated DateTime 09/04/2018 130/77 mm[Hg] Sara Mcgowan [facility] 09/04/2018 10:54:51 Date Recorded Heart rate Body temperature Systolic And Diastolic Provider Name and Address Organization Details Last Updated DateTime 08/09/2018 72 /min 97.3 [degF] 98/68 mm[Hg] Sara Mcgowan [facility] 08/09/2018 14:24:50 Date Recorded Body weight Heart rate Systolic And Diastolic Provider Name and Address Organization Details Last Updated DateTime 08/11/2018 32775.49 g 64 /min 118/64 mm[Hg] Rashmi Hester MD [address] [facility] [facility], [address], [place], [address], [facility] 08/16/2018 01:26:19 Date Recorded Heart rate Systolic And Diastolic Provider Name and Address Organization Details Last Updated DateTime 08/18/2018 68 /min 108/55 mm[Hg] Sara Roslyn [facility] 08/18/2018 15:55:28 Social History Question Answer Notes LastModified by Organizat ion Details LastModified Time Tobacco Smoking Status Former Smoker Not Available [facility] 06/17/2020 03:13:20 Do You Have An Advance Directive? No [id number] Information not available 06/17/2020 How Much Tobacco Do You Chew? None [id number] Information not available 06/17/2020 Do You Have A Medical Power Of Food And Beverage Assistant? No [id number] Information not available 06/17/2020 What Was The Date Of Your Most Recent Tobacco Screening? 09/04/2018 [id number] Information not available 06/17/2020 Has Tobacco Cessation Counseling Been Provided? No [id number] Information not available 06/17/2020 Sex: Unknown Functional Status None recorded. Mental Status None recorded. Family History Nothing Reported. Medical History No medical history recorded. Gynecological HistoryNo gynecological history recorded. Obstetrics History GPAL:G 0 P 0 0 0 0 Past Encounters Encounter ID Performer Location Encounter Start Date Encounter Closed Date Diagnosis/Indication Diagnosis SNOMED-CT Code Diagnosis ICD10 Code Diagnosis Note [id number] AMI Delacruz [facility] [address] [place] [address] 08/09/2018 13:53:07 08/25/2018 15:06:04 Toxic encephalopathy 02800362 G92 See HPISupport grabiel carePT/OT eval and treat for deconditio ningMonito r ability to return to community Severe greg or depression with psychotic features 64133490 F32.3 Zoloft 50 mg dailyMonit or moodPsych eval prn Essential hypertension 19656210 I10 Lisinopril 5 mg dailyMonit or bp and labs Harmful pa ttern of use of multiple substances 724851316 F19.10 Hx of polysubsta nce abuse Gastroesop hageal reflux disease without esophagitis 004830962 K21.9 Protonix 40 mg dailyMonit or sxs Urinary tr act infectious disease 71244130 N30.80 Completed course of ceftriaxon eMonitor for recurrent sxs [id number] Rashmi Hester MD [facility] on [address] [place] [address] 08/11/2018 13:49:59 08/25/2018 15:09:39 Toxic encephalopathy 66191466 G92 Unclear etiology, continue to assess for any improvemen t. To be evaluated by psych. Needs supportive care and PT/OT eval and treat for linda michaels.Need to assess [facility] Severe greg or depression with psychotic features 58973362 F32.3 Continue sertraline 50 mg qdMonitor moodPsych eval Urinary tr act infectious disease 09142688 N30.80 Completed course of bactrim and then ceftriaxon eMonitor for recurrent sxs Essential hypertension 69852531 I10 Stable on lisinopril 5 mg qdMonitor bp and labs Harmful pa ttern of use of multiple substances 625479746 F19.10 Hx of polysubsta nce abuse Gastroesop hageal reflux disease without esophagitis 964360868 K21.9 Protonix 40 mg dailyMonit or sxs Chronic back pain 671343 002 G89.29 Upper back pain, will try muscle rub and ibuprofen. Will have PT eval also. [id number] AMI Delacruz [facility] on [address] [place] [address] 08/18/2018 15:54:38 08/29/2018 12:02:53 Toxic encephalopathy 37729247 G92 See HPISupport grabiel carecont. PT/OTMonit or ability to return to community- remains very confused Severe greg or depression with psychotic features 26794261 F32.3 Zoloft 50 mg dailyMood stable, very pleasant Essential hypertension 10989217 I10 Lisinopril 5 mg dailyBP stable Gastroesop hageal reflux disease without esophagitis 980584703 K21.9 Protonix 40 mg dailyNo complaints currently [id number] GRICEL DIAZ [facility] on [address] [place] [address] 08/24/2018 09:53:19 08/29/2018 12:37:53 Toxic encephalopathy 52106282 G92 Unclear etiology, continue to assess for any improvemen t. To be evaluated by psych. Needs supportive care and PT/OT eval and treat for linda michaels.Need to assess whether it is safe for her to return to independen t living. Severe greg or depression with psychotic features 95420536 F32.3 Continue sertraline 50 mg qdMonitor moodPsych eval Harmful pa ttern of use of multiple substances 166193716 F19.10 Hx of polysubsta nce abuse Anxiety 77576270 F41.1 Add ativan 0.25 mg q 8 hours PRN anxietyref er to med options, therapist is her today, touched base with her and she will see her todaypt would like to speak to [employer] tomorrow while her boyfriend is here to talk about her progress [id number] AMI Delacruz [facility] on [address] [place] [address] 09/04/2018 10:34:45 09/06/2018 10:49:05 Toxic encephalopathy 47617952 G92 See HPISignifi cant improvemen t, A&O x 3Ambulatin g independen t and independen t with ADLsStill with some short-term memory loss-will need assistance with medication management VNA services in place for discharge home Severe greg or depression with psychotic features 72405457 F32.3 Zoloft 50 mg dailyMood stableWill f/u with psych in community Essential hypertension 80860092 I10 Lisinopril 5 mg dailyBP stable Harmful pa ttern of use of multiple substances 770946546 F19.10 Hx of polysubsta nce abusePatie nt states she understand s any further drug use would be very detrimenta l to her healthServ ices in place for discharge home Health Concerns Section Related Observation LastModified by Organization Detai ls LastModified Time None Recorded Concern Status LastModified by Organization Details LastModified Time None Recorded Advance Directives Directive N: Payers Insurance Date Sequence Insurance Name Policy Number Policy Quiroz Covered Member ID Quiroz Member ID Guarantor Name 09/04/2018 1 [facility] - HEALTH NET PLAN (MEDICAID HMO) BRANDIE Benedict [id number] Hali Benedict Notes Date Note Type Note Provider Name [...] long-standing drug abuse history. Patient admitted to [facility] psych unit 07/08 for depression with psychosis-treated with olanzapine then risperidone however patient continued to decline to point of being unable to move by self, mute and incontinent of urine and feces. Transferred to [facility] for further care. Extensive work-up including [...] 5 day course of ceftriaxone. Sara dubon [facility] 08/09/2018 14:43:18 8 text/html This is a 47 yo woman with hx of depression and polysubstance abuse who is here for rehab and possible LTC after an acute hospitalization for severe MS changes. Initially brought to ED by boyfriend after he found her very confused, incontinent and unsafe at home. She was admitted to [facility] after being medically cleared. She was txed for a UTI and meds were tried for confusion, Pt. became more confused to the point of being catatonic, so sent back to [facility] for medical eval. Boyfriend had question about whether she might have used meth while he was away. Utox on admission was neg. At [facility] and extensive w/u was done which showed [...] and polysubstance abuse. Rashmi Hester MD [address] [facility], [address], [place], [address], [facility] 08/16/2018 01:58:35 8 text/html 47 yo female seen for acute rounding visit. 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 Patient now ambulating independently. Denies complaints. PMH depression, htn, polysubstance abuse, gerd. Sara dubon, [facility] 08/18/2018 16:02:41 9 text/html 47 yo female [...] today about her anxiety. GRICEL DIAZ [address] [facility], [address], [place], [address], [facility] 08/24/2018 10:13:34 9 text/html 47 yo female admitted for rehab after hospitalization for catatonia and concern for toxic encephalopathy. Patient initially hospitalized after being found at home by boyfriend incontinent of urine and feces, extremely forgetful, difficulty with word finding and scratching self. Concern at that time about possible use of crystal meth as patient with long-standing drug abuse history. Patient admitted to [facility] psych unit 07/08 for depression with psychosis-treated with olanzapine then risperidone however patient continued to decline to point of being unable to move by self, mute and incontinent of urine and feces. Transferred to [facility] for further care. Extensive work-up including [...] appear to require level of care of [facility] facility at this time. Sara dubon [place] - [facility] 09/04/2018 10:55:23 OBGyn Episode No OBEpisode recorded.
[2025-02-21 14:52] VITALS: BP 122/90; PULSE 90; TEMP 36.9; O2SAT 97; BMI 23.1
--- NOTE | 2025-02-21 14:52 | AM.OFFWIN_ITS ---
Intake Vital Signs 02/21/25 14:52 Height 5 ft 7 in Weight 147 lb 4 oz BMI 23.1 BP 122/90 H Blood Pressure Location Lt brachial Position Sitting Pulse 90 Pulse Source Pulse Oximeter Temp 98.4 F Temp Source Oral Pulse Oximetry (%) 97 Oxygen Delivery Method Room Air Intake Visit Reasons: EP severe pain on back ? Kidney stones Intake Note: Patient present with right sided upper back pain times 3 day and worsening as the days go by Patient Tobacco Use Status: Former Tobacco user Green Ware Caster Required: No Allergies metronidazole (From Flagyl) Adverse Reaction (Severe, Verified 02/21/25 14:59) Nausea Do you need a note to return to daycare/school/sports/work: No HPI HPI Comments History of Present Illness Details History - The patient is a 54-year-old female pr esenting with back pain. - The back pain began two days ago and i s described as severe and atypical compared to her usual back pain. - The pain is on the left middle back, w ith associated tenderness and difficulty standing straight. - The patient initially suspected a kidn ey stone due to the pain's intensity. - There is noticeable body asymmetry, an d the patient states that she can't stand up straight. - She has no radiation of the pain. - Her friend who is a nurse said that sh e looks swollen on the right side. - She had no trauma or falls. - She denies CP, SOB, abd pain, n/v/d, r ashes, saddle anesthesia, numbness, tingling, or incontinence. Physical Exam General: cooperative, healthy appearing and comfortable, patient oriented x3 Head: Normal to inspection, normocephalic/atraumatic Effort & Inspection: Normal respiratory effort and able to speak in complete sentences. Cardiac: RRR, no M/R/G noted. Normal S1 and S2. Respiratory: Clear to auscultation bilaterally. No w/r/r noted. Back/spine: No CVA tenderness bilaterally. Unable to stand up straight on exam. Thoracic decrease ROM due to pain. No midline vertebral spinous tenderness noted. No step offs noted. Swelling to the thoracic region on the right. TTP of the right mid back, protusion noted. Asymmetry noted from the left. DTR are 2+ on the lower extremities noted. Ambulates with a steady gait but hunched over. Extremities: Straight leg raise test negative on right; Straight leg raise test negative on left; motor strength normal 5/5 bilaterally. Neuro: Sensation intact. Patient was informed and verbally consented to the use of an ambient scribe for clinic note documentation during this visit. [facility] Medical History (Updated 01/09/25 @ 12:11 by LOVE Ruff) Diarrhea Subclinical hyperthyroidism Hypercalcemia Hypokalemia Incisional infection Back pain Hx of transfusion of packed red blood cells Vomiting and diarrhea Skin cancer Memory loss, short term Numbness Hx of cardiac murmur Anxiety Gastric ulcer Anemia PTSD (post-traumatic stress disorder) Synovial cyst of lumbar spine Urine incontinence Postlaminectomy syndrome Surgical History Hx of exploratory laparotomy Hx of colonoscopy History of esophagogastroduodenoscopy (EGD) Hx of spinal fusion H/O unilateral oophorectomy History of discectomy History of tonsillectomy Family History Father No problems noted. Mother Substance use disorder Maternal Grandmother Alzheimer's disease Brother No problems noted. Sister No problems noted. Son No problems noted. Social History Household Members: Significant Other Housing: House Are you a primary manager progressive care to a significant other at home: No Do you presently have visiting nurse or other home services: No Alcohol intake: never Comment: COUNTS CORRECT Patient Tobacco Use Status: Former Tobacco user Tobacco use type: Smokeless Tobacco Years Smoked: 35 e-Cigarette/Vaping Use: Currently Using service: No Current occupational status: disabled Cognitive needs: No Hearing needs: No Vision needs: No Review of Systems Const All systems reviewed & are unremarkable except as noted in HPI and below Physical Exam Vital Signs: Last Vital Signs Temp 98.4 F 02/21/25 14:52 Pulse 90 02/21/25 14:52 BP 122/90 H 02/21/25 14:52 Pulse Ox 97 02/21/25 14:52 Oxygen Delivery Method Room Air 02/21/25 14:52 BMI result Body Mass Index 23.1 Results AMB Urinalysis, Automated UA Leukoctes 0 Musa/uL Last Edit by Nora Ramírez MA on 02/21/25 15:10 UA Nitrite Negative Last Edit by Nora Ramírez MA on 02/21/25 15:10 UA Urobilinogen 0.2 mg/dL Last Edit by Nora Ramírez MA on 02/21/25 15:10 UA Protein 0 mg/dL Last Edit by Nora Ramírez MA on 02/21/25 15:10 UA pH 6.5 Last Edit by Nora Ramírez MA on 02/21/25 15:10 UA Blood 0 Augustin/uL Last Edit by Nora Ramírez MA on 02/21/25 15:10 UA Specific Warren 1.010 Last Edit by Nora Ramírez MA on 02/21/25 15:10 UA Ketone Negative Last Edit by Nora Ramírez MA on 02/21/25 15:10 UA Bilirubin 0 mg/dL Last Edit by Nora Ramírez MA on 02/21/25 15:10 UA Glucose 0 mg/dL Last Edit by Nora Ramírez MA on 02/21/25 15:10 Results Reviewed Results Reviewed: Laboratory Last Values Urine pH (Auto) 6.5 02/21/25 15:08 Specific Warren (Auto) 1.010 02/21/25 15:08 Urine Protein (Auto) 0 mg/dL 02/21/25 15:08 Glucose (UA)(Auto) 0 mg/dL 02/21/25 15:08 Urine Ketones (Auto) Negative 02/21/25 15:08 Urine Blood (Auto) 0 Augustin/uL 02/21/25 15:08 Urine Nitrite (Auto) Negative 02/21/25 15:08 Urine Bilirubin (Auto) 0 mg/dL 02/21/25 15:08 Urine Urobilinogen (Auto) 0.2 mg/dL 02/21/25 15:08 Leukocyte Esterase (Auto) 0 Musa/uL 02/21/25 15:08 Assessment & Plan Assessment & Plan (1) Acute back pain: Code(s): M54.9 - Dorsalgia, unspecified Qualifiers: Back pain location: thoracic back pain Back pain laterality: right Qualified Code(s): M54.6 - Pain in thoracic spine Plan 1. Back Pain - Recommended advanced imaging such as MRI or CT scan to assess the cause of back pain and abnormality - Patient advised to go to [facility] for further evaluation and imaging. - called the ER for an expect. - pt is going by private vehicle and patient is agreeable - PCP is aware Orders: Orders AMB Urinalysis Automated Today Z13.9 - Encounter for screening, unspecified Coding Level of Care Code Est Pt Level 4 (74844) Diagnoses Acute right-sided thoracic back pain M54.6 Back pain location: thoracic back pain Back pain laterality: right
== END 2025-02-21 15:45 | disposition home or self-care (01) ==
PROVIDERS: PCP Nurse Practitioner Family; Visit Provider Physician Assistant Medical
DX: Z13.9 Encounter for screening, unspecified (principal); M54.6 Pain in thoracic spine

== ENCOUNTER → 2025-02-21 14:48 | Outpatient (BNVA) | payer MEDICARE, MEDICAID, SELFPAY | PROVIDERS: PCP Nurse Practitioner Family; Visit Provider Physician Assistant Medical | DX: M54.6 Pain in thoracic spine (principal) | CPT/HCPCS: 81003; 99212 ==

== ENCOUNTER 2025-02-21 15:51 | Emergency (ER) | payer MEDICARE, MEDICAID, SELFPAY ==
--- NOTE | ~2025-02-21 | XR_ITS ---
CLINICAL HISTORY: Back pain with asymmetry of the spine 3 views lumbar spine Comparison: None provided Findings: Moderately severe rotatory scoliosis limits interpretation. Height loss noted at L2, chronic appearing. Moderate multilevel degenerative change. No definite acute fracture. Diffuse fecal retention throughout the colon. Impression: Moderately severe rotatory scoliosis. Chronic appearing changes. This document has been electronically signed by: Jose Soriano MD on 02/21/2025 18:40:29
--- NOTE | ~2025-02-21 | XR_ITS ---
CLINICAL HISTORY: Back pain, deformity in the thoracic spine 3 views thoracic spine Comparison: None provided Findings: Moderately severe rotatory scoliosis and mild demineralization somewhat limits interpretation. Mild multilevel height loss and diffuse degenerative change. The visualized lungs are clear. Impression: Scoliosis and demineralization limits interpretation. No definite acute fracture. Chronic changes. This document has been electronically signed by: Jose Soriano MD on 02/21/2025 18:42:40
--- NOTE | 2025-02-21 15:54 | ECG_ITS ---
Test Reason : cp Blood Pressure : */* mmHG Vent. Rate : 79 BPM Atrial Rate : 79 BPM P-R Int : 176 ms QRS Dur : 66 ms QT Int : 356 ms P-R-T Axes : 35 10 11 degrees QTcB Int : 408 ms Normal sinus rhythm Normal ECG When compared with ECG of 13-Dec-2023 13:24, Vent. rate has increased by 27 bpm Nonspecific T wave abnormality no longer evident in Anterior leads Referred By: Generic ED Physician Electronically Signed By: RICKY HADDAD MD
[2025-02-21 16:00] VITALS: BP 154/102; PULSE 86; RESP 16; TEMP 36.6; O2SAT 97; BMI 22.9
--- NOTE | 2025-02-21 16:15 | ED.GENADULT ---
HPI - General Adult General Chief complaint: Back Pain/Injury Stated complaint: back, stomach, chest pain Time Seen by Provider: 02/21/25 17:20 Source: patient Mode of arrival: ambulatory Limitations: no limitations History of Present Illness ED Provider: DR. Mckeon HPI narrative: A 54-year-old female sent from PCP office for evaluation of mid back pain x3 days the patient initially thought it could be related to a kidney stone, patient also has been complaining of can not stand straight in her body is curving to the left side, with tenderness with bending down and movement, declined any recent trauma, no fall, at the PCP office noticed deformity in her mid back that patient has never noticed in the past. No dysuria, no frequency urination, no hematuria. No weakness, no numbness, no fever. Related Data Previous Rx's ?Medication ?Instructions ?Recorded famotidine 20 mg tablet 20 mg PO BEDTIME #30 tabs 10/18/23 esomeprazole magnesium 20 mg 20 mg PO BID #180 caps 09/24/24 capsule,delayed release cholestyramine-aspartame 4 gram 2 g PO Q OTHER DAY 90 days #60 ea 10/01/24 oral powder for susp in a packet gabapentin 300 mg capsule 300 mg PO .COMPLEX 30 days #150 10/17/24 caps rosuvastatin 5 mg tablet 5 mg PO BEDTIME 90 days #90 tabs 12/24/24 lorazepam 1 mg tablet 1 mg PO DAILY PRN anxiety 6 days 01/21/25 #12 tabs bupropion HCl 150 mg 24 hr tablet, 150 mg PO BEDTIME 90 days #90 tabs 02/20/25 extended release Allergies Allergy/AdvReac Type Severity Reaction Status Date / Time metronidazole (From Flagyl) AdvReac Severe Nausea Verified 02/21/25 16:04 Review of Systems Review of Systems: All other systems are reviewed and are negative Constitutional: Reports as per HPI and Reports no additional constitutional complaints Eyes: Reports as per HPI and Reports no additional eye complaints Reports system reviewed and no additional complaints, except as documented Cardiovascular: Reports as per HPI and Reports no additional cardiovascular complaints Respiratory: Reports as per HPI and Reports no additional respiratory complaints Gastrointestinal: Reports as per HPI and Reports no additional gastrointestinal complaints Genitourinary: Reports no additional female genitourinary complaints Musculoskeletal: Reports no additional musculoskeletal complaints Skin/Breast: Reports system reviewed and no additional complaints, except as docu Psychiatric: Reports no additional psychiatric complaints Endocrine: Reports no additional endocrine complaints Hematologic/Lymphatic: Reports no additional hematologic/lymphatic complaints Allergic/Immunologic: Reports no additional allergic/immunologic complaints Reports system reviewed and no additional complaints, except as documented and Reports Abnormal speech present [facility] Past Medical History Medical History Diarrhea Subclinical hyperthyroidism Hypercalcemia Hypokalemia Incisional infection Back pain Hx of transfusion of packed red blood cells Vomiting and diarrhea Skin cancer Memory loss, short term Numbness Hx of cardiac murmur Anxiety Gastric ulcer Anemia PTSD (post-traumatic stress disorder) Synovial cyst of lumbar spine Urine incontinence Postlaminectomy syndrome Surgical History Hx of exploratory laparotomy Hx of colonoscopy History of esophagogastroduodenoscopy (EGD) Hx of spinal fusion H/O unilateral oophorectomy History of discectomy History of tonsillectomy Family History Family History Father No problems noted. Mother Substance use disorder Maternal Grandmother Alzheimer's disease Brother No problems noted. Sister No problems noted. Son No problems noted. Social History Social History Household Members: Significant Other Housing: House Are you a primary rn patient care to a significant other at home: No Do you presently have visiting nurse or other home services: No Alcohol intake: never Comment: COUNTS CORRECT Patient Tobacco Use Status: Former Tobacco user Tobacco use type: Smokeless Tobacco Years Smoked: 35 e-Cigarette/Vaping Use: Currently Using service: No Current occupational status: disabled Cognitive needs: No Hearing needs: No Vision needs: No Physical Exam ED Vital Signs: Vital Signs - 24 hr 02/21/25 16:00 02/21/25 19:46 Temperature 97.9 F 97.9 F Pulse Rate 86 86 Respiratory Rate 16 16 Blood Pressure 154/102 H 154/102 H Pulse Oximetry 97 97 Oxygen Delivery Method Room Air BMI result Body Mass Index 22.9 Vital signs have been reviewed and appear to be correct. Blood pressure elevated. Heart rate normal. Respiratory rate normal. Temperature normal. Oxygen saturation normal. Appearance: Alert. Oriented X3. No acute distress. Head: Normal external exam. Normocephalic. Atraumatic. No Yee signs noted. No raccoon eyes noted Eyes: PERRLA. EOMI. Conjunctiva and sclera normal. Eyelids normal. ENT: TM's Normal. Pharynx normal. Uvula midline. Moist mucous membranes. No trismus noted. No drooling noted. No muffled voice noted. Neck: Normal inspection. Neck supple. FROM. No adenopathy. Thyroid Normal. No meningeal signs. No neck mass noted. CVS: Normal heart rate and rhythm. Heart sound normal. No murmurs noted. Pulses normal throughout. Respiratory: No respiratory distress. Painless inspiration. Breath sounds normal. No wheezes/rales/rhonchi noted. Chest nontender. No accessory muscle usage noted or decreased air movement noted. Abdomen: Soft and nontender. Bowel sounds normal in all 4 quadrants. No distention noted. No organomegaly noted. No visible injury noted. Back: Can not stand straight, thoracic spine deformity with curvature of the thoracic spine, no step-off, no palpable mass otherwise. Skin: Skin warm and dry. Normal skin color. Normal skin turgor. No rashes/lesions/lacerations noted. Extremities: No lower extremity edema. Extremities exhibit normal range of motion. Extremities nontender. Neuro: Oriented X 3. Cranial nerve exam: II-XII are grossly intact No motor deficit. No sensory deficit. Reflexes normal. Course Course Course Narrative: RME: 54-year-old female presents to ED for right side flank back pain for the past 3 days. Patient referred from urgent care for mass on right flank area. Physical exam positive for right flank appears to be swollen with palpable rib hard mass and patient in scoliosis position. Patient has not patient's testing to the left and has no history of scoliosis. Labs ordered. Patient to be brought to the ED by nurse Dominique. Reevaluation(s) Reevaluation #1: 54-year-old female with chronic scoliosis came in for increased pain of her back, no recent trauma, x-ray is showing significant scoliosis in her spine. X-ray findings consistent with chronic scoliosis with no acute fracture, this finding is unchanged from previous CTs/x-rays in the past., when I tried to explain that is scoliosis is not an acute disease patient usually takes many years to deform the spine, patient was instructed to follow with her PCP and get spine doctor evaluation as an outpatient. No dysuria, no hematuria, urine is not reflecting UTI or kidney stone. Time: 19:19 Medical Decision Making Differential Diagnosis Differential Diagnoses: The differential diagnosis associated with the presentation includes (Chronic scoliosis, pyelonephritis, UTI, kidney stones.) Admission/Observation Consideration of admission/observation: Escalation of care including admission/observation considered Lab Data MDM Lab Attestation statement: I reviewed the patient's lab results. 02/21/25 16:17 02/21/25 16:17 Labs: Lab Results 02/21/25 02/21/25 Range/Units 16:17 17:30 WBC 7.4 (4.8-10.8) X10*3/uL RBC 4.32 (4.20-5.50) X10*6/uL Hgb 10.6 L (12.0-16.0) g/dl Hct 35.0 L (37.0-47.0) % MCV 81.0 (80.0-98.0) fL MCH 24.5 L (27.0-33.0) pg MCHC 30.3 L (31.0-35.0) g/dl RDW 16.5 H (11.0-16.0) % Plt Count 535 H D (160-400) X10*3/uL MPV 9.4 (9.4-12.3) fL Immature Gran % (Auto) 0.3 (0.0-0.4) % Neut % (Auto) 64.3 (45-73) % Lymph % (Auto) 21.4 (20-40) % Stephenson % (Auto) 7.2 (2-11) % Eos % (Auto) 5.0 H (0-4) % Baso % (Auto) 1.8 (0-2) % Lymph # (Auto) 1.6 (1.2-4.9) X10*3/uL Stephenson # (Auto) 0.5 (0.1-1.2) X10*3/uL Eos # (Auto) 0.4 (0.0-0.4) X10*3/uL Baso # (Auto) 0.1 (0.0-0.2) X10*3/uL Abs Immat Gran (auto) 0.02 (0.00-0.03) X10*3/uL Absolute Neuts (auto) 4.8 (2.0-8.3) x10*3/uL Absolute Nucleated RBC 0.000 (0.0-0.012) X10*3/uL Nucleated RBC % (auto) 0.0 (0.0-0.2) /100WBC PT 11.5 (10.9-12.4) SEC INR 1.0 (0.9-1.1) APTT 34.2 (26.0-36.8) SEC Sodium 141 (135-145) mmol/L Potassium 4.2 (3.3-5.1) mmol/L Chloride 107 (96-108) mmol/L Carbon Dioxide 24 (22-29) mmol/L Anion Gap 14 (12-20) BUN 11 (9-16) mg/dL Creatinine 0.89 (0.5-1.4) mg/dL Estim Creat Clear Calc 69.4 Estimated GFR > 60 Random Glucose 88 (60-115) mg/dL Calcium 10.0 (8.4-10.2) mg/dL Total Bilirubin 0.2 (0.0-1.0) mg/dL AST 30 (5-31) U/L ALT 23 (0-31) U/L Alkaline Phosphatase 69 (39-117) U/L Total Protein 6.9 (6.5-8.0) g/dL Albumin 4.4 (3.5-5.0) g/dL Urine Color Yellow Urine Appearance Clear Urine pH 8.0 (5.0-9.0) Ur Specific [place] <= 1.005 (1.005-1.025) Urine Protein Negative (Neg-Trace) mg/dL Urine Glucose (UA) Negative (Negative) mg/dL Urine Ketones Negative (Negative) mg/dL Urine Blood Negative (Negative) Urine Nitrite Negative (Negative) Ur Leukocyte Esterase Negative (Negative) Independent Interpretation I performed an independent interpretation of an: Plain X-Ray (Thoracic/lumbar spine:Scoliosis and demineralization limits interpretation. No definite acute fracture. Chronic changes.) Radiology Impression Discussion of test interpretation with radiology: I have reviewed the radiologist's reading. Discharge Plan Discharge Clinical Impression: Scoliosis (and kyphoscoliosis), idiopathic Patient Disposition: Home, Self-Care Instructions: Chronic Back Pain (DC) Prescriptions: No Action esomeprazole magnesium 20 mg capsule,delayed release(DR/EC) 20 mg PO BID Qty: 180 1RF cholestyramine-aspartame 4 gram powder in packet 2 g PO Q OTHER DAY 90 Days Qty: 60 1RF gabapentin 300 mg capsule 300 mg PO .COMPLEX 30 Days Qty: 150 4RF Rx Instructions: 300 mg orally; 300 mg PO; 600mg in am, 300mg at noon, 600mg at night rosuvastatin 5 mg tablet 5 mg PO BEDTIME 90 Days Qty: 90 1RF lorazepam 1 mg tablet 1 mg PO DAILY PRN (Reason: anxiety) 6 Days Qty: 12 0RF Rx Instructions: take 1 tab 45 minutes before trip, if it does not help, take second tab. Same directions for trip home bupropion HCl 150 mg tablet extended release 24 hr 150 mg PO BEDTIME 90 Days Qty: 90 1RF famotidine 20 mg tablet 20 mg PO BEDTIME Qty: 30 3RF Referrals: Jhon Ramesh, [facility] [Primary Care Provider, Internal Medicine] Interventions: ED Discharge Assessment Last Done: 02/21/25 19:46 Discharge Date/Time: 02/21/25 19:48 Print Language: Irish
[2025-02-21 16:40] LABS: MANUAL DIFF FLAG NO
[2025-02-21 16:42] LABS: Hematocrit 35.0 % (37.0-47.0); Hemoglobin 10.6 g/dl (12.0-16.0); Imm Gran Abs Auto 0.02 X10*3/uL (0.00-0.03); Imm Gran Pct Auto 0.3 % (0.0-0.4); Lymphocytes Absolute Auto 1.6 X10*3/uL (1.2-4.9); Mean Corpuscular HGB Conc 30.3 g/dl (31.0-35.0); Mean Corpuscular Hemoglobin 24.5 pg (27.0-33.0); Mean Corpuscular Volume 81.0 fL (80.0-98.0); NRBC Abs Auto 0.000 X10*3/uL (0.0-0.012); NRBC Pct Auto 0.0 /100WBC (0.0-0.2); Platelet Count 535 X10*3/uL (160-400); Red Blood Count 4.32 X10*6/uL (4.20-5.50); White Blood Count 7.4 X10*3/uL (4.8-10.8)
[2025-02-21 16:48] LABS: INTERNATIONAL NORM RATIO 1.0 (0.9-1.1); Prothrombin Time 11.5 SEC (10.9-12.4)
[2025-02-21 16:51] LABS: Partial Thromboplastin Time 34.2 SEC (26.0-36.8)
[2025-02-21 16:56] LABS: Alanine Aminotransferase 23 U/L (0-31); Albumin Level 4.4 g/dL (3.5-5.0); Alkaline Phosphatase 69 U/L (39-117); Anion Gap 14 (12-20); Aspartate Amino Transferase 30 U/L (5-31); Blood Urea Nitrogen 11 mg/dL (9-16); Calcium 10.0 mg/dL (8.4-10.2); Carbon Dioxide 24 mmol/L (22-29); Chloride 107 mmol/L (96-108); Creatinine Clr Calc Pharmacy 69.4; Estimated Glomerular Filt Rate > 60; Potassium 4.2 mmol/L (3.3-5.1); Sodium 141 mmol/L (135-145); Total Protein 6.9 g/dL (6.5-8.0)
[2025-02-21 17:58] LABS: Appearance Urine Clear; Glucose Urine UA Negative (Negative); PH 8.0 (5.0-9.0); Specific Gravity - Urine <= 1.005 (1.005-1.025)
[2025-02-21 19:46] VITALS: BP 154/102; PULSE 86; RESP 16; TEMP 36.6; O2SAT 97
== END 2025-02-21 19:48 | disposition home or self-care (01) ==
PROVIDERS: Physician Assistant; Emergency Provider Emergency Medicine; PCP Nurse Practitioner Family
DX: M41.25 Other idiopathic scoliosis, thoracolumbar region (principal); R07.89 Other chest pain; Z79.899 Other long term (current) drug therapy
CPT/HCPCS: 36415; 72070; 72100; 80053; 81003; 85025; 85610; 85730; 93005; 99283; 99284

== ENCOUNTER → 2025-02-21 15:54 | Outpatient (BNV) | payer MEDICARE, MEDICAID, SELFPAY | PROVIDERS: Emergency Provider Emergency Medicine; PCP Nurse Practitioner Family; Visit Provider Internal Medicine Cardiovascular Disease | DX: R07.9 Chest pain, unspecified (principal) | CPT/HCPCS: 93010 ==

== ENCOUNTER → 2025-02-21 17:42 | Outpatient (BNV) | payer MEDICARE, MEDICAID, SELFPAY | PROVIDERS: Emergency Provider Emergency Medicine; PCP Nurse Practitioner Family; Visit Provider Radiology Vascular & Interventional Radiology | DX: M54.50 Low back pain, unspecified (principal); M41.86 Other forms of scoliosis, lumbar region; M54.6 Pain in thoracic spine; M41.84 Other forms of scoliosis, thoracic region | CPT/HCPCS: 72070; 72100 ==

== ENCOUNTER → 2025-03-11 13:59 | Outpatient (BNV) | payer MEDICARE, MEDICAID, SELFPAY | PROVIDERS: PCP Nurse Practitioner Family; Referring Provider Nurse Practitioner Family; Visit Provider Internal Medicine Medical Oncology | DX: D64.9 Anemia, unspecified (principal) | CPT/HCPCS: 99204 ==

== ENCOUNTER 2025-03-19 11:25 | Outpatient (REF) | payer MEDICARE, MEDICAID, SELFPAY ==
[2025-03-19 17:15] LABS: Resp Syncy Virus RNA Qual PCR NEGATIVE (Negative); SARS COV2 PCR INHOUSE NEGATIVE (Negative)
== END 2025-03-19 11:26 | disposition home or self-care (01) ==
LOC: HO.LNP 11:25
PROVIDERS: PCP Nurse Practitioner Family; Visit Provider Physician Assistant Medical
DX: R43.2 Parageusia (principal); R09.89 Other specified symptoms and signs involving the circulatory and respiratory systems; Z20.822 Contact with and (suspected) exposure to COVID-19
CPT/HCPCS: 87637; 99212

== ENCOUNTER 2025-03-19 11:25 | Outpatient (AMB) | payer MEDICARE, MEDICAID, SELFPAY ==
[2025-03-19 11:40] VITALS: BP 108/76; PULSE 80; TEMP 36.8; O2SAT 96; BMI 22.4
--- NOTE | 2025-03-19 11:40 | AM.OFFWIN_ITS ---
Intake Vital Signs 03/19/25 11:40 Height 5 ft 7 in Weight 143 lb BMI 22.4 BP 108/76 Blood Pressure Location Rt brachial Position Sitting Pulse 80 Pulse Source Pulse Oximeter Temp 98.2 F Temp Source Oral Pulse Oximetry (%) 96 Oxygen Delivery Method Room Air Intake Visit Reasons: EP Trush Intake Note: pt presents with tongue swelling, loss of taste, any acidic foods/liquids burn her mouth, feels like there's a film covering inside mouth Patient Tobacco Use Status: Former Tobacco user Allergies metronidazole (From Flagyl) Adverse Reaction (Severe, Verified 03/19/25 11:42) Nausea Do you need a note to return to daycare/school/sports/work: No HPI HPI Comments History of Present Illness Details History of Present Illness - The patient is a 54-year-old female pr esenting with symptoms of oral thrush. - She reports she was seen in the ER in the beginning of February for back pain and had a broken rib. - Post-emergency room visit, she develop ed a sore throat and loss of voice, which has mostly resolved, though some discomfort persists. - Oral sensitivity and burning sensation s from certain foods are noted, along with a white film in the mouth, leading to a suspicion of oral thrush. - The patient has not been tested for [place] VID-19 but suspects possible infection following her emergency room visit. - She states that her tongue [place] and h er food has no taste. - She denies fever, chills, sore throat, cough, ARREOLA, recent antibiotics use, or inhalers. She is not a smoker. Physical Exam General: Cooperative, healthy appearing, comfortable, no acute distress and well developed Head: Normal to inspection Ears: Hearing grossly normal bilaterally. Normal TM's Nose: Normal external nose present Mouth: Oropharynx is pink with no exudates. Tongue is whitish. Face and sinus: Normal facial exam. No sinus tenderness noted. Neck: Normal visual inspection and Yes full ROM Respiratory: Normal respiratory effort and able to speak in complete sentences. Clear to auscultation bilaterally Cardiovascular: Regular rate and rhythm. Normal S1 and S2 Skin: No rashes or lesions noted Patient was informed and verbally consented to the use of an ambient scribe for clinic note documentation during this visit. [facility] Medical History (Updated 03/11/25 @ 17:19 by Jayesh Yates MD) Fracture of ninth rib Fracture of right tenth rib Scoliosis Diarrhea Subclinical hyperthyroidism Hypercalcemia Hypokalemia Incisional infection Back pain Hx of transfusion of packed red blood cells Vomiting and diarrhea Skin cancer Memory loss, short term Numbness Hx of cardiac murmur Anxiety Gastric ulcer Anemia PTSD (post-traumatic stress disorder) Synovial cyst of lumbar spine Urine incontinence Postlaminectomy syndrome Surgical History (Updated 03/11/25 @ 17:19 by Jayesh Yates MD) Hx of exploratory laparotomy Hx of colonoscopy History of esophagogastroduodenoscopy (EGD) Hx of spinal fusion H/O unilateral oophorectomy History of discectomy History of tonsillectomy Family History Father No problems noted. Mother Substance use disorder Maternal Grandmother Alzheimer's disease Brother No problems noted. Sister No problems noted. Son No problems noted. Social History (Updated 03/11/25 @ 14:41 by Nicky Jorgensen) Household Members: Significant Other Housing: House Are you a primary direct care provider to a significant other at home: No Do you presently have visiting nurse or other home services: No Alcohol intake: never Comment: COUNTS CORRECT Patient Tobacco Use Status: Former Tobacco user Tobacco use type: Smokeless Tobacco Years Smoked: 35 e-Cigarette/Vaping Use: Currently Using service: No Current occupational status: disabled Cognitive needs: No Hearing needs: No Vision needs: No Review of Systems Const All systems reviewed & are unremarkable except as noted in HPI and below Physical Exam Vital Signs: Last Vital Signs Temp 98.2 F 03/19/25 11:40 Pulse 80 03/19/25 11:40 BP 108/76 03/19/25 11:40 Pulse Ox 96 03/19/25 11:40 Oxygen Delivery Method Room Air 03/19/25 11:40 BMI result Body Mass Index 22.4 Assessment & Plan Assessment & Plan (1) Loss of taste: Code(s): R43.2 - [place] Plan Most likely thrush vs covid vs viral illness Plan - Prescribe an antifungal swish and swallow medication for oral thrush. - Consider COVID-19 testing to rule out infection, given the symptoms and recent exposure in the emergency room. - Diet as tolerated - Advised her to follow up with PCP if symptoms don't resolve Orders: Orders SARS-CoV2/FLU/RSV Today R09.89 - Other specified symptoms and signs involving the circulatory and respiratory systems Medications: New nystatin administer 1/2 of dose in each side of the mouth 5 mL buccal qid 140 mL 0RF 7 days Coding Level of Care Code Est Pt Level 3 (93517) Diagnoses Loss of taste R43.2
--- OUTSIDE RECORDS SUMMARY | 2025-03-19 12:38 | XMS_ITS | Data Portability ---
Author Organization [facility], Main Office Address [address] [facility], [facility] [address] [place] [address] Care Team Providers Care Care Transition Coordinator Name Role Phone [facility] OTHER Assessment Encounter Date Assessment Date [...] Address Organization Details Recorded Time Toxic encephalopathy 33351704 Active 2017 Sara dubon [facility] 8 14:16:18 Essential hypertension 36788870 Active 2017 Sara dubon [facility] 8 14:16:36 Gastroesophage al reflux disease without esophagitis 612106942 Active 2017 Sara dubon [facility] 8 14:16:48 Severe major depression with psychotic features 34250743 Active 2017 Sara dubon [facility] 8 14:17:19 Harmful pattern of use of multiple substances 395903407 Active 2017 Sara Mcgowan [facility] 8 14:17:26 Chronic back pain 575953153 Active 2017 Rashmi Hester MD [address] [facility], [address], [place], [address], [facility] 8 13:57:47 Urinary tract infectious disease 00105109 Active 2017 Rashmi Hester MD [address] [facility], [address], [place], [address], [facility] 8 01:57:49 Anxiety 28618752 Active 2018 GRICEL DIAZ [address] [facility], [address], [place], [address], [facility] 9 09:58:09 Problem Notes None recorded. Medical Equipment None Reported. Allergies No known drug allergies Vitals Date Recorded Body temperature Heart rate Oxygen saturation Oxygen saturation in Arterial blood by Pulse oximetry Systolic And Diastolic Provider Name and Address Organization Details Last Updated DateTime 9 97.8 [degF] 68 /min 97 % 97 % 108/56 mm[Hg] GRICEL DIAZ [address] [facility], [address], [place], [address], [facility] 9 09:54:55 Date Recorded Systolic And Diastolic Provider Name and Address Organization Details Last Updated DateTime 09/04/2018 130/77 mm[Hg] Sara Mcgowan [facility] 09/04/2018 10:54:51 Date Recorded Heart rate Body temperature Systolic And Diastolic Provider Name and Address Organization Details Last Updated DateTime 08/09/2018 72 /min 97.3 [degF] 98/68 mm[Hg] Sara Mcgowan [facility] 08/09/2018 14:24:50 Date Recorded Body weight Heart rate Systolic And Diastolic Provider Name and Address Organization Details Last Updated DateTime 08/11/2018 59117.49 g 64 /min 118/64 mm[Hg] Rashmi Hester MD [address] [facility], [address], [place], [address], [facility] 08/16/2018 01:26:19 Date Recorded Heart rate Systolic And Diastolic Provider Name and Address Organization Details Last Updated DateTime 08/18/2018 68 /min 108/55 mm[Hg] Sara Roslyn [facility] - [facility] 08/18/2018 15:55:28 Social History Question Answer Notes LastModified by Organizat ion Details LastModified Time Tobacco Smoking Status Former Smoker Not Available [facility] 06/17/2020 03:13:20 Do You Have An Advance Directive? No [id number] Information not available 06/17/2020 How Much Tobacco Do You Chew? None [id number] Information not available 06/17/2020 Do You Have A Medical Power Of Night Shift Supervisor? No [id number] Information not available 06/17/2020 What Was The Date Of Your Most Recent Tobacco Screening? 09/04/2018 [id number] Information not available 06/17/2020 Has Tobacco Cessation Counseling Been Provided? No [id number] Information not available 06/17/2020 Sex: Unknown Functional Status None recorded. Mental Status None recorded. Family History Nothing Reported. Medical History No medical history recorded. Gynecological HistoryNo gynecological history recorded. Obstetrics History GPAL:G 0 P 0 0 0 0 Past Encounters Encounter ID Performer Location Encounter Start Date Encounter Closed Date Diagnosis/Indication Diagnosis SNOMED-CT Code Diagnosis ICD10 Code Diagnosis Note [id number] AMI Delacruz [facility] on [address] [place] [address] 08/09/2018 13:53:07 08/25/2018 15:06:04 Toxic encephalopathy 56214097 G92 See HPISupport grabiel carePT/OT eval and treat for deconditio ningMonito r ability to return to community Severe greg or depression with psychotic features 45807625 F32.3 Zoloft 50 mg dailyMonit or moodPsych eval prn Essential hypertension 64762660 I10 Lisinopril 5 mg dailyMonit or bp and labs Harmful pa ttern of use of multiple substances 826422753 F19.10 Hx of polysubsta nce abuse Gastroesop hageal reflux disease without esophagitis 148244719 K21.9 Protonix 40 mg dailyMonit or sxs Urinary tr act infectious disease 94012572 N30.80 Completed course of ceftriaxon eMonitor for recurrent sxs [id number] Rashmi Hester MD [facility] on [address] [place] [address] 08/11/2018 13:49:59 08/25/2018 15:09:39 Toxic encephalopathy 28387443 G92 Unclear etiology, continue to assess for any improvemen t. To be evaluated by psych. Needs supportive care and PT/OT eval and treat for linda michaels.Need to assess [facility] Severe greg or depression with psychotic features 39672301 F32.3 Continue sertraline 50 mg qdMonitor moodPsych eval Urinary tr act infectious disease 17259573 N30.80 Completed course of bactrim and then ceftriaxon eMonitor for recurrent sxs Essential hypertension 90233309 I10 Stable on lisinopril 5 mg qdMonitor bp and labs Harmful pa ttern of use of multiple substances 638459695 F19.10 Hx of polysubsta nce abuse Gastroesop hageal reflux disease without esophagitis 859276771 K21.9 Protonix 40 mg dailyMonit or sxs Chronic back pain 041586 002 G89.29 Upper back pain, will try muscle rub and ibuprofen. Will have PT eval also. [id number] AMI Delacruz [facility] on [address] [place] [address] 08/18/2018 15:54:38 08/29/2018 12:02:53 Toxic encephalopathy 40574440 G92 See HPISupport grabiel carecont. PT/OTMonit or ability to return to community- remains very confused Severe greg or depression with psychotic features 57802330 F32.3 Zoloft 50 mg dailyMood stable, very pleasant Essential hypertension 08348749 I10 Lisinopril 5 mg dailyBP stable Gastroesop hageal reflux disease without esophagitis 755734484 K21.9 Protonix 40 mg dailyNo complaints currently [id number] GRICEL DIAZ [facility] on [address] [place] [address] 08/24/2018 09:53:19 08/29/2018 12:37:53 Toxic encephalopathy 98120669 G92 Unclear etiology, continue to assess for any improvemen t. To be evaluated by psych. Needs supportive care and PT/OT eval and treat for linda michaels.Need to assess whether it is safe for her to return to independen t living. Severe greg or depression with psychotic features 51812533 F32.3 Continue sertraline 50 mg qdMonitor moodPsych eval Harmful pa ttern of use of multiple substances 635530435 F19.10 Hx of polysubsta nce abuse Anxiety 45026630 F41.1 Add ativan 0.25 mg q 8 hours PRN anxietyref er to med options, therapist is her today, touched base with her and she will see her todaypt would like to speak to GARMENT PRESSER tomorrow while her boyfriend is here to talk about her progress [id number] AMI Delacruz [facility] on [address] [place] [address] 09/04/2018 10:34:45 09/06/2018 10:49:05 Toxic encephalopathy 61228259 G92 See HPISignifi cant improvemen t, A&O x 3Ambulatin g independen t and independen t with ADLsStill with some short-term memory loss-will need assistance with medication management VNA services in place for discharge home Severe greg or depression with psychotic features 89754508 F32.3 Zoloft 50 mg dailyMood stableWill f/u with psych in community Essential hypertension 58831573 I10 Lisinopril 5 mg dailyBP stable Harmful pa ttern of use of multiple substances 038598735 F19.10 Hx of polysubsta nce abusePatie nt [...] Quiroz Member ID Guarantor Name 09/04/2018 1 [facility] - HEALTH NET PLAN (MEDICAID HMO) [place]OSTNACO [place] [id number] [place] OBGyn Episode No OBEpisode recorded.
--- OUTSIDE RECORDS SUMMARY | 2025-03-19 12:38 | XMS_ITS | Clinical Summary ---
Author Organization [facility] Address [address] [place] [address] Care Team Providers Care Manager Research Name Role Phone Jhon Ramesh Primary Care Provider [phone] Social History Tobacco Use Types Packs/Day Years [...] (1 of 2) 11/22/2019 Influenza Vaccine (#1) 2025 Pneumococcal Vaccine Aged Out No long er eligible based on patient's age to complete this topic RSV Ped < 20 months Aged Out No longe r eligible based on patient's age to complete this topic Care Teams Manager Research Relationship Specialty Start Date End Date Jhon Ramesh [address] [facility] ROHIT [place] [address] PCP - General Family Medicine 09/18/20
== END 2025-03-19 12:41 | disposition home or self-care (01) ==
PROVIDERS: PCP Nurse Practitioner Family; Visit Provider Physician Assistant Medical
DX: R43.2 Parageusia (principal)

== ENCOUNTER 2025-04-25 11:30 | Outpatient (RCR) | payer MEDICARE, MEDICAID, SELFPAY ==
[2025-03-20 13:52] VITALS: BP 124/91; PULSE 64; RESP 16; TEMP 36.6; O2SAT 97
[2025-03-20] MEDS: 0.9 % Sodium Chloride Flush 10 ML SYRINGE 5 ML IVFLUSH (14:19)
[2025-03-28 11:34] VITALS: BP 130/90; PULSE 74; RESP 18; TEMP 37.1
[2025-04-04 12:12] VITALS: BP 118/87; PULSE 75; RESP 18; TEMP 36.6
[2025-04-11 11:34] VITALS: BP 123/86; PULSE 65; RESP 16; TEMP 37; O2SAT 98
[2025-04-11 11:57] LABS: Hematocrit 38.4 % (37.0-47.0); Hemoglobin 11.8 g/dl (12.0-16.0); Mean Corpuscular HGB Conc 30.7 g/dl (31.0-35.0); Mean Corpuscular Hemoglobin 25.9 pg (27.0-33.0); Mean Corpuscular Volume 84.4 fL (80.0-98.0); NRBC Abs Auto 0.000 X10*3/uL (0.0-0.012); NRBC Pct Auto 0.0 /100WBC (0.0-0.2); Platelet Count 302 X10*3/uL (160-400); Red Blood Count 4.55 X10*6/uL (4.20-5.50); White Blood Count 5.1 X10*3/uL (4.8-10.8)
[2025-04-11 12:46] LABS: Ferritin 126 ng/mL (10-250)
[2025-04-18 11:38] VITALS: BP 116/86; PULSE 76; RESP 16; TEMP 37.2; O2SAT 96
[2025-04-25 11:41] VITALS: BP 137/99; PULSE 73; RESP 16; TEMP 36.7; O2SAT 94
== END 2025-04-25 12:09 | disposition home or self-care (01) ==
LOC: HO.INF 11:30
PROVIDERS: Visit Provider Internal Medicine Medical Oncology
DX: D50.9 Iron deficiency anemia, unspecified (principal)
CPT/HCPCS: 36415; 82728; 85027; 96365; J1756

== ENCOUNTER 2025-07-11 06:41 | Outpatient (AMB) | payer MEDICARE, MEDICAID, SELFPAY ==
--- OUTSIDE RECORDS SUMMARY | 2025-07-11 06:44 | XMS_ITS | Encounter Summary ---
Author Organization [facility] Address [address] [place] [address] Care Team Providers Care Dockworker Name Role Phone Emmett Leal MD Primary Care Provider Unavail able [facility], Pcp Primary Care Provider Unavailabl e Reason for Visit * Reason Onset Date Comments REFERRAL 01/31/2015 Encounter Details Date Type Department Care Team Description 01/31/2015 Telephone Medicine/Pediatrics - [address] [phone] Emmett Leal MD REFERRAL Social History Tobacco Use Types Packs/Day Years Used Date Smoking Tobacco: Former Cigarettes 0.5 20 Q uit: 01/15/2015 Smokeless Tobacco: Never Alcohol Use Standard Drinks/Week Comments Yes 0 (1 standard drink = 0.6 oz pur e alcohol) one on occ Sex Assigned at Date Recorded Not on file documented as of this encounter Miscellaneous Notes * Telephone Encounter - Amy Cordoba - 01/31/2015 1:43 PM EDT Pt was put on the Physiatry referrals report for: back pain Priority: Next Available; Pt was called and a letter was sent; pt has not responded. documented in this encounter Plan of Treatment Not on file documented as of this encounter Visit Diagnoses Not on filedocumented in this encounter Care Teams Dockworker Relationship Specialty Start Date End Date Emmett Leal MD PCP - General Internal Medicine 01/02/15 11/22/15 [facility], Pcp PCP - General Internal Medicine 11/23/15 documented as of this encounter
--- OUTSIDE RECORDS SUMMARY | 2025-07-11 06:44 | XMS_ITS | Encounter Summary ---
Author Organization [facility] Address [address] [place] [address] Care Team Providers Care Wastewater Treatment Supervisor Name Role Phone Emmett Leal MD Primary Care Provider Unavail able [facility], Pcp Primary Care Provider Unavailabl e Encounter Details Date Type Department Care Team Description 07/29/2015 Hospital Medical Records [address] [place] [address] Manuel Weinstein [address] [place] [address] Social History Tobacco Use Types Packs/Day Years [...] on filedocumented in this encounter Care Teams Wastewater Treatment Supervisor Relationship Specialty Start Date End Date Emmett Leal MD PCP - General Internal Medicine 01/02/15 11/22/15 [facility], Pcp PCP - General Internal Medicine 11/23/15 documented as of this encounter
--- OUTSIDE RECORDS SUMMARY | 2025-07-11 06:44 | XMS_ITS | Clinical Summary ---
Author Organization [facility] Address [address] [place] [address] Care Team Providers Care Auto Motor Mechanic Name Role Phone Jhon Ramesh Primary Care Provider [phone] Social History Tobacco Use Types Packs/Day Years [...] age to complete this topic Care Teams Auto Motor Mechanic Relationship Specialty Start Date End Date Jhon Ramesh [address] [facility] [place] [address] PCP - General Family Medicine 09/18/20
--- OUTSIDE RECORDS SUMMARY | 2025-07-11 06:44 | XMS_ITS | Encounter Summary ---
Author Organization [facility] Address [address] [place] [address] Care Team Providers Care Seaman Officer Name Role Phone Emmett Leal MD Primary Care Provider Unavail able [facility], Pcp Primary Care Provider Unavailabl e Encounter Details Date Type Department Care Team Description 01/20/2015 [facility] Report Medical Records [address] [place] [address] Abstract, Provider Social History Tobacco Use Types [...] on filedocumented in this encounter Care Teams Seaman Officer Relationship Specialty Start Date End Date Emmett Leal MD PCP - General Internal Medicine 01/02/15 11/22/15 [facility], Pcp PCP - General Internal Medicine 11/23/15 documented as of this encounter
--- OUTSIDE RECORDS SUMMARY | 2025-07-11 06:44 | XMS_ITS | Data Portability ---
Author Organization [facility], Main Office Address [address] [facility] [address] [place] [address] Care Team Providers Care Manager Of Compensation Name Role Phone [facility] OTHER Assessment Encounter Date Assessment Date Assessment [...] Address Organization Details Recorded Time Toxic encephalopathy 84321456 Active 2017 Sara dubon [facility] 8 14:16:18 Essential hypertension 32201224 Active 2017 Sara dubon [facility] 8 14:16:36 Gastroesophage al reflux disease without esophagitis 399566390 Active 2017 Sara dubon [facility] 8 14:16:48 Severe major depression with psychotic features 33689180 Active 2017 Sara dubon [facility] 8 14:17:19 Harmful pattern of use of multiple substances 748311661 Active 2017 [facility] [place] 8 14:17:26 Chronic back pain 291807354 Active 2017 Rashmi Hester MD [address], [place], [address], [facility] [employer] 8 13:57:47 Urinary tract infectious disease 85030297 Active 2017 Rashmi Hester MD [address], [place], [address], [facility] [employer] 8 01:57:49 Anxiety 35969712 Active 2018 GRICEL DIAZ [address], [address], [place], [address], [facility] [employer] 9 09:58:09 Problem Notes None recorded. Medical Equipment None Reported. Allergies No known drug allergies Vitals Date Recorded Body temperature Heart rate Oxygen saturation Systolic And Diastolic Provider Name and Address Organization Details Last Updated DateTime 08/24/2018 97.8 [degF] 68 /min 97 % 108/56 mm[Hg] GRICEL DIAZ [address] [facility], [address], [place], [address] , [facility] [employer] 9 09:54:55 Date Recorded Systolic And Diastolic Provider Name and Address Organization Details Last Updated DateTime 09/04/2018 130/77 mm[Hg] Sara Mcgowan [facility] 09/04/2018 10:54:51 Date Recorded Heart rate Body temperature Systolic And Diastolic Provider Name and Address Organization Details Last Updated DateTime 08/09/2018 72 /min 97.3 [degF] 98/68 mm[Hg] Sara Mcgowan [facility] 08/09/2018 14:24:50 Date Recorded Body weight Heart rate Systolic And Diastolic Provider Name and Address Organization Details Last Updated DateTime 08/11/2018 94316.49 g 64 /min 118/64 mm[Hg] Rashmi Hester MD [address], [address], [place], [address], [facility] [employer] 08/16/2018 01:26:19 Date Recorded Heart rate Systolic And Diastolic Provider Name and Address Organization Details Last Updated DateTime 08/18/2018 68 /min 108/55 mm[Hg] Sara Mcgowan [facility] 08/18/2018 15:55:28 Social History Question Answer Notes LastModified by Organizat ion Details LastModified Time Tobacco Smoking Status Former Smoker Not Available [facility] 06/17/2020 03:13:20 Do You Have An Advance Directive? No [id number] Information not available 06/17/2020 How Much Tobacco Do You Chew? None [id number] Information not available 06/17/2020 Do You Have A Medical Power Of Exercise Manager? No [id number] Information not available 06/17/2020 What Was The Date Of Your Most Recent Tobacco Screening? 09/04/2018 [id number] Information not available 06/17/2020 Has Tobacco Cessation Counseling Been Provided? No [id number] Information not available 06/17/2020 Sex: Unknown Functional Status None recorded. Mental Status None recorded. Family History Nothing Reported. Medical History No medical history recorded. Gynecological HistoryNo gynecological history recorded. Obstetrics History GPAL:G 0 P 0 0 0 0 Past Encounters Encounter ID Performer Location Encounter Start Date Encounter Closed Date Diagnosis/Indication Diagnosis SNOMED-CT Code Diagnosis ICD10 Code Diagnosis IMO Codes [facility] [id number] [facility] [address] [place] [address] 08/09/2018 13:53:07 08/25/2018 15:06:04 Toxic encephalopathy 45095045 G92 See HPISupport grabiel carePT/OT eval and treat for deconditio ningMonito r ability to return to community Severe greg or depression with psychotic features 15245174 F32.3 Zoloft 50 mg dailyMonit or moodPsych eval prn Essential hypertension 94152456 I10 Lisinopril 5 mg dailyMonit or bp and labs Harmful pa ttern of use of multiple substances 076807957 F19.10 Hx of polysubsta nce abuse Gastroesop hageal reflux disease without esophagitis 336527037 K21.9 Protonix 40 mg dailyMonit or sxs Urinary tr act infectious disease 78833681 N30.80 Completed course of ceftriaxon eMonitor for recurrent sxs [id number] Rashmi Hester MD [facility] on [address] [place] [address] 08/11/2018 13:49:59 08/25/2018 15:09:39 Toxic encephalopathy 22692163 G92 Unclear etiology, continue to assess for any improvemen t. To be evaluated by psych. Needs supportive care and PT/OT eval and treat for linda michaels.Need to assess whether it is safe for her to return to independen t living. Severe greg or depression with psychotic features 51204335 F32.3 Continue sertraline 50 mg qdMonitor moodPsych eval Urinary tr act infectious disease 76745406 N30.80 Completed course of bactrim and then ceftriaxon eMonitor for recurrent sxs Essential hypertension 66398392 I10 Stable on lisinopril 5 mg qdMonitor bp and labs Harmful pa ttern of use of multiple substances 624487159 F19.10 Hx of polysubsta nce abuse Gastroesop hageal reflux disease without esophagitis 540799973 K21.9 Protonix 40 mg dailyMonit or sxs Chronic back pain 889728 002 G89.29 Upper back pain, will try muscle rub and ibuprofen. Will have PT eval also. [id number] AMI Delacruz [facility] on [address] [place] [address] 08/18/2018 15:54:38 08/29/2018 12:02:53 Toxic encephalopathy 68004371 G92 See HPISupport grabiel carecont. PT/OTMonit or ability to return to community- remains very confused Severe greg or depression with psychotic features 41749361 F32.3 Zoloft 50 mg dailyMood stable, very pleasant Essential hypertension 14547731 I10 Lisinopril 5 mg dailyBP stable Gastroesop hageal reflux disease without esophagitis 663875350 K21.9 Protonix 40 mg dailyNo complaints currently [id number] GRICEL DIAZ [facility] on [address] [place] [address] 08/24/2018 09:53:19 08/29/2018 12:37:53 Toxic encephalopathy 66019340 G92 Unclear etiology, continue to assess for any improvemen t. To be evaluated by psych. Needs supportive care and PT/OT eval and treat for linda michaels.Need to assess whether it is safe for her to return to independen t living. Severe greg or depression with psychotic features 29222888 F32.3 Continue sertraline 50 mg qdMonitor moodPsych eval Harmful pa ttern of use of multiple substances 785488640 F19.10 Hx of polysubsta nce abuse Anxiety 85379365 F41.1 Add ativan 0.25 mg q 8 hours PRN anxietyref er to med options, therapist is her today, touched base with her and she will see her todaypt would like to speak to CROTCH PIECE BASTER tomorrow while her boyfriend is here to talk about her progress [id number] AMI Delacruz [facility] on [address] [place] [address] 09/04/2018 10:34:45 09/06/2018 10:49:05 Toxic encephalopathy 29902648 G92 See HPISignifi cant improvemen t, A&O x 3Ambulatin g independen t and independen t with ADLsStill with some short-term memory loss-will need assistance with medication management VNA services in place for discharge home Severe greg or depression with psychotic features 09465220 F32.3 Zoloft 50 mg dailyMood stableWill f/u with psych in community Essential hypertension 62248802 I10 Lisinopril 5 mg dailyBP stable Harmful pa ttern of use of multiple substances 403176206 F19.10 Hx of polysubsta nce abusePatie nt [...] Quiroz Member ID Guarantor Name 09/04/2018 1 [facility] - HEALTH NET PLAN (MEDICAID HMO) BRANDIE Benedict [id number] Hali Benedict Notes Date Note Type Note [...] long-standing drug abuse history. Patient admitted to [facility] psych unit 07/08 for depression with psychosis-treated with olanzapine then risperidone however patient continued to decline to point of being unable to move by self, mute and incontinent of urine and feces. Transferred to [facility] for further care. Extensive work-up including [...] 5 day course of ceftriaxone. Sara dubon [place] - [facility] 08/09/2018 14:43:18 8 text/html This is a 47 yo woman with hx of depression and polysubstance abuse who is here for rehab and possible LTC after an acute hospitalization for severe MS changes. Initially brought to ED by boyfriend after he found her very confused, incontinent and unsafe at home. She was admitted to [facility] after being medically cleared. She was txed for a UTI and meds were tried for confusion, Pt. became more confused to the point of being catatonic, so sent back to hospital for behavioral medicine for medical eval. Boyfriend had question about whether she might have used meth while he was away. Utox on admission was neg. At [facility] and extensive w/u was done which showed [...] and polysubstance abuse. Rashmi Hester MD [address] [facility], [address], [place], [address], [facility] [employer] 08/16/2018 01:58:35 8 text/html 47 yo female seen for acute rounding visit. 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 Patient now ambulating independently. Denies complaints. PMH depression, htn, polysubstance abuse, gerd. Sara dubon, [facility] [employer] 08/18/2018 16:02:41 9 text/html 47 yo female seen today for acute rounding visit. 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 Patient is very anxious, constantly paces about the unit and asks nursing staff for reassurance. She is asking to speak to a provider today about her anxiety. GRICELFRANK DIAZ [address] [facility], [address], [place], [address], [facility] [employer] 08/24/2018 10:13:34 9 text/html 47 yo female admitted for rehab after hospitalization for catatonia and concern for toxic encephalopathy. Patient initially hospitalized after being found at home by boyfriend incontinent of urine and feces, extremely forgetful, difficulty with word finding and scratching self. Concern at that time about possible use of crystal meth as patient with long-standing drug abuse history. Patient admitted to [facility] psych unit 07/08 for depression with psychosis-treated with olanzapine then risperidone however patient continued to decline to point of being unable to move by self, mute and incontinent of urine and feces. Transferred to [facility] for further care. Extensive work-up including [...] appear to require level of care of usp facility at this time. Sara dubon [place] - [facility] 09/04/2018 10:55:23 OBGyn Episode No OBEpisode recorded.
--- OUTSIDE RECORDS SUMMARY | 2025-07-11 06:44 | XMS_ITS | Encounter Summary ---
Author Organization [facility] Address [address] [place] [address] Care Team Providers Care Computer Language Coder Name Role Phone Emmett Leal MD Primary Care Provider [facility], Pcp Primary Care Provider Unavailabl e Reason for Visit * Reason Onset Date Comments hospital follow up 08/05/2015 Encounter Details Date Type Department Care Team Description 08/05/2015 Telephone Medicine/Pediatrics - [address] [id number] Emmett Leal MD hospital follow up Social [...] 9:15 AM EST If unable to reach [facility] , you can call Mel Mackenzie at the same facility to make appointment. Hercontact number is [phone] (cellphone). * Telephone Encounter - Dixie Reyna - 08/05/2015 8:32 AM EST Hospital follow up appointment needed Hospital patient was treated at: [facility] Was this only an ER visit or [...] on filedocumented in this encounter Care Teams Computer Language Coder Relationship Specialty Start Date End Date Emmett Leal MD PCP - General Internal Medicine 01/02/15 11/22/15 [facility], Pcp PCP - General Internal Medicine 11/23/15 documented as of this encounter
--- NOTE | 2025-07-11 07:28 | A.OFFPC_ITS ---
Intake Visit Reasons: referral request Allergies metronidazole (From Flagyl) Adverse Reaction (Severe, Verified 07/11/25 07:38) Nausea Medication List - Last Reconciled 07/11/25 [facility] bupropion HCl XL 150 mg PO BEDTIME 90 days cholestyramine (Cholestyramine Light) 2 grams PO .every other day esomeprazole magnesium 20 mg PO BID famotidine 20 mg PO BEDTIME gabapentin 300 mg orally; 300 mg PO; 600mg in am, 300mg at noon, 600mg at night 30 days lorazepam 1 mg PO DAILY PRN 6 days nystatin 5 mL buccal qid 7 days rosuvastatin 5 mg PO BEDTIME 90 days Tobacco use date assessed: 06/12/24 Dental Screening Dental Screen Date: 06/12/24 HPI referral request HPI Details History of Present Illness The patient is a 54-year-old individual presenting for a telehealth follow-up for ongoing spontaneous severe kyphoscoliosis, which began in February of this year. The condition manifested with the patient becoming hunched, kyphotic, and having a bulge that was more prominent on the right side. The patient is now reporting more shoulder and hip pain, which is thought to be related to the severe scoliosis confirmed on prior x-rays. The patient reports generalized aches and pains associated with being bent over. The patient has a history of smoking. Review of Systems - Musculoskeletal: Reports shoulder pain , hip pain, and generalized aches and pains. - Respiratory: Denies difficulty breathi ng. Plan 1. Kyphoscoliosis The patient presents with severe kyphoscoliosis, which is believed to be the cause of the reported shoulder and hip pain. To further evaluate, repeat x-rays including rib x-rays will be ordered. A referral to the physiatry team will be placed for assessment and to explore further management options. 2. Osteoporosis Screening Given the patient's age and history of smoking, a bone density scan will be ordered to assess for osteoporosis. 3. Follow-Up The patient will be seen in approximately one month for a full physical examination. Discussion Notes I discussed with the patient that the increased shoulder and hip pain is likely related to the severe scoliosis. To re-evaluate the condition, I have placed orders for repeat x-rays of the spine and ribs. I have also placed a referral to a physiatry team for further assessment, as I am uncertain what more can be done. A bone density scan has been ordered to screen for osteoporosis, given the patient's risk factors. We will schedule a follow-up appointment in about a month for a full physical. Patient Instructions - Please complete the new x-ray orders, which include views of your ribs. - We have referred you to a physiatry [facility] for an evaluation of your back condition. - Please get the bone density scan done to check for osteoporosis (thinning of the bones). - Schedule a follow-up appointment for a full physical exam in about one month. [facility] Medical History Fracture of ninth rib Fracture of right tenth rib Scoliosis Diarrhea Subclinical hyperthyroidism Hypercalcemia Hypokalemia Incisional infection Back pain Hx of transfusion of packed red blood cells Vomiting and diarrhea Skin cancer Memory loss, short term Numbness Hx of cardiac murmur Anxiety Gastric ulcer Anemia PTSD (post-traumatic stress disorder) Synovial cyst of lumbar spine Urine incontinence Postlaminectomy syndrome Surgical History Hx of exploratory laparotomy Hx of colonoscopy History of esophagogastroduodenoscopy (EGD) Hx of spinal fusion H/O unilateral oophorectomy History of discectomy History of tonsillectomy Family History Father No problems noted. Mother Substance use disorder Maternal Grandmother Alzheimer's disease Brother No problems noted. Sister No problems noted. Son No problems noted. Social History Household Members: Significant Other Housing: House Are you a primary senior caregiver to a significant other at home: No Do you presently have visiting nurse or other home services: No Alcohol intake: never Comment: COUNTS CORRECT Patient Tobacco Use Status: Former Tobacco user Tobacco use type: Smokeless Tobacco Years Smoked: 35 e-Cigarette/Vaping Use: Currently Using service: No Current occupational status: disabled Cognitive needs: No Hearing needs: No Vision needs: No Questionnaire Thrive Questionnaire Date Thrive assessed: 06/06/24 I am a: Patient What is your living situation today?: I have a steady place to live Within the past 12 months, did the food you bought not last and you didn't have the money to get more?: Never true Within the past 12 months, did you worry whether your food would run out before you got money to buy more?: Never true Do you have trouble paying for medicines?: No Do you have trouble getting transportation to medical appointments?: No Do you have trouble paying your heating and electricity bill?: No Do you have trouble taking care of your child, family member or friend?: No Do you have trouble with day-to-day activities such as bathing, preparing meals, shopping, managing finances, etc.?: No Are you currently unemployed and looking for a job?: No Are you interested in more education?: No Please select the resources that you would like help with: None Currently or been in a relationship where the following occur: No concerns reported THRIVE Score: 0 JULIO CÉSAR-7 AMB Questionnaire JULIO CÉSAR-7 Date JULIO CÉSAR - 7 assessed: 06/12/24 Source: Developed by Drs. Joseluis Davenport, Riddhi Melendez, Ricco Wong and colleagues, with an educational mariposa from [employer]. Physical exam (Primary Care) Tobacco/Smoking Status: Tobacco use Status Tobacco use date assessed 06/12/24 02/21/25 14:46 Patient Tobacco Use Status Former Tobacco user 03/19/25 11:45 Tobacco use type Smokeless Tobacco 02/21/25 14:46 e-Cigarette/Vaping Use Currently Using 02/21/25 14:46 Thrive Assessment: Date of Thrive Assessment Date Thrive assessed 06/06/24 02/21/25 14:46 Currently or been in a relationship where the following occur: No concerns reported Telehealth Telehealth Telehealth Platform: [facility] Location of provider rendering services: practice address Location of patient: address on file Patient Identification confirmed using: Name, : Yes Telehealth method: video Patient verbally consented to treatment: Yes Patient verbally consented to billing insurance company: Yes Patient informed of any privacy concerns related to visit: Yes Minutes spent on Phone/Video with Pt.: 12 Coding Level of Care Code Tele Est Pt Level 3 (53057) Diagnoses Kyphoscoliosis M41.9 Post-menopausal Z78.0 Assessment & Plan Assessment & Plan (1) Kyphoscoliosis: Code(s): M41.9 - Scoliosis, unspecified Category: Medical (2) Post-menopausal: Code(s): Z78.0 - Asymptomatic menopausal state Category: Medical Plan . Orders: Orders XR cervical spine 2V Today M41.9 - Scoliosis, unspecified, M54.9 - Dorsalgia, unspecified XR DEXA axial skeleton Today M41.9 - Scoliosis, unspecified XR thoracic spine 2V Today M41.9 - Scoliosis, unspecified, M54.9 - Dorsalgia, unspecified XR ribs BI 3V Today M41.9 - Scoliosis, unspecified, M54.9 - Dorsalgia, unspecified Vitamin D 25-OH Total Today Z78.0 - Asymptomatic menopausal state Referrals Physiatry Referral M41.9 - Scoliosis, unspecified, M54.9 - Dorsalgia, unspecified
== END 2025-07-11 09:52 | disposition home or self-care (01) ==
LOC: HO.HMCC 06:42
PROVIDERS: Visit Provider Nurse Practitioner Family
DX: M41.9 Scoliosis, unspecified (principal); Z78.0 Asymptomatic menopausal state

== ENCOUNTER 2025-07-31 11:00 | Outpatient (AMB) | payer MEDICARE, MEDICAID, SELFPAY ==
--- NOTE | 2025-07-31 11:11 | MHC.PC.OV ---
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: No Accompanied by: Self / Same As Patient Allergies metronidazole (From Flagyl) Adverse Reaction (Severe, Verified 07/31/25 11:53) Nausea Medication List - Last Reconciled 07/31/25 by AMI Ruff- bupropion HCl XL 150 mg PO BEDTIME 90 days cholestyramine (Cholestyramine Light) 2 grams PO .every other day esomeprazole magnesium 20 mg PO BID famotidine 20 mg PO BEDTIME gabapentin 300 mg orally; 300 mg PO; 600mg in am, 300mg at noon, 600mg at night 30 days lorazepam 1 mg PO DAILY PRN 6 days nystatin 5 mL buccal qid 7 days rosuvastatin 5 mg PO BEDTIME 90 days Tobacco use date assessed: 07/31/25 Dental Screening Dental Screen Date: 07/31/25 Did you have a dental visit in the last 12 months?: No Did you have a dental problem in the last 6 months where you did not have access to dental care?: No Was dental information given to patient?: Patient declined HPI severe pain HPI Details Chief Complaint The patient presents with severe pain. History of Present Illness The patient is a 54-year-old female presenting with severe back pain. Her history includes chronic lumbar pain with radiculopathy down the right lower extremity. She underwent an L5-S1 fusion approximately 25-26 years ago. In September 2020, she had a large hemorrhagic synovial cyst removed from the left L5-S1 level. Prior to this surgery, she experienced saddle numbness. In early February 2025, she presented to a walk-in clinic with severe back pain, severe kyphosis, and a bulge in the right thoracic region. She has a history of osteoporosis. X-rays at that time showed no thoracic or lumbar vertebral fracture but did reveal progressive dextroscoliosis of the thoracic and upper lumbar spine compared to 2018. Findings also suggested an acute, mildly displaced fracture of the posterior right 8th rib and adjacent subacute fractures of the posterior right 9th and 10th ribs. The patient was previously fairly active. Social History - Functional Status: The patient was fairly active until the current issue began. Health Maintenance Review of Systems - Neurological: Reports radicular symptoms down her left lower extremity and lack of sensation from just below the knee distally. - Denies current saddle numbness. - Musculoskeletal: Reports severe pain in the mid-thoracic back. Physical Exam General: Uncomfortable appearing, in severe pain, tearing up Orientation: Patient oriented x3 Limitations: Severe kyphosis and severe bulging of the thoracic region, chronic lumbar pain with radiculopathy down right lower extremity, lack of sensation to left lower extremity up to just inferior to the knee Head: Normal to inspection Ears: Hearing grossly normal bilaterally Nose: Normal external nose present Face and sinus: Normal facial exam Eyes: Appearance normal, both eyes and all related structures Neck: Normal visual inspection and Yes full ROM Respiratory: Lungs clear to auscultation bilaterally Cardiovascular: Regular rate and rhythm. Normal S1 and S2, systolic murmur noted GI: Normal to inspection. Soft to palpation and nontender Skin: No rashes or lesions noted Neuro: Positive DTRs, lack of sensation to left lower extremity up to just inferior to the knee Extremities: Severe kyphosis and severe bulging of the right mid thoracic region, lack of sensation to left lower extremity just inferior to the knee running distally to foot Results - X-ray (February 2025): Showed no thoracic or lumbar vertebral fractures but revealed progressive dextroscoliosis of the thoracic and upper lumbar spine compared to 2018. - Findings suggested an acute, mildly displaced fracture of the posterior right 8th rib and adjacent subacute fractures of the posterior right 9th and 10th ribs. Plan 1. Severe Chronic Pain/Kyphosis/Scoliosis The patient is experiencing severe pain associated with kyphosis, scoliosis, and bulging of the thoracic musculature. She was previously referred to a helicopter officer but cannot be seen until October as a new patient. Given the severity of her symptoms and physical findings, an urgent evaluation is warranted. The plan includes ordering x-rays today and obtaining MRIs of the lumbar and thoracic spine as soon as possible. A referral will be made for her to be seen by the spine team for further management. Discussion Notes I discussed with the patient that she is in a significant amount of pain, and her physical exam findings of severe kyphosis and bulging are very concerning. I explained that while she has a referral to a helicopter officer, her next appointment is not until October, which is too long to wait given her current state. I informed her that I will be ordering x-rays today, as well as MRIs of her thoracic and lumbar spine, to get a better understanding of the cause of her symptoms. Furthermore, I will reach out to our spine team to facilitate an urgent appointment for her. Patient Instructions - We are concerned about the amount of pain you are in and the changes in your back, including the curve (kyphosis) and bulge. - You will get x-rays of your back today. - We are also ordering MRI scans of your mid and lower back to get more detailed pictures. - We will contact the spine team to have you seen by them as soon as possible for your condition. - You have an appointment with a pain and insurance claims specialist (helicopter officer), but since it is not until October, we will try to get you seen by our spine team sooner. [facility] Medical History (Updated 07/31/25 @ 11:36 by Jhon Ramesh, [facility]) Fracture of ninth rib Fracture of right tenth rib Scoliosis Diarrhea Subclinical hyperthyroidism Hypercalcemia Hypokalemia Incisional infection Back pain Hx of transfusion of packed red blood cells Vomiting and diarrhea Skin cancer Memory loss, short term Numbness Hx of cardiac murmur Anxiety Gastric ulcer Anemia PTSD (post-traumatic stress disorder) Synovial cyst of lumbar spine Urine incontinence Postlaminectomy syndrome Surgical History Hx of exploratory laparotomy Hx of colonoscopy History of esophagogastroduodenoscopy (EGD) Hx of spinal fusion H/O unilateral oophorectomy History of discectomy History of tonsillectomy Family History Father No problems noted. Mother Substance use disorder Maternal Grandmother Alzheimer's disease Brother No problems noted. Sister No problems noted. Son No problems noted. Social History Household Members: Significant Other Housing: House Are you a primary director of career resources to a significant other at home: No Do you presently have visiting nurse or other home services: No Alcohol intake: never Comment: COUNTS CORRECT Patient Tobacco Use Status: Former Tobacco user Tobacco use type: Smokeless Tobacco Years Smoked: 35 e-Cigarette/Vaping Use: Currently Using service: No Current occupational status: disabled Cognitive needs: No Hearing needs: No Vision needs: No Questionnaire PHQ-9 Over the last 2 weeks, how often have you been bothered by any of the following problems? 1. Little interest or pleasure in doing things: several days 2. Feeling down, depressed, or hopeless: several days 3. Trouble falling or staying asleep, or sleeping too much: not at all 4. Feeling tired or having little energy: more than half the days 5. Poor appetite or overeating: several days 6. Feeling bad about yourself - or that you are a failure or have let yourself or your family down: not at all 7. Trouble concentrating on things, such as reading the newspaper or watching television: several days 8. Moving or speaking so slowly that other people could have noticed. Or the opposite - being so fidgety or restless that you have been moving around a lot more than usual: not at all 9. Thoughts that you would be better off or of hurting yourself in some way: not at all Total score: 6 Depression Screening Interpretation: Negative Depression Screening Done: Yes 62944 - PHQ-9 Billing: Yes Source: Developed by Drs. Joseluis Davenport, Riddhi Melendez, Ricco Wong and colleagues, with an educational mariposa from [employer]. Thrive Questionnaire Date Thrive assessed: 06/06/24 I am a: Patient What is your living situation today?: I have a steady place to live Within the past 12 months, did the food you bought not last and you didn't have the money to get more?: Never true Within the past 12 months, did you worry whether your food would run out before you got money to buy more?: Never true Do you have trouble paying for medicines?: No Do you have trouble getting transportation to medical appointments?: No Do you have trouble paying your heating and electricity bill?: No Do you have trouble taking care of your child, family member or friend?: No Do you have trouble with day-to-day activities such as bathing, preparing meals, shopping, managing finances, etc.?: No Are you currently unemployed and looking for a job?: No Are you interested in more education?: No Please select the resources that you would like help with: None Currently or been in a relationship where the following occur: No concerns reported THRIVE Score: 0 AUDIT C Alcohol Use Questionnaire (AUDIT-C) 1. How often do you have a drink containing alcohol?: Never Total Score: 0 JULIO CÉSAR-7 AMB Questionnaire JULIO CÉSAR-7 Date JULIO CÉSAR - 7 assessed: 07/31/25 Feeling nervous, anxious, or on edge: 1 = Several days Not being able to stop or control worryin = Not at all Worrying too much about different things: 1 = Several days Trouble relaxin = Several days Being so restless that it is hard to sit still: 0 = Not at all Becoming easily annoyed or irritable: 1 = Several days Feeling afraid as if something awful might happen: 0 = Not at all Total JULIO CÉSAR-7 score (0-4 normal; 5-9 mild; 10-14 moderate; 15-21 severe): 4 Source: Developed by Drs. Joseluis Davenport, Riddhi Melendez, Ricco Wong and colleagues, with an educational mariposa from [employer]. Physical exam (Primary Care) Vital Signs: Last Vital Signs Pulse 72 07/31/25 11:15 Resp 16 07/31/25 11:15 BP 130/98 H 07/31/25 11:15 Pulse Ox 96 07/31/25 11:15 Oxygen Delivery Method Room Air 07/31/25 11:15 BMI result Body Mass Index 22.9 Tobacco/Smoking Status: Tobacco use Status Tobacco use date assessed 07/31/25 07/31/25 11:20 Patient Tobacco Use Status Former Tobacco user 07/31/25 11:12 Tobacco use type Smokeless Tobacco 07/31/25 11:12 e-Cigarette/Vaping Use Currently Using 07/31/25 11:12 PHQ-9: PHQ-9 Score PHQ-9: Total score 6 07/31/25 11:45 Depression Screening Interpretation: Negative Thrive Assessment: Date of Thrive Assessment Date Thrive assessed 06/06/24 07/31/25 11:12 Currently or been in a relationship where the following occur: No concerns reported Coding Level of Care Code Est Pt Level 3 (19312) Diagnoses Post-menopausal Z78.0 Osteoporosis M81.0 Synovial cyst of lumbar spine M71.38 Kyphoscoliosis M41.9 Postlaminectomy syndrome M96.1 Scoliosis M41.9 Additional Codes PHQ-9 - 89340 - PHQ-9 Billing: Yes ([id number]) Assessment & Plan Assessment & Plan (1) Post-menopausal: Code(s): Z78.0 - Asymptomatic menopausal state Category: Medical (2) Osteoporosis: Code(s): M81.0 - Age-related osteoporosis without current pathological fracture Category: Medical (3) Synovial cyst of lumbar spine: Code(s): M71.38 - Other bursal cyst, other site Category: Medical (4) Kyphoscoliosis: Code(s): M41.9 - Scoliosis, unspecified Category: Medical (5) Postlaminectomy syndrome: Code(s): M96.1 - Postlaminectomy syndrome, not elsewhere classified Category: Medical (6) Scoliosis: Code(s): M41.9 - Scoliosis, unspecified Category: Medical Plan . Orders: Orders XR DEXA axial skeleton 07/31/25 Z78.0 - Asymptomatic menopausal state MR lumbar spine wo con 07/31/25 M81.0 - Age-related osteoporosis without current pathological fracture, M71.38 - Other bursal cyst, other site, M41.9 - Scoliosis, unspecified, M96.1 - Postlaminectomy syndrome, not elsewhere classified MR thoracic spine wo con 07/31/25 M81.0 - Age-related osteoporosis without current pathological fracture, M71.38 - Other bursal cyst, other site, M96.1 - Postlaminectomy syndrome, not elsewhere classified, M41.9 - Scoliosis, unspecified Referrals Neuro Spine Referral M96.1 - Postlaminectomy syndrome, not elsewhere classified, M71.38 - Other bursal cyst, other site, M41.9 - Scoliosis, unspecified
[2025-07-31 11:15] VITALS: BP 130/98; PULSE 72; RESP 16; O2SAT 96; BMI 22.9
--- OUTSIDE RECORDS SUMMARY | 2025-07-31 17:14 | XMS_ITS | Clinical Summary ---
Author Organization [facility] Prior to 01/19/25 Address [address] [place] [address] Care Team Providers Care Timber Supervisor Name Role Phone Jhon Ramesh Primary Care Provider [phone] Social History Tobacco Use Types Packs/Day Years [...] age to complete this topic Care Teams Timber Supervisor Relationship Specialty Start Date End Date Jhon Ramesh [address] [facility] ROHIT Tang [id number] PCP - General Family Medicine 09/18/20
--- OUTSIDE RECORDS SUMMARY | 2025-07-31 17:15 | XMS_ITS | Data Portability ---
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 Name Role Phone [facility]) OTHER Assessment Encounter Date Assessment Date Assessment [...] Address Organization Details Recorded Time Toxic encephalopathy 42344895 Active 2017 Sara dubon [facility] 8 14:16:18 Essential hypertension 73439864 Active 2017 Sara dubon [facility] 8 14:16:36 Gastroesophage al reflux disease without esophagitis 565625408 Active 2017 Sara dubon [facility] 8 14:16:48 Severe major depression with psychotic features 27274704 Active 2017 Sara dubon [facility] 8 14:17:19 Harmful pattern of use of multiple substances 479108516 [facility] 14:17:26 Chronic back pain 237188408 Active 2017 Rashmi Hester MD [address], [place], [address], [facility] 8 13:57:47 Urinary tract infectious disease 83887706 Active 2017 Rashmi Hester MD [address], [place], [address], [facility] 8 01:57:49 Anxiety 11217690 Active 2018 GRICEL DIAZ [address], [address], [place], [address], [facility] 9 09:58:09 Problem Notes None recorded. Medical Equipment None Reported. Allergies No known drug allergies Vitals Date Recorded Body temperature Heart rate Oxygen saturation Systolic And Diastolic Provider Name and Address Organization Details Last Updated DateTime 08/24/2018 97.8 [degF] 68 /min 97 % 108/56 mm[Hg] GRICEL DIAZ [address], [address], [place], [address] , [facility] 9 09:54:55 Date Recorded Systolic And Diastolic Provider Name and Address Organization Details Last Updated DateTime 09/04/2018 130/77 mm[Hg] Sara Mcgowan [facility] 09/04/2018 10:54:51 Date Recorded Heart rate Body temperature Systolic And Diastolic Provider Name and Address Organization Details Last Updated DateTime 08/09/2018 72 /min 97.3 [degF] 98/68 mm[Hg] Sara Mcgowan [facility] 08/09/2018 14:24:50 Date Recorded Body weight Heart rate Systolic And Diastolic Provider Name and Address Organization Details Last Updated DateTime 08/11/2018 36274.49 g 64 /min 118/64 mm[Hg] Rashmi Hester MD [address], [address], [place], [address], [facility] 08/16/2018 01:26:19 Date Recorded Heart rate Systolic And Diastolic Provider Name and Address Organization Details Last Updated DateTime 08/18/2018 68 /min 108/55 mm[Hg] Sara Mcgowan [facility] 08/18/2018 15:55:28 Social History Question Answer Notes LastModified by Organizat ion Details LastModified Time Tobacco Smoking Status Former Smoker Not Available [employer] 06/17/2020 03:13:20 Do You Have An Advance Directive? No [id number] Information not available 06/17/2020 How Much Tobacco Do You Chew? 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 09/04/2018 [id number] Information not available 06/17/2020 Has Tobacco Cessation Counseling Been Provided? No [id number] Information not available 06/17/2020 Sex: Unknown Functional Status None recorded. Mental Status None recorded. Family History Nothing Reported. Medical History No medical history recorded. Gynecological HistoryNo gynecological history recorded. Obstetrics History GPAL:G 0 P 0 0 0 0 Past Encounters Encounter ID Performer Location Encounter Start Date Encounter Closed Date Diagnosis/Indication Diagnosis SNOMED-CT Code Diagnosis ICD10 Code Diagnosis IMO Codes [id number] [address] [place] [address] 08/09/2018 13:53:07 08/25/2018 15:06:04 Toxic encephalopathy 27703191 G92 See HPISupport grabiel carePT/OT eval and treat for deconditio ningMonito r ability to return to community Severe greg or depression with psychotic features 38375376 F32.3 Zoloft 50 mg dailyMonit or moodPsych eval prn Essential hypertension 86307749 I10 Lisinopril 5 mg dailyMonit or bp and labs Harmful pa ttern of use of multiple substances 594807286 F19.10 Hx of polysubsta nce abuse Gastroesop hageal reflux disease without esophagitis 446664279 K21.9 Protonix 40 mg dailyMonit or sxs Urinary tr act infectious disease 78521672 N30.80 Completed course of ceftriaxon eMonitor for recurrent sxs [id number] Rashmi Hester MD [facility] on [address] [place] [id number] 08/11/2018 13:49:59 08/25/2018 15:09:39 Toxic encephalopathy 61961166 G92 Unclear etiology, continue to assess for any improvemen t. To be evaluated by psych. Needs supportive care and PT/OT eval and treat for linda michaels.Need to assess whether it is safe for her to return to independen t living. Severe greg or depression with psychotic features 91220458 F32.3 Continue sertraline 50 mg qdMonitor moodPsych eval Urinary tr act infectious disease 18638264 N30.80 Completed course of bactrim and then ceftriaxon eMonitor for recurrent sxs Essential hypertension 55226714 I10 Stable on lisinopril 5 mg qdMonitor bp and labs Harmful pa ttern of use of multiple substances 730347809 F19.10 Hx of polysubsta nce abuse Gastroesop hageal reflux disease without esophagitis 094086036 K21.9 Protonix 40 mg dailyMonit or sxs Chronic back pain 356951 002 G89.29 Upper back pain, will try muscle rub and ibuprofen. Will have PT eval also. [id number] AMI Delacruz [facility] on [address] [place] [phone] 08/18/2018 15:54:38 08/29/2018 12:02:53 Toxic encephalopathy 91368155 G92 See HPISupport grabiel carecont. PT/OTMonit or ability to return to community- remains very confused Severe greg or depression with psychotic features 42947876 F32.3 Zoloft 50 mg dailyMood stable, very pleasant Essential hypertension 28797045 I10 Lisinopril 5 mg dailyBP stable Gastroesop hageal reflux disease without esophagitis 520237233 K21.9 Protonix 40 mg dailyNo complaints currently [id number] GRICEL DIAZ [facility] on [address] [place] [phone] 08/24/2018 09:53:19 08/29/2018 12:37:53 Toxic encephalopathy 38059673 G92 Unclear etiology, continue to assess for any improvemen t. To be evaluated by psych. Needs supportive care and PT/OT eval and treat for linda michaels.Need to assess whether it is safe for her to return to independen t living. Severe greg or depression with psychotic features 85335655 F32.3 Continue sertraline 50 mg qdMonitor moodPsych eval Harmful pa ttern of use of multiple substances 286191927 F19.10 Hx of polysubsta nce abuse Anxiety 07113186 F41.1 Add ativan 0.25 mg q 8 hours PRN anxietyref er to med options, therapist is her today, touched base with her and she will see her todaypt would like to speak to LAUNDRY ROUTEMAN tomorrow while her boyfriend is here to talk about her progress [id number] AMI Delacruz [facility] on [address] [place] [address] 09/04/2018 10:34:45 09/06/2018 10:49:05 Toxic encephalopathy 09939274 G92 See HPISignifi cant improvemen t, A&O x 3Ambulatin g independen t and independen t with ADLsStill with some short-term memory loss-will need assistance with medication management VNA services in place for discharge home Severe greg or depression with psychotic features 91226273 F32.3 Zoloft 50 mg dailyMood stableWill f/u with psych in community Essential hypertension 63344328 I10 Lisinopril 5 mg dailyBP stable Harmful pa ttern of use of multiple substances 513564225 F19.10 Hx of polysubsta nce abusePatie nt [...] Quiroz Member ID Guarantor Name 09/04/2018 1 [facility]AN (MEDICAID HMO) BRANDIE Benedict [id number] Hali Benedict Notes Date Note Type Note [...] long-standing drug abuse history. Patient admitted to [facility] unit 07/08 for depression with psychosis-treated with olanzapine then risperidone however patient continued to decline to point of being unable to move by self, mute and incontinent of urine and feces. Transferred to [facility] for further care. Extensive work-up including [...] 5 day course of ceftriaxone. Sara dubon [place] - [facility] 08/09/2018 14:43:18 8 text/html This is a 47 yo woman with hx of depression and polysubstance abuse who is here for rehab and possible LTC after an acute hospitalization for severe MS changes. Initially brought to ED by boyfriend after he found her very confused, incontinent and unsafe at home. [facility] She was txed for a UTI and meds were tried for confusion, Pt. became more confused to the point of being catatonic, so sent back to [facility] for medical eval. Boyfriend had question about whether she might have used meth while he was away. Utox on admission was neg. At [facility] and extensive w/u was done which showed [...] and polysubstance abuse. Rashmi Hester MD [address], [address], [place], [address], [facility] 08/16/2018 01:58:35 8 text/html 47 yo female seen for acute rounding visit. 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 Patient now ambulating independently. Denies complaints. PMH depression, htn, polysubstance abuse, gerd. Sara dubon, [facility] 08/18/2018 16:02:41 9 text/html 47 yo female [...] today about her anxiety. GRICELFRANK DIAZ [address], [address], [place], [address], [facility] 08/24/2018 10:13:34 9 text/html 47 yo female admitted for rehab after hospitalization for catatonia and concern for toxic encephalopathy. Patient initially hospitalized after being found at home by boyfriend incontinent of urine and feces, extremely forgetful, difficulty with word finding and scratching self. Concern at that time about possible use of crystal meth as patient with long-standing drug abuse history. Patient admitted to [facility] unit 07/08 for depression with psychosis-treated with olanzapine then risperidone however patient continued to decline to point of being unable to move by self, mute and incontinent of urine and feces. Transferred to [facility] for further care. Extensive work-up including [...] appear to require level of care of jail facility at this time. Sara dubon [place] - [facility] 09/04/2018 10:55:23 OBGyn Episode No OBEpisode recorded.
== END 2025-07-31 12:13 | disposition home or self-care (01) ==
LOC: HO.HMCC 11:01
PROVIDERS: PCP Nurse Practitioner Family; Visit Provider Nurse Practitioner Family
DX: Z78.0 Asymptomatic menopausal state (principal); M81.0 Age-related osteoporosis without current pathological fracture; M71.38 Other bursal cyst, other site; M41.9 Scoliosis, unspecified; M96.1 Postlaminectomy syndrome, not elsewhere classified

== ENCOUNTER 2025-07-31 11:00 | Outpatient (REF) | payer MEDICARE, MEDICAID, SELFPAY ==
--- NOTE | ~2025-07-31 | XR_ITS ---
EXAMINATION: XR CERVICAL SPINE 2-3 VIEWS HISTORY: M54.9 - Dorsalgia, unspecified COMPARISON: There is an is made with the prior examination dated 03/28/2019. FINDINGS: AP and lateral views of the cervical spine are submitted. Osseous mineralization is normal. The patient is again noted to be status post anterior fusion of C4-C6 with plate and screws. The vertebral bodies maintain normal height. There is slight anterolisthesis of C3 on C4 without change. There is severe degenerative disc disease at the C6-7 level, with disc space narrowing and osteophyte formation. There is no prevertebral soft tissue swelling. XR/XR cervical spine 2V IMPRESSION: Status post anterior fusion of C4-C6. Degenerative changes as described. Electronically signed by: Joseluis Mcgee MD 07/31/2025 01:01 PM [facility]
--- NOTE | ~2025-07-31 | XR_ITS ---
EXAMINATION: XR RIBS 3 VIEWS BILATERAL HISTORY: M54.9 - Dorsalgia, unspecified COMPARISON: Correlation is made with PA and lateral views of the chest dated 12/03/2021. FINDINGS: A PA view of the chest and 3 views of the bilateral ribs are submitted. The lungs are expanded and clear. There is no pleural effusion, pneumothorax, or pulmonary vascular congestion. The heart is normal in size. The ribs are intact. No fracture is seen. There is severe dextroscoliosis of the thoracolumbar spine. XR/XR ribs BI 3V IMPRESSION: No evidence of fracture of the lateral ribs. Electronically signed by: Joseluis Mcgee MD 07/31/2025 12:59 PM EST
--- NOTE | ~2025-07-31 | XR_ITS ---
EXAMINATION: XR THORACIC SPINE CLINICAL INFORMATION: M54.9 - Dorsalgia, unspecified COMPARISON: Radiographs of the thoracic spine on February 21, 2025 TECHNIQUE: 2 views of the thoracic spine were obtained. FINDINGS: Unchanged moderately severe rotatory scoliosis. Mild demineralization again somewhat limits interpretation. Mild loss of height of lower thoracic vertebrae is probably similar to previous examination. Multilevel degenerative changes, more pronounced in the lower thoracic spine also appears probably similar to previous study. Visualized lungs appear clear. XR/XR thoracic spine 2V IMPRESSION: Scoliosis and demineralization limits evaluation. No definite acute changes. Electronically signed by: Nathalie Miller MD 07/31/2025 01:06 PM [facility]
== END 2025-07-31 11:01 | disposition home or self-care (01) ==
LOC: HO.HMGCX 11:00
PROVIDERS: PCP Nurse Practitioner Family; Visit Provider Nurse Practitioner Family
DX: M54.9 Dorsalgia, unspecified (principal); M41.9 Scoliosis, unspecified; Z78.0 Asymptomatic menopausal state; M81.0 Age-related osteoporosis without current pathological fracture; M71.38 Other bursal cyst, other site; M96.1 Postlaminectomy syndrome, not elsewhere classified
CPT/HCPCS: 71110; 72040; 72070; 96127; 99212

== ENCOUNTER → 2025-07-31 12:09 | Outpatient (BNV) | payer MEDICARE, MEDICAID, SELFPAY | PROVIDERS: PCP Nurse Practitioner Family; Visit Provider Radiology Diagnostic Radiology | DX: M54.9 Dorsalgia, unspecified (principal); M50.30 Other cervical disc degeneration, unspecified cervical region; Z98.1 Arthrodesis status; M41.84 Other forms of scoliosis, thoracic region | CPT/HCPCS: 71110; 72040; 72070 ==